=== PATIENT | male | born 1955 | race Caucasian/White ===

== ENCOUNTER 2020-04-17 11:37 | Inpatient (IN) | payer MEDICARE, MEDICAID, SELFPAY ==
--- NOTE | 2020-04-17 11:41 | ED_ITS ---
HPI - SOB/Dyspnea General Chief Complaint: Dyspnea Stated Complaint: RESPIRATORY DISTRESS ON CPAP Time Seen by Provider: 04/17/20 11:41 Source: patient and EMS Mode of arrival: EMS Limitations: physical limitation (respiratory distress) History of Present Illness MD elicited complaint: shortness of breath Pertinent past history: COPD Onset (ago): day(s) (yesterday) Context: anxiety Timing: constant Severity: severe Exacerbating factors: exertion, movement, coughing and smoke Relieving factors: oxygen, rest and bronchodilators Known history of: COPD Associated symptoms: chest pain, cough and wheezing Treatment prior to arrival: bronchodilator, NIPPV (found to be in 80s by EMS) and other (IV solumedrol) Related Data Home Medications Medication Instructions Recorded Confirmed albuterol sulfate [Ventolin HFA] 2 puff PO Q4-6H PRN 04/17/20 04/17/20 amiodarone 200 mg PO DAILY 04/17/20 04/17/20 amlodipine 1 tab PO DAILY 04/17/20 04/17/20 aspirin 1 tab PO DAILY 04/17/20 04/17/20 atorvastatin 80 mg PO BEDTIME 04/17/20 04/17/20 clopidogrel 75 mg PO DAILY 04/17/20 04/17/20 furosemide 40 mg PO DAILY 04/17/20 04/17/20 gabapentin 1 cap PO TID 04/17/20 04/17/20 insulin aspart U-100 [Novolog 8 unit SUBCUT TIDAC 04/17/20 04/17/20 Flexpen U-100 Insulin] insulin glargine [Lantus U-100 35 unit SUBCUT QPM 04/17/20 04/17/20 Insulin] losartan 1 tab PO DAILY 04/17/20 04/17/20 metoprolol succinate 1 tab PO DAILY 04/17/20 04/17/20 montelukast 10 mg PO BEDTIME 04/17/20 04/17/20 pantoprazole [Protonix] 40 mg PO DAILY 04/17/20 04/17/20 quetiapine 100 mg PO BEDTIME 04/17/20 04/17/20 sertraline 1 tab PO DAILY 04/17/20 04/17/20 sertraline 1 tab PO DAILY 04/17/20 04/17/20 tamsulosin 1 cap PO DAILY 04/17/20 04/17/20 umeclidinium [Incruse Ellipta] 1 inh INHALATION DAILY 04/17/20 04/17/20 Allergies Allergy/AdvReac Type Severity Reaction Status Date / Time nitroglycerin [NITROGLYCERIN] Allergy Severe CARDIOPULMONARY Verified 04/17/20 11:57 ARREST 2012 adhesive tape [Adhesive Tape] Allergy Mild BLISTERS Verified 04/17/20 11:57 cephalexin [From Keflex] Allergy Unknown ITCHING Verified 04/17/20 11:57 ciprofloxacin [From Cipro] Allergy Unknown ITCHING Verified 04/17/20 11:57 latex [LATEX] Allergy Unknown UNKNOWN Verified 04/17/20 11:57 morphine [Morphine] Allergy Unknown ITCHING Verified 04/17/20 11:57 tramadol [From ULTRAM] AdvReac Severe STOMACH Verified 04/17/20 11:57 UPSET Adhesive Tape 1 x5yd Allergy Unknown Hives Uncoded 04/17/20 11:57 Diltiazem HCl Allergy Unknown Unknown Uncoded 04/17/20 11:57 Latex Gloves Allergy Unknown Unknown Uncoded 04/17/20 11:57 Review of Systems Review of Systems: ROS unable to be obtained due to patient's respirator distress PENDING SALE TO [facility] Past Medical History Medical History Asthma Atrial fibrillation BiPAP (biphasic positive airway pressure) dependence CHF (congestive heart failure) Continuous positive airway pressure dependent COPD (chronic obstructive pulmonary disease) Diabetes mellitus, type 2 Social History Social History Alcohol intake: current Alcohol intake frequency: holidays/special occasions only Alcohol type: beer Smoking Status: Current every day smoker Smoked in Last 30 Days: Yes Use of substances other than those prescribed or required for medical reasons: No Advance Directives: Yes Advance Directives Information Provided: Yes Advance Directives on File: No Physical Exam Vital Signs and I&O and Narrative: Vital Signs and I&O: Vital Signs Temp 97.9 F 04/17/20 11:42 Pulse 108 H 04/17/20 11:51 Resp 22 H 04/17/20 11:51 BP 180/113 H 04/17/20 11:51 Pulse Ox 93 04/17/20 11:51 Intake & Output 04/16/20 04/17/20 04/17/20 18:59 06:59 18:59 Intake Total 50 / 50 Balance 50 / 50 Weight 101.605 kg Intake: Intake, IV Amoun t 50 / 50 Magnesium Sulf ate/H2O 2 gm In 50 / 50 50 ml @ 50 mls /hr IV ONCE ONE Rx#:[id number] Body Mass Index 39.6 Appearance: Alert. Oriented X3. Moderate respiratory distress Eyes: Pupils equal, round and reactive to light. ENT: Pharynx normal. Neck: Normal inspection. Neck supple. CVS: Tachycardia heart rate and rhythm. Pulses normal. Respiratory: Moderate respiratory distress. Breath sounds diminished throughout Abdomen: Soft and nontender. Skin: Skin warm and dry. Normal skin color. Normal skin turgor. Extremities: No lower extremity edema. No lower extremity edema. Neuro: Oriented X 3. No motor deficit. No sensory deficit. Course Course Course Narrative: RR 16, BP 168/89 95% on Bipap wants to try to come off, overall doing better, on 4L NC at this time Reevaluation(s) Reevaluation #1: doing better on 40% on venti mask, planned [facility] admit Reevaluation #2: patient now c/o pain typical in nature - pain from his breathing, very belligerent, threatening to fire me as a provider even though I am the only physician in the ED, one dose of IV fentanyl ordered MDM - SOB/Dyspnea MDM Narrative Medical decision making narrative: 64 yo male with COPD still smokes and hx of noncompliance comes in with resp distress on bipap already given steroids will continue on bipap, labs, cultures, IV fentanyl for anxiety (hx of help in past) hour long 10mg neb, no infectious symptoms noted, his acute on chronic respiratory failure and bipap use is due to viral infection and non compliance and not infection or severe sepsis, likely admit Lab Data Result diagrams: 04/17/20 14:18 Labs: Lab Results 04/17/20 04/17/20 04/17/20 Range/Units 11:51 12:35 14:18 WBC 8.7 (4.8-10.8) X10*3/uL RBC 5.78 (4.60-5.80) X10*6/uL Hgb 16.0 (14.0-18.0) g/dl Hct 47.9 (42-52) % MCV 82.9 (80-98) fL MCH 27.7 (27.0-33.0) pg MCHC 33.4 (31.0-36.0) g/dl RDW 13.2 (11.0-16.0) % Plt Count 210 (160-400) X10*3/uL MPV 10.9 (9.4-12.4) fL Hold Blue Top ABG pH 7.38 (7.35-7.45) ABG pCO2 50 H (32-45) mmhg ABG pO2 241 H (83-108) mmhg ABG HCO3 29 H (22-26) mmol/l ABG O2 Saturation 99.3 % ABG Base Excess 2.5 Oxygen Given 50% POC Glucose 351 H* (60-115) mg/dL 04/17/20 Range/Units 14:30 WBC (4.8-10.8) X10*3/uL RBC (4.60-5.80) X10*6/uL Hgb (14.0-18.0) g/dl Hct (42-52) % MCV (80-98) fL MCH (27.0-33.0) pg MCHC (31.0-36.0) g/dl RDW (11.0-16.0) % Plt Count (160-400) X10*3/uL MPV (9.4-12.4) fL Hold Blue Top SEE NOTE ABG pH (7.35-7.45) ABG pCO2 (32-45) mmhg ABG pO2 (83-108) mmhg ABG HCO3 (22-26) mmol/l ABG O2 Saturation % ABG Base Excess Oxygen Given POC Glucose (60-115) mg/dL ECG Data ECG interpretation date: 04/17/20 ECG interpretation time: 12:01 Interpretation: Rate: 119 Rhythm: sinus tachycardia [place]: normal Normal P waves. Normal CHIP. Normal QRS complex. poor R wave progression ST T wave : nonspecific qTC:normal prior studies: no acute ischemia, there is too much artifact The study has been interpreted contemporaneously by me. . Critical Care Time Critical Care Time Critical Care Time: Yes Total Critical Care Time: 60 Attestation: I personally attest to this time spent taking care of the patient Discharge Plan Discharge Prescriptions: No Action furosemide 40 mg Tablet 40 mg PO DAILY RF: 0 atorvastatin 80 mg Tablet 80 mg PO BEDTIME RF: 0 amiodarone 200 mg Tablet 200 mg PO DAILY RF: 0 clopidogrel 75 mg Tablet 75 mg PO DAILY RF: 0 pantoprazole [Protonix] 40 mg Tablet,Delayed Release (Dr/Ec) 40 mg PO DAILY RF: 0 sertraline 25 mg tablet 1 tab PO DAILY RF: 0 aspirin 81 mg tablet,chewable 1 tab PO DAILY RF: 0 montelukast 10 mg Tablet 10 mg PO BEDTIME RF: 0 amlodipine 5 mg tablet 1 tab PO DAILY RF: 0 gabapentin 300 mg capsule 1 cap PO TID RF: 0 Incruse Ellipta 62.5 mcg/actuation blister with device 1 inh inhalation DAILY RF: 0 losartan 50 mg tablet 1 tab PO DAILY RF: 0 metoprolol succinate 50 mg tablet extended release 24 hr 1 tab PO DAILY RF: 0 quetiapine 100 mg tablet 100 mg PO BEDTIME RF: 0 insulin aspart U-100 [Novolog Flexpen U-100 Insulin] 100 unit/mL (3 mL) insulin pen 8 unit subcut TIDAC RF: 0 sertraline 25 mg tablet 1 tab PO DAILY RF: 0 Lantus U-100 Insulin 100 unit/mL Solution 35 unit SUBCUT QPM RF: 0 tamsulosin 0.4 mg capsule 1 cap PO DAILY RF: 0 albuterol sulfate [Ventolin HFA] 90 mcg/actuation HFA aerosol inhaler 2 puff PO Q4-6H PRN (Reason: Shortness Of Breath) RF: 0
[2020-04-17 11:42] VITALS: BP 179/119; BP 195/122; PULSE 116; PULSE 120; RESP 40; TEMP 36.6; O2SAT 95; O2SAT 96; BMI 39.6
--- NOTE | 2020-04-17 11:44 | ECG_ITS ---
Test Reason : SOB Blood Pressure : / mmHG Vent. Rate : 119 BPM Atrial Rate : 119 BPM P-R Int : 142 ms QRS Dur : 094 ms QT Int : 330 ms P-R-T Axes : 038 063 040 degrees QTc Int : 464 ms Poor data quality, interpretation may be adversely affected Sinus tachycardia Nonspecific T wave abnormality Abnormal ECG When compared with ECG of 25-JAN-2020 16:40, Premature ventricular complexes are no longer Present Referred By: Kylah Conte Electronically Signed By:BEV NOWAK
--- NOTE | 2020-04-17 11:45 | XR_ITS ---
EXAMINATION: XR CHEST CLINICAL INFORMATION: Dyspnea COMPARISON: Previous chest x-rays most recent January 2020 TECHNIQUE: Frontal view of the chest was obtained. FINDINGS: The cardiac silhouette may be slightly enlarged but stable. Hilar and mediastinal contours are otherwise unremarkable. There are increased markings at the right lung base questionable for atelectasis or small infiltrate. The lungs are otherwise clear. There is no pleural effusion. No acute bone abnormality is seen. IMPRESSION: Atelectasis or small infiltrate at the right lung base.
[2020-04-17 11:47] VITALS: RESP 40
[2020-04-17 11:51] VITALS: BP 180/113; PULSE 108; RESP 22; O2SAT 93
[2020-04-17] MEDS: Magnesium Sulfate/H2O 2 GM/50 ML PIGGYBACK IV (11:53)
[2020-04-17] MEDS: fentaNYL citrate/PF 100 MCG/2 ML VIAL 50 MCG IVPUSH ×2 (11:53→15:05)
[2020-04-17 11:55] LABS: Glucose, Whole Blood 351 mg/dL (60-115)
[2020-04-17] MEDS: Albuterol Sulfate (0.083%) 2.5 MG/3 ML VIAL.NEB 10 MG INHALE (12:05)
[2020-04-17] MEDS: Furosemide 40 MG/4 ML VIAL IVPUSH ×2 (12:52→20:06)
[2020-04-17 13:05] LABS: Pt Ventilation O2% 50%
[2020-04-17 13:08] LABS: ABG PCO2 50 mmhg (32-45); Base Excess ABG 2.5; HCO3 ABG 29 mmol/l (22-26); Oxygen Saturation ABG 99.3 %; PO2 ABG 241 mmhg (83-108); pH ABG 7.38 (7.35-7.45)
--- NOTE | 2020-04-17 14:22 | PC.NURSE ---
MULTIPLE VENIPUNCTURE STICKS TO OBTAIN BLOOD LABS, PROVIDER AWARE. NEED CX FOR ABX. PT STS FEELING BETTER, WEENED ONTO VENTI MASK. PT CONVERSING W STAFF W/O RESP DIFFICULTY
[2020-04-17 14:33] LABS: Basophils Percent Auto 0.3 % (0-2); Eosinophils Percent Auto 0.1 % (0-4); Hematocrit 47.9 % (42-52); Imm Gran Abs Auto 0.06 X10*3/uL (0.00-0.03); Imm Gran Pct Auto 0.7 % (0.0-0.4); Lymphocytes Absolute Auto 0.6 X10*3/uL (1.2-4.9); Lymphocytes Percent Auto 6.4 % (20-40); MANUAL DIFF FLAG SCAN; Mean Corpuscular HGB Conc 33.4 g/dl (31.0-36.0); Mean Corpuscular Hemoglobin 27.7 pg (27.0-33.0); Mean Corpuscular Volume 82.9 fL (80-98); Mean Platelet Volume 10.9 fL (9.4-12.4); Monocytes Absolute Auto 0.1 X10*3/uL (0.1-1.2); Monocytes Percent Auto 1.3 % (2-11); Neutrophils Absolute Auto 7.9 X10*3/uL (2.0-8.3); Neutrophils Percent Auto 91.2 % (45-73); Platelet Count 210 X10*3/uL (160-400); Red Blood Count 5.78 X10*6/uL (4.60-5.80); Red Cell Distribution Width 13.2 % (11.0-16.0); SCAN SMEAR FLAG 1; White Blood Count 8.7 X10*3/uL (4.8-10.8)
[2020-04-17 14:47] LABS: Glucose Urine UA 500 MG/DL (NEG); Leukocyte Esterase Urine NEG (NEG); Nitrite Urine NEG (NEG); Specific Gravity - Urine 1.015 (1.005-1.025); Urine Blood NEG (NEG); Urine Ketones NEG (NEG); Urine Protein NEG (NEG-TRACE)
[2020-04-17 14:48] LABS: Appearance Urine CLEAR; Color Urine YELLOW; UACC Culture Trigger NO
[2020-04-17 14:51] LABS: Adenovirus PCR Not Detected (Not Detect.); Bordetella parapertussis PCR Not Detected (Not Detect.); Bordetella pertussis PCR Not Detected (Not Detect.); Chlamydia pneumoniae PCR Not Detected (Not Detect.); Coronavirus 229E PCR Not Detected (Not Detect.); Coronavirus HKU1 PCR Not Detected (Not Detect.); Coronavirus NL63 PCR Not Detected (Not Detect.); Coronavirus OC43 PCR Not Detected (Not Detect.); Human metapneumovirus PCR Not Detected (Not Detect.); Influenza A PCR Not Detected (Not Detect.); Influenza B PCR Not Detected (Not Detect.); Mycoplasma pneumoniae PCR Not Detected (Not Detect.); Parainfluenza 1 PCR Not Detected (Not Detect.); Parainfluenza 2 PCR Not Detected (Not Detect.); Parainfluenza 3 PCR Not Detected (Not Detect.); Parainfluenza 4 PCR Not Detected (Not Detect.); RSV PCR Not Detected (Not Detect.); Rhino/Enterovirus PCR Not Detected (Not Detect.); SARS-CoV-2 PCR Not Detected (Not Detect.)
[2020-04-17 14:57] LABS: WBC Urine 0 /HPF (0-4)
[2020-04-17 14:58] LABS: RBC Urine 0 /HPF (0); Squamous Epithelial Cell Urine TRACE /LPF
[2020-04-17] MEDS: levoFLOXacin/D5W 500 MG/100 ML PIGGYBACK 100 MG IV (14:58)
[2020-04-17 15:06] LABS: SLIDE REVIEW VERIFIED
[2020-04-17 15:07] LABS: Alanine Aminotransferase 17 U/L (0-40); Albumin Level 4.4 g/dL (3.5-5.0); Alkaline Phosphatase 110 U/L (39-117); Anion Gap 15 (12-20); Aspartate Amino Transferase 14 U/L (5-37); Bilirubin Direct 0.2 mg/dL (0.0-0.5); Bilirubin Total 0.6 mg/dL (0.0-1.0); Blood Urea Nitrogen 16 mg/dL (9-16); Calcium 9.1 mg/dL (8.4-10.2); Carbon Dioxide 24 mmol/L (22-29); Chloride 105 mmol/L (96-108); Creatinine Clr Calc Pharmacy 67.7; Estimated Glomerular Filt Rate > 60; Glucose Random 307 mg/dL (60-115); Lipase 11 U/L (8-78); Magnesium 2.5 mg/dL (1.6-2.6); Potassium 4.5 mmol/l (3.3-5.1); Sodium 139 mmol/L (135-145); Total Protein 6.9 g/dL (6.5-8.0)
[2020-04-17 15:14] LABS: Lactic Acid 2.9 mmol/L (0.5-2.0)
[2020-04-17 15:20] LABS: B Type Natriuretic Peptide 538 pg/mL (<100); Troponin-I High Sensitivity 50.3 ng/L (<3.5-35.0)
[2020-04-17] MEDS: 0.9 % Sodium Chloride 500 ML IV (16:06)
--- NOTE | 2020-04-17 16:09 | PC.NURSE ---
medicated per emar, hospitalist at bedside for eval
[2020-04-17 16:35] LABS: Reflex Lactate? Lactic Acid Added
--- NOTE | 2020-04-17 16:54 | PM.IMHP ---
History of Present Illness Date of Service: 04/17/20 <KLEVER Young - Last Filed: 04/17/20 20:45> Chief Complaint: SHORTNESS OF BREATH <KLEVER Young - Last Filed: 04/17/20 20:45> this is a 64-year-old male with a history of COPD on 3 L of home O2 who presents to the emergency department with complaints of shortness of breath. he reports onset of shortness of breath yesterday. He denies any associated fever or chills. He was initially placed on BiPAP and was able to be weaned off. Lab work revealed no leukocytosis. He did have mild elevation in lactic acid at 2.9. There is possible pneumonia seen at the right lung base and he was given a dose of IV Levaquin. His BNP was 538 and he received a dose of IV Lasix as well. <KLEVER Young - Last Filed: 04/17/20 20:45> Review of Systems Review of Systems: Yes all other systems are reviewed and are negative <KLEVER Young - Last Filed: 04/17/20 20:45> Constitutional: Constitutional: Denies chills and Denies fever(s) <KLEVER Young - Last Filed: 04/17/20 20:45> Cardiovascular: Cardiovascular: Denies chest pain and Reports dyspnea <KLEVER Young - Last Filed: 04/17/20 20:45> Respiratory: Respiratory: Reports dyspnea <KLEVER Young - Last Filed: 04/17/20 20:45> Gastrointestinal: Gastrointestinal: Denies abdominal pain <KLEVER Young - Last Filed: 04/17/20 20:45> [facility] Medical History: Medical History Asthma Atrial fibrillation BPH (benign prostatic hyperplasia) CAD (coronary artery disease) Continuous positive airway pressure dependent COPD (chronic obstructive pulmonary disease) Deep vein thrombosis (DVT) of right upper extremity Diabetes mellitus, type 2 GERD (gastroesophageal reflux disease) HTN (hypertension) ELI (obstructive sleep apnea) Streptococcal bacteremia Systolic CHF <KLEVER Young Last Filed: 04/17/20 20:45> Pertinent family history: CAD <KLEVER Young - Last Filed: 04/17/20 20:45> Surgical History: Surgical History History of tracheostomy S/P diskectomy <KLEVER Young - Last Filed: 04/17/20 20:45> Social History: Social History Household Members: Family Housing: Apartment 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 If so, by whom?: No Do you feel safe in your current relationship?: No Is there a partner from a previous relationship who is making you feel unsafe now?: No Are you made to feel afraid or neglected: No Advance Directives: Yes Advance Directives Information Provided: Yes Advance Directives on File: No Advance Directives Date on File: 04/18/20 Do you have thoughts of harming others: None Do you have a plan to hurt others: No Plan Recently lost weight without trying: No service: No Current occupational status: disabled <KLEVER Young - Last Filed: 04/17/20 20:45> Meds Allergies/Adverse reactions: Allergies Allergy/AdvReac Type Severity Reaction Status Date / Time nitroglycerin [NITROGLYCERIN] Allergy Severe CARDIOPULMONARY Verified 04/17/20 11:57 ARREST 2011 adhesive tape [Adhesive Tape] Allergy Mild BLISTERS Verified 04/17/20 11:57 cephalexin [From Keflex] Allergy Unknown ITCHING Verified 04/17/20 11:57 ciprofloxacin [From Cipro] Allergy Unknown ITCHING Verified 04/17/20 11:57 latex [LATEX] Allergy Unknown UNKNOWN Verified 04/17/20 11:57 morphine [Morphine] Allergy Unknown ITCHING Verified 04/17/20 11:57 tramadol [From ULTRAM] AdvReac Severe STOMACH Verified 04/17/20 11:57 UPSET Adhesive Tape 1 x5yd Allergy Unknown Hives Uncoded 04/17/20 11:57 Diltiazem HCl Allergy Unknown Unknown Uncoded 04/17/20 11:57 Latex Gloves Allergy Unknown Unknown Uncoded 04/17/20 11:57 <KLEVER Young - Last Filed: 04/17/20 20:45> Home medications: Home Medications Medication Instructions Recorded Confirmed Type albuterol sulfate [Ventolin HFA] 2 puff PO Q4-6H PRN 04/17/20 04/17/20 History amiodarone 200 mg PO DAILY 04/17/20 04/17/20 History amlodipine 1 tab PO DAILY 04/17/20 04/17/20 History apixaban [Eliquis] 5 mg PO BID 04/17/20 04/17/20 History aspirin 1 tab PO DAILY 04/17/20 04/17/20 History atorvastatin 80 mg PO BEDTIME 04/17/20 04/17/20 History clopidogrel 75 mg PO DAILY 04/17/20 04/17/20 History furosemide 40 mg PO DAILY 04/17/20 04/17/20 History gabapentin 1 cap PO TID 04/17/20 04/17/20 History insulin aspart U-100 [Novolog 8 unit SUBCUT TIDAC 04/17/20 04/17/20 History Flexpen U-100 Insulin] insulin glargine [Lantus U-100 35 unit SUBCUT QPM 04/17/20 04/17/20 History Insulin] losartan 1 tab PO DAILY 04/17/20 04/17/20 History metoprolol succinate 1 tab PO DAILY 04/17/20 04/17/20 History montelukast 10 mg PO BEDTIME 04/17/20 04/17/20 History pantoprazole [Protonix] 40 mg PO DAILY 04/17/20 04/17/20 History quetiapine 100 mg PO BEDTIME 04/17/20 04/17/20 History sertraline 1 tab PO DAILY 04/17/20 04/17/20 History sertraline 1 tab PO DAILY 04/17/20 04/17/20 History tamsulosin 1 cap PO DAILY 04/17/20 04/17/20 History umeclidinium [Incruse Ellipta] 1 inh INHALATION DAILY 04/17/20 04/17/20 History <KLEVER Young - Last Filed: 04/17/20 20:45> Physical Exam Vital Signs and Narrative: Vital Signs: Last Vital Signs Temp 97.9 F 04/17/20 11:42 Pulse 108 H 04/17/20 11:51 Resp 22 H 04/17/20 11:51 BP 180/113 H 04/17/20 11:51 Pulse Ox 93 04/17/20 11:51 Body Mass Index 39.6 <KLEVER Young - Last Filed: 04/17/20 20:45> Const: Nutritional Appearance: well nourished <KLEVER Young Last Filed: 04/17/20 20:45> Orientation/consciousness: patient oriented x3 <KLEVER Young Last Filed: 04/17/20 20:45> HENMT: Head: Yes normocephalic and Yes atraumatic <KLEVER Young Last Filed: 04/17/20 20:45> Eyes: Sclerae: sclerae normal <KLEVER Young Last Filed: 04/17/20 20:45> Chest: Chest palpation & inspection: normal inspection of the chest <KLEVER Young Last Filed: 04/17/20 20:45> Cardio: Rate: regular rate <KLEVER Young Last Filed: 04/17/20 20:45> Rhythm: regular rhythm <KLEVER Young Last Filed: 04/17/20 20:45> GI: Palpation (GI): Soft to palpation and nontender <KLEVER Young Last Filed: 04/17/20 20:45> Skin: General skin exam: no rashes or lesions noted <KLEVER Young Last Filed: 04/17/20 20:45> Neuro: General: patient oriented x3 <KLEVER Young Last Filed: 04/17/20 20:45> Cranial nerves: Yes CN's II-XII intact bilaterally and Yes Bilaterally intact EOM present <KLEVER Young - Last Filed: 04/17/20 20:45> Extrem: General: Yes normal to inspection <KLEVER Young - Last Filed: 04/17/20 20:45> Results Labs Labs: Laboratory Tests 04/17/20 04/17/20 04/17/20 11:51 12:35 14:18 WBC 8.7 RBC 5.78 Hgb 16.0 Hct 47.9 MCV 82.9 MCH 27.7 MCHC 33.4 RDW 13.2 Plt Count 210 MPV 10.9 Immature Gran % (Auto) 0.7 H Neut % (Auto) 91.2 H Lymph % (Auto) 6.4 L [place] % (Auto) 1.3 L Eos % (Auto) 0.1 Baso % (Auto) 0.3 Neut # (Auto) 7.9 Lymph # (Auto) 0.6 L [place] # (Auto) 0.1 Eos # (Auto) 0.0 Baso # (Auto) 0.0 Abs Immat Gran (auto) 0.06 H Absolute Nucleated RBC 0.000 Nucleated RBC % (auto) 0.0 Smear Tech's Comments VERIFIED Hold Blue Top ABG pH 7.38 ABG pCO2 50 H ABG pO2 241 H ABG HCO3 29 H ABG O2 Saturation 99.3 ABG Base Excess 2.5 Oxygen Given 50% Sodium Potassium Chloride Carbon Dioxide Anion Gap BUN Creatinine Estim Creat Clear Calc Estimated GFR POC Glucose 351 H* Random Glucose Lactic Acid Calcium Magnesium Total Bilirubin Direct Bilirubin AST ALT Alkaline Phosphatase Troponin I High Sens B-Natriuretic Peptide Total Protein Albumin Lipase Urine Color Urine Appearance Urine pH Ur Specific [place] Urine Protein Urine Glucose (UA) Urine Ketones Urine Blood Urine Nitrite Ur Leukocyte Esterase Urine RBC Urine WBC Ur Squamous Epith Cells Urine Bacteria Respiratory Panel [place] Adenovirus (Rapid PCR) B.pert (TEM-PCR) B.parapertussis DNA PCR C. pneumoniae DNA (PCR) Coronavirus OC43 (PCR) Coronavirus HKU1 (PCR) Coronavirus 229E (PCR) Coronavirus NL63 (PCR) Human Metapneumovir PCR Influenza A (RT-PCR) Influenza B (RT-PCR) M. pneumoniae (PCR) Parainfluenza 1 (PCR) Parainfluenza 2 (PCR) Parainfluenza 3 (PCR) Parainfluenza 4 (PCR) RSV (PCR) Entero/Rhino (PCR) SARS-CoV-2 RNA (RT-PCR) 04/17/20 04/17/20 04/17/20 14:18 14:30 14:30 WBC RBC Hgb Hct MCV MCH MCHC RDW Plt Count MPV Immature Gran % (Auto) Neut % (Auto) Lymph % (Auto) [place] % (Auto) Eos % (Auto) Baso % (Auto) Neut # (Auto) Lymph # (Auto) [place] # (Auto) Eos # (Auto) Baso # (Auto) Abs Immat Gran (auto) Absolute Nucleated RBC Nucleated RBC % (auto) Smear Tech's Comments Hold Blue Top SEE NOTE ABG pH ABG pCO2 ABG pO2 ABG HCO3 ABG O2 Saturation ABG Base Excess Oxygen Given Sodium 139 Potassium 4.5 Chloride 105 Carbon Dioxide 24 Anion Gap 15 BUN 16 Creatinine 1.18 Estim Creat Clear Calc 67.7 Estimated GFR > 60 POC Glucose Random Glucose 307 H Lactic Acid 2.9 H* Calcium 9.1 Magnesium 2.5 Total Bilirubin 0.6 Direct Bilirubin 0.2 AST 14 ALT 17 Alkaline Phosphatase 110 Troponin I High Sens B-Natriuretic Peptide Total Protein 6.9 Albumin 4.4 Lipase 11 Urine Color Urine Appearance Urine pH Ur Specific [place] Urine Protein Urine Glucose (UA) Urine Ketones Urine Blood Urine Nitrite Ur Leukocyte Esterase Urine RBC Urine WBC Ur Squamous Epith Cells Urine Bacteria Respiratory Panel [place] Adenovirus (Rapid PCR) B.pert (TEM-PCR) B.parapertussis DNA PCR C. pneumoniae DNA (PCR) Coronavirus OC43 (PCR) Coronavirus HKU1 (PCR) Coronavirus 229E (PCR) Coronavirus NL63 (PCR) Human Metapneumovir PCR Influenza A (RT-PCR) Influenza B (RT-PCR) M. pneumoniae (PCR) Parainfluenza 1 (PCR) Parainfluenza 2 (PCR) Parainfluenza 3 (PCR) Parainfluenza 4 (PCR) RSV (PCR) Entero/Rhino (PCR) SARS-CoV-2 RNA (RT-PCR) 04/17/20 04/17/20 04/17/20 14:30 14:38 14:47 WBC RBC Hgb Hct MCV MCH MCHC RDW Plt Count MPV Immature Gran % (Auto) Neut % (Auto) Lymph % (Auto) [place] % (Auto) Eos % (Auto) Baso % (Auto) Neut # (Auto) Lymph # (Auto) [place] # (Auto) Eos # (Auto) Baso # (Auto) Abs Immat Gran (auto) Absolute Nucleated RBC Nucleated RBC % (auto) Smear Tech's Comments Hold Blue Top ABG pH ABG pCO2 ABG pO2 ABG HCO3 ABG O2 Saturation ABG Base Excess Oxygen Given Sodium Potassium Chloride Carbon Dioxide Anion Gap BUN Creatinine Estim Creat Clear Calc Estimated GFR POC Glucose Random Glucose Lactic Acid Calcium Magnesium Total Bilirubin Direct Bilirubin AST ALT Alkaline Phosphatase Troponin I High Sens 50.3 H B-Natriuretic Peptide 538 H Total Protein Albumin Lipase Urine Color YELLOW Urine Appearance CLEAR Urine pH 6.0 Ur Specific [place] 1.015 Urine Protein NEG Urine Glucose (UA) 500 H Urine Ketones NEG Urine Blood NEG Urine Nitrite NEG Ur Leukocyte Esterase NEG Urine RBC 0 Urine WBC 0 Ur Squamous Epith Cells TRACE Urine Bacteria NONE Respiratory Panel [place] See Note Adenovirus (Rapid PCR) Not Detected B.pert (TEM-PCR) Not Detected B.parapertussis DNA PCR Not Detected C. pneumoniae DNA (PCR) Not Detected Coronavirus OC43 (PCR) Not Detected Coronavirus HKU1 (PCR) Not Detected Coronavirus 229E (PCR) Not Detected Coronavirus NL63 (PCR) Not Detected Human Metapneumovir PCR Not Detected Influenza A (RT-PCR) Not Detected Influenza B (RT-PCR) Not Detected M. pneumoniae (PCR) Not Detected Parainfluenza 1 (PCR) Not Detected Parainfluenza 2 (PCR) Not Detected Parainfluenza 3 (PCR) Not Detected Parainfluenza 4 (PCR) Not Detected RSV (PCR) Not Detected Entero/Rhino (PCR) Not Detected SARS-CoV-2 RNA (RT-PCR) Not Detected <KLEVER Young - Last Filed: 04/17/20 20:45> Assessment and Plan (1) Acute and chronic respiratory failure: Status: Acute <KLEVER Young Last Filed: 04/17/20 20:45> (2) Deep vein thrombosis (DVT) of right upper extremity: Problem details: [place] [facility] [place] <KLEVER Young Last Filed: 04/17/20 20:45> Status: Acute <KLEVER Young - Last Filed: 04/17/20 20:45> (3) ELI (obstructive sleep apnea): Status: Acute <KLEVER Young - Last Filed: 04/17/20 20:45> (4) Systolic CHF: Problem details: EF 25% 02/2020 <KLEVER Young - Last Filed: 04/17/20 20:45> Status: Acute <KLEVER Young - Last Filed: 04/17/20 20:45> (5) Acute exacerbation of chronic obstructive airways disease: Status: Acute <KLEVER Young - Last Filed: 04/17/20 20:45> (6) Hypertension: Qualifiers: Hypertension type: unspecified Qualified Code(s): I10 - Essential (primary) hypertension <KLEVER Young - Last Filed: 04/17/20 20:45> Status: Acute <KLEVER Young - Last Filed: 04/17/20 20:45> (7) CAD (coronary artery disease): Status: Acute <KLEVER Young - Last Filed: 04/17/20 20:45> (8) GERD (gastroesophageal reflux disease): Status: Acute <KLEVER Young - Last Filed: 04/17/20 20:45> (9) Diabetes mellitus, type 2: Status: Acute <KLEVER Young - Last Filed: 04/17/20 20:45> (10) Atrial fibrillation: Status: Acute <KLEVER Young - Last Filed: 04/17/20 20:45> acute on chronic respiratory failure Likely multifactorial related to underlying COPD, CHF right upper extremity DVT continue Eliquis elevated lactic acid possibly related to hypoxia no sepsis acute on chronic systolic CHF acute exacerbation IV Lasix monitor fluid status closely follow BNP acute COPD exacerbation IV Solu-Medrol scheduled and p.r.n. breathing treatments hypertension continue Norvasc, losartan CAD no chest pain troponin chronically elevated, will trend continue Plavix, statin aspirin discontinued when started on Eliquis GERD continue PPI diabetes continue home Lantus SSI, POC ADA diet ELI continue CPAP atrial fibrillation continue amiodarone, metoprolol DVT prophylaxis- Eliquis this case was discussed with Dr. Sanchez <KLEVER Young - Last Filed: 04/17/20 20:45>
--- NOTE | 2020-04-17 18:20 | PC.NURSE ---
report given to c ariel juarez
[2020-04-17 18:49] VITALS: BP 137/96; PULSE 96; RESP 28; O2SAT 95
[2020-04-17 19:05] VITALS: BP 137/96; PULSE 97; RESP 28; TEMP 36.7; O2SAT 95
[2020-04-17 19:18] LABS: Glucose, Whole Blood 302 mg/dL (60-115)
[2020-04-17 19:39] LABS: ~Lactic Acid-LAB USE ONLY 2.7 mmol/L (0.5-2.0)
[2020-04-17 19:52] LABS: Procalcitonin 0.02 ng/mL
[2020-04-17 20:00] VITALS: PULSE 102; O2SAT 96
[2020-04-17] MEDS: HYDROmorphone HCl 1 MG/ML SYRINGE IVPUSH (20:06)
[2020-04-17 20:15] LABS: Troponin-I High Sensitivity 36.2 ng/L (<3.5-35.0)
[2020-04-17] MEDS: Albuterol/Iprat 2.5/0.5MG 3 ML AMPUL.NEB INHALE (20:19)
[2020-04-17 21:06] LABS: Reflex Lactate? 2 Y
[2020-04-17 21:31] LABS: Glucose, Whole Blood 408 mg/dL (60-115)
[2020-04-17] MEDS: QUEtiapine Fumarate 100 MG TABLET PO (21:45)
[2020-04-17] MEDS: Atorvastatin Calcium 80 MG TABLET PO (21:45)
[2020-04-17] MEDS: Gabapentin 300 MG CAPSULE PO (21:45)
[2020-04-17] MEDS: Apixaban 5 MG TABLET PO (21:45)
[2020-04-17] MEDS: Montelukast Sodium 10 MG TABLET PO (21:45)
[2020-04-17] MEDS: Insulin Glargine,Hum.rec.anlog 100 UNIT/ML 10 ML VIAL 35 UNIT SUBCUT (21:46)
[2020-04-17] MEDS: Insulin Lispro 100 UNIT/ML 3 ML VIAL SUBCUT (21:48)
[2020-04-17] MEDS: 0.9 % Sodium Chloride Flush 3 ML SYRINGE 2 ML IVFLUSH (21:48)
[2020-04-17 22:30] LABS: Glucose, Whole Blood 446 mg/dL (60-115)
[2020-04-17 23:11] LABS: ~Lactic Acid-LAB USE ONLY 3.6 mmol/L (0.5-2.0)
[2020-04-18] VITALS: BP 142/68; PULSE 93; RESP 20; O2SAT 96
--- NOTE | 2020-04-18 | XR_ITS ---
EXAMINATION: RIGHT HAND 3 VIEWS CLINICAL INFORMATION: Wrist pain. COMPARISON: None. TECHNIQUE: PA, lateral, oblique views of the right hand were obtained. FINDINGS: There is normal alignment of the osseous structures. No fractures are demonstrated. There is mild narrowing at the 1st and 2nd carpometacarpal joints. No other radiodense foreign bodies are demonstrated. There is an intravenous catheter along the dorsal aspect of the hand, with minimal soft tissue swelling. There is no significant soft tissue swelling elsewhere. IMPRESSION: 1. There are no acute fractures or subluxations. There are mild arthritic changes in the medial wrist. Dorsal IV catheter as described.
[2020-04-18] MEDS: Insulin Regular, Human 100 UNIT/ML 3 ML VIAL 8 UNIT IVPUSH (00:51)
[2020-04-18] MEDS: HYDROmorphone HCl 1 MG/ML SYRINGE IVPUSH ×4 (01:07→18:34)
[2020-04-18] MEDS: Albuterol Sulfate (0.083%) 2.5 MG/3 ML VIAL.NEB INHALE ×3 (02:41→12:45)
[2020-04-18 04:00] VITALS: PULSE 90
[2020-04-18 06:53] LABS: Basophils Percent Auto 0.1 % (0-2); Hematocrit 42.9 % (42-52); Hemoglobin 14.5 g/dl (14.0-18.0); Imm Gran Pct Auto 0.6 % (0.0-0.4); Lymphocytes Absolute Auto 0.5 X10*3/uL (1.2-4.9); MANUAL DIFF FLAG SCAN; Mean Corpuscular HGB Conc 33.8 g/dl (31.0-36.0); Mean Corpuscular Hemoglobin 27.9 pg (27.0-33.0); Mean Corpuscular Volume 82.7 fL (80-98); Mean Platelet Volume 11.5 fL (9.4-12.4); Monocytes Absolute Auto 0.2 X10*3/uL (0.1-1.2); Monocytes Percent Auto 1.1 % (2-11); Neutrophils Absolute Auto 15.1 X10*3/uL (2.0-8.3); Neutrophils Percent Auto 95.2 % (45-73); Platelet Count 196 X10*3/uL (160-400); Red Blood Count 5.19 X10*6/uL (4.60-5.80); Red Cell Distribution Width 12.9 % (11.0-16.0); SCAN SMEAR FLAG 1; White Blood Count 15.9 X10*3/uL (4.8-10.8)
[2020-04-18 07:27] VITALS: BP 152/83; PULSE 93; RESP 20; TEMP 36.1; O2SAT 97
[2020-04-18 07:27] LABS: Anion Gap 17 (12-20); Blood Urea Nitrogen 23 mg/dL (9-16); Calcium 8.7 mg/dL (8.4-10.2); Carbon Dioxide 21 mmol/L (22-29); Chloride 104 mmol/L (96-108); Creatinine Clr Calc Pharmacy 74.7; Estimated Glomerular Filt Rate > 60; Glucose Random 252 mg/dL (60-115); Potassium 4.5 mmol/l (3.3-5.1); Sodium 137 mmol/L (135-145)
[2020-04-18 07:42] LABS: B Type Natriuretic Peptide 635 pg/mL (<100)
[2020-04-18 07:47] LABS: Glucose, Whole Blood 258 mg/dL (60-115)
[2020-04-18] MEDS: Insulin Lispro 100 UNIT/ML 3 ML VIAL SUBCUT ×5 (08:13→22:16)
[2020-04-18 08:35] LABS: SLIDE REVIEW VERIFIED
--- NOTE | 2020-04-18 09:25 | MHC.CDI.CONC ---
CDI Concurrent Query Service Date: 04/18/20 Documentation Clarification: Please clarify if you are treating a probable/suspected/likely or confirmed: Consistency and clarity of documentation: Pneumonia txt Pneumonia rule out Please specify if known or undetermined Pneumonia unlikely Provider Response: Other Other Diagnosis: Pneumonia unlikely PLEASE DO NOT DELETE/MODIFY EXISTING CONTENT Additional information is needed in order to code to the highest accuracy and appropriate Severity of Illness (SOI). Please clarify the information noted below in your progress notes and discharge summary. Risk Factors/Clinical Indicators/Treatments H&P: possible pneumonia right lung base, IV levaquin, hypoxia with acute on chronic respiratory failure. Smoker, respiratory distress, noncompliance, COPD on 3 liters home oxygen. CXR: atelectasis or small infiltrate at the right lung base. CDS: Corina Saini [facility], CDIS Contact Number: [phone] Please Review the information above and exercise your independent professional judgment in responding to the query. If you concur, pleas document in the PROGRESS NOTES and DISCHARGE SUMMARY. If you do not agree with the query, please document in the query above. THIS QUERY IS PART OF THE PERMANENT MEDICAL RECORD
--- NOTE | 2020-04-18 09:31 | MHC.CM.PN ---
CM met with patient at the bedside who reports he does need some assistance at home, lives with ex-, has home O2 with [employer]. Patient does have a HCP and a copy is on file. Discussed discharge plan, home with resumption of [facility] services. Declines referral to [facility]. Patient will need wheel chair van for transport. CM will continue to follow patient for discharge needs.
[2020-04-18] MEDS: Furosemide 40 MG/4 ML VIAL IVPUSH ×2 (09:33→17:29)
[2020-04-18] MEDS: Gabapentin 300 MG CAPSULE PO ×3 (09:39→20:48)
[2020-04-18] MEDS: amLODIPine Besylate 5 MG TABLET PO (09:39)
[2020-04-18] MEDS: Omeprazole 20 MG CAPSULE.DR PO (09:39)
[2020-04-18] MEDS: Tamsulosin HCL 0.4 MG CAPSULE PO (09:39)
[2020-04-18] MEDS: Amiodarone HCL 200 MG TABLET PO (09:39)
[2020-04-18] MEDS: Clopidogrel Bisulfate 75 MG TABLET PO (09:39)
[2020-04-18] MEDS: Apixaban 5 MG TABLET PO ×2 (09:39→20:48)
[2020-04-18] MEDS: Sertraline HCL 25 MG TABLET PO (09:39)
[2020-04-18] MEDS: 0.9 % Sodium Chloride Flush 3 ML SYRINGE 2 ML IVFLUSH ×2 (09:40→17:28)
[2020-04-18] MEDS: Metoprolol Succinate ER 50 MG TAB.ER.24H PO (09:40)
[2020-04-18] MEDS: Losartan Potassium 50 MG TABLET PO (09:40)
[2020-04-18 11:29] VITALS: BP 134/70; PULSE 91; RESP 20; TEMP 36; O2SAT 96
[2020-04-18 11:36] LABS: Glucose, Whole Blood 417 mg/dL (60-115)
[2020-04-18] MEDS: Insulin Lispro 100 UNIT/ML 3 ML VIAL 6 UNIT SUBCUT (12:49)
[2020-04-18 13:41] VITALS: BMI 39.6
[2020-04-18 14:03] LABS: Glucose, Whole Blood 399 mg/dL (60-115)
[2020-04-18 15:29] VITALS: BP 150/78; PULSE 94; RESP 18; TEMP 36.2; O2SAT 95
--- NOTE | 2020-04-18 15:44 | PM.IMPN ---
Subjective Subjective Date of Service: 04/18/20 Interval History: seen and examined still complaining of sob Review of Systems General - no fevers or chills Cardiovascular - cp resolved Respiratory - sob/cough Abdominal- no abdominal pain, nausea, vomiting, diarrhea Physical Exam Vital Signs and I&O and Narrative: Vital Signs and I&O: Vital Signs Temp 97.1 F 04/18/20 15:29 Pulse 94 04/18/20 15:29 Resp 18 04/18/20 15:29 BP 150/78 H 04/18/20 15:29 Pulse Ox 95 04/18/20 15:29 Intake & Output 04/17/20 04/18/20 04/18/20 18:59 06:59 18:59 Intake Total 650 / 910 260 / 910 240 / 240 Output Total 1500 / 1500 Balance 650 / -590 -1240 / -590 240 / 240 Urine Output (Aver age ml/kg/hr) 1.23 1.23 Weight 101.605 kg 101.605 kg Intake: Intake, Oral [place] unt 260 / 260 Intake, Intraper itoneal Amount 240 / 240 Intake, IV Amoun t 650 / 650 0.9 % Sodium C hloride 500 ml @ 500 / 500 500 mls/hr IV .Q1H JUDE Rx#: [id number] Magnesium Sulf ate/H2O 2 gm In 50 / 50 50 ml @ 50 mls /hr IV ONCE ONE Rx#:[id number] levoFLOXacin/D 5W 500 mg In 100 100 / 100 ml @ 100 mls/h r IV ONCE ONE Rx# :[id number] Output: Output, Urine Am ount 1500 / 1500 Other: Meal Refused No Body Mass Index 39.6 General - no acute distress, appears comfortable Cardiovascular - regular rate and rhythm, S1-S2 Lungs - ronchi/wheezinh Abdomen - soft, nontender, no rebound regarding Extremities - no edema bilaterally Neuro - awake and alert, no focal deficits Objective Data Current Medications Generic Name Dose Route Start Last Admin Trade Name Freq PRN Reason Stop Dose Admin Acetaminophen 650 mg 04/17/20 19:07 Acetaminophen 325 Mg Tablet PO Q6H PRN Pain, Mild (Pain Scale 1-3) Albuterol Sulfate 2.5 mg 04/17/20 19:07 04/18/20 12:45 Albuterol Sulfate (0.083%) 2.5 Mg/3 Ml Vial.Neb INHALE 2.5 mg Q2H PRN Administration Shortness of Breath/Wheezing Albuterol/Ipratropium 3 ml 04/18/20 16:00 Albuterol/Iprat 2.5/0.5mg 3 Ml Ampul.Neb INHALE RQ4H WHILE AWAKE [facility] Amiodarone HCl 200 mg 04/18/20 09:00 04/18/20 09:39 Amiodarone Hcl 200 Mg Tablet PO 200 mg DAILY JUDE Administration Amlodipine Besylate 5 mg 04/18/20 09:00 04/18/20 09:39 Amlodipine Besylate 5 Mg Tablet PO 5 mg DAILY JUDE Administration Protocol Apixaban 5 mg 04/17/20 21:00 04/18/20 09:39 Apixaban 5 Mg Tablet PO 5 mg BID JUDE Administration Atorvastatin Calcium 80 mg 04/17/20 21:00 04/17/20 21:45 Atorvastatin Calcium 80 Mg Tablet PO 80 mg BEDTIME JUDE Administration Clopidogrel Bisulfate 75 mg 04/18/20 09:00 04/18/20 09:39 Clopidogrel Bisulfate 75 Mg Tablet PO 75 mg DAILY JUDE Administration Docusate Sodium 100 mg 04/17/20 19:07 Docusate Sodium 100 Mg Capsule PO DAILY PRN Constipation Furosemide 40 mg 04/18/20 09:00 04/18/20 09:33 Furosemide 40 Mg/4 Ml Vial IVPUSH 40 mg BID@0900,1800 [facility] Administration Protocol Gabapentin 300 mg 04/17/20 21:00 04/18/20 14:31 Gabapentin 300 Mg Capsule PO 300 mg TID JUDE Administration Hydromorphone HCl 1 mg 04/17/20 19:07 04/18/20 12:47 Hydromorphone Hcl 1 Mg/Ml Syringe IVPUSH 1 mg Q6H JUDE Administration Insulin Glargine 35 unit 04/17/20 21:00 04/17/20 21:46 Insulin Glargine,Hum.Rec.Anlog 100 Unit/Ml 10 Ml Vial SUBCUT 35 unit BEDTIME JUDE Administration Insulin Human Lispro 0 unit 04/18/20 12:45 04/18/20 12:51 Insulin Lispro 100 Unit/Ml 3 Ml Vial SUBCUT 10 unit QIDACHS [facility] Administration Protocol Losartan Potassium 50 mg 04/18/20 09:00 04/18/20 09:40 Losartan Potassium 50 Mg Tablet PO 50 mg DAILY JUDE Administration Protocol Methylprednisolone Sodium Succinate 40 mg 04/17/20 21:00 04/18/20 14:31 Methylprednisolone Sod Succ/Pf 40 Mg/Ml Vial IVPUSH 40 mg TID JUDE Administration Metoprolol Succinate 50 mg 04/18/20 09:00 04/18/20 09:40 Metoprolol Succinate Er 50 Mg Tab.Er.24h PO 50 mg DAILY JUDE Administration Protocol Montelukast Sodium 10 mg 04/17/20 21:00 04/17/20 21:45 Montelukast Sodium 10 Mg Tablet PO 10 mg BEDTIME JUDE Administration Omeprazole 20 mg 04/18/20 09:00 04/18/20 09:39 Omeprazole 20 Mg Capsule.Dr PO 20 mg DAILY JUDE Administration Ondansetron HCl 4 mg 04/17/20 19:07 Ondansetron Hcl 4 Mg/2 Ml Vial IVPUSH Q8H PRN Nausea and Vomiting Pharmacy Consult 1 each 04/17/20 12:36 Consult Rx Perform Med Rec MISCELLANE ONCE PRN Consult order Quetiapine Fumarate 100 mg 04/17/20 21:00 04/17/20 21:45 Quetiapine Fumarate 100 Mg Tablet PO 100 mg BEDTIME JUDE Administration Sertraline HCl 25 mg 04/18/20 09:00 04/18/20 09:39 Sertraline Hcl 25 Mg Tablet PO 25 mg DAILY JUDE Administration Sodium Chloride 2 ml 04/18/20 00:00 04/18/20 09:40 0.9 % Sodium Chloride Flush 3 Ml Syringe IVFLUSH 2 ml QSHIFT JUDE Administration Tamsulosin HCl 0.4 mg 04/18/20 09:00 04/18/20 09:39 Tamsulosin Hcl 0.4 Mg Capsule PO 0.4 mg DAILY JUDE Administration Labs CBC & Chem 7: 04/18/20 06:10 04/18/20 06:10 Progress Note: A&P (1) Acute and chronic respiratory failure: Status: Acute (2) Deep vein thrombosis (DVT) of right upper extremity: Problem details: [place] [facility] [place] Status: Acute (3) ELI (obstructive sleep apnea): Status: Acute (4) Systolic CHF: Problem details: EF 25% 02/2020 Status: Acute (5) Acute exacerbation of chronic obstructive airways disease: Status: Acute (6) Hypertension: Status: Acute (7) CAD (coronary artery disease): Status: Acute (8) GERD (gastroesophageal reflux disease): Status: Acute (9) Diabetes mellitus, type 2: Status: Acute (10) Atrial fibrillation: Status: Acute Assessment and Plan: This is a 64-year-old male well known to the hospital who presents to the hospital with complaints of shortness of breath and pleuritic chest pain. He is admitted for COPD/CHF exacerbation. 1. acute on chronic respiratory failure Multifactorial, due to COPD and CHF Continue oxygen, wean to his baseline of 3 L 2. COPD exacerbation Updrafts and IV steroids 3. acute diastolic CHF IV Lasix Intake output 4. Chronic pain IV Dilaudid, taper as possible 5. Right upper extremity DVT Eliquis 6. Lactic acidosis Not due to sepsis Likely from hypoxia 7. hypertension continue Norvasc, losartan 8. CAD pleuritic in nature, due to COPD improving Plavix, aspirin discontinued per [facility] records after he was started on Eliquis there 9. GERD continue PPI 10. diabetes continue home Lantus SSI, POC ADA diet 11. ELI continue CPAP 12. atrial fibrillation continue amiodarone, metoprolol DVT prophylaxis- Eliquis
[2020-04-18] MEDS: Albuterol/Iprat 2.5/0.5MG 3 ML AMPUL.NEB INHALE ×2 (15:46→20:49)
[2020-04-18 16:38] LABS: Glucose, Whole Blood 324 mg/dL (60-115)
[2020-04-18 19:36] VITALS: BP 155/78; PULSE 89; RESP 18; TEMP 36.4; O2SAT 93
[2020-04-18 20:46] LABS: Glucose, Whole Blood 383 mg/dL (60-115)
[2020-04-18] MEDS: Atorvastatin Calcium 80 MG TABLET PO (20:48)
[2020-04-18] MEDS: QUEtiapine Fumarate 100 MG TABLET PO (20:48)
[2020-04-18] MEDS: Montelukast Sodium 10 MG TABLET PO (20:48)
[2020-04-18] MEDS: Insulin Glargine,Hum.rec.anlog 100 UNIT/ML 10 ML VIAL 35 UNIT SUBCUT (20:49)
[2020-04-19] VITALS (10 sets, daily range): BP systolic 112–160; BP diastolic 60–84; PULSE 73–95; RESP 16–28; TEMP 35.8–36.8; O2SAT 92–98
--- NOTE | 2020-04-19 | XR_ITS ---
EXAMINATION: XR CHEST CLINICAL INFORMATION: Possible right lung base pneumonia, follow-up. COMPARISON: 04/27/2020 and 01/25/2020 chest radiographs. TECHNIQUE: 2 views of the chest were obtained. FINDINGS: There has been mild interval decrease in markings at the right lung base. Mild increased markings are seen in the lingula. The heart is mildly enlarged. The mediastinal structures are unremarkable. IMPRESSION: 1. Interval decrease in markings at the right lung base suggesting atelectasis or infiltrate. 2. Mild increased markings in the lingula likely projectional however atelectasis or an infiltrate cannot be excluded.
[2020-04-19] MEDS: 0.9 % Sodium Chloride Flush 3 ML SYRINGE 2 ML IVFLUSH ×3 (00:54→17:28)
[2020-04-19] MEDS: HYDROmorphone HCl 1 MG/ML SYRINGE IVPUSH ×6 (00:54→22:27)
[2020-04-19] MEDS: Albuterol/Iprat 2.5/0.5MG 3 ML AMPUL.NEB INHALE ×4 (07:21→20:07)
[2020-04-19 08:05] LABS: Glucose, Whole Blood 268 mg/dL (60-115)
[2020-04-19] MEDS: Furosemide 40 MG/4 ML VIAL IVPUSH (08:53)
[2020-04-19] MEDS: Amiodarone HCL 200 MG TABLET PO (08:54)
[2020-04-19] MEDS: Omeprazole 20 MG CAPSULE.DR PO (08:54)
[2020-04-19] MEDS: Losartan Potassium 50 MG TABLET PO (08:54)
[2020-04-19] MEDS: Metoprolol Succinate ER 50 MG TAB.ER.24H PO (08:56)
[2020-04-19] MEDS: amLODIPine Besylate 5 MG TABLET PO (08:56)
[2020-04-19] MEDS: Tamsulosin HCL 0.4 MG CAPSULE PO (08:56)
[2020-04-19] MEDS: Clopidogrel Bisulfate 75 MG TABLET PO (08:56)
[2020-04-19] MEDS: Apixaban 5 MG TABLET PO ×2 (08:56→22:05)
[2020-04-19] MEDS: Gabapentin 300 MG CAPSULE PO ×3 (08:56→22:05)
[2020-04-19] MEDS: Sertraline HCL 25 MG TABLET PO (08:56)
[2020-04-19] MEDS: Insulin Lispro 100 UNIT/ML 3 ML VIAL SUBCUT ×6 (08:57→22:09)
[2020-04-19] MEDS: Insulin Glargine,Hum.rec.anlog 100 UNIT/ML 10 ML VIAL 20 UNIT SUBCUT (08:58)
[2020-04-19 10:00] LABS: Basophils Percent Auto 0.1 % (0-2); Eosinophils Percent Auto 0.1 % (0-4); Hematocrit 42.1 % (42-52); Hemoglobin 13.9 g/dl (14.0-18.0); Imm Gran Pct Auto 1.2 % (0.0-0.4); Lymphocytes Absolute Auto 0.7 X10*3/uL (1.2-4.9); Lymphocytes Percent Auto 4.2 % (20-40); MANUAL DIFF FLAG SCAN; Mean Corpuscular Hemoglobin 27.6 pg (27.0-33.0); Mean Corpuscular Volume 83.5 fL (80-98); Mean Platelet Volume 11.7 fL (9.4-12.4); Monocytes Absolute Auto 0.4 X10*3/uL (0.1-1.2); Monocytes Percent Auto 2.2 % (2-11); Neutrophils Percent Auto 92.2 % (45-73); Platelet Count 193 X10*3/uL (160-400); Red Blood Count 5.04 X10*6/uL (4.60-5.80); Red Cell Distribution Width 13.5 % (11.0-16.0); SCAN SMEAR FLAG 1; White Blood Count 17.3 X10*3/uL (4.8-10.8)
[2020-04-19 10:22] LABS: Anion Gap 14 (12-20); Blood Urea Nitrogen 34 mg/dL (9-16); Calcium 9.1 mg/dL (8.4-10.2); Carbon Dioxide 28 mmol/L (22-29); Chloride 99 mmol/L (96-108); Creatinine Clr Calc Pharmacy 61.5; Estimated Glomerular Filt Rate 56; Glucose Fasting 319 mg/dL (60-99); Potassium 4.5 mmol/l (3.3-5.1); Sodium 136 mmol/L (135-145)
[2020-04-19 10:53] LABS: SLIDE REVIEW VERIFIED
[2020-04-19 11:41] LABS: Glucose, Whole Blood 304 mg/dL (60-115)
--- NOTE | 2020-04-19 13:18 | MHC.CM.PN ---
Patient continues on O2 @ 2 liters and IV Zithromax. Discharge plan is home with resumption of [facility]. Patient will need wheel chair transport home. CM will continue to follow patient for discharge needs.
--- NOTE | 2020-04-19 14:08 | PM.IMPN ---
Subjective Subjective Date of Service: 04/19/20 Interval History: seen and examined still sob no fevers or chills Review of Systems General - no fevers or chills Cardiovascular - no angina Respiratory - +sob, cough -- non productive Abdominal- no abdominal pain, nausea, vomiting, diarrhea Physical Exam Vital Signs and I&O and Narrative: Vital Signs and I&O: Vital Signs Temp 97.9 F 04/19/20 12:13 Pulse 92 04/19/20 12:13 Resp 24 H 04/19/20 12:13 BP 133/76 04/19/20 12:13 Pulse Ox 96 04/19/20 12:13 Intake & Output 04/18/20 04/19/20 04/19/20 18:59 06:59 18:59 Intake Total 240 / 690 450 / 690 1000 / 1000 Output Total 3000 / 3000 Balance 240 / -2310 -2550 / -2310 1000 / 1000 Urine Output (Aver age ml/kg/hr) 2.46 2.46 Weight 101.605 kg Intake: Intake, Oral [place] unt 450 / 450 1000 / 1000 Intake, Intraper itoneal Amount 240 / 240 Output: Output, Urine Am ount 3000 / 3000 Other: Meal Refused No Breakfast % Eate n 75% Lunch % Eaten 100% Dinner % Eaten 100% Evening Snack % Eaten 100 Urine Urinal Urine Color Pale Yellow Body Mass Index 39.6 General - no acute distress, appears comfortable Cardiovascular - regular rate and rhythm, S1-S2 Lungs - diffuse wheezing Abdomen - soft, nontender, no rebound regarding Extremities - no edema bilaterally Neuro - awake and alert, no focal deficits Objective Data Current Medications Generic Name Dose Route Start Last Admin Trade Name [place] PRN Reason Stop Dose Admin Acetaminophen 650 mg 04/17/20 19:07 Acetaminophen 325 Mg Tablet PO Q6H PRN Pain, Mild (Pain Scale 1-3) Albuterol Sulfate 2.5 mg 04/17/20 19:07 04/18/20 12:45 Albuterol Sulfate (0.083%) 2.5 Mg/3 Ml Vial.Neb INHALE 2.5 mg Q2H PRN Administration Shortness of Breath/Wheezing Albuterol/Ipratropium 3 ml 04/18/20 16:00 04/19/20 11:36 Albuterol/Iprat 2.5/0.5mg 3 Ml Ampul.Neb INHALE 3 ml RQ4H WHILE AWAKE JUDE Administration Amiodarone HCl 200 mg 04/18/20 09:00 04/19/20 08:54 Amiodarone Hcl 200 Mg Tablet PO 200 mg DAILY JUDE Administration Amlodipine Besylate 5 mg 04/18/20 09:00 04/19/20 08:56 Amlodipine Besylate 5 Mg Tablet PO 5 mg DAILY JUDE Administration Protocol Apixaban 5 mg 04/17/20 21:00 04/19/20 08:56 Apixaban 5 Mg Tablet PO 5 mg BID JUDE Administration Atorvastatin Calcium 80 mg 04/17/20 21:00 04/18/20 20:48 Atorvastatin Calcium 80 Mg Tablet PO 80 mg BEDTIME JUDE Administration Clopidogrel Bisulfate 75 mg 04/18/20 09:00 04/19/20 08:56 Clopidogrel Bisulfate 75 Mg Tablet PO 75 mg DAILY JUDE Administration Docusate Sodium 100 mg 04/17/20 19:07 Docusate Sodium 100 Mg Capsule PO DAILY PRN Constipation Doxycycline Hyclate 100 mg 04/19/20 14:15 Doxycycline Hyclate 100 Mg Tablet PO BID [facility] Furosemide 40 mg 04/20/20 09:00 Furosemide 40 Mg Tablet PO DAILY [facility] Protocol Gabapentin 300 mg 04/17/20 21:00 04/19/20 08:56 Gabapentin 300 Mg Capsule PO 300 mg TID [facility] Administration Guaifenesin 600 mg 04/19/20 21:00 Guaifenesin [place] 600 Mg Tab.Er.12h PO BID [facility] Hydromorphone HCl 1 mg 04/19/20 09:11 04/19/20 10:03 Hydromorphone Hcl 1 Mg/Ml Syringe IVPUSH 1 mg Q4H PRN Administration Pain, Severe (Pain Scale 7-10) Insulin Glargine 35 unit 04/17/20 21:00 04/18/20 20:49 Insulin Glargine,Hum.Rec.Anlog 100 Unit/Ml 10 Ml Vial SUBCUT 35 unit BEDTIME JUDE Administration Insulin Glargine 20 unit 04/19/20 09:00 04/19/20 08:58 Insulin Glargine,Hum.Rec.Anlog 100 Unit/Ml 10 Ml Vial SUBCUT 20 unit DAILY JUDE Administration Insulin Human Lispro 0 unit 04/18/20 12:45 04/19/20 12:43 Insulin Lispro 100 Unit/Ml 3 Ml Vial SUBCUT 8 unit QIDAS [facility] Administration Protocol Insulin Human Lispro 4 unit 04/18/20 21:00 04/19/20 12:44 Insulin Lispro 100 Unit/Ml 3 [facility] Protocol Losartan Potassium 50 mg 04/18/20 09:00 04/19/20 08:54 Losartan Potassium 50 Mg Tablet PO 50 mg DAILY JUDE Administration Protocol Methylprednisolone Sodium Succinate 40 mg 04/19/20 21:00 Methylprednisolone Sod Succ/Pf 40 Mg/Ml Vial IVPUSH BID [facility] Metoprolol Succinate 50 mg 04/18/20 09:00 04/19/20 08:56 Metoprolol Succinate Er 50 Mg Tab.Er.24h PO 50 mg DAILY [facility] Administration Protocol Montelukast Sodium 10 mg 04/17/20 21:00 04/18/20 20:48 Montelukast Sodium 10 Mg Tablet PO 10 mg BEDTIME JUDE Administration Omeprazole 20 mg 04/18/20 09:00 04/19/20 08:54 Omeprazole 20 Mg Capsule.Dr PO 20 mg DAILY [facility] Administration Ondansetron HCl 4 mg 04/17/20 19:07 Ondansetron Hcl 4 Mg/2 Ml Vial IVPUSH Q8H PRN Nausea and Vomiting Pharmacy Consult 1 each 04/17/20 12:36 Consult Rx Perform Med Rec MISCELLANE ONCE PRN Consult order Quetiapine Fumarate 100 mg 04/17/20 21:00 04/18/20 20:48 Quetiapine Fumarate 100 Mg Tablet PO 100 mg BEDTIME JUDE Administration Sertraline HCl 25 mg 04/18/20 09:00 04/19/20 08:56 Sertraline Hcl 25 Mg Tablet PO 25 mg DAILY [facility] Administration Sodium Chloride 2 ml 04/18/20 00:00 04/19/20 10:04 0.9 % Sodium Chloride Flush 3 Ml Syringe IVFLUSH 2 ml QSHIFT [facility] Administration Tamsulosin HCl 0.4 mg 04/18/20 09:00 04/19/20 08:56 Tamsulosin Hcl 0.4 Mg Capsule PO 0.4 mg DAILY [facility] Administration Labs CBC & Chem 7: 04/19/20 09:40 04/19/20 09:40 Microbiology Microbiology Results: Microbiology 04/17/20 14:31 Blood - Venous Blood Culture - Preliminary No growth after 24 hours. 04/17/20 14:18 Blood - Venous Blood Culture - Preliminary No growth after 24 hours. Progress Note: A&P (1) Acute and chronic respiratory failure: Status: Acute (2) Deep vein thrombosis (DVT) of right upper extremity: Status: Acute (3) ELI (obstructive sleep apnea): Status: Acute (4) Systolic CHF: Status: Acute (5) Acute exacerbation of chronic obstructive airways disease: Status: Acute (6) Hypertension: Status: Acute (7) CAD (coronary artery disease): Status: Acute (8) GERD (gastroesophageal reflux disease): Status: Acute (9) Diabetes mellitus, type 2: Status: Acute (10) Atrial fibrillation: Status: Acute Assessment and Plan: This is a 64-year-old male well known to the hospital who presents to the hospital with complaints of shortness of breath and pleuritic chest pain. He is admitted for COPD/CHF exacerbation. 1. acute on chronic respiratory failure Multifactorial, due to COPD and CHF Continue oxygen, wean to his baseline of 3 L 2. COPD exacerbation taper steriods continue updrafts rpeat cxr done -- no lobar pneumonia, will start empiric doxy 3. acute diastolic CHF change to po lasix starting tomorrow Am 4. Chronic pain IV dilaudid -- taper 5. Right upper extremity DVT Eliquis 6. Lactic acidosis Not due to sepsis Likely from hypoxia 7. hypertension continue Norvasc, losartan 8. CAD pleuritic in nature, due to COPD Plavix, aspirin discontinued per [facility] records after he was started on Eliquis there continue other meds 9. GERD continue PPI 10. diabetes, uncontrolled continue lantus 35 untis qPM and 20 units qAM added today increase scheduled humalog to 8 units + sliding scale 11. ELI continue CPAP which is non-compliant with 12. atrial fibrillation continue amiodarone, metoprolol, eliquis DVT prophylaxis- Eliquis
[2020-04-19] MEDS: guaiFENesin LA 600 MG TAB.ER.12H PO ×2 (14:13→22:05)
[2020-04-19 16:49] LABS: Glucose, Whole Blood 321 mg/dL (60-115)
[2020-04-19] MEDS: Insulin Lispro 100 UNIT/ML 3 ML VIAL 6 UNIT SUBCUT ×2 (17:29→22:10)
[2020-04-19 21:40] LABS: Glucose, Whole Blood 309 mg/dL (60-115)
[2020-04-19] MEDS: QUEtiapine Fumarate 100 MG TABLET PO (22:05)
[2020-04-19] MEDS: Montelukast Sodium 10 MG TABLET PO (22:05)
[2020-04-19] MEDS: Insulin Glargine,Hum.rec.anlog 100 UNIT/ML 10 ML VIAL 35 UNIT SUBCUT (22:11)
[2020-04-20] VITALS (7 sets, daily range): BP systolic 126–168; BP diastolic 60–87; PULSE 79–97; RESP 18–24; TEMP 36.2–36.6; O2SAT 93–99
[2020-04-20] MEDS: Atorvastatin Calcium 80 MG TABLET PO ×2 (02:10→21:07)
[2020-04-20] MEDS: 0.9 % Sodium Chloride Flush 3 ML SYRINGE 2 ML IVFLUSH ×3 (02:11→16:53)
[2020-04-20] MEDS: HYDROmorphone HCl 1 MG/ML SYRINGE IVPUSH ×5 (05:01→21:06)
[2020-04-20] MEDS: Albuterol Sulfate (0.083%) 2.5 MG/3 ML VIAL.NEB INHALE (05:15)
[2020-04-20 07:35] LABS: Glucose, Whole Blood 232 mg/dL (60-115)
[2020-04-20] MEDS: Insulin Lispro 100 UNIT/ML 3 ML VIAL 6 UNIT SUBCUT ×4 (08:02→21:28)
[2020-04-20] MEDS: Insulin Lispro 100 UNIT/ML 3 ML VIAL SUBCUT ×4 (08:02→21:27)
[2020-04-20] MEDS: Furosemide 40 MG TABLET PO (08:03)
[2020-04-20] MEDS: Amiodarone HCL 200 MG TABLET PO (08:03)
[2020-04-20] MEDS: Tamsulosin HCL 0.4 MG CAPSULE PO (08:03)
[2020-04-20] MEDS: Clopidogrel Bisulfate 75 MG TABLET PO (08:03)
[2020-04-20] MEDS: amLODIPine Besylate 5 MG TABLET PO (08:03)
[2020-04-20] MEDS: Losartan Potassium 50 MG TABLET PO (08:03)
[2020-04-20] MEDS: Omeprazole 20 MG CAPSULE.DR PO (08:03)
[2020-04-20] MEDS: Metoprolol Succinate ER 50 MG TAB.ER.24H PO (08:04)
[2020-04-20] MEDS: Gabapentin 300 MG CAPSULE PO ×3 (08:04→21:07)
[2020-04-20] MEDS: guaiFENesin LA 600 MG TAB.ER.12H PO ×2 (08:04→21:07)
[2020-04-20] MEDS: Sertraline HCL 25 MG TABLET PO (08:04)
[2020-04-20] MEDS: Apixaban 5 MG TABLET PO ×2 (08:04→21:07)
[2020-04-20] MEDS: Insulin Glargine,Hum.rec.anlog 100 UNIT/ML 10 ML VIAL 20 UNIT SUBCUT (08:06)
[2020-04-20] MEDS: Albuterol/Iprat 2.5/0.5MG 3 ML AMPUL.NEB INHALE ×4 (08:34→19:53)
--- NOTE | 2020-04-20 16:29 | HO.PM.IMPN ---
Subjective Subjective Date of Service: 04/20/20 Interval History: seen and examined slight improvement, breathing improve, but not baseline Review of Systems General - no fevers or chills Cardiovascular - no chest pain Respiratory -wheezing, coughing Abdominal- no abdominal pain, nausea, vomiting, diarrhea Physical Exam Vital Signs: Vital Signs: Vital Signs Temp Pulse Resp BP Pulse Ox 04/20/20 15:28 97.6 F 84 24 H 147/73 H 95 04/20/20 12:00 97.2 F 97 18 168/86 H 93 04/20/20 08:00 97.2 F 88 20 131/87 99 04/20/20 04:00 97.5 F 84 20 128/76 96 04/19/20 23:59 97.3 F 83 120/60 96 04/19/20 20:00 97.3 F 22 H 157/71 H 92 Body Mass Index 39.6 General - no acute distress, appears comfortable Cardiovascular - regular rate and rhythm, S1-S2 Lungs - diffuse wheezing, RR improved Abdomen - soft, nontender, no rebound regarding Extremities - no edema bilaterally Neuro - awake and alert, no focal deficits Objective Data Current Medications Generic Name Dose Route Start Last Admin Trade Name Freq PRN Reason Stop Dose Admin Acetaminophen 650 mg 04/17/20 19:07 Acetaminophen 325 Mg Tablet PO Q6H PRN Pain, Mild (Pain Scale 1-3) Albuterol Sulfate 2.5 mg 04/17/20 19:07 04/20/20 05:15 Albuterol Sulfate (0.083%) 2.5 Mg/3 Ml Vial.Neb INHALE 2.5 mg Q2H PRN Administration Shortness of Breath/Wheezing Albuterol/Ipratropium 3 ml 04/18/20 16:00 04/20/20 15:57 Albuterol/Iprat 2.5/0.5mg 3 Ml Ampul.Neb INHALE 3 ml RQ4H WHILE AWAKE JUDE Administration Amiodarone HCl 200 mg 04/18/20 09:00 04/20/20 08:03 Amiodarone Hcl 200 Mg Tablet PO 200 mg DAILY JUDE Administration Amlodipine Besylate 5 mg 04/18/20 09:00 04/20/20 08:03 Amlodipine Besylate 5 Mg Tablet PO 5 mg DAILY JUDE Administration Protocol Apixaban 5 mg 04/17/20 21:00 04/20/20 08:04 Apixaban 5 Mg Tablet PO 5 mg BID JUDE Administration Atorvastatin Calcium 80 mg 04/17/20 21:00 04/20/20 02:10 Atorvastatin Calcium 80 Mg Tablet PO 80 mg BEDTIME JUDE Administration Clopidogrel Bisulfate 75 mg 04/18/20 09:00 04/20/20 08:03 Clopidogrel Bisulfate 75 Mg Tablet PO 75 mg DAILY JUDE Administration Docusate Sodium 100 mg 04/17/20 19:07 Docusate Sodium 100 Mg Capsule PO DAILY PRN Constipation Doxycycline Hyclate 100 mg 04/19/20 14:15 04/20/20 08:04 Doxycycline Hyclate 100 Mg Tablet PO 100 mg BID JUDE Administration Furosemide 40 mg 04/20/20 09:00 04/20/20 08:03 Furosemide 40 Mg Tablet PO 40 mg DAILY JUDE Administration Protocol Gabapentin 300 mg 04/17/20 21:00 04/20/20 13:10 Gabapentin 300 Mg Capsule PO 300 mg TID JUDE Administration Guaifenesin 600 mg 04/19/20 21:00 04/20/20 08:04 Guaifenesin La 600 Mg Tab.Er.12h PO 600 mg BID JUDE Administration Hydromorphone HCl 1 mg 04/19/20 09:11 04/20/20 13:05 Hydromorphone Hcl 1 Mg/Ml Syringe IVPUSH 1 mg Q4H PRN Administration Pain, Severe (Pain Scale 7-10) Insulin Glargine 35 unit 04/17/20 21:00 04/19/20 22:11 Insulin Glargine,Hum.Rec.Anlog 100 Unit/Ml 10 Ml Vial SUBCUT 35 unit BEDTIME JUDE Administration Insulin Glargine 20 unit 04/19/20 09:00 04/20/20 08:06 Insulin Glargine,Hum.Rec.Anlog 100 Unit/Ml 10 Ml Vial SUBCUT 20 unit DAILY JUDE Administration Insulin Human Lispro 0 unit 04/18/20 12:45 04/20/20 13:09 Insulin Lispro 100 Unit/Ml 3 Ml Vial SUBCUT 6 unit QIDACHS [facility] Administration Protocol Insulin Human Lispro 6 unit 04/19/20 16:30 04/20/20 13:09 Insulin Lispro 100 Unit/Ml 3 Ml Vial SUBCUT 1 unit QIDACHS [facility] Administration Protocol Losartan Potassium 50 mg 04/18/20 09:00 04/20/20 08:03 Losartan Potassium 50 Mg Tablet PO 50 mg DAILY JUDE Administration Protocol Methylprednisolone Sodium Succinate 40 mg 04/19/20 21:00 04/20/20 08:01 Methylprednisolone Sod Succ/Pf 40 Mg/Ml Vial IVPUSH 40 mg BID JUDE Administration Metoprolol Succinate 50 mg 04/18/20 09:00 04/20/20 08:04 Metoprolol Succinate Er 50 Mg Tab.Er.24h PO 50 mg DAILY JUDE Administration Protocol Montelukast Sodium 10 mg 04/17/20 21:00 04/19/20 22:05 Montelukast Sodium 10 Mg Tablet PO 10 mg BEDTIME JUDE Administration Omeprazole 20 mg 04/18/20 09:00 04/20/20 08:03 Omeprazole 20 Mg Capsule.Dr PO 20 mg DAILY JUDE Administration Ondansetron HCl 4 mg 04/17/20 19:07 Ondansetron Hcl 4 Mg/2 Ml Vial IVPUSH Q8H PRN Nausea and Vomiting Pharmacy Consult 1 each 04/17/20 12:36 Consult Rx Perform Med Rec MISCELLANE ONCE PRN Consult order Quetiapine Fumarate 100 mg 04/17/20 21:00 04/19/20 22:05 Quetiapine Fumarate 100 Mg Tablet PO 100 mg BEDTIME JUDE Administration Sertraline HCl 25 mg 04/18/20 09:00 04/20/20 08:04 Sertraline Hcl 25 Mg Tablet PO 25 mg DAILY JUDE Administration Sodium Chloride 2 ml 04/18/20 00:00 04/20/20 08:04 0.9 % Sodium Chloride Flush 3 Ml Syringe IVFLUSH 2 ml QSHIFT JUDE Administration Tamsulosin HCl 0.4 mg 04/18/20 09:00 04/20/20 08:03 Tamsulosin Hcl 0.4 Mg Capsule PO 0.4 mg DAILY JUDE Administration Labs CBC & Chem 7: 04/19/20 09:40 04/19/20 09:40 Microbiology Microbiology Results: Microbiology 04/17/20 14:31 Blood - Venous Blood Culture - Preliminary No growth after 48 hours. 04/17/20 14:18 Blood - Venous Blood Culture - Preliminary No growth after 48 hours. Assessment and Plan (1) Acute and chronic respiratory failure: Status: Acute (2) Deep vein thrombosis (DVT) of right upper extremity: Status: Acute (3) ELI (obstructive sleep apnea): Status: Acute (4) Systolic CHF: Status: Acute (5) Acute exacerbation of chronic obstructive airways disease: Status: Acute (6) Hypertension: Status: Acute (7) CAD (coronary artery disease): Status: Acute (8) GERD (gastroesophageal reflux disease): Status: Acute (9) Diabetes mellitus, type 2: Status: Acute (10) Atrial fibrillation: Status: Acute Assessment and Plan: This is a 64-year-old male well known to the hospital who presents to the hospital with complaints of shortness of breath and pleuritic chest pain. He is admitted for COPD/CHF exacerbation. 1. acute on chronic respiratory failure Multifactorial, due to COPD and CHF Continue oxygen, wean to his baseline of 3 L 2. COPD exacerbation IV steriods today, prednisone by tomorrow AM continue updrafts dox day #2 3. acute diastolic CHF improved, nearly euvolemic po lasix 4. Chronic pain improving slowly as his copd flare improves taper iv dilaudid 5. Right upper extremity DVT Eliquis 6. Lactic acidosis Not due to sepsis Likely from hypoxia 7. hypertension continue Norvasc, losartan 8. CAD pleuritic in nature, due to COPD Plavix, aspirin discontinued per [facility] records after he was started on Eliquis there continue other meds 9. GERD continue PPI 10. diabetes, uncontrolled slowly improved, should get better as his steriods are taper continue lantus 35 pm + 20 AM humalog 8 + ISS 11. ELI continue CPAP which is non-compliant with 12. atrial fibrillation continue amiodarone, metoprolol, eliquis DVT prophylaxis- Eliquis
[2020-04-20 16:43] LABS: Glucose, Whole Blood 348 mg/dL (60-115)
[2020-04-20] MEDS: Montelukast Sodium 10 MG TABLET PO (21:07)
[2020-04-20] MEDS: QUEtiapine Fumarate 100 MG TABLET PO (21:07)
[2020-04-20 21:19] LABS: Glucose, Whole Blood 254 mg/dL (60-115)
[2020-04-20] MEDS: Insulin Glargine,Hum.rec.anlog 100 UNIT/ML 10 ML VIAL 35 UNIT SUBCUT (21:29)
[2020-04-21] VITALS (11 sets, daily range): BP systolic 128–150; BP diastolic 72–89; PULSE 80–92; RESP 16–24; TEMP 36.1–36.8; O2SAT 94–98
[2020-04-21] MEDS: 0.9 % Sodium Chloride Flush 3 ML SYRINGE 2 ML IVFLUSH ×3 (02:09→13:17)
[2020-04-21] MEDS: HYDROmorphone HCl 1 MG/ML SYRINGE IVPUSH ×5 (04:57→21:02)
[2020-04-21] MEDS: Albuterol/Iprat 2.5/0.5MG 3 ML AMPUL.NEB INHALE ×4 (07:30→19:22)
[2020-04-21 07:37] LABS: Glucose, Whole Blood 142 mg/dL (60-115)
[2020-04-21 07:55] LABS: MANUAL DIFF FLAG NO
[2020-04-21] MEDS: Insulin Lispro 100 UNIT/ML 3 ML VIAL 6 UNIT SUBCUT ×4 (08:00→20:53)
[2020-04-21 08:10] LABS: Basophils Percent Auto 0.2 % (0-2); Eosinophils Percent Auto 0.1 % (0-4); Hematocrit 41.7 % (42-52); Hemoglobin 13.8 g/dl (14.0-18.0); Imm Gran Abs Auto 0.31 X10*3/uL (0.00-0.03); Imm Gran Pct Auto 2.6 % (0.0-0.4); Lymphocytes Absolute Auto 1.5 X10*3/uL (1.2-4.9); Lymphocytes Percent Auto 12.9 % (20-40); Mean Corpuscular HGB Conc 33.1 g/dl (31.0-36.0); Mean Corpuscular Volume 84.8 fL (80-98); Monocytes Absolute Auto 0.7 X10*3/uL (0.1-1.2); Monocytes Percent Auto 5.7 % (2-11); Neutrophils Absolute Auto 9.2 X10*3/uL (2.0-8.3); Neutrophils Percent Auto 78.5 % (45-73); Platelet Count 187 X10*3/uL (160-400); Red Blood Count 4.92 X10*6/uL (4.60-5.80); Red Cell Distribution Width 13.6 % (11.0-16.0); White Blood Count 11.8 X10*3/uL (4.8-10.8)
[2020-04-21 08:40] LABS: Anion Gap 11 (12-20); Blood Urea Nitrogen 41 mg/dL (9-16); Carbon Dioxide 28 mmol/L (22-29); Chloride 103 mmol/L (96-108); Creatinine Clr Calc Pharmacy 70.1; Estimated Glomerular Filt Rate > 60; Glucose Random 156 mg/dL (60-115); Potassium 4.4 mmol/l (3.3-5.1); Sodium 138 mmol/L (135-145)
[2020-04-21 08:53] LABS: Calcium 8.6 mg/dL (8.4-10.2)
[2020-04-21] MEDS: amLODIPine Besylate 5 MG TABLET PO (09:11)
[2020-04-21] MEDS: Apixaban 5 MG TABLET PO ×2 (09:11→20:52)
[2020-04-21] MEDS: Clopidogrel Bisulfate 75 MG TABLET PO (09:12)
[2020-04-21] MEDS: Metoprolol Succinate ER 50 MG TAB.ER.24H PO (09:12)
[2020-04-21] MEDS: predniSONE 20 MG TABLET 40 MG PO (09:12)
[2020-04-21] MEDS: Furosemide 40 MG TABLET PO (09:13)
[2020-04-21] MEDS: Amiodarone HCL 200 MG TABLET PO (09:13)
[2020-04-21] MEDS: Losartan Potassium 50 MG TABLET PO (09:13)
[2020-04-21] MEDS: Sertraline HCL 25 MG TABLET PO (09:13)
[2020-04-21] MEDS: Omeprazole 20 MG CAPSULE.DR PO (09:13)
[2020-04-21] MEDS: Gabapentin 300 MG CAPSULE PO ×3 (09:14→20:52)
[2020-04-21] MEDS: Insulin Glargine,Hum.rec.anlog 100 UNIT/ML 10 ML VIAL 20 UNIT SUBCUT (09:15)
[2020-04-21] MEDS: Tamsulosin HCL 0.4 MG CAPSULE PO (09:15)
[2020-04-21] MEDS: guaiFENesin LA 600 MG TAB.ER.12H PO ×2 (09:15→20:52)
[2020-04-21 11:44] LABS: Glucose, Whole Blood 107 mg/dL (60-115)
--- NOTE | 2020-04-21 15:44 | HO.PM.IMPN ---
Subjective Subjective Date of Service: 04/21/20 Interval History: seen and examined improving daily Review of Systems General - no fevers or chills Cardiovascular - no chest pain Respiratory -cough and wheezing better Abdominal- no abdominal pain, nausea, vomiting, diarrhea Physical Exam Vital Signs: Vital Signs: Vital Signs Temp Pulse Resp BP Pulse Ox 04/21/20 15:28 97 F 82 24 H 138/75 94 04/21/20 13:16 22 H 04/21/20 12:00 98.0 F 87 24 H 128/73 95 04/21/20 09:13 82 132/89 04/21/20 09:12 92 132/89 04/21/20 09:11 88 132/89 04/21/20 09:10 24 H 04/21/20 08:00 98.2 F 92 24 H 132/89 95 04/21/20 03:33 97.9 F 80 16 150/78 H 98 04/20/20 23:33 97.6 F 79 20 126/60 94 04/20/20 19:51 97.9 F 86 22 H 144/87 H 97 04/20/20 16:53 22 H Body Mass Index 39.6 General - no acute distress, appears comfortable Cardiovascular - regular rate and rhythm, S1-S2 Lungs - wheezing better, less so but still diffuse Abdomen - soft, non-tender, no rebound or regarding Extremities - no edema bilaterally Neuro - awake and alert, no focal deficits Objective Data Current Medications Generic Name Dose Route Start Last Admin Trade Name Freq PRN Reason Stop Dose Admin Acetaminophen 650 mg 04/17/20 19:07 Acetaminophen 325 Mg Tablet PO Q6H PRN Pain, Mild (Pain Scale 1-3) Albuterol Sulfate 2.5 mg 04/17/20 19:07 04/20/20 05:15 Albuterol Sulfate (0.083%) 2.5 Mg/3 Ml Vial.Neb INHALE 2.5 mg Q2H PRN Administration Shortness of Breath/Wheezing Albuterol/Ipratropium 3 ml 04/18/20 16:00 04/21/20 15:02 Albuterol/Iprat 2.5/0.5mg 3 Ml Ampul.Neb INHALE 3 ml RQ4H WHILE AWAKE JUDE Administration Amiodarone HCl 200 mg 04/18/20 09:00 04/21/20 09:13 Amiodarone Hcl 200 Mg Tablet PO 200 mg DAILY JUDE Administration Amlodipine Besylate 5 mg 04/18/20 09:00 04/21/20 09:11 Amlodipine Besylate 5 Mg Tablet PO 5 mg DAILY JUDE Administration Protocol Apixaban 5 mg 04/17/20 21:00 04/21/20 09:11 Apixaban 5 Mg Tablet PO 5 mg BID JUDE Administration Atorvastatin Calcium 80 mg 04/17/20 21:00 04/20/20 21:07 Atorvastatin Calcium 80 Mg Tablet PO 80 mg BEDTIME JUDE Administration Clopidogrel Bisulfate 75 mg 04/18/20 09:00 04/21/20 09:12 Clopidogrel Bisulfate 75 Mg Tablet PO 75 mg DAILY JUDE Administration Docusate Sodium 100 mg 04/17/20 19:07 Docusate Sodium 100 Mg Capsule PO DAILY PRN Constipation Doxycycline Hyclate 100 mg 04/19/20 14:15 04/21/20 09:13 Doxycycline Hyclate 100 Mg Tablet PO 100 mg BID JUDE Administration Furosemide 40 mg 04/20/20 09:00 04/21/20 09:13 Furosemide 40 Mg Tablet PO 40 mg DAILY JUDE Administration Protocol Gabapentin 300 mg 04/17/20 21:00 04/21/20 13:16 Gabapentin 300 Mg Capsule PO 300 mg TID JUDE Administration Guaifenesin 600 mg 04/19/20 21:00 04/21/20 09:15 Guaifenesin La 600 Mg Tab.Er.12h PO 600 mg BID JUDE Administration Hydromorphone HCl 1 mg 04/19/20 09:11 04/21/20 13:16 Hydromorphone Hcl 1 Mg/Ml Syringe IVPUSH 1 mg Q4H PRN Administration Pain, Severe (Pain Scale 7-10) Insulin Glargine 35 unit 04/17/20 21:00 04/20/20 21:29 Insulin Glargine,Hum.Rec.Anlog 100 Unit/Ml 10 Ml Vial SUBCUT 35 unit BEDTIME JUDE Administration Insulin Glargine 20 unit 04/19/20 09:00 04/21/20 09:15 Insulin Glargine,Hum.Rec.Anlog 100 Unit/Ml 10 Ml Vial SUBCUT 20 unit DAILY JUDE Administration Insulin Human Lispro 0 unit 04/18/20 12:45 04/21/20 11:56 Insulin Lispro 100 Unit/Ml 3 Ml Vial SUBCUT Not Given QIDACHS [facility] Protocol Insulin Human Lispro 6 unit 04/19/20 16:30 04/21/20 11:57 Insulin Lispro 100 Unit/Ml 3 Ml Vial SUBCUT 6 [facility] Administration Protocol Losartan Potassium 50 mg 04/18/20 09:00 04/21/20 09:13 Losartan Potassium 50 Mg Tablet PO 50 mg DAILY [facility] Administration Protocol Metoprolol Succinate 50 mg 04/18/20 09:00 04/21/20 09:12 Metoprolol Succinate Er 50 Mg Tab.Er.24h PO 50 mg DAILY [facility] Administration Protocol Montelukast Sodium 10 mg 04/17/20 21:00 04/20/20 21:07 Montelukast Sodium 10 Mg Tablet PO 10 mg BEDTIME [facility] Administration Omeprazole 20 mg 04/18/20 09:00 04/21/20 09:13 Omeprazole 20 Mg Capsule.Dr PO 20 mg DAILY [facility] Administration Ondansetron HCl 4 mg 04/17/20 19:07 Ondansetron Hcl 4 Mg/2 Ml Vial IVPUSH Q8H PRN Nausea and Vomiting Pharmacy Consult 1 each 04/17/20 12:36 Consult Rx Perform Med Rec MISCELLANE ONCE PRN Consult order Prednisone 40 mg 04/21/20 09:00 04/21/20 09:12 Prednisone 20 Mg Tablet PO 40 mg DAILY [facility] Administration Quetiapine Fumarate 100 mg 04/17/20 21:00 04/20/20 21:07 Quetiapine Fumarate 100 Mg Tablet PO 100 mg BEDTIME JUDE Administration Sertraline HCl 25 mg 04/18/20 09:00 04/21/20 09:13 Sertraline Hcl 25 Mg Tablet PO 25 mg DAILY [facility] Administration Sodium Chloride 2 ml 04/18/20 00:00 04/21/20 13:17 0.9 % Sodium Chloride Flush 3 Ml Syringe IVFLUSH 2 ml QSHIFT [facility] Administration Tamsulosin HCl 0.4 mg 04/18/20 09:00 04/21/20 09:15 Tamsulosin Hcl 0.4 Mg Capsule PO 0.4 mg DAILY [facility] Administration Labs CBC & Chem 7: 04/21/20 07:17 04/21/20 07:17 Microbiology Microbiology Results: Microbiology 04/17/20 14:31 Blood - Venous Blood Culture - Preliminary No growth after 48 hours. 04/17/20 14:18 Blood - Venous Blood Culture - Preliminary No growth after 48 hours. Assessment and Plan (1) Acute and chronic respiratory failure: Status: Acute (2) Deep vein thrombosis (DVT) of right upper extremity: Status: Acute (3) ELI (obstructive sleep apnea): Status: Acute (4) Systolic CHF: Status: Acute (5) Acute exacerbation of chronic obstructive airways disease: Status: Acute (6) Hypertension: Status: Acute (7) CAD (coronary artery disease): Status: Acute (8) GERD (gastroesophageal reflux disease): Status: Acute (9) Diabetes mellitus, type 2: Status: Acute (10) Atrial fibrillation: Status: Acute Assessment and Plan: This is a 64-year-old male well known to the hospital who presents to the hospital with complaints of shortness of breath and pleuritic chest pain. He is admitted for COPD/CHF exacerbation. 1. acute on chronic respiratory failure Multifactorial, due to COPD and CHF Continue oxygen, wean to his baseline of 3 L 2. COPD exacerbation prednisone, short taper upon d/c continue updrafts doxy day #3 3. acute diastolic CHF improved, euvolemic po lasix 4. Chronic pain taper dilaudid 5. Right upper extremity DVT Eliquis 6. Lactic acidosis Not due to sepsis Likely from hypoxia 7. hypertension continue Norvasc, losartan 8. CAD pleuritic in nature, due to COPD Plavix, aspirin discontinued per [facility] records after he was started on Eliquis there continue other meds 9. GERD continue PPI 10. diabetes, uncontrolled slowly improved, should get better as his steriods are taper continue lantus 35 pm + 20 AM humalog 8 + ISS 11. ELI continue CPAP which is non-compliant with at home 12. atrial fibrillation continue amiodarone, metoprolol, eliquis DVT prophylaxis- Eliquis
[2020-04-21 16:32] LABS: Glucose, Whole Blood 224 mg/dL (60-115)
[2020-04-21] MEDS: Insulin Lispro 100 UNIT/ML 3 ML VIAL SUBCUT ×2 (17:03→20:52)
[2020-04-21] MEDS: guaiFENesin 100 MG/5 ML LIQUID PO (17:37)
[2020-04-21 20:08] LABS: Glucose, Whole Blood 276 mg/dL (60-115)
[2020-04-21] MEDS: QUEtiapine Fumarate 100 MG TABLET PO (20:52)
[2020-04-21] MEDS: Montelukast Sodium 10 MG TABLET PO (20:52)
[2020-04-21] MEDS: Atorvastatin Calcium 80 MG TABLET PO (20:52)
[2020-04-21] MEDS: Insulin Glargine,Hum.rec.anlog 100 UNIT/ML 10 ML VIAL 35 UNIT SUBCUT (20:54)
[2020-04-21] MEDS: Albuterol Sulfate (0.083%) 2.5 MG/3 ML VIAL.NEB INHALE (23:47)
[2020-04-22] VITALS: BP 146/79; PULSE 78; RESP 18; TEMP 37.1; O2SAT 95
[2020-04-22] MEDS: 0.9 % Sodium Chloride Flush 3 ML SYRINGE 2 ML IVFLUSH ×2 (00:51→08:20)
[2020-04-22] MEDS: HYDROmorphone HCl 1 MG/ML SYRINGE IVPUSH ×3 (01:16→12:22)
[2020-04-22 03:58] VITALS: BP 154/80; PULSE 76; RESP 16; TEMP 36.4; O2SAT 93
[2020-04-22] MEDS: Albuterol/Iprat 2.5/0.5MG 3 ML AMPUL.NEB INHALE ×2 (07:24→11:44)
[2020-04-22 07:50] LABS: Glucose, Whole Blood 87 mg/dL (60-115)
[2020-04-22 08:00] VITALS: BP 153/77; PULSE 65; RESP 20; TEMP 36.2; O2SAT 95
[2020-04-22 08:15] VITALS: BP 153/77; PULSE 65
[2020-04-22] MEDS: Losartan Potassium 50 MG TABLET PO (08:15)
[2020-04-22] MEDS: Gabapentin 300 MG CAPSULE PO ×2 (08:16→13:34)
[2020-04-22] MEDS: Clopidogrel Bisulfate 75 MG TABLET PO (08:16)
[2020-04-22] MEDS: Metoprolol Succinate ER 50 MG TAB.ER.24H PO (08:16)
[2020-04-22] MEDS: Sertraline HCL 25 MG TABLET PO (08:16)
[2020-04-22] MEDS: amLODIPine Besylate 5 MG TABLET PO (08:17)
[2020-04-22] MEDS: Apixaban 5 MG TABLET PO (08:17)
[2020-04-22] MEDS: predniSONE 20 MG TABLET 40 MG PO (08:17)
[2020-04-22] MEDS: Furosemide 40 MG TABLET PO (08:17)
[2020-04-22 08:18] VITALS: PULSE 65
[2020-04-22] MEDS: Omeprazole 20 MG CAPSULE.DR PO (08:18)
[2020-04-22] MEDS: Amiodarone HCL 200 MG TABLET PO (08:18)
[2020-04-22] MEDS: Insulin Lispro 100 UNIT/ML 3 ML VIAL SUBCUT ×2 (08:18→12:19)
[2020-04-22] MEDS: Tamsulosin HCL 0.4 MG CAPSULE PO (08:18)
[2020-04-22] MEDS: Insulin Lispro 100 UNIT/ML 3 ML VIAL 6 UNIT SUBCUT ×2 (08:19→13:34)
[2020-04-22] MEDS: guaiFENesin LA 600 MG TAB.ER.12H PO (08:20)
[2020-04-22] MEDS: Insulin Glargine,Hum.rec.anlog 100 UNIT/ML 10 ML VIAL 20 UNIT SUBCUT (08:21)
--- NOTE | 2020-04-22 08:46 | P.DS_ITS ---
DS: Providers Provider Date of admission: 04/17/20 16:40 Primary care physician: Rusty Gutierrez MD DS: Diagnosis Discharge Diagnosis (1) Acute on chronic respiratory failure with hypoxia and hypercapnia: Status: Acute (2) COPD exacerbation: Status: Acute (3) Acute systolic CHF (congestive heart failure): Status: Acute (4) Diabetes mellitus, type 2: Status: Acute (5) Atrial fibrillation: Status: Acute DS: Summary Hospital Course Hospital Course: HPI from the admission H&P: this is a 64-year-old male with a history of COPD on 3 L of home O2 who presents to the emergency department with complaints of shortness of breath. he reports onset of shortness of breath yesterday. He denies any associated fever or chills. He was initially placed on BiPAP and was able to be weaned off. Lab work revealed no leukocytosis. He did have mild elevation in lactic acid at 2.9. There is possible pneumonia seen at the right lung base and he was given a dose of IV Levaquin. His BNP was 538 and he received a dose of IV Lasix as well. Hospital Course patient presented with acute on chronic respiratory failure secondary to both combined COPD exacerbation as well as acute systolic heart failure. He was treated with systemic steroids, bronchodilators and empiric doxycycline for his COPD exacerbation. For his congestive heart failure, he was diuresed with IV Lasix. Over the course of 4 days in the hospital, patient's respiratory status stabilized and was able to be weaned down to his baseline of 3 L oxygen by nasal cannula. He will be discharged home to complete a short course of prednisone and doxycycline. He can resume his baseline oral Lasix at 40 mg. he should follow-up with pulmonary for his recurrent COPD exacerbations. Time Spent with Patient Time attestation: Total time spent providing and/or coordinating discharge servi mingo: Physical Exam Vital Signs: Vital Signs: Vital Signs Temp Pulse Resp BP Pulse Ox 04/22/20 08:18 65 04/22/20 08:15 65 153/77 H 04/22/20 03:58 97.6 F 76 16 154/80 H 93 04/22/20 00:00 98.7 F 78 18 146/79 H 95 04/21/20 20:00 97.9 F 82 18 142/72 H 94 04/21/20 18:05 22 H 04/21/20 15:28 97 F 82 24 H 138/75 94 04/21/20 13:16 22 H 04/21/20 12:00 98.0 F 87 24 H 128/73 95 04/21/20 09:13 82 132/89 04/21/20 09:12 92 132/89 04/21/20 09:11 88 132/89 04/21/20 09:10 24 H Body Mass Index 39.6 General - no acute distress, appears comfortable Cardiovascular - regular rate and rhythm, S1-S2 Lungs - normal respiratory effort, clear to auscultation bilaterally, no wheezing Abdomen - soft, nontender, no rebound regarding Extremities - no edema bilaterally Neuro - awake and alert, no focal deficits DS: Data Data Completed and Pending Labs on day of discharge: Labs from last 24 hours 04/22/20 04/21/20 04/21/20 07:46 19:59 16:25 POC Glucose 87 276 H 224 H Calcium 04/21/20 04/21/20 11:39 07:17 POC Glucose 107 Calcium 8.6 Preliminary micro results at discharge 04/17/20 14:31 Blood Culture - Preliminary Blood - Venous No growth after 48 hours. 04/17/20 14:18 Blood Culture - Preliminary Blood - Venous No growth after 48 hours. Discharge Plan Discharge Patient Disposition: Home, Self-Care Referrals: Nicole Louise MD [Physician] - 4 Weeks (Call office for follow up) Mignon Holcomb MD [Physician] - 1 Week (TELE VISIT 04/23/2020 1:00pm. Dr. Holcomb will call you to discuss your hospital stay.) Discharge Medications: New prednisone 20 mg Tablet 40 mg PO DAILY Qty: 10 RF: 0 guaifenesin [Mucinex] 600 mg Tablet Extended Release 12hr 600 mg PO BID Qty: 30 RF: 0 doxycycline hyclate 100 mg Tablet 100 mg PO BID Qty: 10 RF: 0 Continued furosemide 40 mg Tablet 40 mg PO DAILY RF: 0 atorvastatin 80 mg Tablet 80 mg PO BEDTIME RF: 0 amiodarone 200 mg Tablet 200 mg PO DAILY RF: 0 clopidogrel 75 mg Tablet 75 mg PO DAILY RF: 0 pantoprazole [Protonix] 40 mg Tablet,Delayed Release (Dr/Ec) 40 mg PO DAILY RF: 0 sertraline 25 mg tablet 1 tab PO DAILY RF: 0 aspirin 81 mg tablet,chewable 1 tab PO DAILY RF: 0 montelukast 10 mg Tablet 10 mg PO BEDTIME RF: 0 amlodipine 5 mg tablet 1 tab PO DAILY RF: 0 gabapentin 300 mg capsule 1 cap PO TID RF: 0 Incruse Ellipta 62.5 mcg/actuation blister with device 1 inh inhalation DAILY RF: 0 losartan 50 mg tablet 1 tab PO DAILY RF: 0 metoprolol succinate 50 mg tablet extended release 24 hr 1 tab PO DAILY RF: 0 quetiapine 100 mg tablet 100 mg PO BEDTIME RF: 0 insulin aspart U-100 [Novolog Flexpen U-100 Insulin] 100 unit/mL (3 mL) insulin pen 8 unit subcut TIDAC RF: 0 sertraline 25 mg tablet 1 tab PO DAILY RF: 0 Lantus U-100 Insulin 100 unit/mL Solution 35 unit SUBCUT QPM RF: 0 tamsulosin 0.4 mg capsule 1 cap PO DAILY RF: 0 albuterol sulfate [Ventolin HFA] 90 mcg/actuation HFA aerosol inhaler 2 puff PO Q4-6H PRN (Reason: Shortness Of Breath) RF: 0 Eliquis 5 mg tablet 5 mg PO BID RF: 0 Discharge Orders: Discharge Order (Routine); Ordered 04/22/20 Ordered By: Billy Sanchez Diet: advance to your usual diet Activity on Discharge: As tolerated Visit Report Forms: Patient Portal Discharge page Care Plan Goals: To stay healthy and out of the hospital. Health Concerns: Recurrent admission for COPD / CHF Plan of Treatment: To complete course of prednisone and antibiotics. To follow up with pulmonary.
--- NOTE | 2020-04-22 08:57 | MHC.CM.PN ---
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 Pt will be transported by ambulance covering for chair van at 1300 hours
--- NOTE | 2020-04-22 10:12 | MHC.CM.PN ---
Discharge planned for today. 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 Pt will be transported via chair van scheduled for 1430 hours
[2020-04-22 11:44] LABS: Glucose, Whole Blood 187 mg/dL (60-115)
[2020-04-22 12:00] VITALS: BP 132/65; PULSE 75; RESP 20; TEMP 36.4; O2SAT 93
[2020-04-23 07:55] LABS: Glucose, Whole Blood 288 mg/dL (60-115)
== END 2020-04-22 14:30 | disposition home or self-care (01) | DRG 291 ==
LOC: HO.ED 15:37 → HO.IMC 17:19
PROVIDERS: Admitting Provider Physician Assistant Medical; Emergency Provider Emergency Medicine; PCP Internal Medicine; Visit Provider Family Medicine
DX: I11.0 Hypertensive heart disease with heart failure (principal); I50.21 Acute systolic (congestive) heart failure; J96.22 Acute and chronic respiratory failure with hypercapnia; J96.21 Acute and chronic respiratory failure with hypoxia; J44.1 Chronic obstructive pulmonary disease with (acute) exacerbation; E87.2 Acidosis; N40.0 Benign prostatic hyperplasia without lower urinary tract symptoms; I25.10 Atherosclerotic heart disease of native coronary artery without angina pectoris; G47.33 Obstructive sleep apnea (adult) (pediatric); F17.210 Nicotine dependence, cigarettes, uncomplicated; Z71.6 Tobacco abuse counseling; Z86.718 Personal history of other venous thrombosis and embolism; I48.91 Unspecified atrial fibrillation; Z20.828 Contact with and (suspected) exposure to other viral communicable diseases; Z88.5 Allergy status to narcotic agent; Z79.4 Long term (current) use of insulin; Z99.81 Dependence on supplemental oxygen; Z79.82 Long term (current) use of aspirin; Z79.01 Long term (current) use of anticoagulants; Z79.899 Other long term (current) drug therapy
CPT/HCPCS: 36415; 71045; 71046; 73110; 73130; 80048; 80076; 81003; 81015; 82803; 82947; 83605; 83690; 83735; 83880; 84145; 84484; 85025; 87040; 87633; 93005; 93010; 94640; 96361; 96365; 96367; 96375; 96376; 99284; 99291; J1170; J1940; J1956; J2920; J3010; J3475

== ENCOUNTER 2020-05-03 11:11 | Inpatient (IN) | payer MEDICARE, MEDICAID, SELFPAY ==
[2020-05-03] VITALS (13 sets, daily range): BP systolic 143–220; BP diastolic 81–180; PULSE 112–144; RESP 16–49; TEMP 35.6–36.7; O2SAT 81–99; BMI 37.5
--- NOTE | 2020-05-03 11:25 | PC.NURSE ---
PT PLACED ON BIPAP BY RESP THERAPIST (JOSE).
--- NOTE | 2020-05-03 11:27 | XR_ITS ---
EXAMINATION: XR CHEST CLINICAL INFORMATION: SOB. COMPARISON: None TECHNIQUE: Frontal view of the chest was obtained. FINDINGS: The lungs are well-expanded and clear of acute process. The heart size and pulmonary vascularity is normal. No gross bony abnormality seen. XR/XR chest 1V IMPRESSION: Unremarkable chest exam. Previously noted right lung base infiltrate has resolved.
--- NOTE | 2020-05-03 11:27 | ECG_ITS ---
Test Reason : SOB Blood Pressure : / mmHG Vent. Rate : 112 BPM Atrial Rate : 097 BPM P-R Int : 000 ms QRS Dur : 100 ms QT Int : 328 ms P-R-T Axes : 000 061 -22 degrees QTc Int : 447 ms Atrial fibrillation with rapid ventricular response Nonspecific T wave abnormality Abnormal ECG When compared with ECG of 17-APR-2020 11:44, Atrial fibrillation has replaced Sinus rhythm Referred By: Sahara Juárez Electronically Signed By:DAVIS ROCA MD
--- NOTE | 2020-05-03 11:31 | ED.SOB ---
HPI - SOB/Dyspnea General Chief Complaint: Dyspnea Stated Complaint: sob Time Seen by Provider: 05/03/20 11:20 Source: patient Mode of arrival: ambulatory Limitations: no limitations History of Present Illness HPI Narrative: patient comes to the emergency room complaining of shortness of breath. Patient was discharged from the hospital 10 days ago for COPD exacerbation with hypercapnia. Patient states that shortness of breath started earlier this morning, his home medications did not work. MD elicited complaint: shortness of breath Pertinent past history: COPD and congestive heart failure Related Data Home Medications Medication Instructions Recorded Confirmed Eliquis 5 mg PO BID 04/17/20 04/17/20 Incruse Ellipta 1 inh INHALATION DAILY 04/17/20 04/17/20 Lantus U-100 Insulin 35 unit SUBCUT QPM 04/17/20 04/17/20 albuterol sulfate [Ventolin HFA] 2 puff PO Q4-6H PRN 04/17/20 04/17/20 amiodarone 200 mg PO DAILY 04/17/20 04/17/20 amlodipine 1 tab PO DAILY 04/17/20 04/17/20 aspirin 1 tab PO DAILY 04/17/20 04/17/20 atorvastatin 80 mg PO BEDTIME 04/17/20 04/17/20 clopidogrel 75 mg PO DAILY 04/17/20 04/17/20 furosemide 40 mg PO DAILY 04/17/20 04/17/20 gabapentin 1 cap PO TID 04/17/20 04/17/20 insulin aspart U-100 [Novolog 8 unit SUBCUT TIDAC 04/17/20 04/17/20 Flexpen U-100 Insulin] losartan 1 tab PO DAILY 04/17/20 04/17/20 metoprolol succinate 1 tab PO DAILY 04/17/20 04/17/20 montelukast 10 mg PO BEDTIME 04/17/20 04/17/20 pantoprazole [Protonix] 40 mg PO DAILY 04/17/20 04/17/20 quetiapine 100 mg PO BEDTIME 04/17/20 04/17/20 sertraline 1 tab PO DAILY 04/17/20 04/17/20 sertraline 1 tab PO DAILY 04/17/20 04/17/20 tamsulosin 1 cap PO DAILY 04/17/20 04/17/20 Previous Rx's Medication Instructions Recorded doxycycline hyclate 100 mg PO BID #10 tab 04/22/20 guaifenesin [Mucinex] 600 mg PO BID #30 tab 04/22/20 prednisone 40 mg PO DAILY #10 tab 04/22/20 Allergies Allergy/AdvReac Type Severity Reaction Status Date / Time nitroglycerin [NITROGLYCERIN] Allergy Severe CARDIOPULMONARY Verified 04/17/20 11:57 ARREST 2012 adhesive tape [Adhesive Tape] Allergy Mild BLISTERS Verified 04/17/20 11:57 cephalexin [From Keflex] Allergy Unknown ITCHING Verified 04/17/20 11:57 ciprofloxacin [From Cipro] Allergy Unknown ITCHING Verified 04/17/20 11:57 latex [LATEX] Allergy Unknown UNKNOWN Verified 04/17/20 11:57 morphine [Morphine] Allergy Unknown ITCHING Verified 04/17/20 11:57 tramadol [From ULTRAM] AdvReac Severe STOMACH Verified 04/17/20 11:57 UPSET Adhesive Tape 1 x5yd Allergy Unknown Hives Uncoded 04/17/20 11:57 Diltiazem HCl Allergy Unknown Unknown Uncoded 04/17/20 11:57 Latex Gloves Allergy Unknown Unknown Uncoded 04/17/20 11:57 Review of Systems Review of Systems: Yes Other ( Unobtainable due to severe shortness of breath) PMFSH Past Medical History Medical History Asthma Atrial fibrillation BPH (benign prostatic hyperplasia) CAD (coronary artery disease) Continuous positive airway pressure dependent COPD (chronic obstructive pulmonary disease) Deep vein thrombosis (DVT) of right upper extremity Diabetes mellitus, type 2 GERD (gastroesophageal reflux disease) HTN (hypertension) ELI (obstructive sleep apnea) Streptococcal bacteremia Systolic CHF Surgical History History of tracheostomy S/P diskectomy Social History Social History Household Members: Family Housing: Apartment Alcohol intake: never Smoking Status: Smoker, status unknown Second Hand Smoke Exposure: Yes Use of substances other than those prescribed or required for medical reasons: No Advance Directives: Yes Advance Directives on File: Yes Advance Directives Date on File: 04/18/20 service: No Current occupational status: disabled Physical Exam Vital Signs: Vital Signs: Vital Signs Temp Pulse Pulse Resp BP Pulse Ox 05/03/20 15:46 43 H 05/03/20 14:51 116 H 29 H 143/93 H 90 L 05/03/20 14:00 113 H 88 L 05/03/20 12:40 135 H 16 05/03/20 11:44 42 H 05/03/20 11:24 97.8 F 144 H 49 H 220/180 H 81 L Body Mass Index 37.5 Appearance: Alert. in acute distress due to shortness of breath Eyes: Pupils equal, round and reactive to light. ENT: Pharynx normal. Neck: Normal inspection. Neck supple. No lymph nodes noted. No crepitus CVS: tachycardic, S1-S2 Respiratory: in moderate to severe respiratory distress, bilateral wheezing, bilateral crackles, decreased air movement bilaterally, using accessory muscles Abdomen: Soft and nontender. No rigidity. No distention. good BS x4 Skin: Skin warm and dry. Normal skin color. Normal skin turgor. Extremities: No lower extremity edema. No lower extremity edema. No Lacerations. No Rash Neuro: Oriented X 3. No motor deficit. No sensory deficit. Moving all extermities. No slurred speech. Course Course Course Narrative: patient is now on BiPAP, oxygen saturation 81% on room air on arrival patient was put on BiPAP on arrival to the emergency room, he remained on BiPAP for couple of hours. we tried weaning patient off of BiPAP, however his oxygen saturation dropped to the low 80s despite being on 5 L and his respiratory rate remained between 30 and 40. Patient was restarted on BiPAP. I discussed the above-mentioned with Dr. Kenney, patient is being admitted to the unit evaluated the patient at bedside, patient is blood gases are reassuring, patient may not need BiPAP. recommendations: Give 1 mg of Dilaudid now, and within 10 minutes will give another 1 mg with the intention of slowing down the respiratory rate, then we will attempt to wean patient off BiPAP patient tolerated well being of BiPAP, patient is now on 5 L. Patient is being admitted to [facility], discussed the patient with Dr. Jolly at this time, patient's labs do not follow a typical COPD exacerbation. at this time sepsis is not suspected MDM - SOB/Dyspnea Lab Data Result diagrams: 05/03/20 12:12 05/03/20 12:46 Labs: Lab Results 05/03/20 05/03/20 05/03/20 Range/Units 11:41 12:12 12:12 WBC 10.2 (4.8-10.8) X10*3/uL RBC 5.39 (4.60-5.80) X10*6/uL Hgb 14.7 (14.0-18.0) g/dl Hct 45.3 (42-52) % MCV 84.0 (80-98) fL MCH 27.3 (27.0-33.0) pg MCHC 32.5 (31.0-36.0) g/dl RDW 13.5 (11.0-16.0) % Plt Count 247 D (160-400) X10*3/uL MPV 11.0 (9.4-12.4) fL Immature Gran % (Auto) 0.8 H (0.0-0.4) % Neut % (Auto) 81.8 H (45-73) % Lymph % (Auto) 11.9 L (20-40) % [place] % (Auto) 4.6 (2-11) % Eos % (Auto) 0.6 (0-4) % Baso % (Auto) 0.3 (0-2) % Lymph # (Auto) 1.2 (1.2-4.9) X10*3/uL [place] # (Auto) 0.5 (0.1-1.2) X10*3/uL Eos # (Auto) 0.1 (0.0-0.4) X10*3/uL Baso # (Auto) 0.0 (0.0-0.2) X10*3/uL Abs Immat Gran (auto) 0.08 H (0.00-0.03) X10*3/uL Absolute Neuts (auto) 8.3 (2.0-8.3) X10*3/uL Absolute Nucleated RBC 0.000 (0.0-0.012) X10*3/uL Nucleated RBC % (auto) 0.0 (0.0-0.2) /100WBC ABG pH 7.39 (7.35-7.45) ABG pCO2 39 (32-45) mmhg ABG pO2 239 H (83-108) mmhg ABG HCO3 23 (22-26) mmol/l ABG O2 Saturation 99.5 % ABG Base Excess -1.7 Oxygen Given 50% Sodium Cancelled Potassium Cancelled Chloride Cancelled Carbon Dioxide Cancelled Anion Gap Cancelled BUN Cancelled Creatinine Cancelled Estim Creat Clear Calc Cancelled Estimated GFR Cancelled Random Glucose Cancelled Lactic Acid (0.5-2.0) mmol/L Calcium Cancelled Troponin I High Sens (<3.5-35.0) ng/L B-Natriuretic Peptide (<100) pg/mL Coronavirus (PCR) (Negative) 05/03/20 05/03/20 05/03/20 Range/Units 12:12 12:12 12:13 WBC (4.8-10.8) X10*3/uL RBC (4.60-5.80) X10*6/uL Hgb (14.0-18.0) g/dl Hct (42-52) % MCV (80-98) fL MCH (27.0-33.0) pg MCHC (31.0-36.0) g/dl RDW (11.0-16.0) % Plt Count (160-400) X10*3/uL MPV (9.4-12.4) fL Immature Gran % (Auto) (0.0-0.4) % Neut % (Auto) (45-73) % Lymph % (Auto) (20-40) % [place] % (Auto) (2-11) % Eos % (Auto) (0-4) % Baso % (Auto) (0-2) % Lymph # (Auto) (1.2-4.9) X10*3/uL [place] # (Auto) (0.1-1.2) X10*3/uL Eos # (Auto) (0.0-0.4) X10*3/uL Baso # (Auto) (0.0-0.2) X10*3/uL Abs Immat Gran (auto) (0.00-0.03) X10*3/uL Absolute Neuts (auto) (2.0-8.3) X10*3/uL Absolute Nucleated RBC (0.0-0.012) X10*3/uL Nucleated RBC % (auto) (0.0-0.2) /100WBC ABG pH (7.35-7.45) ABG pCO2 (32-45) mmhg ABG pO2 (83-108) mmhg ABG HCO3 (22-26) mmol/l ABG O2 Saturation % ABG Base Excess Oxygen Given Sodium Potassium Chloride Carbon Dioxide Anion Gap BUN Creatinine Estim Creat Clear Calc Estimated GFR Random Glucose Lactic Acid 2.7 H* (0.5-2.0) mmol/L Calcium Troponin I High Sens 37.6 H (<3.5-35.0) ng/L B-Natriuretic Peptide 308 H (<100) pg/mL Coronavirus (PCR) NEGATIVE (Negative) 05/03/20 Range/Units 12:46 WBC (4.8-10.8) X10*3/uL RBC (4.60-5.80) X10*6/uL Hgb (14.0-18.0) g/dl Hct (42-52) % MCV (80-98) fL MCH (27.0-33.0) pg MCHC (31.0-36.0) g/dl RDW (11.0-16.0) % Plt Count (160-400) X10*3/uL MPV (9.4-12.4) fL Immature Gran % (Auto) (0.0-0.4) % Neut % (Auto) (45-73) % Lymph % (Auto) (20-40) % [place] % (Auto) (2-11) % Eos % (Auto) (0-4) % Baso % (Auto) (0-2) % Lymph # (Auto) (1.2-4.9) X10*3/uL [place] # (Auto) (0.1-1.2) X10*3/uL Eos # (Auto) (0.0-0.4) X10*3/uL Baso # (Auto) (0.0-0.2) X10*3/uL Abs Immat Gran (auto) (0.00-0.03) X10*3/uL Absolute Neuts (auto) (2.0-8.3) X10*3/uL Absolute Nucleated RBC (0.0-0.012) X10*3/uL Nucleated RBC % (auto) (0.0-0.2) /100WBC ABG pH (7.35-7.45) ABG pCO2 (32-45) mmhg ABG pO2 (83-108) mmhg ABG HCO3 (22-26) mmol/l ABG O2 Saturation % ABG Base Excess Oxygen Given Sodium 138 Potassium 4.6 Chloride 107 Carbon Dioxide 24 Anion Gap 12 BUN 11 D Creatinine 0.95 Estim Creat Clear Calc 87.5 Estimated GFR > 60 Random Glucose 335 H D Lactic Acid (0.5-2.0) mmol/L Calcium 8.3 L Troponin I High Sens (<3.5-35.0) ng/L B-Natriuretic Peptide (<100) pg/mL Coronavirus (PCR) (Negative) ECG Data Attestation: I personally reviewed and interpreted this ECG as follows: ( is a fibrillation, heart rate 112, no ST segment depression or elevation) Critical Care Time Critical Care Time Critical Care Time: Yes Total Critical Care Time: 120 Attestation: patient required BiPAP, several consult, and constant evaluation Discharge Plan Discharge Clinical Impression: Acute exacerbation of chronic obstructive airways disease Prescriptions: No Action furosemide 40 mg Tablet 40 mg PO DAILY RF: 0 atorvastatin 80 mg Tablet 80 mg PO BEDTIME RF: 0 amiodarone 200 mg Tablet 200 mg PO DAILY RF: 0 clopidogrel 75 mg Tablet 75 mg PO DAILY RF: 0 pantoprazole [Protonix] 40 mg Tablet,Delayed Release (Dr/Ec) 40 mg PO DAILY RF: 0 sertraline 25 mg tablet 1 tab PO DAILY RF: 0 aspirin 81 mg tablet,chewable 1 tab PO DAILY RF: 0 montelukast 10 mg Tablet 10 mg PO BEDTIME RF: 0 amlodipine 5 mg tablet 1 tab PO DAILY RF: 0 gabapentin 300 mg capsule 1 cap PO TID RF: 0 Incruse Ellipta 62.5 mcg/actuation blister with device 1 inh inhalation DAILY RF: 0 losartan 50 mg tablet 1 tab PO DAILY RF: 0 metoprolol succinate 50 mg tablet extended release 24 hr 1 tab PO DAILY RF: 0 quetiapine 100 mg tablet 100 mg PO BEDTIME RF: 0 insulin aspart U-100 [Novolog Flexpen U-100 Insulin] 100 unit/mL (3 mL) insulin pen 8 unit subcut TIDAC RF: 0 sertraline 25 mg tablet 1 tab PO DAILY RF: 0 Lantus U-100 Insulin 100 unit/mL Solution 35 unit SUBCUT QPM RF: 0 tamsulosin 0.4 mg capsule 1 cap PO DAILY RF: 0 albuterol sulfate [Ventolin HFA] 90 mcg/actuation HFA aerosol inhaler 2 puff PO Q4-6H PRN (Reason: Shortness Of Breath) RF: 0 Eliquis 5 mg tablet 5 mg PO BID RF: 0 prednisone 20 mg Tablet 40 mg PO DAILY Qty: 10 RF: 0 guaifenesin [Mucinex] 600 mg Tablet Extended Release 12hr 600 mg PO BID Qty: 30 RF: 0 doxycycline hyclate 100 mg Tablet 100 mg PO BID Qty: 10 RF: 0
[2020-05-03 11:47] LABS: Pt Ventilation O2% 50%
[2020-05-03] MEDS: Albuterol/Iprat 2.5/0.5MG 3 ML AMPUL.NEB INHALE ×2 (11:55→20:49)
[2020-05-03 11:57] LABS: ABG PCO2 39 mmhg (32-45); PO2 ABG 239 mmhg (83-108); pH ABG 7.39 (7.35-7.45)
[2020-05-03 11:58] LABS: Base Excess ABG -1.7; HCO3 ABG 23 mmol/l (22-26); Oxygen Saturation ABG 99.5 %
[2020-05-03] MEDS: methylPREDNISolone Sod Succ/PF 125 MG/2 ML VIAL IVPUSH (12:13)
[2020-05-03 12:19] LABS: MANUAL DIFF FLAG NO
[2020-05-03 12:20] LABS: Basophils Percent Auto 0.3 % (0-2); Eosinophils Absolute Auto 0.1 X10*3/uL (0.0-0.4); Eosinophils Percent Auto 0.6 % (0-4); Hematocrit 45.3 % (42-52); Hemoglobin 14.7 g/dl (14.0-18.0); Imm Gran Abs Auto 0.08 X10*3/uL (0.00-0.03); Imm Gran Pct Auto 0.8 % (0.0-0.4); Lymphocytes Absolute Auto 1.2 X10*3/uL (1.2-4.9); Lymphocytes Percent Auto 11.9 % (20-40); Mean Corpuscular HGB Conc 32.5 g/dl (31.0-36.0); Mean Corpuscular Hemoglobin 27.3 pg (27.0-33.0); Monocytes Absolute Auto 0.5 X10*3/uL (0.1-1.2); Monocytes Percent Auto 4.6 % (2-11); Neutrophils Absolute Auto 8.3 X10*3/uL (2.0-8.3); Neutrophils Percent Auto 81.8 % (45-73); Platelet Count 247 X10*3/uL (160-400); Red Blood Count 5.39 X10*6/uL (4.60-5.80); Red Cell Distribution Width 13.5 % (11.0-16.0); White Blood Count 10.2 X10*3/uL (4.8-10.8)
[2020-05-03 12:44] LABS: Lactic Acid 2.7 mmol/L (0.5-2.0)
[2020-05-03] MEDS: HYDROmorphone HCl 0.5 MG/0.5 ML SYRINGE IVPUSH (12:52)
[2020-05-03 12:53] LABS: Troponin-I High Sensitivity 37.6 ng/L (<3.5-35.0)
[2020-05-03 12:54] LABS: B Type Natriuretic Peptide 308 pg/mL (<100)
[2020-05-03 13:17] LABS: SARS COV2 PCR INHOUSE NEGATIVE (Negative)
[2020-05-03 13:20] LABS: Anion Gap 12 (12-20); Blood Urea Nitrogen 11 mg/dL (9-16); Calcium 8.3 mg/dL (8.4-10.2); Carbon Dioxide 24 mmol/L (22-29); Chloride 107 mmol/L (96-108); Creatinine Clr Calc Pharmacy 87.5; Estimated Glomerular Filt Rate > 60; Glucose Random 335 mg/dL (60-115); Potassium 4.6 mmol/l (3.3-5.1); Sodium 138 mmol/L (135-145)
[2020-05-03 14:17] LABS: Reflex Lactate? Lactic Acid Added
[2020-05-03] MEDS: Insulin Regular, Human 100 UNIT/ML 3 ML VIAL 10 UNIT IVPUSH (14:30)
[2020-05-03] MEDS: Doxycycline Hyclate 100 MG in 0.9 % Sodium Chloride 250 ML 250 MG IV (14:30)
[2020-05-03] MEDS: Furosemide 40 MG/4 ML VIAL IVPUSH (15:14)
[2020-05-03] MEDS: HYDROmorphone HCl 1 MG/ML SYRINGE IVPUSH ×2 (15:15→15:59)
--- NOTE | 2020-05-03 19:20 | P.HPCC_ITS ---
History of Present Illness Date of Service: 05/03/20 Chief Complaint: Acute Respiratory Distress; COPD exacerbation HPI: Pt is 64 y.o Hypoxic Respiratory Failure with Hypercarbic State, COPD O2 NC 3 L dependent, still smoking 6 cigarets per day, hx CAD post 7 stents, Hypothyroid, cervical fusion, Atrial fibrilation on blood thinners, DM II, JIMENEZ (previous HD); Systolic congestive heart failure, upper extremity DVT, gastroesophageal reflux disease, obstructive sleep apnea, hypertension among others. Patient presented to the emergency room with complaints of shortness of breath. According to patient has been feeling short of breath since yesterday and has not been able to sleep on his left side however he improved somewhat when laying on the right side but today his symptoms got worse. In the emergency room, the patient was noted to be hypoxic, however he was tachypneic and tachycardic with respiratory rate as high as 40-44 breaths per minute and heart rate between 140 and 150, otherwise hemodynamically stable. Patient did have some wheezing on exam, he was given Solu-Medrol, breathing treatment and narcotics for respiratory distress. His workup was overall unrevealing with normal laboratories and normal ABG, there was no evidence of respiratory acidosis or hypercarbic state. Given his work of breathing, patient was placed on BiPAP, he was seen by the hospitalist but it was recommended that the patient would be taking care of in the ICU given his elevated heart rate and respiratory rate. In the ER and had a repeat another blood gas and I do not see any evidence of hypercarbia or acidosis, patient will be switched to high-flow oxygen. Currently patient denies any other symptomatology, admits to continuing to smoke. Not ready to quit. Smoking cessation discussion was held with the patient, he would sickle Chantix as an outpatient, refuses nicotine patch. ROS: Denies headache, no visual changes, lightheadedness or dizziness, no history of seizures or strokes, no history of eye or ear problems, no sore throat, cough or sputum production, denies chest pain, palpitations, no hemoptysis, denies any melena, hematochezia, liver or kidney problems, no dysuria, hematuria, no leg swelling, no history of DVT or PE. He has no travel and has not been contact with anybody with [employer]. Past Medical History:as above Past Surgical History: Tracheostomy Fischer surg x 3 due to Diverticulitis Cholecystectomy Family history: No Contributory Social History: Lives at Home with his ex ; Devices: walker on / off Smoker: 150 pk/y hx still smokes Etoh hx: No Drug hx: None CODE STATUS: FULL CODE Baseline Functionality: Patient is very sedentary Contacts or HCP: Jacquie (daughter) Allergies: NTG (arrest); tapem latex, tramadol, diltiazem cipro, keflex (itch) Home Medications: Reviewed see med rec PHYSICAL EXAM: VS: BP 149/95; HR 113; RR 33; Sat 86% on BiPap 14/6 FiO2 50% ?General: Alert oriented x3 no acute distress. Speaking full sentences. Speech is well articulated, thought process is coherent. Following all commands. ?Skin: Intact, no lesions, edema, erythema, clubbing or cyanosis. No ulcers. ?HEENT: Head is normocephalic, atraumatic, pupils equal round reactive to light accommodation bilaterally. Extraocular movements appear intact. Buccal mucosa is moist, Neck is supple without lymphadenopathy. ?Cardiac: Clear S1-S2, no murmurs rubs or gallops. ?Pulmonary: diminished lung sounds with wheezing at the basis, no crackles, no rhonchi. ?Abdomen: Protuberant, positive bowel sounds in all 4 quadrants. Soft, nontender, no rebound or guarding. ?Musculoskeletal: Moving all 4 extremities upon request a major joints, there is no crepitus or tenderness. The strength is 5/5 bilaterally and throughout all 4 extremities. Gait not assessed at this point. ?Neurologic: As above, cranial nerves 2-12 are grossly intact. No focal deficits noted. Motor strength as above. ?Vascular: 2+ pulses upper and lower extremities distally. SIGNIFICANT LABORATORY DATA: were blood cell 10.2, hemoglobin 14.7, her hematocrit 45.3, platelet 247. Sodium 130, potassium 4.6, chloride 107, carbon dioxide 24, BUN 11, creatinine 0.95, glucose 335. Blood gas reveals pH of 7.35, pCO2 of 36, PO2 of 219, base excess -5.5. Calcium 8.3, troponin 37.6, lactic acid 2.7, BNP 308. Coronavirus testing negative. REVIEW OF IMAGES: IMPRESSION: Unremarkable chest exam. Previously noted right lung base infiltrate has resolved. EKG REVIEW: atrial fibrillation with rapid ventricular response rate of 112 beats per minute. No ST elevations, no depressions. No comparison available. ASSESSMENT AND PLAN: 1. Acute on chronic Hypoxic respiratory failure respiratory state without hypercarbia 2. COPD exacerbation 3. Diabetes mellitus type 2 and hyperglycemia 4. stable hypertension 5. history of CHF currently stable 6. drug-seeking behavior 7. atrial fibrillation with rapid ventricular response worsened by respiratory distress and nebulizers side effects 8. Lactic acidosis likely due to recurring nebulization affect, there is NO evidence of sepsis. 9. Chronic troponin elevation Admit to ICU, vital signs, steroids, DuoNeb, albuterol, insulin regimen, resume home medications including rate-controlling meds and anticoagulation,monitor input and output. As the patient has COPD, Zithromax will be added. Will monitor for QT prolongation as he is on amiodarone. Patient did get morphine in the ER without side effect, we may use this for respiratory distress although patient does have a history of drug-seeking behavior. Upon discussion with Dr. rowe, patient may benefit from CPAP. GI PROPHYLAXIS: continue pantoprazole from home DVT PROPHYLAXIS: continue Eliquis Critical care time used for critical evaluation of this patient, diagnosis, treatment and coordination of care, review her records and documentation TOTAL CRITICAL CARE TIME 90 MIN , free of any procedures that may be done in the near future. Patient's care was discussed in detail with Dr. Kenney. He is aware of all the above as well as the plan of care for this patient. [facility] Past Medical History Medical History Asthma Atrial fibrillation BPH (benign prostatic hyperplasia) CAD (coronary artery disease) Continuous positive airway pressure dependent COPD (chronic obstructive pulmonary disease) Deep vein thrombosis (DVT) of right upper extremity Diabetes mellitus, type 2 GERD (gastroesophageal reflux disease) HTN (hypertension) ELI (obstructive sleep apnea) Streptococcal bacteremia Systolic CHF Surgical History Surgical History History of tracheostomy S/P diskectomy Social History Social History Household Members: Family Housing: House Alcohol intake: never Smoking Status: Smoker, status unknown Second Hand Smoke Exposure: Yes Use of substances other than those prescribed or required for medical reasons: No Currently Displaying Signs/Symptoms of Drug Intoxication Withdrawal: No Have you been hit, kicked, punched, or otherwise hurt by someone within the past year? If so, by whom?: No Do you feel safe in your current relationship?: No Current Relationship Is there a partner from a previous relationship who is making you feel unsafe now?: No Advance Directives: Yes Advance Directives on File: Yes Advance Directives Date on File: 04/18/20 Do you have thoughts of harming others: None Do you have a plan to hurt others: No Plan Recently lost weight without trying: No service: No Current occupational status: disabled Meds Allergies Allergy/AdvReac Type Severity Reaction Status Date / Time nitroglycerin [NITROGLYCERIN] Allergy Severe CARDIOPULMONARY Verified 04/17/20 11:57 ARREST 2012 adhesive tape [Adhesive Tape] Allergy Mild BLISTERS Verified 04/17/20 11:57 cephalexin [From Keflex] Allergy Unknown ITCHING Verified 04/17/20 11:57 ciprofloxacin [From Cipro] Allergy Unknown ITCHING Verified 04/17/20 11:57 latex [LATEX] Allergy Unknown UNKNOWN Verified 04/17/20 11:57 morphine [Morphine] Allergy Unknown ITCHING Verified 04/17/20 11:57 tramadol [From ULTRAM] AdvReac Severe STOMACH Verified 04/17/20 11:57 UPSET Adhesive Tape 1 x5yd Allergy Unknown Hives Uncoded 04/17/20 11:57 Diltiazem HCl Allergy Unknown Unknown Uncoded 04/17/20 11:57 Latex Gloves Allergy Unknown Unknown Uncoded 04/17/20 11:57 Home Medications Medication Instructions Recorded Confirmed Type Eliquis 5 mg PO BID 04/17/20 05/03/20 History Incruse Ellipta 1 inh INHALATION DAILY 04/17/20 05/03/20 History Lantus U-100 Insulin 35 unit SUBCUT QPM 04/17/20 05/03/20 History albuterol sulfate [Ventolin HFA] 2 puff PO Q4-6H PRN 04/17/20 05/03/20 History amiodarone 200 mg PO DAILY 04/17/20 05/03/20 History amlodipine 1 tab PO DAILY 04/17/20 05/03/20 History aspirin 1 tab PO DAILY 04/17/20 05/03/20 History atorvastatin 80 mg PO BEDTIME 04/17/20 05/03/20 History clopidogrel 75 mg PO DAILY 04/17/20 05/03/20 History furosemide 40 mg PO DAILY 04/17/20 05/03/20 History gabapentin 1 cap PO TID 04/17/20 05/03/20 History insulin aspart U-100 [Novolog 8 unit SUBCUT TIDAC 04/17/20 05/03/20 History Flexpen U-100 Insulin] losartan 1 tab PO DAILY 04/17/20 05/03/20 History metoprolol succinate 1 tab PO DAILY 04/17/20 05/03/20 History montelukast 10 mg PO BEDTIME 04/17/20 05/03/20 History pantoprazole [Protonix] 40 mg PO DAILY 04/17/20 05/03/20 History quetiapine 100 mg PO BEDTIME 04/17/20 05/03/20 History sertraline 1 tab PO DAILY 04/17/20 05/03/20 History sertraline 1 tab PO DAILY 04/17/20 05/03/20 History tamsulosin 1 cap PO DAILY 04/17/20 05/03/20 History Physical Exam Vital Signs: Vital Signs: Vital Signs Temp Pulse Pulse Resp BP Pulse Ox 05/03/20 15:46 43 H 05/03/20 14:51 116 H 29 H 143/93 H 90 L 05/03/20 14:00 113 H 88 L 05/03/20 12:40 135 H 16 05/03/20 11:44 42 H 05/03/20 11:24 97.8 F 144 H 49 H 220/180 H 81 L Body Mass Index 37.5 Results Labs Labs: Laboratory Tests 05/03/20 05/03/20 05/03/20 11:41 12:12 12:12 WBC 10.2 RBC 5.39 Hgb 14.7 Hct 45.3 MCV 84.0 MCH 27.3 MCHC 32.5 RDW 13.5 Plt Count 247 D MPV 11.0 Immature Gran % (Auto) 0.8 H Neut % (Auto) 81.8 H Lymph % (Auto) 11.9 L [place] % (Auto) 4.6 Eos % (Auto) 0.6 Baso % (Auto) 0.3 Lymph # (Auto) 1.2 [place] # (Auto) 0.5 Eos # (Auto) 0.1 Baso # (Auto) 0.0 Abs Immat Gran (auto) 0.08 H Absolute Neuts (auto) 8.3 Absolute Nucleated RBC 0.000 Nucleated RBC % (auto) 0.0 ABG pH 7.39 ABG pCO2 39 ABG pO2 239 H ABG HCO3 23 ABG O2 Saturation 99.5 ABG Base Excess -1.7 Oxygen Given 50% Sodium Cancelled Potassium Cancelled Chloride Cancelled Carbon Dioxide Cancelled Anion Gap Cancelled BUN Cancelled Creatinine Cancelled Estim Creat Clear Calc Cancelled Estimated GFR Cancelled Random Glucose Cancelled Lactic Acid Calcium Cancelled Troponin I High Sens B-Natriuretic Peptide Coronavirus (PCR) 05/03/20 05/03/20 05/03/20 12:12 12:12 12:13 WBC RBC Hgb Hct MCV MCH MCHC RDW Plt Count MPV Immature Gran % (Auto) Neut % (Auto) Lymph % (Auto) [place] % (Auto) Eos % (Auto) Baso % (Auto) Lymph # (Auto) [place] # (Auto) Eos # (Auto) Baso # (Auto) Abs Immat Gran (auto) Absolute Neuts (auto) Absolute Nucleated RBC Nucleated RBC % (auto) ABG pH ABG pCO2 ABG pO2 ABG HCO3 ABG O2 Saturation ABG Base Excess Oxygen Given Sodium Potassium Chloride Carbon Dioxide Anion Gap BUN Creatinine Estim Creat Clear Calc Estimated GFR Random Glucose Lactic Acid 2.7 H* Calcium Troponin I High Sens 37.6 H B-Natriuretic Peptide 308 H Coronavirus (PCR) NEGATIVE 05/03/20 12:46 WBC RBC Hgb Hct MCV MCH MCHC RDW Plt Count MPV Immature Gran % (Auto) Neut % (Auto) Lymph % (Auto) [place] % (Auto) Eos % (Auto) Baso % (Auto) Lymph # (Auto) [place] # (Auto) Eos # (Auto) Baso # (Auto) Abs Immat Gran (auto) Absolute Neuts (auto) Absolute Nucleated RBC Nucleated RBC % (auto) ABG pH ABG pCO2 ABG pO2 ABG HCO3 ABG O2 Saturation ABG Base Excess Oxygen Given Sodium 138 Potassium 4.6 Chloride 107 Carbon Dioxide 24 Anion Gap 12 BUN 11 D Creatinine 0.95 Estim Creat Clear Calc 87.5 Estimated GFR > 60 Random Glucose 335 H D Lactic Acid Calcium 8.3 L Troponin I High Sens B-Natriuretic Peptide Coronavirus (PCR) Critical Care Time Critical Care Time (minutes): 90
--- NOTE | 2020-05-03 19:23 | PC.NURSE ---
Report received from Scott EUBANKS, first contact with pt. Pt on bi-pap at this time, RR in low 40's. Pt angry and agitated, demanding a new doctor, disconnecting leads as this RN puts them on, demanding another oumou yas, not holding still for blood pressure and taking sat probe off finger. When this RN attempted to put probe back on finger pt yelling at this nurse what now?! Unable to perform assessment at this time due to patients agitation and lack of cooperation. Awaiting to give report to ICU
--- NOTE | 2020-05-03 19:35 | PC.NURSE ---
SEEN BY HITESH ERNST FROM ICU
[2020-05-03 19:58] LABS: Pt Ventilation O2% 50%
[2020-05-03 20:00] LABS: ABG PCO2 36 mmhg (32-45); Base Excess ABG -5.5; HCO3 ABG 19 mmol/l (22-26); Oxygen Saturation ABG 99.3 %; PO2 ABG 219 mmhg (83-108); pH ABG 7.35 (7.35-7.45)
[2020-05-03] MEDS: Azithromycin 500 MG TABLET PO (20:49)
[2020-05-03 21:51] LABS: ~Lactic Acid-LAB USE ONLY 1.7 mmol/L (0.5-2.0)
--- NOTE | 2020-05-03 22:15 | P.PNCC_ITS ---
Critical Care Event Note Summary Code activated: No Narrative: I was called to the ED by Dr. Juárez to see Mr. Guerra because of hypoxemia and respiratory distress. The patient is a 64-year-old male with a history of COPD on oxygen at home. He has been coming to our ED frequently over the years for respiratory complaints. He was just discharged from the hospital 10 days ago for COPD exacerbation with hypercapnia. The patient presented to the ED this morning complaining of shortness of breath since this morning. Reportedly, the patient walked to the hospital from his home. On arrival here respirations were reportedly in the 40s, with a sat of 80% on room air. He was put on BiPAP and treated for COPD exacerbation in the usual fashion. I was called to see him at about 14:30. On my exam, the patient was fully awake and oriented, with an entirely normal mental status, asking me questions. On the BiPAP 14/6/50%, he was breathing 40 times a minute, with a tidal volume of about 740 cc. Sat was low 90s. There was no jugular venous distention. Chest was clear to auscultation, with excellent excursion and excellent breath sounds, with maybe just a few basilar rales, with no wheezes, and a normal expiratory phase. Labs in the ED were notable for normal white count, a serum bicarb of 24, and a BNP of 308. A blood gas drawn on the 50% BiPAP showed 7.39/39/239/-1. Chest x- ray, to my view, looks wet. I reviewed the patient's past medical record and his old e-contratos charts in depth. According to his serum bicarbonate levels dating back to 2002, the patient is not a chronic CO2 retainer. Overall the years of his medical records, he has had 40-50 arterial blood gases done in our ED. Most of them have shown normal pCO2 levels. There have been some in the 50s. Most of his pH?s is have been normal. IMPRESSION: This is very strange presentation for a COPD exacerbation, for number of reasons: 1. The patient's mental status is entirely normal. He is not behaving at all like someone who is sick. 2. Auscultation of his chest shows no wheezes at all, with a fully normal expiratory phase, and excellent excursion and excellent breath sounds. Very atypical for a COPD exacerbation. 3. His A-a gradient is almost normal. Very atypical for a patient with severe COPD or COPD exacerbation. 4. His pCO2 is on the low side of normal. Very very unusual for a COPD exacerbation in a patient with chronic COPD who is on oxygen at home. 5. His tidal volume of 750 cc is virtually never seen in a patient with a COPD exacerbation put on BiPAP. To the contrary, we usually struggle to achieve tidal volumes in the 400 cc range. This is a most unusual presentation. The usual treatment for a patient who presents with the above numbers would be a stiff dose of opioids. Dr. Juárez tells me that Mr. Guerra presents to the ED commonly in this fashion, and always asks for opioids. I myself have seen him in the ED previously, and I recall that the last time he looked pretty much the same is this. I am always very reluctant to ascribe drug-seeking behavior to patients who present in distress, but that would not be inconsistent with the patient's presentation today. The question is how to best manage him in the ED. I have suggested 2 mg of Dilaudid to see what that does to his respiratory rate and to see if that would get him off the BiPAP. I have also suggested 40 mg of Lasix, given his exam, given his chest x-ray and given his BNP. We?ll see how he does from there. Time: 30+ min Critical Care Time (minutes): 31
[2020-05-03 23:30] LABS: Glucose, Whole Blood 385 mg/dL (60-115)
[2020-05-03] MEDS: Insulin Glargine,Hum.rec.anlog 100 UNIT/ML 10 ML VIAL 35 UNIT SUBCUT (23:55)
[2020-05-03] MEDS: Insulin Lispro 100 UNIT/ML 3 ML VIAL 8 UNIT SUBCUT (23:55)
[2020-05-03] MEDS: QUEtiapine Fumarate 100 MG TABLET PO (23:55)
[2020-05-03] MEDS: 0.9 % Sodium Chloride Flush 3 ML SYRINGE IVFLUSH (23:56)
[2020-05-04] VITALS (11 sets, daily range): BP systolic 139–170; BP diastolic 60–96; PULSE 93–123; RESP 12–22; TEMP 35.8–36.7; O2SAT 91–99; BMI 38.7
[2020-05-04] MEDS: 0.9 % Sodium Chloride Flush 3 ML SYRINGE IVFLUSH ×2 (07:47→17:29)
[2020-05-04 08:10] LABS: Glucose, Whole Blood 256 mg/dL (60-115)
[2020-05-04] MEDS: Albuterol/Iprat 2.5/0.5MG 3 ML AMPUL.NEB INHALE ×3 (08:17→19:52)
[2020-05-04] MEDS: Insulin Lispro 100 UNIT/ML 3 ML VIAL 8 UNIT SUBCUT ×2 (09:38→13:04)
[2020-05-04] MEDS: Tamsulosin HCL 0.4 MG CAPSULE PO (09:39)
[2020-05-04] MEDS: Amiodarone HCL 200 MG TABLET PO (09:39)
[2020-05-04] MEDS: guaiFENesin LA 600 MG TAB.ER.12H PO ×2 (09:39→20:41)
[2020-05-04] MEDS: Aspirin 81 MG TAB.CHEW PO (09:39)
[2020-05-04] MEDS: predniSONE 20 MG TABLET 40 MG PO (09:40)
[2020-05-04] MEDS: Gabapentin 300 MG CAPSULE PO ×3 (09:40→20:41)
[2020-05-04] MEDS: Losartan Potassium 50 MG TABLET PO (09:40)
[2020-05-04] MEDS: Furosemide 40 MG TABLET PO (09:40)
[2020-05-04] MEDS: Sertraline HCL 25 MG TABLET PO (09:40)
[2020-05-04] MEDS: Clopidogrel Bisulfate 75 MG TABLET PO (09:40)
[2020-05-04] MEDS: Apixaban 5 MG TABLET PO ×2 (09:40→20:41)
[2020-05-04] MEDS: Omeprazole 20 MG CAPSULE.DR PO (09:40)
[2020-05-04] MEDS: amLODIPine Besylate 5 MG TABLET PO (09:40)
[2020-05-04] MEDS: HYDROmorphone HCl 0.5 MG/0.5 ML SYRINGE IVPUSH ×3 (10:54→16:41)
[2020-05-04] MEDS: Metoprolol Succinate ER 50 MG TAB.ER.24H PO (11:03)
[2020-05-04 11:29] LABS: Glucose, Whole Blood 342 mg/dL (60-115)
--- NOTE | 2020-05-04 11:34 | PM.CNPUL ---
History of Present Illness History of Present Illness Chief complaint: sob Narrative: The pamtient is a 64 y.o with known Chronic Hypoxic Respiratory Failure with Hypercarbic State, COPD O2 NC 3 L dependent, still smoking 6 cigarets per day, hx CAD post 7 stents, Hypothyroid, cervical fusion, Atrial fibrilation on blood thinners, DM II, JIMENEZ (previous HD); Systolic congestive heart failure, upper extremity DVT, gastroesophageal reflux disease, obstructive sleep apnea, hypertension among others. Patient presented to the emergency room with complaints of shortness of breath. According to patient has been feeling short of breath since yesterday and has not been able to sleep on his left side however he improved somewhat when laying on the right side but today his symptoms got worse. He also had episodes of coughing up blood which concerned him. It did stop. In the emergency room, the patient was noted to be hypoxic, however he was tachypneic and tachycardic with respiratory rate as high as 40-44 breaths per minute and heart rate between 140 and 150. The Patient did have some wheezing on exam, he was given Solu-Medrol, breathing treatment and narcotics for respiratory distress. His workup was overall unrevealing with normal laboratories and normal ABG, there was no evidence of respiratory acidosis or hypercarbic state. Given his work of breathing, patient was placed on BiPAP. He was alble to wean to Oxygen and tranferred to the floor. Review of Systems Constitutional: Constitutional: Reports fatigue and Denies night sweats ENT: Denies change in voice, Denies lip swelling, Denies mouth pain, Reports nasal congestion, Reports nasal discharge and Denies tongue swelling Cardiovascular: Cardiovascular: Reports chest pain (burning), Reports rapid heart rate and Reports dyspnea Respiratory: Respiratory: Reports cough, Reports dyspnea and Reports wheezing Gastrointestinal: Gastrointestinal: Denies abdominal pain Musculoskeletal: Musculoskeletal: Denies no additional musculoskeletal complaints Neurologic: Denies Neuro-related abnormal movements Psychiatric: Psychiatric: Denies no additional psychiatric complaints Endocrine: Endocrine: Reports fatigue Hematologic/Lymphatic: Hematologic/Lymphatic: Denies easy bleeding and Denies lymphadenopathy Allergic/Immunologic: Allergic/Immunologic: Denies lip swelling, Denies tongue swelling and Reports wheezing PMFSH Past Medical History Medical History Asthma Atrial fibrillation BPH (benign prostatic hyperplasia) CAD (coronary artery disease) Continuous positive airway pressure dependent COPD (chronic obstructive pulmonary disease) Deep vein thrombosis (DVT) of right upper extremity Diabetes mellitus, type 2 GERD (gastroesophageal reflux disease) HTN (hypertension) ELI (obstructive sleep apnea) Streptococcal bacteremia Systolic CHF Family History Family History (Updated 05/04/20 @ 11:38 by Max Fuentes MD) Other HTN (hypertension) Surgical History Surgical History History of tracheostomy S/P diskectomy Social History Social History Household Members: Family Housing: House Alcohol intake: never Smoking Status: Smoker, status unknown Second Hand Smoke Exposure: Yes Use of substances other than those prescribed or required for medical reasons: No Currently Displaying Signs/Symptoms of Drug Intoxication Withdrawal: No Have you been hit, kicked, punched, or otherwise hurt by someone within the past year? If so, by whom?: No Do you feel safe in your current relationship?: No Current Relationship Is there a partner from a previous relationship who is making you feel unsafe now?: No Advance Directives: Yes Advance Directives on File: Yes Advance Directives Date on File: 04/18/20 Do you have thoughts of harming others: None Do you have a plan to hurt others: No Plan Recently lost weight without trying: No service: No Current occupational status: disabled Meds Allergies Allergy/AdvReac Type Severity Reaction Status Date / Time nitroglycerin [NITROGLYCERIN] Allergy Severe CARDIOPULMONARY Verified 04/17/20 11:57 ARREST 2012 adhesive tape [Adhesive Tape] Allergy Mild BLISTERS Verified 04/17/20 11:57 cephalexin [From Keflex] Allergy Unknown ITCHING Verified 04/17/20 11:57 ciprofloxacin [From Cipro] Allergy Unknown ITCHING Verified 04/17/20 11:57 latex [LATEX] Allergy Unknown UNKNOWN Verified 04/17/20 11:57 morphine [Morphine] Allergy Unknown ITCHING Verified 04/17/20 11:57 tramadol [From ULTRAM] AdvReac Severe STOMACH Verified 04/17/20 11:57 UPSET Adhesive Tape 1 x5yd Allergy Unknown Hives Uncoded 04/17/20 11:57 Diltiazem HCl Allergy Unknown Unknown Uncoded 04/17/20 11:57 Latex Gloves Allergy Unknown Unknown Uncoded 04/17/20 11:57 Home Medications Medication Instructions Recorded Confirmed Type Eliquis 5 mg PO BID 04/17/20 05/03/20 History Incruse Ellipta 1 inh INHALATION DAILY 04/17/20 05/03/20 History Lantus U-100 Insulin 35 unit SUBCUT QPM 04/17/20 05/03/20 History albuterol sulfate [Ventolin HFA] 2 puff PO Q4-6H PRN 04/17/20 05/03/20 History amiodarone 200 mg PO DAILY 04/17/20 05/03/20 History amlodipine 1 tab PO DAILY 04/17/20 05/03/20 History aspirin 1 tab PO DAILY 04/17/20 05/03/20 History atorvastatin 80 mg PO BEDTIME 04/17/20 05/03/20 History clopidogrel 75 mg PO DAILY 04/17/20 05/03/20 History furosemide 40 mg PO DAILY 04/17/20 05/03/20 History gabapentin 1 cap PO TID 04/17/20 05/03/20 History insulin aspart U-100 [Novolog 8 unit SUBCUT TIDAC 04/17/20 05/03/20 History Flexpen U-100 Insulin] losartan 1 tab PO DAILY 04/17/20 05/03/20 History metoprolol succinate 1 tab PO DAILY 04/17/20 05/03/20 History montelukast 10 mg PO BEDTIME 04/17/20 05/03/20 History pantoprazole [Protonix] 40 mg PO DAILY 04/17/20 05/03/20 History quetiapine 100 mg PO BEDTIME 04/17/20 05/03/20 History sertraline 1 tab PO DAILY 04/17/20 05/03/20 History sertraline 1 tab PO DAILY 04/17/20 05/03/20 History tamsulosin 1 cap PO DAILY 04/17/20 05/03/20 History Physical Exam Vital Signs: Vital Signs: Vital Signs Temp Pulse Pulse Resp BP Pulse Ox 05/04/20 11:21 98.0 F 123 H 20 142/80 H 96 05/04/20 07:52 98.0 F 120 H 20 150/80 H 97 05/04/20 06:00 104 H 20 99 05/04/20 05:00 113 H 15 142/60 H 97 05/04/20 04:00 97.5 F 102 H 20 147/95 H 98 05/04/20 03:00 100 12 97 05/04/20 02:00 96 16 91 L 05/04/20 01:00 103 H 14 97 05/04/20 00:00 98 F 120 H 20 170/80 H 97 05/03/20 23:00 115 H 18 170/81 H 92 05/03/20 22:00 113 H 33 H 149/95 H 95 05/03/20 21:28 29 H 05/03/20 20:52 35 H 05/03/20 20:43 98.1 F 124 H 39 H 160/107 H 94 05/03/20 19:17 96.0 F L 140 H 40 H 93 05/03/20 15:46 43 H 05/03/20 14:51 116 H 29 H 143/93 H 90 L 05/03/20 14:00 113 H 88 L 05/03/20 12:40 135 H 16 05/03/20 11:44 42 H Body Mass Index 38.7 Const: General: alert HENMT: General nose exam: Abnormal external nose present and Nasal discharge present Eyes: Pupils: Equal, round and reactive pupils present Neck: Neck: Yes normal visual inspection, Yes full ROM and Yes no lymphadenopathy Chest: Chest palpation & inspection: normal inspection of the chest Resp: Auscultation: rales on the right at the base, wheezes and diminished lung sounds Cardio: Rate: regular rate Rhythm: regular rhythm Heart sounds: S1 normal heart sound present and S2 normal heart sound present GI: Palpation (GI): Soft to palpation and nontender Auscultation: normal bowel sounds : General: Yes no CVA tenderness Back/Spine/Pelvis: Back: no CVA tenderness Skin: General skin exam: rashes and/or lesions noted Neuro: Cranial nerves: Yes Equal, round and reactive pupils present Results Laboratory Findings CBC and BMP: 05/03/20 12:12 05/03/20 12:46 ABG, PT/INR, D-dimer: ABG ABG pH 7.35 (7.35-7.45) 05/03/20 19:53 ABG pCO2 36 mmhg (32-45) 05/03/20 19:53 ABG pO2 219 mmhg (83-108) H 05/03/20 19:53 ABG O2 Saturation 99.3 % 05/03/20 19:53 Abnormal lab findings: Abnormal Labs 05/03/20 05/03/20 05/03/20 11:41 12:12 12:12 Immature Gran % (Auto) 0.8 H Neut % (Auto) 81.8 H Lymph % (Auto) 11.9 L Abs Immat Gran (auto) 0.08 H ABG pO2 239 H ABG HCO3 POC Glucose Random Glucose Lactic Acid 2.7 H* Calcium Troponin I High Sens B-Natriuretic Peptide 05/03/20 05/03/20 05/03/20 12:12 12:46 19:53 Immature Gran % (Auto) Neut % (Auto) Lymph % (Auto) Abs Immat Gran (auto) ABG pO2 219 H ABG HCO3 19 L POC Glucose Random Glucose 335 H D Lactic Acid Calcium 8.3 L Troponin I High Sens 37.6 H B-Natriuretic Peptide 308 H 05/03/20 05/04/20 05/04/20 23:21 07:52 11:20 Immature Gran % (Auto) Neut % (Auto) Lymph % (Auto) Abs Immat Gran (auto) ABG pO2 ABG HCO3 POC Glucose 385 H* 256 H 342 H Random Glucose Lactic Acid Calcium Troponin I High Sens B-Natriuretic Peptide Assessment and Plan (1) COPD exacerbation: Status: Acute Resp therapy Steroids NC O2 to keep pox 90-95% Start Azithromycin (2) ELI (obstructive sleep apnea): Status: Acute Needs CPAP at night (3) Hemoptysis: Problem details: Along with tachicardia, elevated tropI , he has high risk for thrombo-embolic disease. He is on Eliquis which would be helpful if he was taking it as rx. Status: Acute Ddimer, if elevated please request a CTA Continue Eliquis for now, monitor for more bleeding
[2020-05-04 13:39] LABS: D Dimer 364 NG/ML
--- NOTE | 2020-05-04 14:32 | HO.PM.IMPN ---
Subjective Subjective Date of Service: 05/04/20 Interval History: the patient was seen and evaluated this morning Laying in bed, feels short of breath and reporting chest pain and dyspnea Denies any fever, chills or chest pain at this point No reported other overnight events. Physical Exam Vital Signs: Vital Signs: Vital Signs Temp Pulse Resp BP Pulse Ox 05/04/20 11:21 98.0 F 123 H 20 142/80 H 96 05/04/20 07:52 98.0 F 120 H 20 150/80 H 97 05/04/20 06:00 104 H 20 99 05/04/20 05:00 113 H 15 142/60 H 97 05/04/20 04:00 97.5 F 102 H 20 147/95 H 98 05/04/20 03:00 100 12 97 05/04/20 02:00 96 16 91 L 05/04/20 01:00 103 H 14 97 05/04/20 00:00 98 F 120 H 20 170/80 H 97 05/03/20 23:00 115 H 18 170/81 H 92 05/03/20 22:00 113 H 33 H 149/95 H 95 05/03/20 21:28 29 H 05/03/20 20:52 35 H 05/03/20 20:43 98.1 F 124 H 39 H 160/107 H 94 05/03/20 19:17 96.0 F L 140 H 40 H 93 05/03/20 15:46 43 H 05/03/20 14:51 116 H 29 H 143/93 H 90 L Body Mass Index 38.7 Constitutional : Alert, oriented, not in distress Neck : Normal inspection, Supple Cardiovascular : tachycardic, irregular rhythm, S1 S2, no lower extremity edema Respiratory : decreased bilateral air entry, no crackles, scattered wheezes no rhonchi Gastrointestinal: soft, lax, Normal bowel sounds, Non tender Skin : Warm/Dry, No rash Neurological : Alert & oriented x3, No focal deficit Objective Data Current Medications Generic Name Dose Route Start Last Admin Trade Name Freq PRN Reason Stop Dose Admin Albuterol Sulfate 2.5 mg 05/03/20 20:13 Albuterol Sulfate (0.083%) 2.5 Mg/3 Ml Vial.Neb INHALE RQ6H PRN wheezing Albuterol/Ipratropium 3 ml 05/03/20 20:00 05/04/20 14:22 Albuterol/Iprat 2.5/0.5mg 3 Ml Ampul.Neb INHALE 3 ml RQ6H WHILE AWAKE JUDE Administration Amiodarone HCl 200 mg 05/04/20 09:00 05/04/20 09:39 Amiodarone Hcl 200 Mg Tablet PO 200 mg DAILY JUDE Administration Amlodipine Besylate 5 mg 05/04/20 09:00 05/04/20 09:40 Amlodipine Besylate 5 Mg Tablet PO 5 mg DAILY JUDE Administration Protocol Apixaban 5 mg 05/04/20 09:00 05/04/20 09:40 Apixaban 5 Mg Tablet PO 5 mg BID JUDE Administration Aspirin 81 mg 05/04/20 09:00 05/04/20 09:39 Aspirin 81 Mg Tab.Chew PO 81 mg DAILY JUDE Administration Atorvastatin Calcium 80 mg 05/04/20 21:00 Atorvastatin Calcium 80 Mg Tablet PO BEDTIME JUDE Azithromycin 250 mg 05/04/20 20:00 Azithromycin 250 Mg Tablet PO 05/08/20 20:00 Q24H JUDE Clopidogrel Bisulfate 75 mg 05/04/20 09:00 05/04/20 09:40 Clopidogrel Bisulfate 75 Mg Tablet PO 75 mg DAILY JUDE Administration Furosemide 40 mg 05/04/20 09:00 05/04/20 09:40 Furosemide 40 Mg Tablet PO 40 mg DAILY JUDE Administration Protocol Gabapentin 300 mg 05/04/20 09:00 05/04/20 09:40 Gabapentin 300 Mg Capsule PO 300 mg TID JUDE Administration Guaifenesin 600 mg 05/04/20 09:00 05/04/20 09:39 Guaifenesin La 600 Mg Tab.Er.12h PO 600 mg BID JUDE Administration Hydromorphone HCl 0.5 mg 05/04/20 10:09 05/04/20 13:05 Hydromorphone Hcl 0.5 Mg/0.5 Ml Syringe IVPUSH 0.5 mg Q4H PRN Administration Pain, Severe (Pain Scale 7-10) Insulin Glargine 35 unit 05/03/20 23:15 05/03/20 23:55 Insulin Glargine,Hum.Rec.Anlog 100 Unit/Ml 10 Ml Vial SUBCUT 35 unit 2000 JUDE Administration Insulin Human Lispro 8 unit 05/04/20 07:30 05/04/20 13:04 Insulin Lispro 100 Unit/Ml 3 Ml Vial SUBCUT 8 unit TIDAC JUDE Administration Losartan Potassium 50 mg 05/04/20 09:00 05/04/20 09:40 Losartan Potassium 50 Mg Tablet PO 50 mg DAILY JUDE Administration Protocol Metoprolol Succinate 50 mg 05/04/20 10:55 05/04/20 11:03 Metoprolol Succinate Er 50 Mg Tab.Er.24h PO 50 mg DAILY JUDE Administration Protocol Montelukast Sodium 10 mg 05/04/20 21:00 Montelukast Sodium 10 Mg Tablet PO BEDTIME JUDE Omeprazole 20 mg 05/04/20 09:00 05/04/20 09:40 Omeprazole 20 Mg Capsule.Dr PO 20 mg DAILY JUDE Administration Prednisone 40 mg 05/04/20 09:00 05/04/20 09:40 Prednisone 20 Mg Tablet PO 05/08/20 09:00 40 mg DAILY JUDE Administration Quetiapine Fumarate 100 mg 05/04/20 21:00 05/03/20 23:55 Quetiapine Fumarate 100 Mg Tablet PO 100 mg BEDTIME JUDE Administration Sertraline HCl 25 mg 05/04/20 09:00 05/04/20 09:40 Sertraline Hcl 25 Mg Tablet PO 25 mg DAILY JUDE Administration Sodium Chloride 3 ml 05/04/20 00:00 05/04/20 07:47 0.9 % Sodium Chloride Flush 3 Ml Syringe IVFLUSH 3 ml QSHIFT JUDE Administration Tamsulosin HCl 0.4 mg 05/04/20 09:00 05/04/20 09:39 Tamsulosin Hcl 0.4 Mg Capsule PO 0.4 mg DAILY JUDE Administration Labs CBC & Chem 7: 05/03/20 12:12 05/03/20 12:46 Microbiology Microbiology Results: Microbiology 05/03/20 12:12 Blood - Venous Blood Culture - Preliminary No growth after 24 hours. Assessment and Plan (1) Acute on chronic respiratory failure with hypoxia and hypercapnia: Status: Acute (2) Hemoptysis: Problem details: Along with tachicardia, elevated tropI , he has high risk for thrombo-embolic disease. He is on Eliquis which would be helpful if he was taking it as rx. Status: Acute (3) COPD exacerbation: Status: Acute (4) CAD (coronary artery disease): Status: Acute (5) GERD (gastroesophageal reflux disease): Status: Acute (6) ELI (obstructive sleep apnea): Status: Acute (7) Hypertension: Status: Acute (8) Atrial fibrillation with rapid ventricular response: Status: Acute Assessment and Plan: This is a 64-year-old male well known to the hospital who presents to the hospital with complaints of shortness of breath and pleuritic chest pain. He is admitted for COPD exacerbation. Acute on chronic respiratory failure due to COPD exacerbation likely Continue oxygen, wean to his baseline of 3 L continue steriods continue updrafts start azithromycin cxr done -- no lobar pneumonia 10. diabetes, uncontrolled continue lantus 40 untis increase scheduled humalog to 10 units + sliding scale Right upper extremity DVT Continue Eliquis hypertension continue Norvasc, losartan CAD pleuritic in nature, due to COPD Plavix, aspirin discontinued per [facility] records after he was started on Eliquis there continue other meds IV dilaudid -- taper GERD continue PPI ELI continue CPAP which is non-compliant with atrial fibrillation continue amiodarone, metoprolol, eliquis DVT prophylaxis Eliquis
--- NOTE | 2020-05-04 16:01 | MHC.CM.PN ---
Pt lives with his ex- and has daily PHLEBOTOMIST services to assist with self care. Pt uses a wheel chair at baseline. PCP and HCP on file. [facility] delivered DC plan is home with no services pt will need a chair van arranged at DC
[2020-05-04 17:14] LABS: Glucose, Whole Blood 323 mg/dL (60-115)
[2020-05-04] MEDS: Insulin Lispro 100 UNIT/ML 3 ML VIAL 10 UNIT SUBCUT (17:28)
[2020-05-04] MEDS: HYDROmorphone HCl 0.5 MG/0.5 ML SYRINGE 1 MG IVPUSH (20:40)
[2020-05-04] MEDS: Atorvastatin Calcium 80 MG TABLET PO (20:41)
[2020-05-04] MEDS: Montelukast Sodium 10 MG TABLET PO (20:41)
[2020-05-04] MEDS: QUEtiapine Fumarate 100 MG TABLET PO (20:41)
[2020-05-04] MEDS: Azithromycin 250 MG TABLET PO (20:41)
[2020-05-04 20:52] LABS: Glucose, Whole Blood 415 mg/dL (60-115)
[2020-05-04] MEDS: Insulin Glargine,Hum.rec.anlog 100 UNIT/ML 10 ML VIAL 40 UNIT SUBCUT (21:02)
[2020-05-04] MEDS: Insulin Lispro 100 UNIT/ML 3 ML VIAL SUBCUT (21:25)
[2020-05-05] VITALS (8 sets, daily range): BP systolic 122–157; BP diastolic 84–96; PULSE 99–138; RESP 18–26; TEMP 36–36.6; O2SAT 90–95
[2020-05-05] MEDS: 0.9 % Sodium Chloride Flush 3 ML SYRINGE IVFLUSH ×3 (00:32→16:04)
[2020-05-05] MEDS: HYDROmorphone HCl 0.5 MG/0.5 ML SYRINGE 1 MG IVPUSH ×6 (00:40→20:59)
[2020-05-05] MEDS: Albuterol Sulfate (0.083%) 2.5 MG/3 ML VIAL.NEB INHALE (02:12)
--- NOTE | 2020-05-05 04:31 | PC.NURSE ---
CARE ASSUMED 23:15...AWAKE..ALERT..ORIENTED X3..SPEECH CLEAR...POSITIONS SELF IN BED...REFUSED SEQUENTIAL STOCKINGS...ATRIAL FIB CONTROLLED HR...O2 3 L/M VIA CANNULA....MEDICATED WITH PRN DILAUDID 00:40 FOR C/O LOWER BACK PAIN...PRN UPDRAFT FOR WHEEZING AND WORK OF BREATHING PER PT REQUEST...PLACED ON HS CPAP WITH 3 L/M AFTERWARDS...CURRENTLY DOZING..NO DISTRESS
[2020-05-05 06:50] LABS: MANUAL DIFF FLAG NO
[2020-05-05 07:15] LABS: Basophils Percent Auto 0.2 % (0-2); Eosinophils Percent Auto 0.1 % (0-4); Hematocrit 41.4 % (42-52); Imm Gran Abs Auto 0.06 X10*3/uL (0.00-0.03); Imm Gran Pct Auto 0.5 % (0.0-0.4); Lymphocytes Absolute Auto 1.2 X10*3/uL (1.2-4.9); Lymphocytes Percent Auto 9.7 % (20-40); Mean Corpuscular HGB Conc 31.4 g/dl (31.0-36.0); Mean Corpuscular Hemoglobin 27.4 pg (27.0-33.0); Mean Corpuscular Volume 87.3 fL (80-98); Mean Platelet Volume 10.5 fL (9.4-12.4); Monocytes Absolute Auto 0.4 X10*3/uL (0.1-1.2); Monocytes Percent Auto 3.6 % (2-11); Neutrophils Absolute Auto 10.3 X10*3/uL (2.0-8.3); Neutrophils Percent Auto 85.9 % (45-73); Platelet Count 203 X10*3/uL (160-400); Red Blood Count 4.74 X10*6/uL (4.60-5.80); Red Cell Distribution Width 13.5 % (11.0-16.0); White Blood Count 11.9 X10*3/uL (4.8-10.8)
[2020-05-05] MEDS: Albuterol/Iprat 2.5/0.5MG 3 ML AMPUL.NEB INHALE ×3 (07:39→19:06)
[2020-05-05 07:47] LABS: Glucose, Whole Blood 322 mg/dL (60-115)
[2020-05-05] MEDS: Insulin Lispro 100 UNIT/ML 3 ML VIAL 10 UNIT SUBCUT ×3 (08:35→17:05)
[2020-05-05] MEDS: Insulin Lispro 100 UNIT/ML 3 ML VIAL SUBCUT ×4 (08:35→21:03)
[2020-05-05] MEDS: Clopidogrel Bisulfate 75 MG TABLET PO (08:36)
[2020-05-05] MEDS: Gabapentin 300 MG CAPSULE PO ×3 (08:36→21:03)
[2020-05-05] MEDS: Apixaban 5 MG TABLET PO ×2 (08:36→21:03)
[2020-05-05] MEDS: Sertraline HCL 25 MG TABLET PO (08:36)
[2020-05-05] MEDS: Omeprazole 20 MG CAPSULE.DR PO (08:36)
[2020-05-05] MEDS: amLODIPine Besylate 5 MG TABLET PO (08:36)
[2020-05-05] MEDS: Metoprolol Succinate ER 50 MG TAB.ER.24H PO (08:37)
[2020-05-05] MEDS: predniSONE 20 MG TABLET 40 MG PO (08:37)
[2020-05-05] MEDS: Tamsulosin HCL 0.4 MG CAPSULE PO (08:37)
[2020-05-05] MEDS: Losartan Potassium 50 MG TABLET PO (08:37)
[2020-05-05] MEDS: Amiodarone HCL 200 MG TABLET PO (08:37)
[2020-05-05] MEDS: guaiFENesin LA 600 MG TAB.ER.12H PO ×2 (08:37→21:03)
[2020-05-05] MEDS: Furosemide 40 MG TABLET PO (08:38)
[2020-05-05 08:52] LABS: Anion Gap 19 (12-20); Blood Urea Nitrogen 27 mg/dL (9-16); Calcium 8.4 mg/dL (8.4-10.2); Carbon Dioxide 23 mmol/L (22-29); Chloride 100 mmol/L (96-108); Creatinine Clr Calc Pharmacy 68.2; Estimated Glomerular Filt Rate 59; Glucose Random 365 mg/dL (60-115); Potassium 4.2 mmol/l (3.3-5.1); Sodium 138 mmol/L (135-145)
[2020-05-05] MEDS: Insulin Glargine,Hum.rec.anlog 100 UNIT/ML 10 ML VIAL 15 UNIT SUBCUT (10:52)
--- NOTE | 2020-05-05 11:41 | HO.PM.IMPN ---
Subjective Subjective Date of Service: 05/05/20 Interval History: the patient was seen and evaluated this morning Laying in bed, feels better overall but reports short of breath and reporting chest pain and dyspnea Denies any fever, chills or chest pain at this point No reported other overnight events. Physical Exam Vital Signs: Vital Signs: Vital Signs Temp Pulse Resp BP Pulse Ox 05/05/20 07:24 97.8 F 108 H 22 H 90 L 05/05/20 04:52 24 H 05/05/20 03:30 96.8 F 100 18 157/96 H 93 05/05/20 00:40 24 H 05/05/20 00:00 97.1 F 133 H 22 H 136/87 92 05/04/20 19:54 96.5 F L 93 22 H 144/96 H 95 05/04/20 15:50 97.7 F 118 H 22 H 139/90 H 95 Body Mass Index 38.7 Constitutional : Alert, oriented, not in distress Neck : Normal inspection, Supple Cardiovascular : tachycardic, irregular rhythm, S1 S2, no lower extremity edema Respiratory : decreased bilateral air entry, no crackles, scattered wheezes no rhonchi Gastrointestinal: soft, lax, Normal bowel sounds, Non tender Skin : Warm/Dry, No rash Neurological : Alert & oriented x3, No focal deficit Objective Data Current Medications Generic Name Dose Route Start Last Admin Trade Name Freq PRN Reason Stop Dose Admin Albuterol Sulfate 2.5 mg 05/03/20 20:13 05/05/20 02:12 Albuterol Sulfate (0.083%) 2.5 Mg/3 Ml Vial.Neb INHALE 2.5 mg RQ6H PRN Administration wheezing Albuterol/Ipratropium 3 ml 05/03/20 20:00 05/05/20 07:39 Albuterol/Iprat 2.5/0.5mg 3 Ml Ampul.Neb INHALE 3 ml RQ6H WHILE AWAKE JUDE Administration Amiodarone HCl 200 mg 05/04/20 09:00 05/05/20 08:37 Amiodarone Hcl 200 Mg Tablet PO 200 mg DAILY JUDE Administration Amlodipine Besylate 5 mg 05/04/20 09:00 05/05/20 08:36 Amlodipine Besylate 5 Mg Tablet PO 5 mg DAILY JUDE Administration Protocol Apixaban 5 mg 05/04/20 09:00 05/05/20 08:36 Apixaban 5 Mg Tablet PO 5 mg BID JUDE Administration Atorvastatin Calcium 80 mg 05/04/20 21:00 05/04/20 20:41 Atorvastatin Calcium 80 Mg Tablet PO 80 mg BEDTIME JUDE Administration Azithromycin 250 mg 05/04/20 20:00 05/04/20 20:41 Azithromycin 250 Mg Tablet PO 05/08/20 20:00 250 mg Q24H JUDE Administration Clopidogrel Bisulfate 75 mg 05/04/20 09:00 05/05/20 08:36 Clopidogrel Bisulfate 75 Mg Tablet PO 75 mg DAILY JUDE Administration Furosemide 40 mg 05/04/20 09:00 05/05/20 08:38 Furosemide 40 Mg Tablet PO 40 mg DAILY JUDE Administration Protocol Gabapentin 300 mg 05/04/20 09:00 05/05/20 08:36 Gabapentin 300 Mg Capsule PO 300 mg TID JUDE Administration Guaifenesin 600 mg 05/04/20 09:00 05/05/20 08:37 Guaifenesin La 600 Mg Tab.Er.12h PO 600 mg BID JUDE Administration Hydromorphone HCl 1 mg 05/04/20 17:11 05/05/20 08:54 Hydromorphone Hcl 0.5 Mg/0.5 Ml Syringe IVPUSH 1 mg Q4H PRN Administration Pain, Severe (Pain Scale 7-10) Insulin Glargine 40 unit 05/04/20 20:00 05/04/20 21:02 Insulin Glargine,Hum.Rec.Anlog 100 Unit/Ml 10 Ml Vial SUBCUT 40 unit 2000 JUDE Administration Insulin Glargine 15 unit 05/05/20 09:00 05/05/20 10:52 Insulin Glargine,Hum.Rec.Anlog 100 Unit/Ml 10 Ml Vial SUBCUT 15 unit DAILY JUDE Administration Insulin Human Lispro 10 unit 05/04/20 16:30 05/05/20 08:35 Insulin Lispro 100 Unit/Ml 3 Ml Vial SUBCUT 10 unit TIDAC [facility] Administration Insulin Human Lispro 0 unit 05/04/20 21:00 05/05/20 08:35 Insulin Lispro 100 Unit/Ml 3 Ml Vial SUBCUT 8 unit QIDACHS [facility] Administration Protocol Losartan Potassium 50 mg 05/04/20 09:00 05/05/20 08:37 Losartan Potassium 50 Mg Tablet PO 50 mg DAILY JUDE Administration Protocol Metoprolol Succinate 50 mg 05/04/20 10:55 05/05/20 08:37 Metoprolol Succinate Er 50 Mg Tab.Er.24h PO 50 mg DAILY JUDE Administration Protocol Montelukast Sodium 10 mg 05/04/20 21:00 05/04/20 20:41 Montelukast Sodium 10 Mg Tablet PO 10 mg BEDTIME JUDE Administration Omeprazole 20 mg 05/04/20 09:00 05/05/20 08:36 Omeprazole 20 Mg Capsule.Dr PO 20 mg DAILY JUDE Administration Prednisone 40 mg 05/04/20 09:00 05/05/20 08:37 Prednisone 20 Mg Tablet PO 05/08/20 09:00 40 mg DAILY JUDE Administration Quetiapine Fumarate 100 mg 05/04/20 21:00 05/04/20 20:41 Quetiapine Fumarate 100 Mg Tablet PO 100 mg BEDTIME JUDE Administration Sertraline HCl 25 mg 05/04/20 09:00 05/05/20 08:36 Sertraline Hcl 25 Mg Tablet PO 25 mg DAILY JUDE Administration Sodium Chloride 3 ml 05/04/20 00:00 05/05/20 08:36 0.9 % Sodium Chloride Flush 3 Ml Syringe IVFLUSH 3 ml QSHIFT JUDE Administration Tamsulosin HCl 0.4 mg 05/04/20 09:00 05/05/20 08:37 Tamsulosin Hcl 0.4 Mg Capsule PO 0.4 mg DAILY JUDE Administration Labs CBC & Chem 7: 05/05/20 06:18 05/05/20 06:18 Microbiology Microbiology Results: Microbiology 05/03/20 12:12 Blood - Venous Blood Culture - Preliminary No growth after 24 hours. 05/03/20 12:12 Blood - Venous Blood Culture - Preliminary No growth after 24 hours. Assessment and Plan (1) Acute on chronic respiratory failure with hypoxia and hypercapnia: Status: Acute (2) Hemoptysis: Problem details: Along with tachicardia, elevated tropI , he has high risk for thrombo-embolic disease. He is on Eliquis which would be helpful if he was taking it as rx. Status: Acute (3) COPD exacerbation: Status: Acute (4) CAD (coronary artery disease): Status: Acute (5) GERD (gastroesophageal reflux disease): Status: Acute (6) ELI (obstructive sleep apnea): Status: Acute (7) Hypertension: Status: Acute (8) Atrial fibrillation with rapid ventricular response: Status: Acute Assessment and Plan: This is a 64-year-old male well known to the hospital who presents to the hospital with complaints of shortness of breath and pleuritic chest pain. He is admitted for COPD exacerbation. Acute on chronic respiratory failure due to COPD exacerbation likely Continue oxygen, wean to his baseline of 3 L continue steriods continue updrafts start azithromycin cxr done -- no lobar pneumonia diabetes, uncontrolled continue lantus 40 untis start Lantus in the morning 15 units increase scheduled humalog to 10 units + sliding scale Anxiety attacks Part of the patient acute attacks are likely result of anxiety when you presents with shortness of breath and feeling that he is dying To get psych team evaluation the morning to help with medication and hopefully decrease anxiety attacks and readmission rate Right upper extremity DVT Continue Eliquis hypertension continue Norvasc, losartan CAD pleuritic in nature, due to COPD Plavix, aspirin discontinued per [facility] records after he was started on Eliquis there continue other meds IV dilaudid -- taper GERD continue PPI ELI continue CPAP which is non-compliant with atrial fibrillation continue amiodarone, metoprolol, eliquis DVT prophylaxis Eliquis
[2020-05-05 11:54] LABS: Glucose, Whole Blood 213 mg/dL (60-115)
[2020-05-05 16:42] LABS: Glucose, Whole Blood 162 mg/dL (60-115)
[2020-05-05] MEDS: diphenhydrAMINE HCL 50 MG/ML VIAL 25 MG IVPUSH (17:05)
[2020-05-05 20:52] LABS: Glucose, Whole Blood 211 mg/dL (60-115)
[2020-05-05] MEDS: Azithromycin 250 MG TABLET PO (21:03)
[2020-05-05] MEDS: QUEtiapine Fumarate 100 MG TABLET PO (21:03)
[2020-05-05] MEDS: Montelukast Sodium 10 MG TABLET PO (21:03)
[2020-05-05] MEDS: Atorvastatin Calcium 80 MG TABLET PO (21:03)
[2020-05-05] MEDS: Insulin Glargine,Hum.rec.anlog 100 UNIT/ML 10 ML VIAL 40 UNIT SUBCUT (21:05)
[2020-05-06] VITALS (14 sets, daily range): BP systolic 111–160; BP diastolic 62–94; PULSE 84–127; RESP 18–24; TEMP 36.2–37.1; O2SAT 94–96; BMI 39.6
[2020-05-06] MEDS: HYDROmorphone HCl 0.5 MG/0.5 ML SYRINGE 1 MG IVPUSH ×6 (01:19→22:31)
[2020-05-06] MEDS: Nystatin Cream 15 GM TUBE 1 APPL TOPICAL ×2 (01:21→10:18)
[2020-05-06] MEDS: 0.9 % Sodium Chloride Flush 3 ML SYRINGE IVFLUSH ×3 (01:21→15:51)
[2020-05-06 06:09] LABS: MANUAL DIFF FLAG NO
[2020-05-06 06:16] LABS: Basophils Percent Auto 0.1 % (0-2); Eosinophils Percent Auto 0.1 % (0-4); Hemoglobin 12.8 g/dl (14.0-18.0); Imm Gran Abs Auto 0.05 X10*3/uL (0.00-0.03); Imm Gran Pct Auto 0.4 % (0.0-0.4); Lymphocytes Absolute Auto 0.8 X10*3/uL (1.2-4.9); Lymphocytes Percent Auto 6.2 % (20-40); Mean Corpuscular Hemoglobin 27.6 pg (27.0-33.0); Mean Corpuscular Volume 86.4 fL (80-98); Mean Platelet Volume 10.5 fL (9.4-12.4); Monocytes Absolute Auto 0.5 X10*3/uL (0.1-1.2); Monocytes Percent Auto 3.7 % (2-11); Neutrophils Absolute Auto 11.6 X10*3/uL (2.0-8.3); Neutrophils Percent Auto 89.5 % (45-73); Platelet Count 200 X10*3/uL (160-400); Red Blood Count 4.63 X10*6/uL (4.60-5.80); Red Cell Distribution Width 13.7 % (11.0-16.0); White Blood Count 12.9 X10*3/uL (4.8-10.8)
[2020-05-06 06:50] LABS: Anion Gap 16 (12-20); Blood Urea Nitrogen 33 mg/dL (9-16); Calcium 8.3 mg/dL (8.4-10.2); Carbon Dioxide 21 mmol/L (22-29); Chloride 103 mmol/L (96-108); Estimated Glomerular Filt Rate > 60; Glucose Random 248 mg/dL (60-115); Potassium 5.6 mmol/l (3.3-5.1); Sodium 134 mmol/L (135-145)
[2020-05-06] MEDS: Albuterol/Iprat 2.5/0.5MG 3 ML AMPUL.NEB INHALE ×3 (07:18→19:01)
[2020-05-06 08:17] LABS: Glucose, Whole Blood 179 mg/dL (60-115)
[2020-05-06] MEDS: Insulin Lispro 100 UNIT/ML 3 ML VIAL 10 UNIT SUBCUT ×2 (08:31→17:14)
[2020-05-06] MEDS: Sodium Polystyrene Sulfon/Sorb 15 GM/60 ML ORAL.SUSP 30 GM PO (08:31)
[2020-05-06] MEDS: Insulin Lispro 100 UNIT/ML 3 ML VIAL SUBCUT ×3 (08:32→21:56)
[2020-05-06] MEDS: Metoprolol Succinate ER 50 MG TAB.ER.24H PO (08:32)
[2020-05-06] MEDS: Insulin Glargine,Hum.rec.anlog 100 UNIT/ML 10 ML VIAL 15 UNIT SUBCUT (08:32)
[2020-05-06] MEDS: Losartan Potassium 50 MG TABLET PO (08:33)
[2020-05-06] MEDS: Gabapentin 300 MG CAPSULE PO ×3 (08:33→21:54)
[2020-05-06] MEDS: guaiFENesin LA 600 MG TAB.ER.12H PO ×2 (08:33→21:54)
[2020-05-06] MEDS: amLODIPine Besylate 5 MG TABLET PO (08:33)
[2020-05-06] MEDS: Sertraline HCL 25 MG TABLET PO (08:33)
[2020-05-06] MEDS: Omeprazole 20 MG CAPSULE.DR PO (08:33)
[2020-05-06] MEDS: Tamsulosin HCL 0.4 MG CAPSULE PO (08:33)
[2020-05-06] MEDS: Apixaban 5 MG TABLET PO ×2 (08:33→21:55)
[2020-05-06] MEDS: predniSONE 20 MG TABLET 40 MG PO (08:33)
[2020-05-06] MEDS: Furosemide 40 MG TABLET PO (08:33)
[2020-05-06] MEDS: Clopidogrel Bisulfate 75 MG TABLET PO (08:34)
[2020-05-06] MEDS: Amiodarone HCL 200 MG TABLET PO (08:34)
--- NOTE | 2020-05-06 10:14 | PM.PSYCN ---
History of Present Illness Chief Complaint: sob Reason for Consult: Worsening anxiety related to COPD Requesting physician: Roselia Melissa Discussed with referring provider: Yes Sources of Information: patient interviewed and chart reviewed HPI Narrative: Pt is a 64 year old male with multiple chronic medical issues including COPD, AFIB and CAD. Currently medically admitted for COPD exacerbation. He has been having worsening anxiety due to SOB and fear that he is going to . Pt seen in room 460. Asleep upon arrival, once he woke he was clearly anxious stating he was having trouble breathing. He was able to settle on his own and engage in interview. Pt reports that he often feels scared and panicked that he is going to . He reports this has been an ongoing issue, but there are times where it does feel worse. He reports in the past Lorazepam helped with these sx, but this is not something he is being prescribed currently. [facility] does not show any bezodiazepine prescriptions for over a year. Med list reviewed, he is also being prescribed low dose Sertraline, which can help with underlying anxiety as well--though dose is currently at 25mg QD. 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 Review of Systems Cardiovascular: Reports dyspnea Respiratory: Reports dyspnea and Reports wheezing Denies Neuro-related abnormal movements Psychiatric: Reports anxiety, Reports depression and Reports panic attacks Allergic/Immunologic: Reports wheezing [facility] Medical History (Updated 05/06/20 @ 10:50 by Simona Chapman CNP) Asthma Atrial fibrillation BPH (benign prostatic hyperplasia) CAD (coronary artery disease) Continuous positive airway pressure dependent COPD (chronic obstructive pulmonary disease) Deep vein thrombosis (DVT) of right upper extremity Diabetes mellitus, type 2 GERD (gastroesophageal reflux disease) Hemoptysis HTN (hypertension) ELI (obstructive sleep apnea) Streptococcal bacteremia Systolic CHF Surgical History History of tracheostomy S/P diskectomy Diagnostics Vital Signs (24Hr): Vital Signs - 24 hr 05/05/20 11:44 05/05/20 15:49 05/05/20 19:16 Temperature 97.3 F 97.5 F 96.9 F Pulse Rate 138 H 107 H 99 Respiratory Rate 24 H 26 H 22 H Blood Pressure 122/84 133/84 140/88 H Pulse Oximetry 90 L 95 95 05/06/20 00:00 05/06/20 01:19 05/06/20 01:40 Temperature 97.5 F Pulse Rate 97 84 Respiratory Rate 22 H 22 H 18 Blood Pressure 121/88 111/69 Pulse Oximetry 94 05/06/20 04:00 05/06/20 06:19 05/06/20 08:00 Temperature 98.0 F 97.2 F Pulse Rate 96 105 H 103 H Respiratory Rate 18 18 24 H Blood Pressure 118/62 124/88 160/82 H Pulse Oximetry 94 96 05/06/20 08:32 05/06/20 08:33 05/06/20 08:34 Temperature Pulse Rate 103 H 103 H 103 H Respiratory Rate Blood Pressure 160/82 H 160/82 H 160/82 H Pulse Oximetry Body Mass Index 39.6 Labs Results: 05/06/20 05:58 05/06/20 05:58 Labs: Laboratory Results - last 48 hr 05/04/20 05/04/20 05/04/20 11:20 13:20 17:11 WBC RBC Hgb Hct MCV MCH MCHC RDW Plt Count MPV Immature Gran % (Auto) Neut % (Auto) Lymph % (Auto) [place] % (Auto) Eos % (Auto) Baso % (Auto) Lymph # (Auto) [place] # (Auto) Eos # (Auto) Baso # (Auto) Abs Immat Gran (auto) Absolute Neuts (auto) Absolute Nucleated RBC Nucleated RBC % (auto) D-Dimer 364 Sodium Potassium Chloride Carbon Dioxide Anion Gap BUN Creatinine Estim Creat Clear Calc Estimated GFR POC Glucose 342 H 323 H Random Glucose Calcium 05/04/20 05/05/20 05/05/20 20:44 06:18 06:18 WBC 11.9 H RBC 4.74 Hgb 13.0 L Hct 41.4 L MCV 87.3 MCH 27.4 MCHC 31.4 RDW 13.5 Plt Count 203 MPV 10.5 Immature Gran % (Auto) 0.5 H Neut % (Auto) 85.9 H Lymph % (Auto) 9.[address] [place] % (Auto) 3.6 Eos % (Auto) 0.1 Baso % (Auto) 0.2 Lymph # (Auto) 1.2 [place] # (Auto) 0.4 Eos # (Auto) 0.0 Baso # (Auto) 0.0 Abs Immat Gran (auto) 0.06 H Absolute Neuts (auto) 10.3 H Absolute Nucleated RBC 0.000 Nucleated RBC % (auto) 0.0 D-Dimer Sodium 138 Potassium 4.2 Chloride 100 Carbon Dioxide 23 Anion Gap 19 BUN 27 H D Creatinine 1.24 Estim Creat Clear Calc 68.2 Estimated GFR 59 POC Glucose 415 H* Random Glucose 365 H* Calcium 8.4 05/05/20 05/05/20 05/05/20 07:28 11:50 16:17 WBC RBC Hgb Hct MCV MCH MCHC RDW Plt Count MPV Immature Gran % (Auto) Neut % (Auto) Lymph % (Auto) [place] % (Auto) Eos % (Auto) Baso % (Auto) Lymph # (Auto) [place] # (Auto) Eos # (Auto) Baso # (Auto) Abs Immat Gran (auto) Absolute Neuts (auto) Absolute Nucleated RBC Nucleated RBC % (auto) D-Dimer Sodium Potassium Chloride Carbon Dioxide Anion Gap BUN Creatinine Estim Creat Clear Calc Estimated GFR POC Glucose 322 H 213 H 162 H Random Glucose Calcium 05/05/20 05/06/20 05/06/20 20:48 05:58 05:58 WBC 12.9 H RBC 4.63 Hgb 12.8 L Hct 40.0 L MCV 86.4 MCH 27.6 MCHC 32.0 RDW 13.7 Plt Count 200 MPV 10.5 Immature Gran % (Auto) 0.4 Neut % (Auto) 89.5 H Lymph % (Auto) 6.[address] [place] % (Auto) 3.7 Eos % (Auto) 0.1 Baso % (Auto) 0.1 Lymph # (Auto) 0.[address] [place] # (Auto) 0.5 Eos # (Auto) 0.0 Baso # (Auto) 0.0 Abs Immat Gran (auto) 0.05 H Absolute Neuts (auto) 11.6 H Absolute Nucleated RBC 0.000 Nucleated RBC % (auto) 0.0 D-Dimer Sodium 134 L Potassium 5.6 H D Chloride 103 Carbon Dioxide 21 L Anion Gap 16 BUN 33 H Creatinine 1.07 Estim Creat Clear Calc 79.0 Estimated GFR > 60 POC Glucose 211 H Random Glucose 248 H Calcium 8.3 L 05/06/20 08:14 WBC RBC Hgb Hct MCV MCH MCHC RDW Plt Count MPV Immature Gran % (Auto) Neut % (Auto) Lymph % (Auto) [place] % (Auto) Eos % (Auto) Baso % (Auto) Lymph # (Auto) [place] # (Auto) Eos # (Auto) Baso # (Auto) Abs Immat Gran (auto) Absolute Neuts (auto) Absolute Nucleated RBC Nucleated RBC % (auto) D-Dimer Sodium Potassium Chloride Carbon Dioxide Anion Gap BUN Creatinine Estim Creat Clear Calc Estimated GFR POC Glucose 179 H Random Glucose Calcium Imaging Radiology Impressions: ITS Impressions Chest X-Ray 05/03/20 11:27 IMPRESSION: Unremarkable chest exam. Previously noted right lung base infiltrate has resolved. Mental Status Exam Mental Status Exam Patient Appearance: Disheveled (scratches over arms and torso ) Patient Orientation: Person, Place, Time and Situation Level of Consciousness: Awake and Alert Patient Behavior: Guarded and Anxious Mood Description: Anxious Affect Description: Anxious Speech Pattern: Clear Thought Process: Rumination Thought Content: positive for Perseveration and positive for Preoccupation Depressive Symptoms: Increased Anxiety Judgement: Fair Medications Medications Current Medications Generic Name Dose Route Start Last Admin Trade Name Freq PRN Reason Stop Dose Admin Albuterol Sulfate 2.5 mg 05/03/20 20:13 05/05/20 02:12 Albuterol Sulfate (0.083%) 2.5 Mg/3 Ml Vial.Neb INHALE 2.5 mg RQ6H PRN Administration wheezing Albuterol/Ipratropium 3 ml 05/03/20 20:00 05/06/20 07:18 Albuterol/Iprat 2.5/0.5mg 3 Ml Ampul.Neb INHALE 3 ml RQ6H WHILE AWAKE JUDE Administration Amiodarone HCl 200 mg 05/04/20 09:00 05/06/20 08:34 Amiodarone Hcl 200 Mg Tablet PO 200 mg DAILY JUDE Administration Amlodipine Besylate 5 mg 05/04/20 09:00 05/06/20 08:33 Amlodipine Besylate 5 Mg Tablet PO 5 mg DAILY JUDE Administration Protocol Apixaban 5 mg 05/04/20 09:00 05/06/20 08:33 Apixaban 5 Mg Tablet PO 5 mg BID JUDE Administration Atorvastatin Calcium 80 mg 05/04/20 21:00 05/05/20 21:03 Atorvastatin Calcium 80 Mg Tablet PO 80 mg BEDTIME JUDE Administration Azithromycin 250 mg 05/04/20 20:00 05/05/20 21:03 Azithromycin 250 Mg Tablet PO 05/08/20 20:00 250 mg Q24H JUDE Administration Clopidogrel Bisulfate 75 mg 05/04/20 09:00 05/06/20 08:34 Clopidogrel Bisulfate 75 Mg Tablet PO 75 mg DAILY JUDE Administration Diphenhydramine HCl 25 mg 05/05/20 16:39 05/05/20 17:05 Diphenhydramine Hcl 50 Mg/Ml Vial IVPUSH 25 mg Q6H PRN Administration Itching Furosemide 40 mg 05/04/20 09:00 05/06/20 08:33 Furosemide 40 Mg Tablet PO 40 mg DAILY JUDE Administration Protocol Gabapentin 300 mg 05/04/20 09:00 05/06/20 08:33 Gabapentin 300 Mg Capsule PO 300 mg TID JUDE Administration Guaifenesin 600 mg 05/04/20 09:00 05/06/20 08:33 Guaifenesin La 600 Mg Tab.Er.12h PO 600 mg BID JUDE Administration Hydromorphone HCl 1 mg 05/04/20 17:11 05/06/20 06:01 Hydromorphone Hcl 0.5 Mg/0.5 Ml Syringe IVPUSH 1 mg Q4H PRN Administration Pain, Severe (Pain Scale 7-10) Insulin Glargine 40 unit 05/04/20 20:00 05/05/20 21:05 Insulin Glargine,Hum.Rec.Anlog 100 Unit/Ml 10 Ml Vial SUBCUT 40 unit 2000 JUDE Administration Insulin Glargine 15 unit 05/05/20 09:00 05/06/20 08:32 Insulin Glargine,Hum.Rec.Anlog 100 Unit/Ml 10 Ml Vial SUBCUT 15 unit DAILY JUDE Administration Insulin Human Lispro 10 unit 05/04/20 16:30 05/06/20 08:31 Insulin Lispro 100 Unit/Ml 3 Ml Vial SUBCUT 10 unit TIDAC [facility] Administration Insulin Human Lispro 0 unit 05/04/20 21:00 05/06/20 08:32 Insulin Lispro 100 Unit/Ml 3 Ml Vial SUBCUT 2 unit QIDACHS [facility] Administration Protocol Losartan Potassium 50 mg 05/04/20 09:00 05/06/20 08:33 Losartan Potassium 50 Mg Tablet PO 50 mg DAILY JUDE Administration Protocol Metoprolol Succinate 50 mg 05/04/20 10:55 05/06/20 08:32 Metoprolol Succinate Er 50 Mg Tab.Er.24h PO 50 mg DAILY JUDE Administration Protocol Montelukast Sodium 10 mg 05/04/20 21:00 05/05/20 21:03 Montelukast Sodium 10 Mg Tablet PO 10 mg BEDTIME JUDE Administration Nystatin 1 appl 05/05/20 21:00 05/06/20 01:21 Nystatin Cream 15 Gm Tube TOPICAL 1 appl BID JUDE Administration Protocol Omeprazole 20 mg 05/04/20 09:00 05/06/20 08:33 Omeprazole 20 Mg Capsule.Dr PO 20 mg DAILY JUDE Administration Prednisone 40 mg 05/04/20 09:00 05/06/20 08:33 Prednisone 20 Mg Tablet PO 05/08/20 09:00 40 mg DAILY JUDE Administration Quetiapine Fumarate 100 mg 05/04/20 21:00 05/05/20 21:03 Quetiapine Fumarate 100 Mg Tablet PO 100 mg BEDTIME JUDE Administration Sertraline HCl 25 mg 05/04/20 09:00 05/06/20 08:33 Sertraline Hcl 25 Mg Tablet PO 25 mg DAILY JUDE Administration Sodium Chloride 3 ml 05/04/20 00:00 05/06/20 08:32 0.9 % Sodium Chloride Flush 3 Ml Syringe IVFLUSH 3 ml QSHIFT JUDE Administration Tamsulosin HCl 0.4 mg 05/04/20 09:00 05/06/20 08:33 Tamsulosin Hcl 0.4 Mg Capsule PO 0.4 mg DAILY JUDE Administration Allergies Allergies Allergy/AdvReac Type Severity Reaction Status Date / Time nitroglycerin [NITROGLYCERIN] Allergy Severe CARDIOPULMONARY Verified 04/17/20 11:57 ARREST 2012 adhesive tape [Adhesive Tape] Allergy Mild BLISTERS Verified 04/17/20 11:57 cephalexin [From Keflex] Allergy Unknown ITCHING Verified 04/17/20 11:57 ciprofloxacin [From Cipro] Allergy Unknown ITCHING Verified 04/17/20 11:57 latex [LATEX] Allergy Unknown UNKNOWN Verified 04/17/20 11:57 morphine [Morphine] Allergy Unknown ITCHING Verified 04/17/20 11:57 tramadol [From ULTRAM] AdvReac Severe STOMACH Verified 04/17/20 11:57 UPSET Adhesive Tape 1 x5yd Allergy Unknown Hives Uncoded 04/17/20 11:57 Diltiazem HCl Allergy Unknown Unknown Uncoded 04/17/20 11:57 Latex Gloves Allergy Unknown Unknown Uncoded 04/17/20 11:57 Assessment & Plan Assessment & Plan (1) Anxiety disorder due to general medical condition: Status: Acute Code(s): F06.4 - Anxiety disorder due to known physiological condition Recommendations: May benefit from increase in Sertraline to 50mg QD low dose lorazepam (1mg QD) PRN for panic may be helpful---if planning on prescribing this outpt, should make sure PCP is willing to prescribe this. Also, would not prescribe large amts meaning 15 tabs per month may be helpful in minimizing overuse and dependance outpt therapy referral or resources on managing anxiety and panic sx as this will likely be a chronic issue (2) COPD exacerbation: Status: Acute Code(s): J44.1 - Chronic obstructive pulmonary disease with (acute) exacerbation Greater than 50% of the session was spent on counseling and/or coordination of care
[2020-05-06] MEDS: diphenhydrAMINE HCL 50 MG/ML VIAL 25 MG IVPUSH ×2 (10:23→22:32)
[2020-05-06 11:35] LABS: Glucose, Whole Blood 44 mg/dL (60-115)
[2020-05-06 11:50] LABS: Glucose, Whole Blood 80 mg/dL (60-115)
--- NOTE | 2020-05-06 12:28 | P.PNIM_ITS ---
Subjective Subjective Interval History: the patient was seen and evaluated this morning Laying in bed, feels better overall but reports short of breath and reporting chest pain and dyspnea has extensive itching overnight Denies any fever, chills or chest pain at this point No reported other overnight events. Physical Exam Vital Signs: Vital Signs: Vital Signs Temp Pulse Resp BP Pulse Ox 05/06/20 11:02 109 H 20 118/66 95 05/06/20 08:34 103 H 160/82 H 05/06/20 08:33 103 H 160/82 H 05/06/20 08:32 103 H 160/82 H 05/06/20 08:00 97.2 F 103 H 24 H 160/82 H 96 05/06/20 06:19 105 H 18 124/88 05/06/20 04:00 98.0 F 96 18 118/62 94 05/06/20 01:40 84 18 111/69 05/06/20 01:19 22 H 05/06/20 00:00 97.5 F 97 22 H 121/88 94 05/05/20 19:16 96.9 F 99 22 H 140/88 H 95 05/05/20 15:49 97.5 F 107 H 26 H 133/84 95 Body Mass Index 39.6 Constitutional : Alert, oriented, not in distress Neck : Normal inspection, Supple Cardiovascular : tachycardic, irregular rhythm, S1 S2, no lower extremity edema Respiratory : decreased bilateral air entry, no crackles, scattered wheezes no rhonchi Gastrointestinal: soft, lax, Normal bowel sounds, Non tender Skin : Warm/Dry, No rash Neurological : Alert & oriented x3, No focal deficit Objective Data Current Medications Generic Name Dose Route Start Last Admin Trade Name Freq PRN Reason Stop Dose Admin Albuterol Sulfate 2.5 mg 05/03/20 20:13 05/05/20 02:12 Albuterol Sulfate (0.083%) 2.5 Mg/3 Ml Vial.Neb INHALE 2.5 mg RQ6H PRN Administration wheezing Albuterol/Ipratropium 3 ml 05/03/20 20:00 05/06/20 07:18 Albuterol/Iprat 2.5/0.5mg 3 Ml Ampul.Neb INHALE 3 ml RQ6H WHILE AWAKE JUDE Administration Amiodarone HCl 200 mg 05/04/20 09:00 05/06/20 08:34 Amiodarone Hcl 200 Mg Tablet PO 200 mg DAILY JUDE Administration Amlodipine Besylate 5 mg 05/04/20 09:00 05/06/20 08:33 Amlodipine Besylate 5 Mg Tablet PO 5 mg DAILY JUDE Administration Protocol Apixaban 5 mg 05/04/20 09:00 05/06/20 08:33 Apixaban 5 Mg Tablet PO 5 mg BID JUDE Administration Atorvastatin Calcium 80 mg 05/04/20 21:00 05/05/20 21:03 Atorvastatin Calcium 80 Mg Tablet PO 80 mg BEDTIME JUDE Administration Azithromycin 250 mg 05/04/20 20:00 05/05/20 21:03 Azithromycin 250 Mg Tablet PO 05/08/20 20:00 250 mg Q24H JUDE Administration Clopidogrel Bisulfate 75 mg 05/04/20 09:00 05/06/20 08:34 Clopidogrel Bisulfate 75 Mg Tablet PO 75 mg DAILY JUDE Administration Diphenhydramine HCl 25 mg 05/05/20 16:39 05/06/20 10:23 Diphenhydramine Hcl 50 Mg/Ml Vial IVPUSH 25 mg Q6H PRN Administration Itching Diphenhydramine HCl 50 mg 05/06/20 12:26 Diphenhydramine Hcl 50 Mg/Ml Vial IVPUSH 05/06/20 12:27 ONCE ONE Furosemide 40 mg 05/04/20 09:00 05/06/20 08:33 Furosemide 40 Mg Tablet PO 40 mg DAILY JUDE Administration Protocol Gabapentin 300 mg 05/04/20 09:00 05/06/20 08:33 Gabapentin 300 Mg Capsule PO 300 mg TID JUDE Administration Guaifenesin 600 mg 05/04/20 09:00 05/06/20 08:33 Guaifenesin La 600 Mg Tab.Er.12h PO 600 mg BID JUDE Administration Hydromorphone HCl 1 mg 05/04/20 17:11 05/06/20 10:17 Hydromorphone Hcl 0.5 Mg/0.5 Ml Syringe IVPUSH 1 mg Q4H PRN Administration Pain, Severe (Pain Scale 7-10) Insulin Glargine 40 unit 05/04/20 20:00 05/05/20 21:05 Insulin Glargine,Hum.Rec.Anlog 100 Unit/Ml 10 Ml Vial SUBCUT 40 unit 2000 JUDE Administration Insulin Glargine 15 unit 05/05/20 09:00 05/06/20 08:32 Insulin Glargine,Hum.Rec.Anlog 100 Unit/Ml 10 Ml Vial SUBCUT 15 unit DAILY JUDE Administration Insulin Human Lispro 10 unit 05/04/20 16:30 05/06/20 11:39 Insulin Lispro 100 Unit/Ml 3 Ml Vial SUBCUT Not Given TIDAC [facility] Insulin Human Lispro 0 unit 05/04/20 21:00 05/06/20 11:39 Insulin Lispro 100 Unit/Ml 3 Ml Vial SUBCUT Not Given QIDACHS [facility] Protocol Lorazepam 0.5 mg 05/06/20 12:26 Lorazepam 0.5 Mg Tablet PO Q8H PRN anxiety/restlessness Losartan Potassium 50 mg 05/04/20 09:00 05/06/20 08:33 Losartan Potassium 50 Mg Tablet PO 50 mg DAILY JUDE Administration Protocol Metoprolol Succinate 50 mg 05/04/20 10:55 05/06/20 08:32 Metoprolol Succinate Er 50 Mg Tab.Er.24h PO 50 mg DAILY JUDE Administration Protocol Montelukast Sodium 10 mg 05/04/20 21:00 05/05/20 21:03 Montelukast Sodium 10 Mg Tablet PO 10 mg BEDTIME JUDE Administration Nystatin 1 appl 05/05/20 21:00 05/06/20 10:18 Nystatin Cream 15 Gm Tube TOPICAL 1 appl BID JUDE Administration Protocol Omeprazole 20 mg 05/04/20 09:00 05/06/20 08:33 Omeprazole 20 Mg Capsule.Dr PO 20 mg DAILY JUDE Administration Prednisone 40 mg 05/04/20 09:00 05/06/20 08:33 Prednisone 20 Mg Tablet PO 05/08/20 09:00 40 mg DAILY JUDE Administration Quetiapine Fumarate 100 mg 05/04/20 21:00 05/05/20 21:03 Quetiapine Fumarate 100 Mg Tablet PO 100 mg BEDTIME JUDE Administration Sertraline HCl 50 mg 05/07/20 09:00 Sertraline Hcl 25 Mg Tablet PO DAILY [facility] Sodium Chloride 3 ml 05/04/20 00:00 05/06/20 08:32 0.9 % Sodium Chloride Flush 3 Ml Syringe IVFLUSH 3 ml QSHIFT JUDE Administration Tamsulosin HCl 0.4 mg 05/04/20 09:00 05/06/20 08:33 Tamsulosin Hcl 0.4 Mg Capsule PO 0.4 mg DAILY JUDE Administration Labs CBC & Chem 7: 05/06/20 05:58 05/06/20 05:58 Microbiology Microbiology Results: Microbiology 05/03/20 12:12 Blood - Venous Blood Culture - Preliminary No growth after 48 hours. 05/03/20 12:12 Blood - Venous Blood Culture - Preliminary No growth after 48 hours. Assessment and Plan (1) Acute on chronic respiratory failure with hypoxia and hypercapnia: Status: Acute (2) Hemoptysis: Problem details: Along with tachicardia, elevated tropI , he has high risk for thrombo-embolic disease. He is on Eliquis which would be helpful if he was taking it as rx. Status: Acute (3) COPD exacerbation: Status: Acute (4) CAD (coronary artery disease): Status: Acute (5) GERD (gastroesophageal reflux disease): Status: Acute (6) ELI (obstructive sleep apnea): Status: Acute (7) Hypertension: Status: Acute (8) Atrial fibrillation with rapid ventricular response: Status: Acute Assessment and Plan: This is a 64-year-old male well known to the hospital who presents to the hospital with complaints of shortness of breath and pleuritic chest pain. He is admitted for COPD exacerbation. Acute on chronic respiratory failure due to COPD exacerbation likely Continue oxygen, wean to his baseline of 3 L continue steriods continue updrafts start azithromycin cxr done -- no lobar pneumonia diabetes, uncontrolled An episode of hypoglycemia this morning continue lantus 40 untis Discontinue Lantus in the morning increase scheduled humalog to 10 units + sliding scale Anxiety attacks Part of the patient acute attacks are likely result of anxiety when you presents with shortness of breath and feeling that he is dying psych team evaluation appreciated Increase sertraline to 50 P.r.n. Ativan Increased itching Patient has dry scan To use Benadryl as needed Start moisturizing cream Right upper extremity DVT Continue Eliquis hypertension continue Norvasc, losartan CAD pleuritic in nature, due to COPD Plavix, aspirin discontinued per [facility] records after he was started on Eliquis there continue other meds IV dilaudid -- taper GERD continue PPI ELI continue CPAP which is non-compliant with atrial fibrillation continue amiodarone, metoprolol, eliquis DVT prophylaxis Eliquis
--- NOTE | 2020-05-06 12:39 | MHC.CM.PN ---
Per ROUNDS discussion, Patient is not medically cleared for dc to home today; CM will continue to follow.
[2020-05-06] MEDS: diphenhydrAMINE HCL 50 MG/ML VIAL IVPUSH (14:19)
--- NOTE | 2020-05-06 15:24 | PC.NURSE ---
pt turned bed alarm off himself, educated pt on importance of having bed alarm due to being high fall risk
[2020-05-06] MEDS: LORazepam 0.5 MG TABLET PO (15:51)
[2020-05-06 16:25] LABS: Glucose, Whole Blood 224 mg/dL (60-115)
[2020-05-06 21:19] LABS: Glucose, Whole Blood 199 mg/dL (60-115)
[2020-05-06] MEDS: Atorvastatin Calcium 80 MG TABLET PO (21:54)
[2020-05-06] MEDS: QUEtiapine Fumarate 100 MG TABLET PO (21:55)
[2020-05-06] MEDS: Montelukast Sodium 10 MG TABLET PO (21:55)
[2020-05-06] MEDS: Azithromycin 250 MG TABLET PO (21:55)
[2020-05-06] MEDS: Insulin Glargine,Hum.rec.anlog 100 UNIT/ML 10 ML VIAL 40 UNIT SUBCUT (22:30)
[2020-05-07] VITALS (11 sets, daily range): BP systolic 119–168; BP diastolic 77–90; PULSE 100–117; RESP 14–22; TEMP 35.8–36.6; O2SAT 92–97; BMI 39.2
[2020-05-07] MEDS: 0.9 % Sodium Chloride Flush 3 ML SYRINGE IVFLUSH ×3 (00:38→17:05)
[2020-05-07] MEDS: HYDROmorphone HCl 0.5 MG/0.5 ML SYRINGE 1 MG IVPUSH ×5 (06:12→22:01)
[2020-05-07] MEDS: Albuterol Sulfate (0.083%) 2.5 MG/3 ML VIAL.NEB INHALE (06:24)
[2020-05-07 06:37] LABS: MANUAL DIFF FLAG NO
[2020-05-07 06:42] LABS: Basophils Percent Auto 0.3 % (0-2); Eosinophils Percent Auto 0.3 % (0-4); Hematocrit 42.3 % (42-52); Hemoglobin 13.5 g/dl (14.0-18.0); Imm Gran Abs Auto 0.05 X10*3/uL (0.00-0.03); Imm Gran Pct Auto 0.5 % (0.0-0.4); Lymphocytes Absolute Auto 1.3 X10*3/uL (1.2-4.9); Lymphocytes Percent Auto 12.5 % (20-40); Mean Corpuscular HGB Conc 31.9 g/dl (31.0-36.0); Mean Corpuscular Hemoglobin 27.9 pg (27.0-33.0); Mean Corpuscular Volume 87.4 fL (80-98); Mean Platelet Volume 10.3 fL (9.4-12.4); Monocytes Absolute Auto 0.5 X10*3/uL (0.1-1.2); Monocytes Percent Auto 4.7 % (2-11); Neutrophils Absolute Auto 8.7 X10*3/uL (2.0-8.3); Neutrophils Percent Auto 81.7 % (45-73); Platelet Count 208 X10*3/uL (160-400); Red Blood Count 4.84 X10*6/uL (4.60-5.80); Red Cell Distribution Width 13.6 % (11.0-16.0); White Blood Count 10.6 X10*3/uL (4.8-10.8)
[2020-05-07 07:14] LABS: Anion Gap 14 (12-20); Blood Urea Nitrogen 32 mg/dL (9-16); Calcium 8.2 mg/dL (8.4-10.2); Carbon Dioxide 25 mmol/L (22-29); Chloride 104 mmol/L (96-108); Creatinine Clr Calc Pharmacy 82.3; Estimated Glomerular Filt Rate > 60; Glucose Random 233 mg/dL (60-115); Potassium 4.6 mmol/l (3.3-5.1); Sodium 138 mmol/L (135-145)
[2020-05-07 07:47] LABS: Glucose, Whole Blood 155 mg/dL (60-115)
[2020-05-07] MEDS: Insulin Glargine,Hum.rec.anlog 100 UNIT/ML 10 ML VIAL 15 UNIT SUBCUT (08:13)
[2020-05-07] MEDS: Insulin Lispro 100 UNIT/ML 3 ML VIAL SUBCUT ×3 (08:13→22:02)
[2020-05-07] MEDS: Insulin Lispro 100 UNIT/ML 3 ML VIAL 10 UNIT SUBCUT ×2 (08:13→17:03)
[2020-05-07] MEDS: predniSONE 20 MG TABLET 40 MG PO (08:14)
[2020-05-07] MEDS: Amiodarone HCL 200 MG TABLET PO (08:14)
[2020-05-07] MEDS: Sertraline HCL 25 MG TABLET 50 MG PO (08:14)
[2020-05-07] MEDS: Tamsulosin HCL 0.4 MG CAPSULE PO (08:15)
[2020-05-07] MEDS: Losartan Potassium 50 MG TABLET PO (08:15)
[2020-05-07] MEDS: Clopidogrel Bisulfate 75 MG TABLET PO (08:15)
[2020-05-07] MEDS: Furosemide 40 MG TABLET PO (08:15)
[2020-05-07] MEDS: Omeprazole 20 MG CAPSULE.DR PO (08:15)
[2020-05-07] MEDS: guaiFENesin LA 600 MG TAB.ER.12H PO ×2 (08:15→21:05)
[2020-05-07] MEDS: Apixaban 5 MG TABLET PO ×2 (08:16→21:06)
[2020-05-07] MEDS: amLODIPine Besylate 5 MG TABLET PO (08:16)
[2020-05-07] MEDS: Metoprolol Succinate ER 50 MG TAB.ER.24H PO (08:17)
[2020-05-07] MEDS: diphenhydrAMINE HCL 50 MG/ML VIAL 25 MG IVPUSH ×2 (08:55→17:02)
[2020-05-07] MEDS: LORazepam 0.5 MG TABLET PO (08:56)
[2020-05-07] MEDS: Gabapentin 300 MG CAPSULE PO ×3 (09:14→21:05)
[2020-05-07] MEDS: Nystatin Cream 15 GM TUBE 1 APPL TOPICAL (10:08)
[2020-05-07 11:20] LABS: Glucose, Whole Blood 84 mg/dL (60-115)
[2020-05-07] MEDS: Albuterol/Iprat 2.5/0.5MG 3 ML AMPUL.NEB INHALE ×2 (13:07→20:08)
--- NOTE | 2020-05-07 13:54 | HO.PM.IMPN ---
Subjective Subjective Date of Service: 05/07/20 Interval History: anxious Cardiovascular Cardiovascular: Reports no additional cardiovascular complaints Gastrointestinal Gastrointestinal: Reports no additional gastrointestinal complaints Physical Exam Vital Signs: Vital Signs: Vital Signs Temp Pulse Resp BP Pulse Ox 05/07/20 11:06 97.8 F 112 H 20 123/86 96 05/07/20 10:05 14 05/07/20 08:17 103 H 137/90 H 05/07/20 08:16 103 H 137/90 H 05/07/20 08:15 103 H 137/90 H 05/07/20 08:14 103 H 137/90 H 05/07/20 07:37 96.5 F L 103 H 20 137/90 H 94 05/07/20 04:00 97.3 F 104 H 20 168/89 H 97 05/06/20 23:57 98.7 F 103 H 20 122/94 H 95 05/06/20 19:48 97.6 F 94 18 118/87 96 05/06/20 18:32 105 H 05/06/20 15:52 98 F 127 H 24 H 120/82 95 Body Mass Index 39.2 Constitutional : Alert, oriented, not in distress Neck : Normal inspection, Supple Cardiovascular : tachycardic, irregular rhythm, S1 S2, no lower extremity edema Respiratory : decreased bilateral air entry, no crackles, scattered wheezes no rhonchi Gastrointestinal: soft, lax, Normal bowel sounds, Non tender Skin : Warm/Dry, No rash Neurological : Alert & oriented x3, No focal deficit Objective Data Current Medications Generic Name Dose Route Start Last Admin Trade Name Freq PRN Reason Stop Dose Admin Albuterol Sulfate 2.5 mg 05/03/20 20:13 05/07/20 06:24 Albuterol Sulfate (0.083%) 2.5 Mg/3 Ml Vial.Neb INHALE 2.5 mg RQ6H PRN Administration wheezing Albuterol/Ipratropium 3 ml 05/03/20 20:00 05/07/20 13:07 Albuterol/Iprat 2.5/0.5mg 3 Ml Ampul.Neb INHALE 3 ml RQ6H WHILE AWAKE JUDE Administration Amiodarone HCl 200 mg 05/04/20 09:00 05/07/20 08:14 Amiodarone Hcl 200 Mg Tablet PO 200 mg DAILY JUDE Administration Amlodipine Besylate 5 mg 05/04/20 09:00 05/07/20 08:16 Amlodipine Besylate 5 Mg Tablet PO 5 mg DAILY JUDE Administration Protocol Apixaban 5 mg 05/04/20 09:00 05/07/20 08:16 Apixaban 5 Mg Tablet PO 5 mg BID JUDE Administration Atorvastatin Calcium 80 mg 05/04/20 21:00 05/06/20 21:54 Atorvastatin Calcium 80 Mg Tablet PO 80 mg BEDTIME JUDE Administration Azithromycin 250 mg 05/04/20 20:00 05/06/20 21:55 Azithromycin 250 Mg Tablet PO 05/08/20 20:00 250 mg Q24H JUDE Administration Clopidogrel Bisulfate 75 mg 05/04/20 09:00 05/07/20 08:15 Clopidogrel Bisulfate 75 Mg Tablet PO 75 mg DAILY JUDE Administration Diphenhydramine HCl 25 mg 05/05/20 16:39 05/07/20 08:55 Diphenhydramine Hcl 50 Mg/Ml Vial IVPUSH 25 mg Q6H PRN Administration Itching Diphenhydramine HCl 25 mg 05/06/20 12:30 Diphenhydramine Hcl 50 Mg/Ml Vial IVPUSH Q6H PRN Itching Furosemide 40 mg 05/04/20 09:00 05/07/20 08:15 Furosemide 40 Mg Tablet PO 40 mg DAILY JUDE Administration Protocol Gabapentin 300 mg 05/04/20 09:00 05/07/20 09:14 Gabapentin 300 Mg Capsule PO 300 mg TID JUDE Administration Guaifenesin 600 mg 05/04/20 09:00 05/07/20 08:15 Guaifenesin La 600 Mg Tab.Er.12h PO 600 mg BID JUDE Administration Hydromorphone HCl 1 mg 05/04/20 17:11 05/07/20 10:05 Hydromorphone Hcl 0.5 Mg/0.5 Ml Syringe IVPUSH 1 mg Q4H PRN Administration Pain, Severe (Pain Scale 7-10) Insulin Glargine 40 unit 05/04/20 20:00 05/06/20 22:30 Insulin Glargine,Hum.Rec.Anlog 100 Unit/Ml 10 Ml Vial SUBCUT 40 unit 2000 JUDE Administration Insulin Glargine 15 unit 05/05/20 09:00 05/07/20 08:13 Insulin Glargine,Hum.Rec.Anlog 100 Unit/Ml 10 Ml Vial SUBCUT 15 unit DAILY JUDE Administration Insulin Human Lispro 10 unit 05/04/20 16:30 05/07/20 12:25 Insulin Lispro 100 Unit/Ml 3 Ml Vial SUBCUT Not Given TIDAC [facility] Insulin Human Lispro 0 unit 05/04/20 21:00 05/07/20 12:25 Insulin Lispro 100 Unit/Ml 3 Ml Vial SUBCUT Not Given QIDACHS [facility] Protocol Lorazepam 0.5 mg 05/06/20 12:26 05/07/20 08:56 Lorazepam 0.5 Mg Tablet PO 0.5 mg Q8H PRN Administration anxiety/restlessness Losartan Potassium 50 mg 05/04/20 09:00 05/07/20 08:15 Losartan Potassium 50 Mg Tablet PO 50 mg DAILY JUDE Administration Protocol Metoprolol Succinate 50 mg 05/04/20 10:55 05/07/20 08:17 Metoprolol Succinate Er 50 Mg Tab.Er.24h PO 50 mg DAILY JUDE Administration Protocol Montelukast Sodium 10 mg 05/04/20 21:00 05/06/20 21:55 Montelukast Sodium 10 Mg Tablet PO 10 mg BEDTIME JUDE Administration Multi-Ingred Cream/Lotion/Oil/Oint 1 appl 05/06/20 15:00 05/07/20 10:09 Mineral Oil/Petrolatum,White 106 Gm Tube TOPICAL Not Given TID JUDE Nystatin 1 appl 05/05/20 21:00 05/07/20 10:08 Nystatin Cream 15 Gm Tube TOPICAL 1 appl BID JUDE Administration Protocol Omeprazole 20 mg 05/04/20 09:00 05/07/20 08:15 Omeprazole 20 Mg Capsule.Dr PO 20 mg DAILY JUDE Administration Prednisone 40 mg 05/04/20 09:00 05/07/20 08:14 Prednisone 20 Mg Tablet PO 05/08/20 09:00 40 mg DAILY JUDE Administration Quetiapine Fumarate 100 mg 05/04/20 21:00 05/06/20 21:55 Quetiapine Fumarate 100 Mg Tablet PO 100 mg BEDTIME JUDE Administration Sertraline HCl 50 mg 05/07/20 09:00 05/07/20 08:14 Sertraline Hcl 25 Mg Tablet PO 50 mg DAILY JUDE Administration Sodium Chloride 3 ml 05/04/20 00:00 05/07/20 08:14 0.9 % Sodium Chloride Flush 3 Ml Syringe IVFLUSH 3 ml QSHIFT JUDE Administration Tamsulosin HCl 0.4 mg 05/04/20 09:00 05/07/20 08:15 Tamsulosin Hcl 0.4 Mg Capsule PO 0.4 mg DAILY JUDE Administration Labs CBC & Chem 7: 05/07/20 06:15 05/07/20 06:15 Microbiology Microbiology Results: Microbiology 05/03/20 12:12 Blood - Venous Blood Culture - Preliminary No growth after 48 hours. 05/03/20 12:12 Blood - Venous Blood Culture - Preliminary No growth after 48 hours. Assessment and Plan (1) Acute on chronic respiratory failure with hypoxia and hypercapnia: Status: Acute (2) Hemoptysis: Problem details: Along with tachicardia, elevated tropI , he has high risk for thrombo-embolic disease. He is on Eliquis which would be helpful if he was taking it as rx. Status: Acute (3) COPD exacerbation: Status: Acute (4) CAD (coronary artery disease): Status: Acute (5) GERD (gastroesophageal reflux disease): Status: Acute (6) ELI (obstructive sleep apnea): Status: Acute (7) Hypertension: Status: Acute (8) Atrial fibrillation with rapid ventricular response: Status: Acute Assessment and Plan: This is a 64-year-old male well known to the hospital who presented to the hospital with complaints of shortness of breath and pleuritic chest pain. He is admitted for COPD exacerbation. Acute on chronic respiratory failure due to COPD exacerbation Continue oxygen, wean to his baseline of 3 L continue steriods continue updrafts azithromycin cxr done -- no lobar pneumonia diabetes insulin, lantus decreased due to hypoglycemia Anxiety attacks Part of the patient acute attacks are likely result of anxiety psych team evaluation appreciated Increased sertraline to 50 P.r.n. Ativan Increased itching Patient has dry scan To use Benadryl as needed Started moisturizing cream Right upper extremity DVT Continue Eliquis hypertension continue Norvasc, losartan CAD pleuritic in nature, due to COPD Plavix, aspirin discontinued per [facility] records after he was started on Eliquis there continue other meds GERD continue PPI ELI continue CPAP which is non-compliant with atrial fibrillation continue amiodarone, metoprolol, eliquis DVT prophylaxis Eliquis
[2020-05-07 14:57] LABS: Anion Gap 14 (12-20); Blood Urea Nitrogen 30 mg/dL (9-16); Calcium 8.4 mg/dL (8.4-10.2); Carbon Dioxide 26 mmol/L (22-29); Chloride 104 mmol/L (96-108); Creatinine Clr Calc Pharmacy 85.1; Estimated Glomerular Filt Rate > 60; Glucose Random 159 mg/dL (60-115); Potassium 4.7 mmol/l (3.3-5.1); Sodium 139 mmol/L (135-145)
--- NOTE | 2020-05-07 16:21 | MHC.CM.PN ---
DC home resume palliative care with [facility]. providing transport to home.
[2020-05-07 16:33] LABS: Glucose, Whole Blood 245 mg/dL (60-115)
[2020-05-07] MEDS: Montelukast Sodium 10 MG TABLET PO (21:06)
[2020-05-07] MEDS: Azithromycin 250 MG TABLET PO (21:06)
[2020-05-07] MEDS: QUEtiapine Fumarate 100 MG TABLET PO (21:06)
[2020-05-07] MEDS: Atorvastatin Calcium 80 MG TABLET PO (21:06)
[2020-05-07 21:38] LABS: Glucose, Whole Blood 271 mg/dL (60-115)
[2020-05-07] MEDS: Insulin Glargine,Hum.rec.anlog 100 UNIT/ML 10 ML VIAL 40 UNIT SUBCUT (22:03)
[2020-05-08] VITALS (16 sets, daily range): BP systolic 114–157; BP diastolic 70–89; PULSE 76–127; RESP 18–24; TEMP 36.1–36.6; O2SAT 93–96; BMI 39.0
--- NOTE | 2020-05-08 | XR_ITS ---
EXAMINATION: XR CHEST CLINICAL INFORMATION: Shortness of breath and chest pain COMPARISON: Previous chest x-rays most recent 05/03/2020 TECHNIQUE: Frontal view of the chest was obtained. FINDINGS: The cardiac silhouette is enlarged. There are increased interstitial markings. The lungs are otherwise clear. There is no pleural effusion. There are degenerative changes of the spine. XR/XR chest 1V IMPRESSION: Enlarged heart and increased interstitial markings. Differential would include interstitial pulmonary edema and atypical pneumonia.
[2020-05-08] MEDS: Nystatin Cream 15 GM TUBE 1 APPL TOPICAL ×3 (00:36→20:21)
[2020-05-08] MEDS: Mineral Oil/Petrolatum,White 106 GM Tube 1 APPL TOPICAL ×4 (00:36→20:21)
[2020-05-08] MEDS: 0.9 % Sodium Chloride Flush 3 ML SYRINGE IVFLUSH ×3 (00:37→16:01)
[2020-05-08] MEDS: HYDROmorphone HCl 0.5 MG/0.5 ML SYRINGE 1 MG IVPUSH ×5 (03:29→20:08)
[2020-05-08 07:28] LABS: Glucose, Whole Blood 68 mg/dL (60-115)
[2020-05-08] MEDS: Albuterol/Iprat 2.5/0.5MG 3 ML AMPUL.NEB INHALE ×3 (07:30→20:24)
[2020-05-08] MEDS: Metoprolol Succinate ER 50 MG TAB.ER.24H PO (07:44)
[2020-05-08] MEDS: Furosemide 40 MG TABLET PO (07:45)
[2020-05-08] MEDS: amLODIPine Besylate 5 MG TABLET PO (07:45)
[2020-05-08] MEDS: predniSONE 20 MG TABLET 40 MG PO (07:45)
[2020-05-08] MEDS: Gabapentin 300 MG CAPSULE PO ×3 (07:45→20:18)
[2020-05-08] MEDS: guaiFENesin LA 600 MG TAB.ER.12H PO ×2 (07:46→20:17)
[2020-05-08] MEDS: Sertraline HCL 25 MG TABLET 50 MG PO (07:46)
[2020-05-08] MEDS: Omeprazole 20 MG CAPSULE.DR PO (07:46)
[2020-05-08] MEDS: Apixaban 5 MG TABLET PO ×2 (07:46→20:17)
[2020-05-08] MEDS: Amiodarone HCL 200 MG TABLET PO (07:46)
[2020-05-08] MEDS: Losartan Potassium 50 MG TABLET PO (07:46)
[2020-05-08] MEDS: Tamsulosin HCL 0.4 MG CAPSULE PO (07:48)
[2020-05-08] MEDS: Clopidogrel Bisulfate 75 MG TABLET PO (07:49)
--- NOTE | 2020-05-08 10:37 | PC.NURSE ---
0800 POC 68- SCHEDULED LANTUS, HUMALOG AND SLIDING SCALE HELD PER DR. HERNANDEZ. [facility].
--- NOTE | 2020-05-08 10:57 | HO.PM.IMPN ---
Subjective Subjective Date of Service: 05/08/20 Interval History: sob, back pain Cardiovascular Cardiovascular: Reports dyspnea Respiratory Respiratory: Reports dyspnea Physical Exam Vital Signs: Vital Signs: Vital Signs Temp Pulse Resp BP Pulse Ox 05/08/20 07:46 108 H 136/82 05/08/20 07:45 108 H 136/82 05/08/20 07:44 108 H 136/82 05/08/20 07:43 18 05/08/20 07:37 97.0 F 108 H 24 H 136/82 96 05/08/20 04:00 97.7 F 105 H 20 114/74 94 05/08/20 00:00 97.7 F 94 20 137/89 93 05/07/20 19:57 97.4 F 117 H 22 H 155/77 H 92 05/07/20 16:02 97.0 F 100 22 H 119/79 95 05/07/20 14:10 16 05/07/20 11:06 97.8 F 112 H 20 123/86 96 Body Mass Index 39.0 Constitutional : Alert, oriented, not in distress Neck : Normal inspection, Supple Cardiovascular : tachycardic, irregular rhythm, S1 S2, no lower extremity edema Respiratory : decreased bilateral air entry, no crackles, scattered wheezes no rhonchi Gastrointestinal: soft, lax, Normal bowel sounds, Non tender Skin : Warm/Dry, No rash Neurological : Alert & oriented x3, No focal deficit Objective Data Current Medications Generic Name Dose Route Start Last Admin Trade Name Freq PRN Reason Stop Dose Admin Albuterol Sulfate 2.5 mg 05/03/20 20:13 05/07/20 06:24 Albuterol Sulfate (0.083%) 2.5 Mg/3 Ml Vial.Neb INHALE 2.5 mg RQ6H PRN Administration wheezing Albuterol/Ipratropium 3 ml 05/03/20 20:00 05/08/20 07:30 Albuterol/Iprat 2.5/0.5mg 3 Ml Ampul.Neb INHALE 3 ml RQ6H WHILE AWAKE JUDE Administration Amiodarone HCl 200 mg 05/04/20 09:00 05/08/20 07:46 Amiodarone Hcl 200 Mg Tablet PO 200 mg DAILY JUDE Administration Amlodipine Besylate 5 mg 05/04/20 09:00 05/08/20 07:45 Amlodipine Besylate 5 Mg Tablet PO 5 mg DAILY JUDE Administration Protocol Apixaban 5 mg 05/04/20 09:00 05/08/20 07:46 Apixaban 5 Mg Tablet PO 5 mg BID JUDE Administration Atorvastatin Calcium 80 mg 05/04/20 21:00 05/07/20 21:06 Atorvastatin Calcium 80 Mg Tablet PO 80 mg BEDTIME JUDE Administration Azithromycin 250 mg 05/04/20 20:00 05/07/20 21:06 Azithromycin 250 Mg Tablet PO 05/08/20 20:00 250 mg Q24H JUDE Administration Clopidogrel Bisulfate 75 mg 05/04/20 09:00 05/08/20 07:49 Clopidogrel Bisulfate 75 Mg Tablet PO 75 mg DAILY JUDE Administration Diphenhydramine HCl 25 mg 05/05/20 16:39 05/07/20 17:02 Diphenhydramine Hcl 50 Mg/Ml Vial IVPUSH 25 mg Q6H PRN Administration Itching Diphenhydramine HCl 25 mg 05/06/20 12:30 Diphenhydramine Hcl 50 Mg/Ml Vial IVPUSH Q6H PRN Itching Furosemide 40 mg 05/04/20 09:00 05/08/20 07:45 Furosemide 40 Mg Tablet PO 40 mg DAILY JUDE Administration Protocol Gabapentin 300 mg 05/04/20 09:00 05/08/20 07:45 Gabapentin 300 Mg Capsule PO 300 mg TID [facility] Administration Guaifenesin 600 mg 05/04/20 09:00 05/08/20 07:46 Guaifenesin La 600 Mg Tab.Er.12h PO 600 mg BID JUDE Administration Hydromorphone HCl 1 mg 05/04/20 17:11 05/08/20 07:43 Hydromorphone Hcl 0.5 Mg/0.5 Ml Syringe IVPUSH 1 mg Q4H PRN Administration Pain, Severe (Pain Scale 7-10) Insulin Glargine 40 unit 05/04/20 20:00 05/07/20 22:03 Insulin Glargine,Hum.Rec.Anlog 100 Unit/Ml 10 Ml Vial SUBCUT 40 unit 2000 [facility] Administration Insulin Glargine 15 unit 05/05/20 09:00 05/08/20 08:10 Insulin Glargine,Hum.Rec.Anlog 100 Unit/Ml 10 Ml Vial SUBCUT Not Given DAILY [facility] Insulin Human Lispro 10 unit 05/04/20 16:30 05/08/20 07:49 Insulin Lispro 100 Unit/Ml 3 Ml Vial SUBCUT Not Given TIDAC [facility] Insulin Human Lispro 0 unit 05/04/20 21:00 05/08/20 07:49 Insulin Lispro 100 Unit/Ml 3 Ml Vial SUBCUT Not Given QIDACHS [facility] Protocol Lorazepam 0.5 mg 05/06/20 12:26 05/07/20 08:56 Lorazepam 0.5 Mg Tablet PO 0.5 mg Q8H PRN Administration anxiety/restlessness Losartan Potassium 50 mg 05/04/20 09:00 05/08/20 07:46 Losartan Potassium 50 Mg Tablet PO 50 mg DAILY [facility] Administration Protocol Metoprolol Succinate 50 mg 05/04/20 10:55 05/08/20 07:44 Metoprolol Succinate Er 50 Mg Tab.Er.24h PO 50 mg DAILY JUDE Administration Protocol Montelukast Sodium 10 mg 05/04/20 21:00 05/07/20 21:06 Montelukast Sodium 10 Mg Tablet PO 10 mg BEDTIME JUDE Administration Multi-Ingred Cream/Lotion/Oil/Oint 1 appl 05/06/20 15:00 05/08/20 07:48 Mineral Oil/Petrolatum,White 106 Gm Tube TOPICAL 1 appl TID JUDE Administration Nystatin 1 appl 05/05/20 21:00 05/08/20 07:48 Nystatin Cream 15 Gm Tube TOPICAL 1 appl BID JUDE Administration Protocol Omeprazole 20 mg 05/04/20 09:00 05/08/20 07:46 Omeprazole 20 Mg Capsule.Dr PO 20 mg DAILY JUDE Administration Quetiapine Fumarate 100 mg 05/04/20 21:00 05/07/20 21:06 Quetiapine Fumarate 100 Mg Tablet PO 100 mg BEDTIME JUDE Administration Sertraline HCl 50 mg 05/07/20 09:00 05/08/20 07:46 Sertraline Hcl 25 Mg Tablet PO 50 mg DAILY JUDE Administration Sodium Chloride 3 ml 05/04/20 00:00 05/08/20 07:44 0.9 % Sodium Chloride Flush 3 Ml Syringe IVFLUSH 3 ml QSHIFT JUDE Administration Tamsulosin HCl 0.4 mg 05/04/20 09:00 05/08/20 07:48 Tamsulosin Hcl 0.4 Mg Capsule PO 0.4 mg DAILY JUDE Administration Labs CBC & Chem 7: 05/07/20 06:15 05/07/20 14:11 Microbiology Microbiology Results: Microbiology 05/03/20 12:12 Blood - Venous Blood Culture - Preliminary No growth after 48 hours. 05/03/20 12:12 Blood - Venous Blood Culture - Preliminary No growth after 48 hours. Assessment and Plan (1) Acute on chronic respiratory failure with hypoxia and hypercapnia: Status: Acute (2) Hemoptysis: Problem details: Along with tachicardia, elevated tropI , he has high risk for thrombo-embolic disease. He is on Eliquis which would be helpful if he was taking it as rx. Status: Acute (3) COPD exacerbation: Status: Acute (4) CAD (coronary artery disease): Status: Acute (5) GERD (gastroesophageal reflux disease): Status: Acute (6) ELI (obstructive sleep apnea): Status: Acute (7) Hypertension: Status: Acute (8) Atrial fibrillation with rapid ventricular response: Status: Acute Assessment and Plan: This is a 64-year-old male well known to the hospital who presented to the hospital with complaints of shortness of breath and pleuritic chest pain. He is admitted for COPD exacerbation. Acute on chronic respiratory failure due to COPD exacerbation Continue oxygen, wean to his baseline of 3 L continue steriods continue updrafts azithromycin cxr done -- no lobar pneumonia, peresistent back pain, will repeat CXR diabetes insulin, lantus decreased due to hypoglycemia Anxiety attacks Part of the patient acute attacks are likely result of anxiety psych team evaluation appreciated Increased sertraline to 50 P.r.n. Ativan Increased itching Patient has dry scan To use Benadryl as needed Started moisturizing cream Right upper extremity DVT Continue Eliquis hypertension continue Norvasc, losartan CAD pleuritic in nature, due to COPD Plavix, aspirin discontinued per [facility] records after he was started on Eliquis there continue other meds GERD continue PPI ELI continue CPAP which is non-compliant with atrial fibrillation continue amiodarone, metoprolol, eliquis DVT prophylaxis Eliquis
[2020-05-08 11:36] LABS: Glucose, Whole Blood 204 mg/dL (60-115)
[2020-05-08] MEDS: Insulin Lispro 100 UNIT/ML 3 ML VIAL SUBCUT ×3 (11:51→20:13)
[2020-05-08] MEDS: Insulin Lispro 100 UNIT/ML 3 ML VIAL 10 UNIT SUBCUT ×2 (11:51→17:17)
[2020-05-08] MEDS: Furosemide 40 MG/4 ML VIAL IVPUSH (12:48)
--- NOTE | 2020-05-08 14:18 | MHC.CM.PN ---
Patient's goal for dc is to return home with resumption of daily [employer] services. CM will follow for dc planning and possible necessity to adjust the dc plan.
[2020-05-08 16:48] LABS: Glucose, Whole Blood 277 mg/dL (60-115)
[2020-05-08 19:57] LABS: Glucose, Whole Blood 250 mg/dL (60-115)
[2020-05-08] MEDS: Insulin Glargine,Hum.rec.anlog 100 UNIT/ML 10 ML VIAL 40 UNIT SUBCUT (20:14)
[2020-05-08] MEDS: QUEtiapine Fumarate 100 MG TABLET PO (20:15)
[2020-05-08] MEDS: Azithromycin 250 MG TABLET PO (20:16)
[2020-05-08] MEDS: Atorvastatin Calcium 80 MG TABLET PO (20:20)
[2020-05-08] MEDS: Montelukast Sodium 10 MG TABLET PO (20:21)
[2020-05-09] VITALS (15 sets, daily range): BP systolic 108–145; BP diastolic 72–92; PULSE 87–112; RESP 18–32; TEMP 36.1–36.6; O2SAT 90–97; BMI 40.4
[2020-05-09] MEDS: 0.9 % Sodium Chloride Flush 3 ML SYRINGE IVFLUSH ×3 (00:07→17:02)
[2020-05-09] MEDS: HYDROmorphone HCl 0.5 MG/0.5 ML SYRINGE 1 MG IVPUSH ×6 (00:07→22:03)
[2020-05-09] MEDS: Albuterol/Iprat 2.5/0.5MG 3 ML AMPUL.NEB INHALE ×3 (06:12→20:31)
[2020-05-09 06:18] LABS: MANUAL DIFF FLAG NO
[2020-05-09 06:32] LABS: Basophils Percent Auto 0.4 % (0-2); Eosinophils Absolute Auto 0.1 X10*3/uL (0.0-0.4); Eosinophils Percent Auto 0.7 % (0-4); Hematocrit 41.7 % (42-52); Hemoglobin 13.3 g/dl (14.0-18.0); Imm Gran Abs Auto 0.18 X10*3/uL (0.00-0.03); Imm Gran Pct Auto 1.7 % (0.0-0.4); Lymphocytes Absolute Auto 1.8 X10*3/uL (1.2-4.9); Lymphocytes Percent Auto 16.8 % (20-40); Mean Corpuscular HGB Conc 31.9 g/dl (31.0-36.0); Mean Corpuscular Hemoglobin 27.4 pg (27.0-33.0); Mean Corpuscular Volume 85.8 fL (80-98); Mean Platelet Volume 10.2 fL (9.4-12.4); Monocytes Absolute Auto 0.5 X10*3/uL (0.1-1.2); Monocytes Percent Auto 4.9 % (2-11); Neutrophils Absolute Auto 8.1 X10*3/uL (2.0-8.3); Neutrophils Percent Auto 75.5 % (45-73); Platelet Count 262 X10*3/uL (160-400); Red Blood Count 4.86 X10*6/uL (4.60-5.80); Red Cell Distribution Width 13.3 % (11.0-16.0); White Blood Count 10.8 X10*3/uL (4.8-10.8)
[2020-05-09 07:00] LABS: Anion Gap 11 (12-20); Blood Urea Nitrogen 26 mg/dL (9-16); Carbon Dioxide 32 mmol/L (22-29); Chloride 102 mmol/L (96-108); Creatinine Clr Calc Pharmacy 103.6; Estimated Glomerular Filt Rate > 60; Glucose Fasting 166 mg/dL (60-99); Potassium 4.2 mmol/l (3.3-5.1); Sodium 141 mmol/L (135-145)
[2020-05-09 07:47] LABS: Glucose, Whole Blood 123 mg/dL (60-115)
[2020-05-09] MEDS: Omeprazole 20 MG CAPSULE.DR PO (09:12)
[2020-05-09] MEDS: Losartan Potassium 50 MG TABLET PO (09:12)
[2020-05-09] MEDS: Clopidogrel Bisulfate 75 MG TABLET PO (09:12)
[2020-05-09] MEDS: guaiFENesin LA 600 MG TAB.ER.12H PO ×2 (09:13→22:07)
[2020-05-09] MEDS: Amiodarone HCL 200 MG TABLET PO (09:13)
[2020-05-09] MEDS: Furosemide 40 MG TABLET PO (09:13)
[2020-05-09] MEDS: Apixaban 5 MG TABLET PO ×2 (09:13→22:07)
[2020-05-09] MEDS: Tamsulosin HCL 0.4 MG CAPSULE PO (09:14)
[2020-05-09] MEDS: Gabapentin 300 MG CAPSULE PO ×3 (09:14→22:07)
[2020-05-09] MEDS: amLODIPine Besylate 5 MG TABLET PO (09:14)
[2020-05-09] MEDS: Metoprolol Succinate ER 50 MG TAB.ER.24H PO (09:15)
[2020-05-09] MEDS: Insulin Glargine,Hum.rec.anlog 100 UNIT/ML 10 ML VIAL 15 UNIT SUBCUT (09:15)
[2020-05-09] MEDS: Sertraline HCL 25 MG TABLET 50 MG PO (09:18)
[2020-05-09] MEDS: Mineral Oil/Petrolatum,White 106 GM Tube 1 APPL TOPICAL ×2 (09:23→17:07)
[2020-05-09] MEDS: Nystatin Cream 15 GM TUBE 1 APPL TOPICAL ×2 (09:23→22:25)
--- NOTE | 2020-05-09 09:50 | P.PNIM_ITS ---
Subjective Subjective Date of Service: 05/09/20 Interval History: Seen in follow up for for resp failure, copd exacerbation. Still doesn't feel good, sob, and feels congested. Review of Systems No fever, sob Physical Exam Vital Signs: Vital Signs: Vital Signs Temp Pulse Resp BP Pulse Ox 05/09/20 09:15 109 H 137/92 H 05/09/20 09:14 109 H 137/92 H 05/09/20 09:13 109 H 137/92 H 05/09/20 09:12 109 H 137/92 H 05/09/20 08:00 97.4 F 112 H 20 145/84 H 90 L 05/09/20 07:23 21 H 05/09/20 05:54 18 05/09/20 04:00 97 F 102 H 18 108/72 90 L 05/09/20 02:25 19 05/09/20 00:07 20 05/09/20 00:00 96.9 F 109 H 18 124/78 92 05/08/20 20:40 108 H 20 128/80 05/08/20 20:25 108 H 127/70 05/08/20 19:37 98 F 101 H 20 127/70 96 05/08/20 16:40 76 20 116/73 05/08/20 16:25 82 20 118/76 05/08/20 16:06 20 05/08/20 15:20 97.8 F 127 H 22 H 123/83 95 05/08/20 11:50 20 05/08/20 11:19 97.9 F 98 20 157/76 H 94 Body Mass Index 39.0 Constitutional : Alert, oriented, not in distress Neck : Normal inspection, Supple Cardiovascular : tachycardic, irregular rhythm, S1 S2, no lower extremity edema Respiratory : decreased bilateral air entry, no crackles, scattered wheezes no rhonchi Gastrointestinal: soft, lax, Normal bowel sounds, Non tender Skin : Warm/Dry, No rash Neurological : Alert & oriented x3, No focal deficit Objective Data Current Medications Generic Name Dose Route Start Last Admin Trade Name Freq PRN Reason Stop Dose Admin Albuterol Sulfate 2.5 mg 05/03/20 20:13 05/07/20 06:24 Albuterol Sulfate (0.083%) 2.5 Mg/3 Ml Vial.Neb INHALE 2.5 mg RQ6H PRN Administration wheezing Albuterol/Ipratropium 3 ml 05/03/20 20:00 05/09/20 06:12 Albuterol/Iprat 2.5/0.5mg 3 Ml Ampul.Neb INHALE 3 ml RQ6H WHILE AWAKE JUDE Administration Amiodarone HCl 200 mg 05/04/20 09:00 05/09/20 09:13 Amiodarone Hcl 200 Mg Tablet PO 200 mg DAILY JUDE Administration Amlodipine Besylate 5 mg 05/04/20 09:00 05/09/20 09:14 Amlodipine Besylate 5 Mg Tablet PO 5 mg DAILY JUDE Administration Protocol Apixaban 5 mg 05/04/20 09:00 05/09/20 09:13 Apixaban 5 Mg Tablet PO 5 mg BID JUDE Administration Atorvastatin Calcium 80 mg 05/04/20 21:00 05/08/20 20:20 Atorvastatin Calcium 80 Mg Tablet PO 80 mg BEDTIME JUDE Administration Clopidogrel Bisulfate 75 mg 05/04/20 09:00 05/09/20 09:12 Clopidogrel Bisulfate 75 Mg Tablet PO 75 mg DAILY JUDE Administration Diphenhydramine HCl 25 mg 05/05/20 16:39 05/07/20 17:02 Diphenhydramine Hcl 50 Mg/Ml Vial IVPUSH 25 mg Q6H PRN Administration Itching Diphenhydramine HCl 25 mg 05/06/20 12:30 Diphenhydramine Hcl 50 Mg/Ml Vial IVPUSH Q6H PRN Itching Furosemide 40 mg 05/04/20 09:00 05/09/20 09:13 Furosemide 40 Mg Tablet PO 40 mg DAILY JUDE Administration Protocol Gabapentin 300 mg 05/04/20 09:00 05/09/20 09:14 Gabapentin 300 Mg Capsule PO 300 mg TID JUDE Administration Guaifenesin 600 mg 05/04/20 09:00 05/09/20 09:13 Guaifenesin La 600 Mg Tab.Er.12h PO 600 mg BID JUDE Administration Hydromorphone HCl 1 mg 05/04/20 17:11 05/09/20 05:54 Hydromorphone Hcl 0.5 Mg/0.5 Ml Syringe IVPUSH 1 mg Q4H PRN Administration Pain, Severe (Pain Scale 7-10) Insulin Glargine 40 unit 05/04/20 20:00 05/08/20 20:14 Insulin Glargine,Hum.Rec.Anlog 100 Unit/Ml 10 Ml Vial SUBCUT 40 unit 2000 JUDE Administration Insulin Glargine 15 unit 05/05/20 09:00 05/09/20 09:15 Insulin Glargine,Hum.Rec.Anlog 100 Unit/Ml 10 Ml Vial SUBCUT 15 unit DAILY JUDE Administration Insulin Human Lispro 10 unit 05/04/20 16:30 05/09/20 09:11 Insulin Lispro 100 Unit/Ml 3 Ml Vial SUBCUT Not Given TIDAC [facility] Insulin Human Lispro 0 unit 05/04/20 21:00 05/09/20 09:11 Insulin Lispro 100 Unit/Ml 3 Ml Vial SUBCUT Not Given QIDACHS [facility] Protocol Lorazepam 0.5 mg 05/06/20 12:26 05/07/20 08:56 Lorazepam 0.5 Mg Tablet PO 0.5 mg Q8H PRN Administration anxiety/restlessness Losartan Potassium 50 mg 05/04/20 09:00 05/09/20 09:12 Losartan Potassium 50 Mg Tablet PO 50 mg DAILY JUDE Administration Protocol Metoprolol Succinate 50 mg 05/04/20 10:55 05/09/20 09:15 Metoprolol Succinate Er 50 Mg Tab.Er.24h PO 50 mg DAILY JUDE Administration Protocol Montelukast Sodium 10 mg 05/04/20 21:00 05/08/20 20:21 Montelukast Sodium 10 Mg Tablet PO 10 mg BEDTIME JUDE Administration Multi-Ingred Cream/Lotion/Oil/Oint 1 appl 05/06/20 15:00 05/09/20 09:23 Mineral Oil/Petrolatum,White 106 Gm Tube TOPICAL 1 appl TID JUDE Administration Nystatin 1 appl 05/05/20 21:00 05/09/20 09:23 Nystatin Cream 15 Gm Tube TOPICAL 1 appl BID JUDE Administration Protocol Omeprazole 20 mg 05/04/20 09:00 05/09/20 09:12 Omeprazole 20 Mg Capsule.Dr PO 20 mg DAILY JUDE Administration Quetiapine Fumarate 100 mg 05/04/20 21:00 05/08/20 20:15 Quetiapine Fumarate 100 Mg Tablet PO 100 mg BEDTIME JUDE Administration Sertraline HCl 50 mg 05/07/20 09:00 05/09/20 09:18 Sertraline Hcl 25 Mg Tablet PO 50 mg DAILY JUDE Administration Sodium Chloride 3 ml 05/04/20 00:00 05/09/20 09:12 0.9 % Sodium Chloride Flush 3 Ml Syringe IVFLUSH 3 ml QSHIFT JUDE Administration Tamsulosin HCl 0.4 mg 05/04/20 09:00 05/09/20 09:14 Tamsulosin Hcl 0.4 Mg Capsule PO 0.4 mg DAILY JUDE Administration Labs CBC & Chem 7: 05/09/20 05:52 05/09/20 05:52 Microbiology Microbiology Results: Microbiology 05/03/20 12:12 Blood - Venous Blood Culture - Final No growth after 5 days. 05/03/20 12:12 Blood - Venous Blood Culture - Final No growth after 5 days. Assessment and Plan (1) Acute on chronic respiratory failure with hypoxia and hypercapnia: Status: Acute (2) Hemoptysis: Problem details: Along with tachicardia, elevated tropI , he has high risk for thrombo-embolic disease. He is on Eliquis which would be helpful if he was taking it as rx. Status: Acute (3) COPD exacerbation: Status: Acute (4) CAD (coronary artery disease): Status: Acute (5) GERD (gastroesophageal reflux disease): Status: Acute (6) ELI (obstructive sleep apnea): Status: Acute (7) Hypertension: Status: Acute (8) Atrial fibrillation with rapid ventricular response: Status: Acute Assessment and Plan: 64-year-old male well known to the hospital who presented to the hospital with complaints of shortness of breath and pleuritic chest pain. He is admitted for COPD exacerbation. Acute on chronic respiratory failure due to COPD exacerbation Continue oxygen, wean to his baseline of 3 L Prednisone PO continue updrafts azithromycin completed cxr done -- no lobar pneumonia, repeat cxr 05/08 interstial edema vs atypical pna diabetes continue Lantus and SSS insulin, Anxiety attacks Part of the patient acute attacks are likely result of anxiety psych team evaluation appreciated continue Sertraline at 50 P.r.n. Ativan Increased itching Patient has dry scan To use Benadryl as needed Started moisturizing cream Right upper extremity DVT Continue Eliquis hypertension continue Norvasc, losartan CAD pleuritic in nature, due to COPD Plavix, aspirin discontinued per [facility] records after he was started on Eliquis there continue other meds GERD continue PPI ELI continue CPAP which is non-compliant with atrial fibrillation continue amiodarone, metoprolol, eliquis DVT prophylaxis Eliquis Dispo: home tomorrow. Transfer to MED/SURG
[2020-05-09] MEDS: diphenhydrAMINE HCL 50 MG/ML VIAL 25 MG IVPUSH ×2 (10:58→22:22)
[2020-05-09 11:33] LABS: Glucose, Whole Blood 196 mg/dL (60-115)
[2020-05-09] MEDS: Insulin Lispro 100 UNIT/ML 3 ML VIAL SUBCUT ×2 (12:08→17:01)
[2020-05-09 16:57] LABS: Glucose, Whole Blood 186 mg/dL (60-115)
[2020-05-09 21:30] LABS: Glucose, Whole Blood 128 mg/dL (60-115)
[2020-05-09] MEDS: QUEtiapine Fumarate 100 MG TABLET PO (22:07)
[2020-05-09] MEDS: Montelukast Sodium 10 MG TABLET PO (22:07)
[2020-05-09] MEDS: Atorvastatin Calcium 80 MG TABLET PO (22:07)
[2020-05-09] MEDS: predniSONE 20 MG TABLET PO (22:08)
[2020-05-09] MEDS: ondansetron HCL 4 MG/2 ML VIAL IVPUSH (22:47)
[2020-05-10] VITALS (10 sets, daily range): BP systolic 110–140; BP diastolic 68–90; PULSE 91–112; RESP 18–20; TEMP 36.4–36.9; O2SAT 95–97
[2020-05-10] MEDS: 0.9 % Sodium Chloride Flush 3 ML SYRINGE IVFLUSH ×4 (06:21→23:39)
[2020-05-10] MEDS: HYDROmorphone HCl 0.5 MG/0.5 ML SYRINGE 1 MG IVPUSH ×4 (06:24→18:49)
[2020-05-10 07:50] LABS: Glucose, Whole Blood 198 mg/dL (60-115)
[2020-05-10] MEDS: Albuterol/Iprat 2.5/0.5MG 3 ML AMPUL.NEB INHALE ×3 (07:53→19:27)
[2020-05-10] MEDS: predniSONE 20 MG TABLET PO (09:19)
[2020-05-10] MEDS: Sertraline HCL 25 MG TABLET 50 MG PO (09:19)
[2020-05-10] MEDS: guaiFENesin LA 600 MG TAB.ER.12H PO ×2 (09:19→22:02)
[2020-05-10] MEDS: Metoprolol Succinate ER 50 MG TAB.ER.24H PO (09:19)
[2020-05-10] MEDS: Gabapentin 300 MG CAPSULE PO ×3 (09:20→22:02)
[2020-05-10] MEDS: Apixaban 5 MG TABLET PO ×2 (09:20→22:02)
[2020-05-10] MEDS: Omeprazole 20 MG CAPSULE.DR PO (09:20)
[2020-05-10] MEDS: Losartan Potassium 50 MG TABLET PO (09:20)
[2020-05-10] MEDS: Clopidogrel Bisulfate 75 MG TABLET PO (09:20)
[2020-05-10] MEDS: Tamsulosin HCL 0.4 MG CAPSULE PO (09:20)
[2020-05-10] MEDS: amLODIPine Besylate 5 MG TABLET PO (09:20)
[2020-05-10] MEDS: Furosemide 40 MG TABLET PO (09:21)
[2020-05-10] MEDS: Amiodarone HCL 200 MG TABLET PO (09:21)
[2020-05-10] MEDS: Insulin Glargine,Hum.rec.anlog 100 UNIT/ML 10 ML VIAL 15 UNIT SUBCUT (09:22)
[2020-05-10] MEDS: Insulin Lispro 100 UNIT/ML 3 ML VIAL SUBCUT ×4 (09:23→22:01)
[2020-05-10] MEDS: Mineral Oil/Petrolatum,White 106 GM Tube 1 APPL TOPICAL (09:31)
[2020-05-10] MEDS: Nystatin Cream 15 GM TUBE 1 APPL TOPICAL (09:31)
--- NOTE | 2020-05-10 09:34 | HO.PM.IMPN ---
Subjective Subjective Date of Service: 05/10/20 Interval History: Seen in follow up for for resp failure, copd exacerbation. Still feels congested an SOB and feels very weakn Review of Systems Gen: no fever Resp: SOB Physical Exam Vital Signs: Vital Signs: Vital Signs Temp Pulse Resp BP Pulse Ox 05/10/20 09:21 108 H 139/88 05/10/20 09:20 108 H 139/88 05/10/20 09:19 108 H 139/88 05/10/20 08:00 97.9 F 108 H 20 139/88 96 05/10/20 04:19 98.3 F 99 20 133/90 H 97 05/09/20 23:34 97.3 F 87 20 120/85 90 L 05/09/20 20:24 97.4 F 105 H 24 H 120/90 H 93 05/09/20 16:00 97.8 F 110 H 32 H 144/86 H 97 05/09/20 12:00 97.9 F 108 H 20 142/72 H 92 Body Mass Index 40.4 Constitutional : Alert, oriented, not in distress Neck : Normal inspection, Supple Cardiovascular : tachycardic, irregular rhythm, S1 S2, no lower extremity edema Respiratory : decreased bilateral air, wheezes and rhonchi iris Gastrointestinal: soft, lax, Normal bowel sounds, Non tender Skin : Warm/Dry, No rash, but has scracthes on arms Neurological : Alert & oriented x3, No focal deficit Objective Data Current Medications Generic Name Dose Route Start Last Admin Trade Name Freq PRN Reason Stop Dose Admin Albuterol Sulfate 2.5 mg 05/03/20 20:13 05/07/20 06:24 Albuterol Sulfate (0.083%) 2.5 Mg/3 Ml Vial.Neb INHALE 2.5 mg RQ6H PRN Administration wheezing Albuterol/Ipratropium 3 ml 05/03/20 20:00 05/10/20 07:53 Albuterol/Iprat 2.5/0.5mg 3 Ml Ampul.Neb INHALE 3 ml RQ6H WHILE AWAKE JUDE Administration Amiodarone HCl 200 mg 05/04/20 09:00 05/10/20 09:21 Amiodarone Hcl 200 Mg Tablet PO 200 mg DAILY JUDE Administration Amlodipine Besylate 5 mg 05/04/20 09:00 05/10/20 09:20 Amlodipine Besylate 5 Mg Tablet PO 5 mg DAILY JUDE Administration Protocol Apixaban 5 mg 05/04/20 09:00 05/10/20 09:20 Apixaban 5 Mg Tablet PO 5 mg BID JUDE Administration Atorvastatin Calcium 80 mg 05/04/20 21:00 05/09/20 22:07 Atorvastatin Calcium 80 Mg Tablet PO 80 mg BEDTIME JUDE Administration Clopidogrel Bisulfate 75 mg 05/04/20 09:00 05/10/20 09:20 Clopidogrel Bisulfate 75 Mg Tablet PO 75 mg DAILY JUDE Administration Diphenhydramine HCl 25 mg 05/05/20 16:39 05/09/20 22:22 Diphenhydramine Hcl 50 Mg/Ml Vial IVPUSH 25 mg Q6H PRN Administration Itching Diphenhydramine HCl 25 mg 05/06/20 12:30 Diphenhydramine Hcl 50 Mg/Ml Vial IVPUSH Q6H PRN Itching Furosemide 40 mg 05/04/20 09:00 05/10/20 09:21 Furosemide 40 Mg Tablet PO 40 mg DAILY JUDE Administration Protocol Gabapentin 300 mg 05/04/20 09:00 05/09/20 22:07 Gabapentin 300 Mg Capsule PO 300 mg TID JUDE Administration Guaifenesin 600 mg 05/04/20 09:00 05/10/20 09:19 Guaifenesin La 600 Mg Tab.Er.12h PO 600 mg BID [facility] Administration Hydromorphone HCl 1 mg 05/04/20 17:11 05/10/20 06:24 Hydromorphone Hcl 0.5 Mg/0.5 Ml Syringe IVPUSH 1 mg Q4H PRN Administration Pain, Severe (Pain Scale 7-10) Insulin Glargine 40 unit 05/04/20 20:00 05/09/20 22:22 Insulin Glargine,Hum.Rec.Anlog 100 Unit/Ml 10 Ml Vial SUBCUT Not Given 2000 [facility] Insulin Glargine 15 unit 05/05/20 09:00 05/10/20 09:22 Insulin Glargine,Hum.Rec.Anlog 100 Unit/Ml 10 Ml Vial SUBCUT 15 unit DAILY [facility] Administration Insulin Human Lispro 10 unit 05/04/20 16:30 05/10/20 09:31 Insulin Lispro 100 Unit/Ml 3 Ml Vial SUBCUT Not Given TIDAC [facility] Insulin Human Lispro 0 unit 05/04/20 21:00 05/10/20 09:23 Insulin Lispro 100 Unit/Ml 3 Ml Vial SUBCUT 2 unit QIDACHS JUDE Administration Protocol Lorazepam 0.5 mg 05/06/20 12:26 05/07/20 08:56 Lorazepam 0.5 Mg Tablet PO 0.5 mg Q8H PRN Administration anxiety/restlessness Losartan Potassium 50 mg 05/04/20 09:00 05/10/20 09:20 Losartan Potassium 50 Mg Tablet PO 50 mg DAILY JUDE Administration Protocol Metoprolol Succinate 50 mg 05/04/20 10:55 05/10/20 09:19 Metoprolol Succinate Er 50 Mg Tab.Er.24h PO 50 mg DAILY JUDE Administration Protocol Montelukast Sodium 10 mg 05/04/20 21:00 05/09/20 22:07 Montelukast Sodium 10 Mg Tablet PO 10 mg BEDTIME JUDE Administration Multi-Ingred Cream/Lotion/Oil/Oint 1 appl 05/06/20 15:00 05/10/20 09:31 Mineral Oil/Petrolatum,White 106 Gm Tube TOPICAL 1 appl TID JUDE Administration Nystatin 1 appl 05/05/20 21:00 05/10/20 09:31 Nystatin Cream 15 Gm Tube TOPICAL 1 appl BID JUDE Administration Protocol Omeprazole 20 mg 05/04/20 09:00 05/09/20 09:12 Omeprazole 20 Mg Capsule.Dr PO 20 mg DAILY JUDE Administration Ondansetron HCl 4 mg 05/09/20 22:18 05/09/20 22:47 Ondansetron Hcl 4 Mg/2 Ml Vial IVPUSH 4 mg Q8H PRN Administration Nausea and Vomiting Prednisone 20 mg 05/09/20 19:20 05/10/20 09:19 Prednisone 20 Mg Tablet PO 20 mg DAILY JUDE Administration Quetiapine Fumarate 100 mg 05/04/20 21:00 05/09/20 22:07 Quetiapine Fumarate 100 Mg Tablet PO 100 mg BEDTIME JUDE Administration Sertraline HCl 50 mg 05/07/20 09:00 05/10/20 09:19 Sertraline Hcl 25 Mg Tablet PO 50 mg DAILY JUDE Administration Sodium Chloride 3 ml 05/04/20 00:00 05/10/20 09:24 0.9 % Sodium Chloride Flush 3 Ml Syringe IVFLUSH 3 ml QSHIFT JUDE Administration Tamsulosin HCl 0.4 mg 05/04/20 09:00 05/10/20 09:20 Tamsulosin Hcl 0.4 Mg Capsule PO 0.4 mg DAILY JUDE Administration Labs CBC & Chem 7: 05/09/20 05:52 05/09/20 05:52 Microbiology Microbiology Results: Microbiology 05/03/20 12:12 Blood - Venous Blood Culture - Final No growth after 5 days. 05/03/20 12:12 Blood - Venous Blood Culture - Final No growth after 5 days. Assessment and Plan (1) Acute on chronic respiratory failure with hypoxia and hypercapnia: Status: Acute (2) Hemoptysis: Problem details: Along with tachicardia, elevated tropI , he has high risk for thrombo-embolic disease. He is on Eliquis which would be helpful if he was taking it as rx. Status: Acute (3) COPD exacerbation: Status: Acute (4) CAD (coronary artery disease): Status: Acute (5) GERD (gastroesophageal reflux disease): Status: Acute (6) ELI (obstructive sleep apnea): Status: Acute (7) Hypertension: Status: Acute (8) Atrial fibrillation with rapid ventricular response: Status: Acute Assessment and Plan: 64-year-old male well known to the hospital who presented to the hospital with complaints of shortness of breath and pleuritic chest pain. He is admitted for COPD exacerbation. Acute on chronic respiratory failure due to COPD exacerbation Continue oxygen, wean to his baseline of 3 L Prednisone PO continue updrafts azithromycin completed cxr done -- no lobar pneumonia, repeat cxr 05/08 interstial edema vs atypical pna diabetes continue Lantus and SSS insulin, Anxiety attacks Part of the patient acute attacks are likely result of anxiety psych team evaluation appreciated continue Sertraline at 50 P.r.n. Ativan Increased itching Patient has dry scan To use Benadryl as needed Started moisturizing cream Right upper extremity DVT Continue Eliquis hypertension continue Norvasc, losartan CAD pleuritic in nature, due to COPD Plavix, aspirin discontinued per [facility] records after he was started on Eliquis there continue other meds, transition to oral Dilaudid GERD continue PPI ELI continue CPAP which is non-compliant with atrial fibrillation continue amiodarone, metoprolol, eliquis DVT prophylaxis Eliquis PT eval today Dispo: home tomorrow. Transfer to MED/SURG
[2020-05-10 11:40] LABS: Glucose, Whole Blood 255 mg/dL (60-115)
[2020-05-10] MEDS: ondansetron HCL 4 MG/2 ML VIAL IVPUSH (16:00)
[2020-05-10] MEDS: diphenhydrAMINE HCL 50 MG/ML VIAL 25 MG IVPUSH (16:00)
[2020-05-10 16:43] LABS: Glucose, Whole Blood 290 mg/dL (60-115)
[2020-05-10 21:21] LABS: Glucose, Whole Blood 313 mg/dL (60-115)
[2020-05-10] MEDS: Insulin Glargine,Hum.rec.anlog 100 UNIT/ML 10 ML VIAL 40 UNIT SUBCUT (21:59)
[2020-05-10] MEDS: Atorvastatin Calcium 80 MG TABLET PO (22:02)
[2020-05-10] MEDS: QUEtiapine Fumarate 100 MG TABLET PO (22:02)
[2020-05-10] MEDS: Montelukast Sodium 10 MG TABLET PO (22:02)
[2020-05-11] VITALS (8 sets, daily range): BP systolic 115–145; BP diastolic 66–88; PULSE 84–130; RESP 18–20; TEMP 36.2–36.8; O2SAT 93–98
[2020-05-11] MEDS: HYDROmorphone HCl 0.5 MG/0.5 ML SYRINGE 1 MG IVPUSH ×5 (04:47→21:18)
[2020-05-11] MEDS: Albuterol/Iprat 2.5/0.5MG 3 ML AMPUL.NEB INHALE ×3 (07:12→20:54)
[2020-05-11 07:23] LABS: Glucose, Whole Blood 182 mg/dL (60-115)
[2020-05-11] MEDS: guaiFENesin LA 600 MG TAB.ER.12H PO ×2 (09:27→20:43)
[2020-05-11] MEDS: Gabapentin 300 MG CAPSULE PO ×3 (09:27→20:42)
[2020-05-11] MEDS: Tamsulosin HCL 0.4 MG CAPSULE PO (09:27)
[2020-05-11] MEDS: Amiodarone HCL 200 MG TABLET PO (09:27)
[2020-05-11] MEDS: Clopidogrel Bisulfate 75 MG TABLET PO (09:27)
[2020-05-11] MEDS: predniSONE 20 MG TABLET PO (09:27)
[2020-05-11] MEDS: Sertraline HCL 25 MG TABLET 50 MG PO (09:27)
[2020-05-11] MEDS: Apixaban 5 MG TABLET PO ×2 (09:27→20:42)
[2020-05-11] MEDS: Metoprolol Succinate ER 50 MG TAB.ER.24H PO (09:28)
[2020-05-11] MEDS: Omeprazole 20 MG CAPSULE.DR PO (09:28)
[2020-05-11] MEDS: diphenhydrAMINE HCL 50 MG/ML VIAL 25 MG IVPUSH ×2 (09:28→21:28)
[2020-05-11] MEDS: Losartan Potassium 50 MG TABLET PO (09:28)
[2020-05-11] MEDS: Furosemide 40 MG TABLET PO (09:28)
[2020-05-11] MEDS: amLODIPine Besylate 5 MG TABLET PO (09:28)
[2020-05-11] MEDS: Insulin Lispro 100 UNIT/ML 3 ML VIAL SUBCUT ×3 (09:30→20:38)
[2020-05-11] MEDS: Insulin Lispro 100 UNIT/ML 3 ML VIAL 10 UNIT SUBCUT ×3 (09:30→17:35)
[2020-05-11] MEDS: Mineral Oil/Petrolatum,White 106 GM Tube 1 APPL TOPICAL ×3 (09:31→23:15)
[2020-05-11] MEDS: 0.9 % Sodium Chloride Flush 3 ML SYRINGE IVFLUSH ×2 (09:31→23:15)
[2020-05-11] MEDS: Insulin Glargine,Hum.rec.anlog 100 UNIT/ML 10 ML VIAL 15 UNIT SUBCUT (09:31)
[2020-05-11] MEDS: Nystatin Cream 15 GM TUBE 1 APPL TOPICAL ×2 (09:32→23:15)
--- NOTE | 2020-05-11 10:50 | HO.PM.IMPN ---
Subjective Subjective Interval History: Seen in follow up for for resp failure, copd exacerbation. He claims he feels worse and doesn't to go home Physical Exam Vital Signs: Vital Signs: Vital Signs Temp Pulse Resp BP Pulse Ox 05/11/20 08:00 98.3 F 130 H 20 128/83 94 05/11/20 04:47 20 05/11/20 04:00 97.1 F 96 20 116/83 94 05/10/20 23:29 97.6 F 91 20 110/68 95 05/10/20 19:17 98.4 F 111 H 18 122/82 96 05/10/20 15:28 97.8 F 112 H 20 126/88 95 05/10/20 12:00 110 H 140/86 H 95 05/10/20 11:55 97.9 F 110 H 20 140/86 H 95 Body Mass Index 40.4 Constitutional : Alert, oriented, not in distress Neck : Normal inspection, Supple Cardiovascular : tachycardic, irregular rhythm, S1 S2, no lower extremity edema Respiratory : Nl effort Gastrointestinal: soft, lax, Normal bowel sounds, Non tender Skin : Warm/Dry, No rash, but has scracthes on arms Neurological : Alert & oriented x3, No focal deficit Objective Data Current Medications Generic Name Dose Route Start Last Admin Trade Name Freq PRN Reason Stop Dose Admin Albuterol Sulfate 2.5 mg 05/10/20 20:13 Albuterol Sulfate (0.083%) 2.5 Mg/3 Ml Vial.Neb INHALE RQ6H PRN wheezing Albuterol/Ipratropium 3 ml 05/10/20 20:00 05/11/20 09:58 Albuterol/Iprat 2.5/0.5mg 3 Ml Ampul.Neb INHALE Not Given RQ6H WHILE AWAKE JUDE Amiodarone HCl 200 mg 05/04/20 09:00 05/11/20 09:27 Amiodarone Hcl 200 Mg Tablet PO 200 mg DAILY JUDE Administration Amlodipine Besylate 5 mg 05/04/20 09:00 05/11/20 09:28 Amlodipine Besylate 5 Mg Tablet PO 5 mg DAILY JUDE Administration Protocol Apixaban 5 mg 05/04/20 09:00 05/11/20 09:27 Apixaban 5 Mg Tablet PO 5 mg BID JUDE Administration Atorvastatin Calcium 80 mg 05/04/20 21:00 05/10/20 22:02 Atorvastatin Calcium 80 Mg Tablet PO 80 mg BEDTIME JUDE Administration Clopidogrel Bisulfate 75 mg 05/04/20 09:00 05/11/20 09:27 Clopidogrel Bisulfate 75 Mg Tablet PO 75 mg DAILY JUDE Administration Diphenhydramine HCl 25 mg 05/05/20 16:39 05/11/20 09:28 Diphenhydramine Hcl 50 Mg/Ml Vial IVPUSH 25 mg Q6H PRN Administration Itching Diphenhydramine HCl 25 mg 05/06/20 12:30 Diphenhydramine Hcl 50 Mg/Ml Vial IVPUSH Q6H PRN Itching Furosemide 40 mg 05/04/20 09:00 05/11/20 09:28 Furosemide 40 Mg Tablet PO 40 mg DAILY JUDE Administration Protocol Gabapentin 300 mg 05/04/20 09:00 05/11/20 09:27 Gabapentin 300 Mg Capsule PO 300 mg TID JUDE Administration Guaifenesin 600 mg 05/04/20 09:00 05/11/20 09:27 Guaifenesin La 600 Mg Tab.Er.12h PO 600 mg BID JUDE Administration Hydromorphone HCl 1 mg 05/04/20 17:11 05/11/20 09:28 Hydromorphone Hcl 0.5 Mg/0.5 Ml Syringe IVPUSH 1 mg Q4H PRN Administration Pain, Severe (Pain Scale 7-10) Insulin Glargine 40 unit 05/04/20 20:00 05/10/20 21:59 Insulin Glargine,Hum.Rec.Anlog 100 Unit/Ml 10 Ml Vial SUBCUT 40 unit 2000 JUDE Administration Insulin Glargine 15 unit 05/05/20 09:00 05/11/20 09:31 Insulin Glargine,Hum.Rec.Anlog 100 Unit/Ml 10 Ml Vial SUBCUT 15 unit DAILY JUDE Administration Insulin Human Lispro 10 unit 05/04/20 16:30 05/11/20 09:30 Insulin Lispro 100 Unit/Ml 3 Ml Vial SUBCUT 10 unit TIDAC [facility] Administration Insulin Human Lispro 0 unit 05/04/20 21:00 05/11/20 09:30 Insulin Lispro 100 Unit/Ml 3 Ml Vial SUBCUT 2 unit QIDACHS [facility] Administration Protocol Lorazepam 0.5 mg 05/06/20 12:26 05/07/20 08:56 Lorazepam 0.5 Mg Tablet PO 0.5 mg Q8H PRN Administration anxiety/restlessness Losartan Potassium 50 mg 05/04/20 09:00 05/11/20 09:28 Losartan Potassium 50 Mg Tablet PO 50 mg DAILY JUDE Administration Protocol Metoprolol Succinate 50 mg 05/04/20 10:55 05/11/20 09:28 Metoprolol Succinate Er 50 Mg Tab.Er.24h PO 50 mg DAILY JUDE Administration Protocol Montelukast Sodium 10 mg 05/04/20 21:00 05/10/20 22:02 Montelukast Sodium 10 Mg Tablet PO 10 mg BEDTIME JUDE Administration Multi-Ingred Cream/Lotion/Oil/Oint 1 appl 05/06/20 15:00 05/11/20 09:31 Mineral Oil/Petrolatum,White 106 Gm Tube TOPICAL 1 appl TID JUDE Administration Nystatin 1 appl 05/05/20 21:00 05/11/20 09:32 Nystatin Cream 15 Gm Tube TOPICAL 1 appl BID JUDE Administration Protocol Omeprazole 20 mg 05/04/20 09:00 05/11/20 09:28 Omeprazole 20 Mg Capsule.Dr PO 20 mg DAILY JUDE Administration Ondansetron HCl 4 mg 05/09/20 22:18 05/10/20 16:00 Ondansetron Hcl 4 Mg/2 Ml Vial IVPUSH 4 mg Q8H PRN Administration Nausea and Vomiting Prednisone 20 mg 05/09/20 19:20 05/11/20 09:27 Prednisone 20 Mg Tablet PO 20 mg DAILY JUDE Administration Quetiapine Fumarate 100 mg 05/04/20 21:00 05/10/20 22:02 Quetiapine Fumarate 100 Mg Tablet PO 100 mg BEDTIME JUDE Administration Sertraline HCl 50 mg 05/07/20 09:00 05/11/20 09:27 Sertraline Hcl 25 Mg Tablet PO 50 mg DAILY JUDE Administration Sodium Chloride 3 ml 05/04/20 00:00 05/11/20 09:31 0.9 % Sodium Chloride Flush 3 Ml Syringe IVFLUSH 3 ml QSHIFT JUDE Administration Tamsulosin HCl 0.4 mg 05/04/20 09:00 05/11/20 09:27 Tamsulosin Hcl 0.4 Mg Capsule PO 0.4 mg DAILY JUDE Administration Labs CBC & Chem 7: 05/09/20 05:52 05/09/20 05:52 Microbiology Microbiology Results: Microbiology 05/03/20 12:12 Blood - Venous Blood Culture - Final No growth after 5 days. 05/03/20 12:12 Blood - Venous Blood Culture - Final No growth after 5 days. Assessment and Plan (1) Acute on chronic respiratory failure with hypoxia and hypercapnia: Status: Acute (2) Hemoptysis: Problem details: Along with tachicardia, elevated tropI , he has high risk for thrombo-embolic disease. He is on Eliquis which would be helpful if he was taking it as rx. Status: Acute (3) COPD exacerbation: Status: Acute (4) CAD (coronary artery disease): Status: Acute (5) GERD (gastroesophageal reflux disease): Status: Acute (6) ELI (obstructive sleep apnea): Status: Acute (7) Hypertension: Status: Acute (8) Atrial fibrillation with rapid ventricular response: Status: Acute Assessment and Plan: 64-year-old male well known to the hospital who presented to the hospital with complaints of shortness of breath and pleuritic chest pain. He is admitted for COPD exacerbation. Acute on chronic respiratory failure due to COPD exacerbation Continue oxygen, wean to his baseline of 3 L continue Prednisone PO continue updrafts azithromycin completed cxr -- no lobar pneumonia, repeat cxr 05/08 interstial edema vs atypical pna diabetes continue Lantus and SSS insulin, Anxiety attacks Part of the patient acute attacks are likely result of anxiety psych team evaluation appreciated continue Sertraline at 50 P.r.n. Ativan Itching Patient has dry scan To use Benadryl as needed Started moisturizing cream Right upper extremity DVT Continue Eliquis hypertension continue Norvasc, losartan CAD pleuritic in nature, due to COPD Plavix, aspirin discontinued per [facility] records after he was started on Eliquis there continue other meds, transition to oral Dilaudid GERD continue PPI ELI continue CPAP which is non-compliant with atrial fibrillation continue amiodarone, metoprolol, eliquis DVT prophylaxis Eliquis PT advises possible STR
[2020-05-11 12:13] LABS: Glucose, Whole Blood 128 mg/dL (60-115)
[2020-05-11] MEDS: LORazepam 0.5 MG TABLET PO (12:23)
[2020-05-11 16:34] LABS: Glucose, Whole Blood 159 mg/dL (60-115)
[2020-05-11 20:37] LABS: Glucose, Whole Blood 173 mg/dL (60-115)
[2020-05-11] MEDS: Montelukast Sodium 10 MG TABLET PO (20:43)
[2020-05-11] MEDS: Atorvastatin Calcium 80 MG TABLET PO (20:43)
[2020-05-11] MEDS: QUEtiapine Fumarate 100 MG TABLET PO (20:43)
[2020-05-11] MEDS: Insulin Glargine,Hum.rec.anlog 100 UNIT/ML 10 ML VIAL 40 UNIT SUBCUT (21:17)
[2020-05-12] VITALS (11 sets, daily range): BP systolic 95–142; BP diastolic 53–94; PULSE 86–117; RESP 18–22; TEMP 35.9–37.2; O2SAT 94–100; BMI 40.4
[2020-05-12] MEDS: HYDROmorphone HCl 0.5 MG/0.5 ML SYRINGE 1 MG IVPUSH ×5 (04:07→22:35)
[2020-05-12] MEDS: Albuterol/Iprat 2.5/0.5MG 3 ML AMPUL.NEB INHALE ×3 (07:33→19:47)
[2020-05-12 08:03] LABS: Glucose, Whole Blood 76 mg/dL (60-115)
[2020-05-12] MEDS: Insulin Glargine,Hum.rec.anlog 100 UNIT/ML 10 ML VIAL 15 UNIT SUBCUT (09:13)
[2020-05-12] MEDS: Metoprolol Succinate ER 50 MG TAB.ER.24H PO (09:15)
[2020-05-12] MEDS: Gabapentin 300 MG CAPSULE PO ×3 (09:15→23:15)
[2020-05-12] MEDS: guaiFENesin LA 600 MG TAB.ER.12H PO ×2 (09:15→22:45)
[2020-05-12] MEDS: amLODIPine Besylate 5 MG TABLET PO (09:15)
[2020-05-12] MEDS: Furosemide 40 MG TABLET PO (09:15)
[2020-05-12] MEDS: Amiodarone HCL 200 MG TABLET PO (09:16)
[2020-05-12] MEDS: Clopidogrel Bisulfate 75 MG TABLET PO (09:16)
[2020-05-12] MEDS: Omeprazole 20 MG CAPSULE.DR PO (09:16)
[2020-05-12] MEDS: Apixaban 5 MG TABLET PO ×2 (09:16→22:44)
[2020-05-12] MEDS: predniSONE 20 MG TABLET PO (09:16)
[2020-05-12] MEDS: Sertraline HCL 25 MG TABLET 50 MG PO (09:16)
[2020-05-12] MEDS: Tamsulosin HCL 0.4 MG CAPSULE PO (09:17)
[2020-05-12] MEDS: Losartan Potassium 50 MG TABLET PO (09:18)
[2020-05-12] MEDS: Mineral Oil/Petrolatum,White 106 GM Tube 1 APPL TOPICAL ×3 (09:26→23:15)
[2020-05-12] MEDS: 0.9 % Sodium Chloride Flush 3 ML SYRINGE IVFLUSH ×2 (09:27→15:15)
[2020-05-12] MEDS: Nystatin Cream 15 GM TUBE 1 APPL TOPICAL ×2 (09:27→23:16)
[2020-05-12 11:34] LABS: Glucose, Whole Blood 135 mg/dL (60-115)
[2020-05-12] MEDS: Insulin Lispro 100 UNIT/ML 3 ML VIAL 10 UNIT SUBCUT ×2 (12:14→16:44)
--- NOTE | 2020-05-12 13:45 | HO.PM.IMPN ---
Subjective Subjective Date of Service: 05/12/20 Interval History: sob Cardiovascular Cardiovascular: Reports no additional cardiovascular complaints Gastrointestinal Gastrointestinal: Reports no additional gastrointestinal complaints Physical Exam Vital Signs: Vital Signs: Vital Signs Temp Pulse Resp BP Pulse Ox 05/12/20 11:57 97.8 F 100 18 133/94 H 94 05/12/20 09:18 95 142/72 H 05/12/20 09:16 95 142/72 H 05/12/20 09:15 95 142/72 H 05/12/20 09:14 18 05/12/20 08:00 96.7 F L 95 18 142/72 H 98 05/12/20 04:07 18 05/12/20 03:52 98.9 F 117 H 18 118/75 100 05/11/20 23:14 98 F 84 18 145/77 H 93 05/11/20 21:18 18 05/11/20 19:37 98 F 98 18 138/88 98 05/11/20 15:53 98.1 F 88 18 115/79 96 Body Mass Index 40.4 General: AO X 3, no acute distress Resp: wheezes CVS: S1,S2,RRR GI: soft, non tender, non distended Neuro: motor grossly intact Psych: appropriate affect Objective Data Current Medications Generic Name Dose Route Start Last Admin Trade Name Freq PRN Reason Stop Dose Admin Albuterol Sulfate 2.5 mg 05/10/20 20:13 Albuterol Sulfate (0.083%) 2.5 Mg/3 Ml Vial.Neb INHALE RQ6H PRN wheezing Albuterol/Ipratropium 3 ml 05/10/20 20:00 05/12/20 13:32 Albuterol/Iprat 2.5/0.5mg 3 Ml Ampul.Neb INHALE 3 ml RQ6H WHILE AWAKE JUDE Administration Amiodarone HCl 200 mg 05/04/20 09:00 05/12/20 09:16 Amiodarone Hcl 200 Mg Tablet PO 200 mg DAILY JUDE Administration Amlodipine Besylate 5 mg 05/04/20 09:00 05/12/20 09:15 Amlodipine Besylate 5 Mg Tablet PO 5 mg DAILY JUDE Administration Protocol Apixaban 5 mg 05/04/20 09:00 05/12/20 09:16 Apixaban 5 Mg Tablet PO 5 mg BID JUDE Administration Atorvastatin Calcium 80 mg 05/04/20 21:00 05/11/20 20:43 Atorvastatin Calcium 80 Mg Tablet PO 80 mg BEDTIME JUDE Administration Clopidogrel Bisulfate 75 mg 05/04/20 09:00 05/12/20 09:16 Clopidogrel Bisulfate 75 Mg Tablet PO 75 mg DAILY JUDE Administration Diphenhydramine HCl 25 mg 05/05/20 16:39 05/11/20 21:28 Diphenhydramine Hcl 50 Mg/Ml Vial IVPUSH 25 mg Q6H PRN Administration Itching Diphenhydramine HCl 25 mg 05/06/20 12:30 Diphenhydramine Hcl 50 Mg/Ml Vial IVPUSH Q6H PRN Itching Furosemide 40 mg 05/04/20 09:00 05/12/20 09:15 Furosemide 40 Mg Tablet PO 40 mg DAILY JUDE Administration Protocol Gabapentin 300 mg 05/04/20 09:00 05/12/20 09:15 Gabapentin 300 Mg Capsule PO 300 mg TID JUDE Administration Guaifenesin 600 mg 05/04/20 09:00 05/12/20 09:15 Guaifenesin La 600 Mg Tab.Er.12h PO 600 mg BID JUDE Administration Hydromorphone HCl 1 mg 05/04/20 17:11 05/12/20 09:14 Hydromorphone Hcl 0.5 Mg/0.5 Ml Syringe IVPUSH 1 mg Q4H PRN Administration Pain, Severe (Pain Scale 7-10) Insulin Glargine 40 unit 05/04/20 20:00 05/11/20 21:17 Insulin Glargine,Hum.Rec.Anlog 100 Unit/Ml 10 Ml Vial SUBCUT 40 unit 2000 [facility] Administration Insulin Glargine 15 unit 05/05/20 09:00 05/12/20 09:13 Insulin Glargine,Hum.Rec.Anlog 100 Unit/Ml 10 Ml Vial SUBCUT 15 unit DAILY JUDE Administration Insulin Human Lispro 10 unit 05/04/20 16:30 05/12/20 12:14 Insulin Lispro 100 Unit/Ml 3 Ml Vial SUBCUT 10 unit TIDAC [facility] Administration Insulin Human Lispro 0 unit 05/04/20 21:00 05/12/20 12:14 Insulin Lispro 100 Unit/Ml 3 Ml Vial SUBCUT Not Given QIDACHS [facility] Protocol Losartan Potassium 50 mg 05/04/20 09:00 05/12/20 09:18 Losartan Potassium 50 Mg Tablet PO 50 mg DAILY JUDE Administration Protocol Metoprolol Succinate 50 mg 05/04/20 10:55 05/12/20 09:15 Metoprolol Succinate Er 50 Mg Tab.Er.24h PO 50 mg DAILY JUDE Administration Protocol Montelukast Sodium 10 mg 05/04/20 21:00 05/11/20 20:43 Montelukast Sodium 10 Mg Tablet PO 10 mg BEDTIME JUDE Administration Multi-Ingred Cream/Lotion/Oil/Oint 1 appl 05/06/20 15:00 05/12/20 09:26 Mineral Oil/Petrolatum,White 106 Gm Tube TOPICAL 1 appl TID JUDE Administration Nystatin 1 appl 05/05/20 21:00 05/12/20 09:27 Nystatin Cream 15 Gm Tube TOPICAL 1 appl BID JUDE Administration Protocol Omeprazole 20 mg 05/04/20 09:00 05/12/20 09:16 Omeprazole 20 Mg Capsule.Dr PO 20 mg DAILY JUDE Administration Ondansetron HCl 4 mg 05/09/20 22:18 05/10/20 16:00 Ondansetron Hcl 4 Mg/2 Ml Vial IVPUSH 4 mg Q8H PRN Administration Nausea and Vomiting Prednisone 20 mg 05/09/20 19:20 05/12/20 09:16 Prednisone 20 Mg Tablet PO 20 mg DAILY JUDE Administration Quetiapine Fumarate 100 mg 05/04/20 21:00 05/11/20 20:43 Quetiapine Fumarate 100 Mg Tablet PO 100 mg BEDTIME JUDE Administration Sertraline HCl 50 mg 05/07/20 09:00 05/12/20 09:16 Sertraline Hcl 25 Mg Tablet PO 50 mg DAILY JUDE Administration Sodium Chloride 3 ml 05/04/20 00:00 05/12/20 09:27 0.9 % Sodium Chloride Flush 3 Ml Syringe IVFLUSH 3 ml QSHIFT JUDE Administration Tamsulosin HCl 0.4 mg 05/04/20 09:00 05/12/20 09:17 Tamsulosin Hcl 0.4 Mg Capsule PO 0.4 mg DAILY JUDE Administration Labs CBC & Chem 7: 05/09/20 05:52 05/09/20 05:52 Microbiology Microbiology Results: Microbiology 05/03/20 12:12 Blood - Venous Blood Culture - Final No growth after 5 days. 05/03/20 12:12 Blood - Venous Blood Culture - Final No growth after 5 days. Assessment and Plan (1) Acute on chronic respiratory failure with hypoxia and hypercapnia: Status: Acute (2) Hemoptysis: Problem details: Along with tachicardia, elevated tropI , he has high risk for thrombo-embolic disease. He is on Eliquis which would be helpful if he was taking it as rx. Status: Acute (3) COPD exacerbation: Status: Acute (4) CAD (coronary artery disease): Status: Acute (5) GERD (gastroesophageal reflux disease): Status: Acute (6) ELI (obstructive sleep apnea): Status: Acute (7) Hypertension: Status: Acute (8) Atrial fibrillation with rapid ventricular response: Status: Acute Assessment and Plan: 64-year-old male well known to the hospital who presented to the hospital with complaints of shortness of breath and pleuritic chest pain. He is admitted for COPD exacerbation. Acute on chronic respiratory failure due to COPD exacerbation Continue oxygen, wean to his baseline of 3 L continue Prednisone PO continue updrafts azithromycin completed cxr -- no lobar pneumonia, repeat cxr 05/08 interstial edema vs atypical pna continues to complain of increased sputum, pulm to follow up diabetes continue Lantus and SSS insulin, Anxiety attacks Part of the patient acute attacks are likely result of anxiety psych team evaluation appreciated continue Sertraline at 50 P.r.n. Ativan Itching Patient has dry scan To use Benadryl as needed Started moisturizing cream Right upper extremity DVT Continue Eliquis hypertension continue Norvasc, losartan CAD pleuritic in nature, due to COPD Plavix, aspirin discontinued per [facility] records after he was started on Eliquis there continue other meds, transition to oral Dilaudid GERD continue PPI ELI continue CPAP which is non-compliant with atrial fibrillation continue amiodarone, metoprolol, eliquis DVT prophylaxis Eliquis PT advises possible STR
[2020-05-12 16:32] LABS: Glucose, Whole Blood 140 mg/dL (60-115)
[2020-05-12 21:07] LABS: Glucose, Whole Blood 206 mg/dL (60-115)
[2020-05-12] MEDS: Insulin Lispro 100 UNIT/ML 3 ML VIAL SUBCUT (22:36)
[2020-05-12] MEDS: Insulin Glargine,Hum.rec.anlog 100 UNIT/ML 10 ML VIAL 40 UNIT SUBCUT (22:43)
[2020-05-12] MEDS: Montelukast Sodium 10 MG TABLET PO (22:44)
[2020-05-12] MEDS: Atorvastatin Calcium 80 MG TABLET PO (22:45)
[2020-05-13] VITALS (9 sets, daily range): BP systolic 99–150; BP diastolic 61–88; PULSE 82–116; RESP 16–28; TEMP 35.6–37.2; O2SAT 91–98
[2020-05-13] MEDS: 0.9 % Sodium Chloride Flush 3 ML SYRINGE IVFLUSH ×3 (00:10→16:53)
[2020-05-13] MEDS: HYDROmorphone HCl 0.5 MG/0.5 ML SYRINGE 1 MG IVPUSH ×5 (04:50→20:38)
[2020-05-13] MEDS: Albuterol Sulfate (0.083%) 2.5 MG/3 ML VIAL.NEB INHALE (04:56)
[2020-05-13] MEDS: diphenhydrAMINE HCL 50 MG/ML VIAL 25 MG IVPUSH ×2 (05:33→13:17)
[2020-05-13] MEDS: ondansetron HCL 4 MG/2 ML VIAL IVPUSH ×2 (05:33→13:16)
[2020-05-13 05:49] LABS: Hematocrit 42.3 % (42-52); Hemoglobin 13.7 g/dl (14.0-18.0); Mean Corpuscular HGB Conc 32.4 g/dl (31.0-36.0); Mean Corpuscular Hemoglobin 27.6 pg (27.0-33.0); Mean Corpuscular Volume 85.3 fL (80-98); Platelet Count 303 X10*3/uL (160-400); Red Blood Count 4.96 X10*6/uL (4.60-5.80); Red Cell Distribution Width 13.4 % (11.0-16.0); White Blood Count 13.1 X10*3/uL (4.8-10.8)
[2020-05-13 05:56] LABS: Anion Gap 12 (12-20); Blood Urea Nitrogen 26 mg/dL (9-16); Calcium 7.8 mg/dL (8.4-10.2); Carbon Dioxide 29 mmol/L (22-29); Chloride 102 mmol/L (96-108); Creatinine Clr Calc Pharmacy 116.9; Estimated Glomerular Filt Rate > 60; Glucose Fasting 156 mg/dL (60-99); Potassium 4.4 mmol/l (3.3-5.1); Sodium 139 mmol/L (135-145)
[2020-05-13 07:50] LABS: Glucose, Whole Blood 97 mg/dL (60-115)
[2020-05-13 07:59] LABS: Band Neutrophils Percent 1 % (3-5); Eosinophils Absolute Manual 0.1 X10*3/UL (0.0-0.8); Eosinophils Percent Manual 1 % (0-4); Lymphocytes Absolute Manual 2.6 X10*3/uL (0.6-4.8); Lymphocytes Percent Manual 20 % (20-40); Monocytes Absolute Manual 0.4 X10*3/uL (0.0-1.2); Monocytes Percent Manual 3 % (2-11); Neutrophils Percent Manual 75 % (45-73); Platelet Estimate NORMAL (NORMAL); Platelet Morphology Comment NORMAL
[2020-05-13 08:03] LABS: Acanthocytes 1+; Ovalocytes 1+; RBC Morphology NOTED
[2020-05-13] MEDS: Insulin Lispro 100 UNIT/ML 3 ML VIAL 10 UNIT SUBCUT ×3 (09:00→16:45)
[2020-05-13] MEDS: Tamsulosin HCL 0.4 MG CAPSULE PO (09:01)
[2020-05-13] MEDS: Omeprazole 20 MG CAPSULE.DR PO (09:01)
[2020-05-13] MEDS: guaiFENesin LA 600 MG TAB.ER.12H PO ×2 (09:01→20:26)
[2020-05-13] MEDS: Amiodarone HCL 200 MG TABLET PO (09:01)
[2020-05-13] MEDS: Insulin Glargine,Hum.rec.anlog 100 UNIT/ML 10 ML VIAL 15 UNIT SUBCUT (09:01)
[2020-05-13] MEDS: Sertraline HCL 25 MG TABLET 50 MG PO (09:01)
[2020-05-13] MEDS: predniSONE 20 MG TABLET PO (09:01)
[2020-05-13] MEDS: Gabapentin 300 MG CAPSULE PO ×3 (09:01→20:27)
[2020-05-13] MEDS: Clopidogrel Bisulfate 75 MG TABLET PO (09:01)
[2020-05-13] MEDS: Metoprolol Succinate ER 50 MG TAB.ER.24H PO (09:02)
[2020-05-13] MEDS: Furosemide 40 MG TABLET PO (09:02)
[2020-05-13] MEDS: amLODIPine Besylate 5 MG TABLET PO (09:02)
[2020-05-13] MEDS: Apixaban 5 MG TABLET PO ×2 (09:02→20:27)
[2020-05-13] MEDS: Losartan Potassium 50 MG TABLET PO (09:02)
[2020-05-13] MEDS: Nystatin Cream 15 GM TUBE 1 APPL TOPICAL ×2 (09:03→20:35)
[2020-05-13] MEDS: Mineral Oil/Petrolatum,White 106 GM Tube 1 APPL TOPICAL ×3 (09:04→20:35)
--- NOTE | 2020-05-13 09:41 | P.PNIM_ITS ---
Subjective Subjective Date of Service: 05/13/20 Interval History: feeling phlegmy, wants to speak to pulm Cardiovascular Cardiovascular: Reports no additional cardiovascular complaints Gastrointestinal Gastrointestinal: Reports no additional gastrointestinal complaints Physical Exam Vital Signs: Vital Signs: Vital Signs Temp Pulse Resp BP Pulse Ox 05/13/20 08:00 96.0 F L 99 20 128/80 94 05/13/20 04:00 98.4 F 99 20 150/88 H 92 05/13/20 00:00 98.3 F 95 20 99/61 96 05/12/20 23:39 89 22 H 136/84 05/12/20 16:11 97.8 F 86 18 123/53 L 99 05/12/20 16:00 97.4 F 94 18 95/74 97 05/12/20 11:57 97.8 F 100 18 133/94 H 94 Body Mass Index 40.4 General: AO X 3, no acute distress Resp: wheezes CVS: S1,S2,RRR GI: soft, non tender, non distended Neuro: motor grossly intact Psych: appropriate affect Objective Data Current Medications Generic Name Dose Route Start Last Admin Trade Name Freq PRN Reason Stop Dose Admin Albuterol Sulfate 2.5 mg 05/10/20 20:13 05/13/20 04:56 Albuterol Sulfate (0.083%) 2.5 Mg/3 Ml Vial.Neb INHALE 2.5 mg RQ6H PRN Administration wheezing Albuterol/Ipratropium 3 ml 05/10/20 20:00 05/13/20 07:02 Albuterol/Iprat 2.5/0.5mg 3 Ml Ampul.Neb INHALE Not Given RQ6H WHILE AWAKE JUDE Amiodarone HCl 200 mg 05/04/20 09:00 05/13/20 09:01 Amiodarone Hcl 200 Mg Tablet PO 200 mg DAILY JUDE Administration Amlodipine Besylate 5 mg 05/04/20 09:00 05/13/20 09:02 Amlodipine Besylate 5 Mg Tablet PO 5 mg DAILY JUDE Administration Protocol Apixaban 5 mg 05/04/20 09:00 05/13/20 09:02 Apixaban 5 Mg Tablet PO 5 mg BID JUDE Administration Atorvastatin Calcium 80 mg 05/04/20 21:00 05/12/20 22:45 Atorvastatin Calcium 80 Mg Tablet PO 80 mg BEDTIME JUDE Administration Clopidogrel Bisulfate 75 mg 10/24/20 09:00 05/13/20 09:01 Clopidogrel Bisulfate 75 Mg Tablet PO 75 mg DAILY JUDE Administration Diphenhydramine HCl 25 mg 05/05/20 16:39 05/13/20 05:33 Diphenhydramine Hcl 50 Mg/Ml Vial IVPUSH 25 mg Q6H PRN Administration Itching Diphenhydramine HCl 25 mg 05/06/20 12:30 Diphenhydramine Hcl 50 Mg/Ml Vial IVPUSH Q6H PRN Itching Furosemide 40 mg 05/04/20 09:00 05/13/20 09:02 Furosemide 40 Mg Tablet PO 40 mg DAILY JUDE Administration Protocol Gabapentin 300 mg 05/04/20 09:00 05/13/20 09:01 Gabapentin 300 Mg Capsule PO 300 mg TID JUDE Administration Guaifenesin 600 mg 05/04/20 09:00 05/13/20 09:01 Guaifenesin La 600 Mg Tab.Er.12h PO 600 mg BID JUDE Administration Hydromorphone HCl 1 mg 05/04/20 17:11 05/13/20 08:57 Hydromorphone Hcl 0.5 Mg/0.5 Ml Syringe IVPUSH 1 mg Q4H PRN Administration Pain, Severe (Pain Scale 7-10) Insulin Glargine 40 unit 05/04/20 20:00 05/12/20 22:43 Insulin Glargine,Hum.Rec.Anlog 100 Unit/Ml 10 Ml Vial SUBCUT 40 unit 2000 [facility] Administration Insulin Glargine 15 unit 05/05/20 09:00 05/13/20 09:01 Insulin Glargine,Hum.Rec.Anlog 100 Unit/Ml 10 Ml Vial SUBCUT 15 unit DAILY JUDE Administration Insulin Human Lispro 10 unit 05/04/20 16:30 05/13/20 09:00 Insulin Lispro 100 Unit/Ml 3 Ml Vial SUBCUT 10 unit TIDAC [facility] Administration Insulin Human Lispro 0 unit 05/04/20 21:00 05/13/20 09:02 Insulin Lispro 100 Unit/Ml 3 Ml Vial SUBCUT Not Given QIDACHS [facility] Protocol Losartan Potassium 50 mg 05/04/20 09:00 05/13/20 09:02 Losartan Potassium 50 Mg Tablet PO 50 mg DAILY JUDE Administration Protocol Metoprolol Succinate 50 mg 05/04/20 10:55 05/13/20 09:02 Metoprolol Succinate Er 50 Mg Tab.Er.24h PO 50 mg DAILY JUDE Administration Protocol Montelukast Sodium 10 mg 05/04/20 21:00 05/12/20 22:44 Montelukast Sodium 10 Mg Tablet PO 10 mg BEDTIME JUDE Administration Multi-Ingred Cream/Lotion/Oil/Oint 1 appl 05/06/20 15:00 05/13/20 09:04 Mineral Oil/Petrolatum,White 106 Gm Tube TOPICAL 1 appl TID JUDE Administration Nystatin 1 appl 05/05/20 21:00 05/13/20 09:03 Nystatin Cream 15 Gm Tube TOPICAL 1 appl BID JUDE Administration Protocol Omeprazole 20 mg 05/04/20 09:00 05/13/20 09:01 Omeprazole 20 Mg Capsule.Dr PO 20 mg DAILY JUDE Administration Ondansetron HCl 4 mg 05/09/20 22:18 05/13/20 05:33 Ondansetron Hcl 4 Mg/2 Ml Vial IVPUSH 4 mg Q8H PRN Administration Nausea and Vomiting Prednisone 20 mg 05/09/20 19:20 05/13/20 09:01 Prednisone 20 Mg Tablet PO 20 mg DAILY JUDE Administration Quetiapine Fumarate 100 mg 05/04/20 21:00 05/11/20 20:43 Quetiapine Fumarate 100 Mg Tablet PO 100 mg BEDTIME JUDE Administration Sertraline HCl 50 mg 05/07/20 09:00 05/13/20 09:01 Sertraline Hcl 25 Mg Tablet PO 50 mg DAILY JUDE Administration Sodium Chloride 3 ml 05/04/20 00:00 05/13/20 09:03 0.9 % Sodium Chloride Flush 3 Ml Syringe IVFLUSH 3 ml QSHIFT JUDE Administration Tamsulosin HCl 0.4 mg 05/04/20 09:00 05/13/20 09:01 Tamsulosin Hcl 0.4 Mg Capsule PO 0.4 mg DAILY JUDE Administration Labs CBC & Chem 7: 05/13/20 04:44 05/13/20 04:44 Microbiology Microbiology Results: Microbiology 05/03/20 12:12 Blood - Venous Blood Culture - Final No growth after 5 days. 05/03/20 12:12 Blood - Venous Blood Culture - Final No growth after 5 days. Assessment and Plan (1) Acute on chronic respiratory failure with hypoxia and hypercapnia: Status: Acute (2) Hemoptysis: Status: Acute (3) COPD exacerbation: Status: Acute (4) CAD (coronary artery disease): Status: Acute (5) GERD (gastroesophageal reflux disease): Status: Acute (6) ELI (obstructive sleep apnea): Status: Acute (7) Hypertension: Status: Acute (8) Atrial fibrillation with rapid ventricular response: Status: Acute Assessment and Plan: 64-year-old male well known to the hospital who presented to the hospital with complaints of shortness of breath and pleuritic chest pain. He is admitted for COPD exacerbation. Acute on chronic respiratory failure due to COPD exacerbation continue Prednisone PO continue updrafts azithromycin completed cxr -- no lobar pneumonia, repeat cxr 05/08 interstial edema vs atypical pna continues to complain of increased sputum, pulm to follow up today diabetes continue Lantus and SSS insulin, Anxiety attacks Part of the patient acute attacks are likely result of anxiety psych team evaluation appreciated continue Sertraline at 50 P.r.n. Ativan Itching Patient has dry scan To use Benadryl as needed Started moisturizing cream Right upper extremity DVT Continue Eliquis hypertension continue Norvasc, losartan CAD pleuritic in nature, due to COPD Plavix, aspirin discontinued per [facility] records after he was started on Eliquis there continue other meds, transition to oral Dilaudid GERD continue PPI ELI continue CPAP which is non-compliant with atrial fibrillation continue amiodarone, metoprolol, eliquis DVT prophylaxis Eliquis PT advises possible STR
[2020-05-13 11:41] LABS: Glucose, Whole Blood 110 mg/dL (60-115)
--- NOTE | 2020-05-13 12:22 | MHC.CM.PN ---
DC Plan is home with resumption of Daily [facility] services. Patient c/o increased sputum and requests to be seen by Pulmonology today. CM will continue to follow for dc planning and the potential need to adjust the dc plan.
[2020-05-13] MEDS: Albuterol/Iprat 2.5/0.5MG 3 ML AMPUL.NEB INHALE ×2 (13:34→19:30)
--- NOTE | 2020-05-13 14:14 | MHC.CLN ---
F/U PO INTAKE 100% X 2 TODAY DIET RX: 1800 2GM NA -APPROPRIATE DIET WILL PROMOTE SLOW WT LOSS FOLLOWING
[2020-05-13 16:20] LABS: Glucose, Whole Blood 149 mg/dL (60-115)
[2020-05-13 20:14] LABS: Glucose, Whole Blood 166 mg/dL (60-115)
[2020-05-13] MEDS: Atorvastatin Calcium 80 MG TABLET PO (20:26)
[2020-05-13] MEDS: QUEtiapine Fumarate 100 MG TABLET PO (20:26)
[2020-05-13] MEDS: Insulin Glargine,Hum.rec.anlog 100 UNIT/ML 10 ML VIAL 40 UNIT SUBCUT (20:29)
[2020-05-13] MEDS: Insulin Lispro 100 UNIT/ML 3 ML VIAL SUBCUT (20:32)
[2020-05-14] MEDS: 0.9 % Sodium Chloride Flush 3 ML SYRINGE IVFLUSH ×2 (00:56→10:34)
[2020-05-14 03:48] VITALS: BP 146/96; PULSE 90; RESP 18; TEMP 36.8; O2SAT 97
[2020-05-14 03:57] VITALS: RESP 26
[2020-05-14] MEDS: HYDROmorphone HCl 0.5 MG/0.5 ML SYRINGE 1 MG IVPUSH ×3 (03:57→12:14)
[2020-05-14] MEDS: diphenhydrAMINE HCL 50 MG/ML VIAL 25 MG IVPUSH (04:55)
[2020-05-14] MEDS: ondansetron HCL 4 MG/2 ML VIAL IVPUSH (04:55)
[2020-05-14 07:19] LABS: Glucose, Whole Blood 45 mg/dL (60-115)
[2020-05-14 07:21] VITALS: BP 135/85; PULSE 91; RESP 18; TEMP 36.3; O2SAT 94
[2020-05-14 07:45] LABS: Glucose, Whole Blood 53 mg/dL (60-115)
[2020-05-14 08:01] LABS: Glucose, Whole Blood 100 mg/dL (60-115)
[2020-05-14] MEDS: Amiodarone HCL 200 MG TABLET PO (08:02)
[2020-05-14] MEDS: Tamsulosin HCL 0.4 MG CAPSULE PO (08:02)
[2020-05-14] MEDS: Gabapentin 300 MG CAPSULE PO (08:02)
[2020-05-14] MEDS: Omeprazole 20 MG CAPSULE.DR PO (08:03)
[2020-05-14] MEDS: Losartan Potassium 50 MG TABLET PO (08:03)
[2020-05-14] MEDS: predniSONE 20 MG TABLET PO (08:03)
[2020-05-14] MEDS: Furosemide 40 MG TABLET PO (08:03)
[2020-05-14] MEDS: Clopidogrel Bisulfate 75 MG TABLET PO (08:03)
[2020-05-14] MEDS: Metoprolol Succinate ER 50 MG TAB.ER.24H PO (08:03)
[2020-05-14] MEDS: guaiFENesin LA 600 MG TAB.ER.12H PO (08:03)
[2020-05-14] MEDS: amLODIPine Besylate 5 MG TABLET PO (08:03)
[2020-05-14] MEDS: Sertraline HCL 25 MG TABLET 50 MG PO (08:03)
[2020-05-14] MEDS: Apixaban 5 MG TABLET PO (08:04)
[2020-05-14] MEDS: Mineral Oil/Petrolatum,White 106 GM Tube 1 APPL TOPICAL (08:10)
[2020-05-14] MEDS: Nystatin Cream 15 GM TUBE 1 APPL TOPICAL (08:10)
--- NOTE | 2020-05-14 09:42 | PM.DS ---
DS: Providers Provider Date of admission: 05/03/20 17:24 Primary care physician: Mignon Holcomb MD Consults: 05/04/20 08:44 Consult to Pulmonology Routine Consulting Provider: [facility] Pulmonology Services Reason for consultation: Hypoxic Res. failure, recurrent admission, for your kind eval and rec. 05/05/20 10:39 Consult to Psychiatry Routine Consulting Provider: Simona Chapman Reason for consultation: For your kind eval increase anxiety, thinking of , recurrent admission DS: Diagnosis Discharge Diagnosis (1) Acute on chronic respiratory failure with hypoxia and hypercapnia: Status: Acute (2) Hemoptysis: Status: Acute (3) COPD exacerbation: Status: Acute (4) CAD (coronary artery disease): Status: Acute (5) GERD (gastroesophageal reflux disease): Status: Acute (6) ELI (obstructive sleep apnea): Status: Acute (7) Hypertension: Status: Acute (8) Atrial fibrillation with rapid ventricular response: Status: Acute DS: Summary Hospital Course Hospital Course: patient was admitted for acute on chronic hypoxic respiratory failure secondary to COPD exacerbation. He was given steroids and bronchodilators and doxycycline. His symptoms slowly improved. Patient is now feeling close to baseline will be discharged home on 5 more days of p.o. prednisone. He will follow up with Pulmonary as outpatient. Of note is antiplatelets have been discontinued as he is currently on Eliquis for history of DVT and does not require dual or triple therapy. Time Spent with Patient Time attestation: Total time spent providing and/or coordinating discharge services: Physical Exam Vital Signs: Vital Signs: Vital Signs Temp Pulse Resp BP Pulse Ox 05/14/20 07:21 97.4 F 91 18 135/85 94 05/14/20 03:57 26 H 05/14/20 03:48 98.2 F 90 18 146/96 H 97 05/13/20 23:57 98.9 F 84 18 110/84 98 05/13/20 20:38 28 H 05/13/20 19:34 97 F 94 16 120/82 97 05/13/20 15:31 97.9 F 82 18 119/85 97 05/13/20 12:58 97.9 F 94 24 H 118/71 91 L 05/13/20 10:45 99 128/80 94 Body Mass Index 40.4 General: AO X 3, no acute distress Resp: wheeze, but appears to be exagerated CVS: S1,S2,RRR GI: soft, non tender, non distended Neuro: motor grossly intact Psych: appropriate affect DS: Data Data Completed and Pending Labs on day of discharge: Labs from last 24 hours 05/14/20 05/14/20 05/14/20 07:56 07:42 07:14 POC Glucose 100 53 L* 45 L* 05/13/20 05/13/20 05/13/20 20:00 16:15 11:34 POC Glucose 166 H 149 H 110 Discharge Plan Discharge Patient Disposition: Home, Self-Care Referrals: Mignon Holcomb MD [Primary Care Provider] - 1 Week (Dr. Holcomb office will call you to schedule a follow up appointment.) Discharge Medications: Continued furosemide 40 mg Tablet 40 mg PO DAILY RF: 0 atorvastatin 80 mg Tablet 80 mg PO BEDTIME RF: 0 amiodarone 200 mg Tablet 200 mg PO DAILY RF: 0 pantoprazole [Protonix] 40 mg Tablet,Delayed Release (Dr/Ec) 40 mg PO DAILY RF: 0 sertraline 25 mg tablet 1 tab PO DAILY RF: 0 montelukast 10 mg Tablet 10 mg PO BEDTIME RF: 0 amlodipine 5 mg tablet 1 tab PO DAILY RF: 0 gabapentin 300 mg capsule 1 cap PO TID RF: 0 Incruse Ellipta 62.5 mcg/actuation blister with device 1 inh inhalation DAILY RF: 0 losartan 50 mg tablet 1 tab PO DAILY RF: 0 metoprolol succinate 50 mg tablet extended release 24 hr 1 tab PO DAILY RF: 0 quetiapine 100 mg tablet 100 mg PO BEDTIME RF: 0 insulin aspart U-100 [Novolog Flexpen U-100 Insulin] 100 unit/mL (3 mL) insulin pen 8 unit subcut TIDAC RF: 0 sertraline 25 mg tablet 1 tab PO DAILY RF: 0 Lantus U-100 Insulin 100 unit/mL Solution 35 unit SUBCUT QPM RF: 0 tamsulosin 0.4 mg capsule 1 cap PO DAILY RF: 0 albuterol sulfate [Ventolin HFA] 90 mcg/actuation HFA aerosol inhaler 2 puff PO Q4-6H PRN (Reason: Shortness Of Breath) RF: 0 Eliquis 5 mg tablet 5 mg PO BID RF: 0 guaifenesin [Mucinex] 600 mg Tablet Extended Release 12hr 600 mg PO BID Qty: 30 RF: 0 prednisone 20 mg Tablet 40 mg PO DAILY Qty: 10 RF: 0 Discontinued clopidogrel 75 mg Tablet 75 mg PO DAILY RF: 0 aspirin 81 mg tablet,chewable 1 tab PO DAILY RF: 0 doxycycline hyclate 100 mg Tablet 100 mg PO BID Qty: 10 RF: 0 Discharge Orders: Discharge Order (Routine); Ordered 05/14/20 Ordered By: Tahir Fortune Activity on Discharge: As tolerated Visit Report Forms: Patient Portal Discharge page Care Plan Goals: avoid hopsitalizations Health Concerns: copd Plan of Treatment: 5 days predsnisone, follow up with pulmonary, conitnue eliquis and stop antiplatelet
[2020-05-14 09:48] LABS: Glucose, Whole Blood 186 mg/dL (60-115)
[2020-05-14 10:19] VITALS: BP 135/85; PULSE 91; O2SAT 94
[2020-05-14] MEDS: Insulin Glargine,Hum.rec.anlog 100 UNIT/ML 10 ML VIAL 15 UNIT SUBCUT (10:34)
[2020-05-14 11:10] LABS: Glucose, Whole Blood 196 mg/dL (60-115)
[2020-05-14 11:25] VITALS: BP 126/87; PULSE 85; RESP 18; TEMP 36.6; O2SAT 93
--- NOTE | 2020-05-14 11:32 | MHC.CM.PN ---
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
--- NOTE | 2020-05-14 13:00 | P.PNPL_ITS ---
Subjective Subjective Interval history: The patient was seen on exam. Feels like he cannot expand his lungs completely. He is requesting a bronchoscopy. I did review his chest x- ray demonstrating good aeration bilaterally although demonstrating some pulmonary vascular congestion. At this point no indication for bronchoscopy although he will need to continue diuresis. Objective Data Labs CBC & Chem 7: 05/13/20 04:44 05/13/20 04:44 Labs: Laboratory Results - last 24 hr 05/13/20 05/13/20 05/14/20 16:15 20:00 07:14 POC Glucose 149 H 166 H 45 L* 05/14/20 05/14/20 05/14/20 07:42 07:56 09:45 POC Glucose 53 L* 100 186 H 05/14/20 11:04 POC Glucose 196 H Microbiology Microbiology Results: Microbiology 05/03/20 12:12 Blood - Venous Blood Culture - Final No growth after 5 days. 05/03/20 12:12 Blood - Venous Blood Culture - Final No growth after 5 days. Review of Systems Constitutional: Denies night sweats Denies change in voice, Denies lip swelling, Denies mouth pain, Reports nasal congestion, Reports nasal discharge and Denies tongue swelling Cardiovascular: Denies chest pain and Reports dyspnea Respiratory: Reports cough, Reports dyspnea and Reports wheezing Gastrointestinal: Denies abdominal pain Musculoskeletal: Denies no additional musculoskeletal complaints Denies Neuro-related abnormal movements Psychiatric: Denies no additional psychiatric complaints Hematologic/Lymphatic: Denies easy bleeding and Denies lymphadenopathy Allergic/Immunologic: Denies lip swelling, Denies tongue swelling and Reports wheezing Physical Exam Vital Signs: Vital Signs: Vital Signs Temp Pulse Resp BP Pulse Ox 05/14/20 11:25 97.8 F 85 18 126/87 93 05/14/20 10:19 91 135/85 94 05/14/20 07:21 97.4 F 91 18 135/85 94 05/14/20 03:57 26 H 05/14/20 03:48 98.2 F 90 18 146/96 H 97 05/13/20 23:57 98.9 F 84 18 110/84 98 05/13/20 20:38 28 H 05/13/20 19:34 97 F 94 16 120/82 97 05/13/20 15:31 97.9 F 82 18 119/85 97 Body Mass Index 40.4 Const: General: alert HENMT: General nose exam: Abnormal external nose present and Nasal discharge present Eyes: Pupils: Equal, round and reactive pupils present Neck: Neck: Yes normal visual inspection, Yes full ROM and Yes no lymphadenopathy Chest: Chest palpation & inspection: normal inspection of the chest Resp: Auscultation: wheezes and diminished lung sounds Cardio: Rate: regular rate Rhythm: regular rhythm Heart sounds: S1 normal heart sound present and S2 normal heart sound present GI: Palpation (GI): Soft to palpation and nontender Auscultation: normal b owel sounds : General: Yes no CVA tenderness Back/Spine/Pelvis: Back: no CVA tenderness Skin: General skin exam: rashes and/or lesions noted Neuro: Cranial nerves: Yes Equal, round and reactive pupils present Assessment and Plan Assessment and plan (1) Acute on chronic respiratory failure with hypoxia and hypercapnia: Status: Acute Assessment and Plan: Continue with respiratory therapy Continue with oxygen supplementation No indication for bronchoscopy at this time. Once the patient is discharged he needs to follow up closely with talked about herbal from pulmonary (2) COPD exacerbation: Status: Acute (3) Systolic CHF: Status: Acute Assessment and Plan: Diuresis as tolerated (4) ELI (obstructive sleep apnea): Status: Acute Assessment and Plan: PAP therapy at nighttime Time Spent With Patient Time: Total time spent is greater than 50% in coordination of care (as documented) at patient's floor/unit and/or counseling patient: Time with patient: 15 - 24 minutes
== END 2020-05-14 15:10 | disposition home or self-care (01) | DRG 190 ==
LOC: HO.ED 16:50 → HO.ICU 17:50 → HO.IMC 05-04 06:43
PROVIDERS: Anesthesiology; Emergency Medicine; Hospitalist; Internal Medicine; Student in an Organized Health Care Education/Training Program; Admitting Provider Internal Medicine; Emergency Provider Emergency Medicine; PCP Internal Medicine; Visit Provider Internal Medicine
DX: J44.1 Chronic obstructive pulmonary disease with (acute) exacerbation (principal); J96.21 Acute and chronic respiratory failure with hypoxia; J96.22 Acute and chronic respiratory failure with hypercapnia; E87.2 Acidosis; R04.2 Hemoptysis; I50.22 Chronic systolic (congestive) heart failure; K21.9 Gastro-esophageal reflux disease without esophagitis; N40.0 Benign prostatic hyperplasia without lower urinary tract symptoms; G47.33 Obstructive sleep apnea (adult) (pediatric); I48.91 Unspecified atrial fibrillation; E11.65 Type 2 diabetes mellitus with hyperglycemia; I11.0 Hypertensive heart disease with heart failure; F06.4 Anxiety disorder due to known physiological condition; E11.649 Type 2 diabetes mellitus with hypoglycemia without coma; I25.10 Atherosclerotic heart disease of native coronary artery without angina pectoris; Z76.5 Malingerer [conscious simulation]; Z20.828 Contact with and (suspected) exposure to other viral communicable diseases; Z88.5 Allergy status to narcotic agent; Z79.01 Long term (current) use of anticoagulants; Z79.899 Other long term (current) drug therapy
CPT/HCPCS: 36415; 36600; 71045; 80048; 82803; 82947; 83605; 83880; 84484; 85007; 85025; 85027; 85379; 87040; 87635; 93005; 94660; 96365; 96375; 96376; 97110; 97116; 97162; 99285; 99291; 99292; J1170; J1200; J1940; J2270; J2405; J2930

== ENCOUNTER 2020-05-19 12:57 | Inpatient (IN) | payer MEDICARE, MEDICAID, SELFPAY ==
[2020-05-19] VITALS (8 sets, daily range): BP systolic 138–196; BP diastolic 89–102; PULSE 105–140; RESP 18–36; TEMP 36.6–36.9; O2SAT 91–99; BMI 48.5
--- NOTE | 2020-05-19 13:03 | ECG_ITS ---
Test Reason : DYSPNEA Blood Pressure : / mmHG Vent. Rate : 133 BPM Atrial Rate : 127 BPM P-R Int : 000 ms QRS Dur : 098 ms QT Int : 304 ms P-R-T Axes : 000 062 -19 degrees QTc Int : 452 ms Atrial fibrillation with rapid ventricular response Nonspecific T wave abnormality Abnormal ECG When compared with ECG of 03-MAY-2020 12:40, Heart rate has increased Referred By: Carline Hutson Electronically Signed By:DAVIS ROCA MD
--- NOTE | 2020-05-19 13:03 | XR_ITS ---
EXAMINATION: XR CHEST CLINICAL INFORMATION: Shortness of breath COMPARISON: 05/08/2020 TECHNIQUE: Frontal view of the chest was obtained. FINDINGS: Again seen is cardiomegaly. Since the prior study, lung volumes have decreased and there is new bibasilar patchy densities consistent with atelectasis/infiltrate. No gross CHF is present. A tiny left-sided pleural effusion could be present. XR/XR chest 1V IMPRESSION: Cardiomegaly with new bibasilar infiltrates/atelectasis.
--- NOTE | 2020-05-19 13:08 | ED_ITS ---
HPI - SOB/Dyspnea General Chief Complaint: Dyspnea Stated Complaint: SOB,ON CPAP Time Seen by Provider: 05/19/20 13:03 Source: patient and EMS Mode of arrival: EMS Limitations: other (Limited from shortness of breath, respiratory effort) History of Present Illness HPI Narrative: 64 yo male with past medical history COPD O2 NC 3 L dependent, still smoking 6 cigarets per day, hx CAD post 7 stents, Hypothyroid, cervical fusion, Atrial fibrilation on eliquis, DM II, JIMENE[facility] (previous HD); Systolic congestive heart failure on 40mg lasix, upper extremity DVT, gastroesophageal reflux disease, obstructive sleep apnea, hypertension here with shortness of breath. The patient tells me he was discharged from this facility on May 14 10 days of additional prednisone. Increasing shortness of breath with waking in the night out of his sleep. Productive cough with brown sputum. Feeling weak, tired last few days. No fevers, chills, body aches or chest pain. For EMS on arrival the patient had a oxygen saturation of 72% on his home O2. He was placed on CPAP and brought into the ED. MD elicited complaint: shortness of breath Pertinent past history: COPD Onset (ago): unknown Timing: progressively worsening Severity: moderate Exacerbating factors: exertion, movement and talking Relieving factors: oxygen, rest and upright position Known history of: COPD and congestive heart failure Associated symptoms: denies other symptoms Treatment prior to arrival: oxygen, bronchodilator (duoneb) and NIPPV Related Data Home Medications Medication Instructions Recorded Confirmed Eliquis 5 mg PO BID 04/17/20 05/19/20 Incruse Ellipta 1 inh INHALATION DAILY 04/17/20 05/19/20 Lantus U-100 Insulin 35 unit SUBCUT QPM 04/17/20 05/19/20 albuterol sulfate [Ventolin HFA] 2 puff PO Q4-6H PRN 04/17/20 05/19/20 amiodarone 200 mg PO DAILY 04/17/20 05/19/20 amlodipine 1 tab PO DAILY 04/17/20 05/19/20 atorvastatin 80 mg PO BEDTIME 04/17/20 05/19/20 furosemide 40 mg PO DAILY 04/17/20 05/19/20 gabapentin 1 cap PO TID 04/17/20 05/19/20 insulin aspart U-100 [Novolog 8 unit SUBCUT TIDAC 04/17/20 05/19/20 Flexpen U-100 Insulin] losartan 1 tab PO DAILY 04/17/20 05/19/20 metoprolol succinate 1 tab PO DAILY 04/17/20 05/19/20 montelukast 10 mg PO BEDTIME 04/17/20 05/19/20 pantoprazole [Protonix] 40 mg PO DAILY 04/17/20 05/19/20 quetiapine 100 mg PO BEDTIME 04/17/20 05/19/20 sertraline 1 tab PO DAILY 04/17/20 05/19/20 tamsulosin 1 cap PO DAILY 04/17/20 05/19/20 Previous Rx's Medication Instructions Recorded guaifenesin [Mucinex] 600 mg PO BID #30 tab 04/22/20 prednisone 40 mg PO DAILY #10 tab 05/14/20 Allergies Allergy/AdvReac Type Severity Reaction Status Date / Time nitroglycerin [NITROGLYCERIN] Allergy Severe CARDIOPULMONARY Verified 04/17/20 11:57 ARREST 2012 adhesive tape [Adhesive Tape] Allergy Mild BLISTERS Verified 04/17/20 11:57 cephalexin [From Keflex] Allergy Unknown ITCHING Verified 04/17/20 11:57 ciprofloxacin [From Cipro] Allergy Unknown ITCHING Verified 04/17/20 11:57 latex [LATEX] Allergy Unknown UNKNOWN Verified 04/17/20 11:57 morphine [Morphine] Allergy Unknown ITCHING Verified 04/17/20 11:57 tramadol [From ULTRAM] AdvReac Severe STOMACH Verified 04/17/20 11:57 UPSET Adhesive Tape 1 x5yd Allergy Unknown Hives Uncoded 04/17/20 11:57 Diltiazem HCl Allergy Unknown Unknown Uncoded 04/17/20 11:57 Latex Gloves Allergy Unknown Unknown Uncoded 04/17/20 11:57 Review of Systems Review of Systems: Yes all other systems are reviewed and are negative Constitutional: Constitutional: Reports no additional constitutional complaints, Denies body ache(s), Denies chills, Denies fever(s), Denies headache(s) and Denies weakness Eyes: Eyes: Reports no additional eye complaints and Denies change in vision ENT: Reports system reviewed and no additional complaints, except as documented, Denies dizziness, Denies headache(s), Denies nasal congestion, Denies nasal discharge and Denies neck pain Cardiovascular: Cardiovascular: Reports no additional cardiovascular complaints, Denies chest pain, Denies leg edema and Reports dyspnea Respiratory: Respiratory: Reports no additional respiratory complaints, Reports cough and Reports dyspnea Gastrointestinal: Gastrointestinal: Reports no additional gastrointestinal complaints, Denies abdominal pain, Denies diarrhea, Denies nausea and Denies vomiting Genitourinary: Genitourinary: Denies urinary incontinence Musculoskeletal: Musculoskeletal: Reports no additional musculoskeletal complaints, Denies back pain, Denies arthralgias, Denies joint swelling, Denies neck pain, Denies numbness and Denies tingling Integumentary/Breasts: Skin/Breast: Reports system reviewed and no additional complaints, except as docu and Denies rash Neurologic: Reports system reviewed and no additional complaints, except as documented, Denies Abnormal speech present, Denies dizziness, Denies headache(s), Denies numbness, Denies tingling and Denies weakness PMFSH Past Medical History Attestation statement: The following information was validated with the patient. Source: old records reviewed, obtained from family and nursing notes reviewed Medical History Asthma Atrial fibrillation BPH (benign prostatic hyperplasia) CAD (coronary artery disease) Continuous positive airway pressure dependent COPD (chronic obstructive pulmonary disease) Deep vein thrombosis (DVT) of right upper extremity Diabetes mellitus, type 2 GERD (gastroesophageal reflux disease) Hemoptysis HTN (hypertension) ELI (obstructive sleep apnea) Streptococcal bacteremia Systolic CHF Surgical History History of tracheostomy S/P diskectomy Family History Family History Other HTN (hypertension) Social History Social History Household Members: Family Housing: House Alcohol intake: never Smoking Status: Current every day smoker Second Hand Smoke Exposure: Yes Use of substances other than those prescribed or required for medical reasons: No Advance Directives: Yes Advance Directives on File: Yes Advance Directives Date on File: 04/18/20 service: No Current occupational status: disabled Physical Exam Vital Signs: Vital Signs: Last Vital Signs Temp 98.5 F 05/19/20 13:07 Pulse 109 H 11/08/20 14:31 Resp 18 05/19/20 15:03 BP 138/93 H 05/19/20 14:31 Pulse Ox 96 05/19/20 14:31 Body Mass Index 48.5 Const: General: in distress and anxious Orientation/consciousness: patient oriented x3 Limitations: other limitations (limited d/t respiratory distress ) HENMT: Head: Yes normal to inspection Ears: hearing grossly normal bilaterally General nose exam: Normal external nose present Face and sin us: Yes normal facial exam Mouth: Normal oral and palatal mucosa present Throat: Yes posterior oropharynx normal Eyes: General: appearance normal, both eyes and all related structures Pupils: Equal, round and reactive pupils present Neck: Neck: Yes normal visual inspection Chest: Chest palpation & inspection: normal inspection of the chest Resp: Other: speaking 1-2 words Effort & Inspection: labored, respiratory distress, tachypneic, tripod positioning and uses accessory muscles Auscultation: wheezes and diminished lung sounds Cardio: Rate: tachycardic (irregularly irregular ) Rhythm: regular rhythm Peripheral pulses: Peripheral pulses 2+ throughout GI: Inspection: Yes normal to inspection Palpation (GI): Soft to palpation and nontender Auscultation: normal bowel sounds Back/Spine/Pelvis: Thoracic/Lumbar Spine: thoracic and lumbar spine normal to inspection Skin: General skin exam: no rashes or lesions noted Neuro: General: patient oriented x3, no focal motor deficits and normal sensation to monofilament Cranial nerves: Yes Equal, round and reactive pupils present Cognition (Neuro): normal cognition Speech: No Abnormal speech present Gait exam (Neuro): Normal gait present Motor exam (neuro): 5/5 motor strength present throughout Extrem: General: Yes normal to inspection Course Course Course Narrative: 64-year-old male well known to us here with shortness of breath x1 day with productive sputum. Hypoxic for EMS on arrival and arrives in the emergency department on CPAP. Of note, recent discharge from this facility for COPD exacerbation and CHF exacerbation on 05 14. Patient is currently on prednisone. On arrival his saturation on 3 L of oxygen is 98%. He has diminished breath sounds with some mild expiratory wheezing and is speaking 1-2 words with some accessory muscle use and tachypnea noted. Will check ABG, labs including blood cultures and lactic acid, chest x-ray, EKG. Patient did receive a DuoNeb prior to arrival. Will give Solu-Medrol, magnesium and narcotic for work of breathing. Tachycardia, respiratory rate likely secondary to chronic lung disease. Not likely from sepsis. 1430-CXR concerning for bilateral infiltrates vs atelectasis. Patient telling me productive cough with brown sputum. At this time infection is suspected. Will st art antibiotics. BNP elevated. Will give lasix 40mg in ED. Troponin elevated, no chest pain or EKG changes. Likely demand ischemia, chronically elevated. Antibiotics order for presumed PNA. lasix for possible chf exacerbation. Already received solumedrol, magnesium and nebs with dialudid for COPD symptoms. Pt now resting more comfortably, respiratory rate now down to 22-26, saturation 98% on 3LNC, speaking longer sentences. ABG reviewed and unremarkable. 1500-Reviewed findings with Maddie IBRAHIM with plan to admission. Rapid COVID done and negative. MDM - SOB/Dyspnea Medical Records Attestation: I reviewed the patient's medical records. Lab Data Attestation: I reviewed the patient's lab results. Result diagrams: 05/19/20 14:00 05/19/20 14:00 Labs: Lab Results 05/19/20 05/19/20 05/19/20 Range/Units 13:05 13:38 14:00 WBC 11.7 H (4.8-10.8) X10*3/uL RBC 5.05 (4.60-5.80) X10*6/uL Hgb 13.8 L (14.0-18.0) g/dl Hct 42.5 (42-52) % MCV 84.2 (80-98) fL MCH 27.3 (27.0-33.0) pg MCHC 32.5 (31.0-36.0) g/dl RDW 13.7 (11.0-16.0) % Plt Count 229 (160-400) X10*3/uL MPV 10.1 (9.4-12.4) fL Immature Gran % (Auto) 0.5 H (0.0-0.4) % Neut % (Auto) 83.0 H (45-73) % Lymph % (Auto) 11.5 L (20-40) % Barber % (Auto) 4.4 (2-11) % Eos % (Auto) 0.3 (0-4) % Baso % (Auto) 0.3 (0-2) % Lymph # (Auto) 1.3 (1.2-4.9) X10*3/uL Barber # (Auto) 0.5 (0.1-1.2) X10*3/uL Eos # (Auto) 0.0 (0.0-0.4) X10*3/uL Baso # (Auto) 0.0 (0.0-0.2) X10*3/uL Abs Immat Gran (auto) 0.06 H (0.00-0.03) X10*3/uL Absolute Neuts (auto) 9.7 H (2.0-8.3) X10*3/uL Absolute Nucleated RBC 0.000 (0.0-0.012) X10*3/uL Nucleated RBC % (auto) 0.0 (0.0-0.2) /100WBC PT (10.8-13.0) SEC INR (0.9-1.1) ABG pH 7.42 (7.35-7.45) ABG pCO2 38 (32-45) mmhg ABG pO2 99 (83-108) mmhg ABG HCO3 24 (22-26) mmol/l ABG O2 Saturation 97.9 % ABG Base Excess -0.2 Oxygen Given 3 L Sodium (135-145) mmol/L Potassium (3.3-5.1) mmol/l Chloride (96-108) mmol/L Carbon Dioxide (22-29) mmol/L Anion Gap (12-20) BUN (9-16) mg/dL Creatinine (0.5-1.4) mg/dL Estim Creat Clear Calc Estimated GFR Random Glucose (60-115) mg/dL Lactic Acid (0.5-2.0) mmol/L Calcium (8.4-10.2) mg/dL Magnesium (1.6-2.6) mg/dL Total Bilirubin (0.0-1.0) mg/dL Direct Bilirubin (0.0-0.5) mg/dL AST (5-37) U/L ALT (0-40) U/L Alkaline Phosphatase (39-117) U/L Troponin I High Sens (<3.5-35.0) ng/L B-Natriuretic Peptide (<100) pg/mL Total Protein (6.5-8.0) g/dL Albumin (3.5-5.0) g/dL Coronavirus (PCR) NEGATIVE (Negative) 05/19/20 05/19/20 05/19/20 Range/Units 14:00 14:00 14:00 WBC (4.8-10.8) X10*3/uL RBC (4.60-5.80) X10*6/uL Hgb (14.0-18.0) g/dl Hct (42-52) % MCV (80-98) fL MCH (27.0-33.0) pg MCHC (31.0-36.0) g/dl RDW (11.0-16.0) % Plt Count (160-400) X10*3/uL MPV (9.4-12.4) fL Immature Gran % (Auto) (0.0-0.4) % Neut % (Auto) (45-73) % Lymph % (Auto) (20-40) % Barber % (Auto) (2-11) % Eos % (Auto) (0-4) % Baso % (Auto) (0-2) % Lymph # (Auto) (1.2-4.9) X10*3/uL Barber # (Auto) (0.1-1.2) X10*3/uL Eos # (Auto) (0.0-0.4) X10*3/uL Baso # (Auto) (0.0-0.2) X10*3/uL Abs Immat Gran (auto) (0.00-0.03) X10*3/uL Absolute Neuts (auto) (2.0-8.3) X10*3/uL Absolute Nucleated RBC (0.0-0.012) X10*3/uL Nucleated RBC % (auto) (0.0-0.2) /100WBC PT 12.6 (10.8-13.0) SEC INR 1.1 (0.9-1.1) ABG pH (7.35-7.45) ABG pCO2 (32-45) mmhg ABG pO2 (83-108) mmhg ABG HCO3 (22-26) mmol/l ABG O2 Saturation % ABG Base Excess Oxygen Given Sodium 138 (135-145) mmol/L Potassium 4.6 (3.3-5.1) mmol/l Chloride 108 (96-108) mmol/L Carbon Dioxide 21 L (22-29) mmol/L Anion Gap 14 (12-20) BUN 16 (9-16) mg/dL Creatinine 0.83 (0.5-1.4) mg/dL Estim Creat Clear Calc 96.7 Estimated GFR > 60 Random Glucose 180 H (60-115) mg/dL Lactic Acid (0.5-2.0) mmol/L Calcium 8.4 D (8.4-10.2) mg/dL Magnesium 2.9 H (1.6-2.6) mg/dL Total Bilirubin 0.7 (0.0-1.0) mg/dL Direct Bilirubin 0.2 (0.0-0.5) mg/dL AST 23 D (5-37) U/L ALT 40 (0-40) U/L Alkaline Phosphatase 81 D (39-117) U/L Troponin I High Sens 39.3 H (<3.5-35.0) ng/L B-Natriuretic Peptide 246 H (<100) pg/mL Total Protein 6.0 L (6.5-8.0) g/dL Albumin 3.7 (3.5-5.0) g/dL Coronavirus (PCR) (Negative) 05/19/20 Range/Units 14:01 WBC (4.8-10.8) X10*3/uL RBC (4.60-5.80) X10*6/uL Hgb (14.0-18.0) g/dl Hct (42-52) % MCV (80-98) fL MCH (27.0-33.0) pg MCHC (31.0-36.0) g/dl RDW (11.0-16.0) % Plt Count (160-400) X10*3/uL MPV (9.4-12.4) fL Immature Gran % (Auto) (0.0-0.4) % Neut % (Auto) (45-73) % Lymph % (Auto) (20-40) % Barber % (Auto) (2-11) % Eos % (Auto) (0-4) % Baso % (Auto) (0-2) % Lymph # (Auto) (1.2-4.9) X10*3/uL Barber # (Auto) (0.1-1.2) X10*3/uL Eos # (Auto) (0.0-0.4) X10*3/uL Baso # (Auto) (0.0-0.2) X10*3/uL Abs Immat Gran (auto) (0.00-0.03) X10*3/uL Absolute Neuts (auto) (2.0-8.3) X10*3/uL Absolute Nucleated RBC (0.0-0.012) X10*3/uL Nucleated RBC % (auto) (0.0-0.2) /100WBC PT (10.8-13.0) SEC INR (0.9-1.1) ABG pH (7.35-7.45) ABG pCO2 (32-45) mmhg ABG pO2 (83-108) mmhg ABG HCO3 (22-26) mmol/l ABG O2 Saturation % ABG Base Excess Oxygen Given Sodium (135-145) mmol/L Potassium (3.3-5.1) mmol/l Chloride (96-108) mmol/L Carbon Dioxide (22-29) mmol/L Anion Gap (12-20) BUN (9-16) mg/dL Creatinine (0.5-1.4) mg/dL Estim Creat Clear Calc Estimated GFR Random Glucose (60-115) mg/dL Lactic Acid 1.0 (0.5-2.0) mmol/L Calcium (8.4-10.2) mg/dL Magnesium (1.6-2.6) mg/dL Total Bilirubin (0.0-1.0) mg/dL Direct Bilirubin (0.0-0.5) mg/dL AST (5-37) U/L ALT (0-40) U/L Alkaline Phosphatase (39-117) U/L Troponin I High Sens (<3.5-35.0) ng/L B-Natriuretic Peptide (<100) pg/mL Total Protein (6.5-8.0) g/dL Albumin (3.5-5.0) g/dL Coronavirus (PCR) (Negative) Imaging Data Chest x-ray: Attestation: I personally reviewed and interpreted this imaging study as follows: Radiologist's impression: EXAMINATION: XR CHEST CLINICAL INFORMATION: Shortness of breath COMPARISON: 05/08/2020 TECHNIQUE: Frontal view of the chest was obtained. FINDINGS: Again seen is cardiomegaly. Since the prior study, lung volumes have decreased and there is new bibasilar patchy densities consistent with atelectasis/infiltrate. No gross CHF is present. A tiny left-sided pleural effusion could be present. XR/XR chest 1V IMPRESSION: Cardiomegaly with new bibasilar infiltrates/atelectasis. ECG Data Attestation: I personally reviewed and interpreted this ECG as follows: ECG interpretation date: 05/19/20 ECG interpretation time: 13:10 Interpretation: AFib with RVR with rate of 133, normal QRS, normal QT Critical Care Time Critical Care Time Critical Care Time: Yes Total Critical Care Time: 30 Attestation: multiple re-evaluations for respiratory effort Discharge Plan Discharge Clinical Impression: COPD exacerbation, Acute systolic CHF (congestive heart failure), Pneumonia, Hypoxia Patient Disposition: Admitted As Inpatient
[2020-05-19] MEDS: Magnesium Sulfate/H2O 2 GM/50 ML PIGGYBACK IV (13:22)
[2020-05-19] MEDS: methylPREDNISolone Sod Succ/PF 125 MG/2 ML VIAL IVPUSH (13:22)
[2020-05-19] MEDS: fentaNYL citrate/PF 100 MCG/2 ML VIAL 50 MCG IVPUSH (13:30)
[2020-05-19] MEDS: HYDROmorphone HCl 0.5 MG/0.5 ML SYRINGE IVPUSH ×2 (14:04→15:03)
[2020-05-19 14:08] LABS: Basophils Percent Auto 0.3 % (0-2); Eosinophils Percent Auto 0.3 % (0-4); Hematocrit 42.5 % (42-52); Hemoglobin 13.8 g/dl (14.0-18.0); Imm Gran Abs Auto 0.06 X10*3/uL (0.00-0.03); Imm Gran Pct Auto 0.5 % (0.0-0.4); Lymphocytes Absolute Auto 1.3 X10*3/uL (1.2-4.9); Lymphocytes Percent Auto 11.5 % (20-40); MANUAL DIFF FLAG NO; Mean Corpuscular HGB Conc 32.5 g/dl (31.0-36.0); Mean Corpuscular Hemoglobin 27.3 pg (27.0-33.0); Mean Corpuscular Volume 84.2 fL (80-98); Mean Platelet Volume 10.1 fL (9.4-12.4); Monocytes Absolute Auto 0.5 X10*3/uL (0.1-1.2); Monocytes Percent Auto 4.4 % (2-11); Neutrophils Absolute Auto 9.7 X10*3/uL (2.0-8.3); Platelet Count 229 X10*3/uL (160-400); Red Blood Count 5.05 X10*6/uL (4.60-5.80); Red Cell Distribution Width 13.7 % (11.0-16.0); White Blood Count 11.7 X10*3/uL (4.8-10.8)
[2020-05-19 14:16] LABS: INTERNATIONAL NORM RATIO 1.1 (0.9-1.1); Prothrombin Time 12.6 SEC (10.8-13.0)
[2020-05-19 14:17] LABS: Pt Ventilation O2% 3 L
[2020-05-19 14:20] LABS: ABG PCO2 38 mmhg (32-45); HCO3 ABG 24 mmol/l (22-26); PO2 ABG 99 mmhg (83-108); pH ABG 7.42 (7.35-7.45)
[2020-05-19 14:21] LABS: Base Excess ABG -0.2; Oxygen Saturation ABG 97.9 %
[2020-05-19 14:37] LABS: Alanine Aminotransferase 40 U/L (0-40); Albumin Level 3.7 g/dL (3.5-5.0); Alkaline Phosphatase 81 U/L (39-117); Anion Gap 14 (12-20); Aspartate Amino Transferase 23 U/L (5-37); Bilirubin Direct 0.2 mg/dL (0.0-0.5); Bilirubin Total 0.7 mg/dL (0.0-1.0); Blood Urea Nitrogen 16 mg/dL (9-16); Calcium 8.4 mg/dL (8.4-10.2); Carbon Dioxide 21 mmol/L (22-29); Chloride 108 mmol/L (96-108); Creatinine Clr Calc Pharmacy 96.7; Estimated Glomerular Filt Rate > 60; Glucose Random 180 mg/dL (60-115); Magnesium 2.9 mg/dL (1.6-2.6); Potassium 4.6 mmol/l (3.3-5.1); Sodium 138 mmol/L (135-145)
[2020-05-19 14:50] LABS: SARS COV2 PCR INHOUSE NEGATIVE (Negative)
[2020-05-19 14:52] LABS: B Type Natriuretic Peptide 246 pg/mL (<100); Troponin-I High Sensitivity 39.3 ng/L (<3.5-35.0)
[2020-05-19] MEDS: Furosemide 40 MG/4 ML VIAL IVPUSH (15:03)
[2020-05-19] MEDS: levoFLOXacin/D5W 500 MG/100 ML PIGGYBACK 100 MG IV (15:15)
--- NOTE | 2020-05-19 15:29 | CT_ITS ---
EXAMINATION: CT CHEST WITHOUT CONTRAST CLINICAL INFORMATION: Shortness of breath with chest radiograph today showing new bibasilar infiltrates/atelectasis COMPARISON: Chest radiograph earlier today and prior CTA chest 09/22/2019 TECHNIQUE: Multidetector volumetric CT imaging of the chest was done. Axial MIP volume rendering provided. Sagittal and coronal reformatted images were obtained. This CT examination was performed using dose optimization techniques as appropriate, variously including the following: *Automated exposure control *Adjustment of mA and/or kV according to patient size (this includes techniques or standardized protocols for targeted exams where dose is matched to indication/reason for exam; i.e. extremities or head) *Use of iterative reconstruction technique DLP: 521 mGy-cm FINDINGS: LUNGS AND PLEURA: There is a small to moderate-sized right pleural effusion present which is subpulmonic on the chest radiograph. A tiny left pleural effusion is seen. There is associated right lower lobe infiltrate/atelectasis along with collapse/consolidation of the right middle lobe. Left basilar atelectasis is seen. There is a small area of opacity present in the right upper lobe which has somewhat of a tree-in-bud formation appearance indicative of inflammatory disease (series 5 image 167). A similar area is seen in the right upper lobe medially and anteriorly (series 5 image 212) as well as more inferiorly, abutting the major fissure (series 5 image 239). These do not have the typical appearance of abnormality from Covid 19. MEDIASTINUM: No mediastinal or hilar lymphadenopathy is seen. A small pericardial effusion is present slightly increased in size when compared to the prior study. There is mild cardiac enlargement. There is a saber sheath configuration to the trachea suggesting COPD, but no bullous changes are seen. AXILLA: No lymphadenopathy. UPPER ABDOMEN: Unremarkable. Status post cholecystectomy. OSSEOUS STRUCTURES: Unremarkable. Minimal spondylitic changes present in the spine. CT/CT chest wo con IMPRESSION: New small to moderate right-sided pleural effusion with tiny left effusion. Right lower lobe infiltrate/atelectasis with collapse/consolidation right middle lobe and left basilar atelectasis. Tree-in-bud abnormalities in at least 3 locations in the right lung indicative of inflammatory/airway disease.
--- NOTE | 2020-05-19 17:15 | PM.IMHP ---
History of Present Illness Date of Service: 05/19/20 Chief Complaint: Shortness of breath 64 year old male with chronic respiratory failure due to COPD on home O2, CHF. He is admitted rather frquently and was just discharged from the hospital just several days ago and returned again with shortness and increase work of breathing and CXR shows some infiltrate. As usual is complaining of lung pain and requesting narcotics, he's highly anxious and is becoming very tachycardic. ABG was essentially normal. Review of Systems Review of Systems: Yes all other systems are reviewed and are negative Constitutional: Constitutional: Denies headache(s) and Denies weakness ENT: Denies dizziness and Denies headache(s) Musculoskeletal: Musculoskeletal: Denies numbness and Denies tingling Neurologic: Reports system reviewed and no additional complaints, except as documented, Denies dizziness, Denies headache(s), Denies numbness, Denies tingling and Denies weakness [facility] Medical History (Updated 06/03/20 @ 00:00 by Crystal Gomes) Acute on chronic respiratory failure with hypoxia and hypercapnia Acute systolic CHF (congestive heart failure) Anxiety disorder due to general medical condition Asthma BPH (benign prostatic hyperplasia) CAD (coronary artery disease) Continuous positive airway pressure dependent COPD (chronic obstructive pulmonary disease) Deep vein thrombosis (DVT) of right upper extremity Diabetes mellitus, type 2 GERD (gastroesophageal reflux disease) Hemoptysis HTN (hypertension) Hypoxia ELI (obstructive sleep apnea) ELI (obstructive sleep apnea) Streptococcal bacteremia Systolic CHF Family History Other HTN (hypertension) Surgical History History of tracheostomy S/P diskectomy Social History Household Members: Family Housing: Apartment Alcohol intake: never Smoking Status: Current every day smoker Tobacco Type: Cigarette Packs Per Day: 0.25 Cigarettes Per Day: 5.0 Years Smoked: 50 Second Hand Smoke Exposure: Yes Advance Directives Date on File: 04/18/20 service: No Current occupational status: disabled Meds Allergies Allergy/AdvReac Type Severity Reaction Status Date / Time nitroglycerin [NITROGLYCERIN] Allergy Severe CARDIOPULMONARY Verified 04/17/20 11:57 ARREST 2012 adhesive tape [Adhesive Tape] Allergy Mild BLISTERS Verified 04/17/20 11:57 cephalexin [From Keflex] Allergy Unknown ITCHING Verified 04/17/20 11:57 ciprofloxacin [From Cipro] Allergy Unknown ITCHING Verified 04/17/20 11:57 latex [LATEX] Allergy Unknown UNKNOWN Verified 04/17/20 11:57 morphine [Morphine] Allergy Unknown ITCHING Verified 04/17/20 11:57 diltiazem Allergy Unknown Verified 05/29/20 14:14 tramadol [From ULTRAM] AdvReac Severe STOMACH Verified 04/17/20 11:57 UPSET Home Medications Medication Instructions Recorded Confirmed Type Eliquis 5 mg PO BID 04/17/20 05/19/20 History Incruse Ellipta 1 inh INHALATION DAILY 04/17/20 05/19/20 History Lantus U-100 Insulin 35 unit SUBCUT QPM 04/17/20 05/19/20 History albuterol sulfate [Ventolin HFA] 2 puff PO Q4-6H PRN 04/17/20 05/19/20 History amiodarone 200 mg PO DAILY 04/17/20 05/19/20 History amlodipine 1 tab PO DAILY 04/17/20 05/19/20 History atorvastatin 80 mg PO BEDTIME 04/17/20 05/19/20 History furosemide 40 mg PO DAILY 04/17/20 05/19/20 History gabapentin 1 cap PO TID 04/17/20 05/19/20 History insulin aspart U-100 [Novolog 8 unit SUBCUT TIDAC 04/17/20 05/19/20 History Flexpen U-100 Insulin] losartan 1 tab PO DAILY 04/17/20 05/19/20 History montelukast 10 mg PO BEDTIME 04/17/20 05/19/20 History pantoprazole [Protonix] 40 mg PO DAILY 04/17/20 05/19/20 History quetiapine 100 mg PO BEDTIME 04/17/20 05/19/20 History tamsulosin 1 cap PO DAILY 04/17/20 05/19/20 History Physical Exam Vital Signs and Narrative: Vital Signs: Last Vital Signs Temp 98.5 F 05/19/20 13:07 Pulse 109 H 05/19/20 14:31 Resp 18 05/19/20 15:03 BP 138/93 H 05/19/20 14:31 Pulse Ox 96 05/19/20 14:31 Body Mass Index 48.5 Constitutional Awake and Alert, very anxious, and breathing fast Neck Supple, No lymphadenopathy Cardiovascular RRR, No M/R/G, S1 S2, No S3 S4, No pedal edema Respiratory Lungs tachypnea, decrease air movement, Gastrointestinal Non tender, Non-distended Skin No rash Neurological Alert & oriented x3 Psychological Appropriate affect Results Labs CBC and Chem 7: 05/22/20 05:45 05/22/20 05:45 Imaging Radiologist's Impressions: Impressions Chest X-Ray 05/19/20 13:03 IMPRESSION: Cardiomegaly with new bibasilar infiltrates/atelectasis. Assessment and Plan (1) Acute on chronic respiratory failure with hypoxia and hypercapnia: (2) COPD exacerbation: Status: Acute (3) Atrial fibrillation: Status: Deleted (4) Deep vein thrombosis (DVT) of right upper extremity: (5) Systolic CHF: (6) Anxiety disorder due to general medical condition: (7) Atrial fibrillation with rapid ventricular response: Status: Acute 64/male with chronic resp failure due copd here with acute exacerbation with acute resp failure 1. Acute resp failur on chronic resp --treat underlying COPD as below 2. Acute exa of COPD withot hypoxia -IV solumedrol -bronchodilators by Neb -Oxygen at 3 liter -Pulmonary conuslt in AM -I don't think finding on xray represent acute PNA, but will treat with Doxy for possible bronchitis 3. CHF--compensated. Continue Lasix 4. AFIB with RVR now likely anxiety driven--if persists start IV cardizem. Continue Metoprolol, Amio. Continue Eliquis 5. h/o DVT--Eliquis 6. HLD--Lipitor 7. Depression/mood desorder/anxiety--Seroquel, Sertraline and anxiety if needed to control anxity 8. DM--Lantus, SSI 9. Pain syndrome--it is becoming conerning that this patient has narcotic seeking tendency that may be in part reason to present to hospital and there is conflicting opinion on providers' part on how to aproach this. Some advocate not given narc, while others take opposite stance. What is clear is there need to a concencus aproach by coming up with a care plan for this. Should probably have a meeting with ED, case management, hospitalist, ENVIRONMENTAL SERVICE AIDE, ICU and come up with a joint resolution.
[2020-05-19] MEDS: HYDROmorphone HCl 1 MG/ML SYRINGE IVPUSH ×2 (18:49→22:50)
[2020-05-19] MEDS: Albuterol/Iprat 2.5/0.5MG 3 ML AMPUL.NEB INHALE (19:36)
[2020-05-19 20:41] LABS: Glucose, Whole Blood 320 mg/dL (60-115)
[2020-05-19] MEDS: guaiFENesin LA 600 MG TAB.ER.12H PO (21:02)
[2020-05-19] MEDS: Montelukast Sodium 10 MG TABLET PO (21:02)
[2020-05-19] MEDS: QUEtiapine Fumarate 100 MG TABLET PO (21:02)
[2020-05-19] MEDS: Atorvastatin Calcium 80 MG TABLET PO (21:02)
[2020-05-19] MEDS: Gabapentin 300 MG CAPSULE PO (21:02)
[2020-05-19] MEDS: Insulin Glargine,Hum.rec.anlog 100 UNIT/ML 10 ML VIAL 35 UNIT SUBCUT (21:02)
[2020-05-19] MEDS: Apixaban 5 MG TABLET PO (21:02)
[2020-05-19] MEDS: Insulin Lispro 100 UNIT/ML 3 ML VIAL SUBCUT (21:04)
[2020-05-20] VITALS (8 sets, daily range): BP systolic 112–161; BP diastolic 81–99; PULSE 70–112; RESP 18–28; TEMP 36.1–36.6; O2SAT 90–95; BMI 48.5
[2020-05-20] MEDS: 0.9 % Sodium Chloride Flush 3 ML SYRINGE IVFLUSH ×4 (00:02→16:10)
[2020-05-20] MEDS: HYDROmorphone HCl 1 MG/ML SYRINGE IVPUSH ×6 (02:56→22:45)
[2020-05-20] MEDS: Albuterol/Iprat 2.5/0.5MG 3 ML AMPUL.NEB INHALE ×4 (07:03→19:05)
[2020-05-20] MEDS: guaiFENesin LA 600 MG TAB.ER.12H PO ×2 (08:11→21:27)
[2020-05-20] MEDS: Tamsulosin HCL 0.4 MG CAPSULE PO (08:11)
[2020-05-20] MEDS: Apixaban 5 MG TABLET PO ×2 (08:12→21:27)
[2020-05-20] MEDS: predniSONE 20 MG TABLET 40 MG PO (08:12)
[2020-05-20] MEDS: Amiodarone HCL 200 MG TABLET PO (08:12)
[2020-05-20] MEDS: Losartan Potassium 50 MG TABLET PO (08:12)
[2020-05-20] MEDS: amLODIPine Besylate 5 MG TABLET PO (08:13)
[2020-05-20] MEDS: Sertraline HCL 25 MG TABLET PO (08:13)
[2020-05-20] MEDS: Gabapentin 300 MG CAPSULE PO ×3 (08:13→21:27)
[2020-05-20] MEDS: Metoprolol Succinate ER 50 MG TAB.ER.24H PO (08:13)
[2020-05-20 08:14] LABS: Glucose, Whole Blood 299 mg/dL (60-115)
[2020-05-20] MEDS: Insulin Lispro 100 UNIT/ML 3 ML VIAL SUBCUT ×3 (08:21→16:08)
[2020-05-20] MEDS: Furosemide 40 MG TABLET PO (08:22)
--- NOTE | 2020-05-20 09:07 | MHC.CM.PN ---
IMM 04/19/20 MALE 64 DX ACUTE ON CHRONIC RESP FAILURE COPD. Pt is a readmit within the last Month. He lives w Xwife. Og is in place. Molst on file. PCP DR López. DP home resume Og, WC van to transport home. CM will follow.
[2020-05-20 09:53] LABS: Basophils Percent Auto 0.1 % (0-2); Hematocrit 39.5 % (42-52); Imm Gran Abs Auto 0.06 X10*3/uL (0.00-0.03); Imm Gran Pct Auto 0.5 % (0.0-0.4); Lymphocytes Absolute Auto 0.4 X10*3/uL (1.2-4.9); Lymphocytes Percent Auto 3.1 % (20-40); MANUAL DIFF FLAG SCAN; Mean Corpuscular HGB Conc 32.9 g/dl (31.0-36.0); Mean Corpuscular Hemoglobin 27.8 pg (27.0-33.0); Mean Corpuscular Volume 84.6 fL (80-98); Mean Platelet Volume 10.5 fL (9.4-12.4); Monocytes Absolute Auto 0.1 X10*3/uL (0.1-1.2); Monocytes Percent Auto 0.6 % (2-11); Neutrophils Absolute Auto 11.3 X10*3/uL (2.0-8.3); Neutrophils Percent Auto 95.7 % (45-73); Platelet Count 187 X10*3/uL (160-400); Red Blood Count 4.67 X10*6/uL (4.60-5.80); Red Cell Distribution Width 13.7 % (11.0-16.0); SCAN SMEAR FLAG 1; White Blood Count 11.8 X10*3/uL (4.8-10.8)
[2020-05-20 10:24] LABS: Anion Gap 11 (12-20); Blood Urea Nitrogen 23 mg/dL (9-16); Calcium 8.4 mg/dL (8.4-10.2); Carbon Dioxide 26 mmol/L (22-29); Chloride 104 mmol/L (96-108); Creatinine Clr Calc Pharmacy 80.2; Estimated Glomerular Filt Rate > 60; Glucose Random 428 mg/dL (60-115); Magnesium 2.4 mg/dL (1.6-2.6); Potassium 5.1 mmol/l (3.3-5.1); Sodium 136 mmol/L (135-145)
[2020-05-20 10:30] LABS: SLIDE REVIEW VERIFIED
[2020-05-20 10:35] LABS: Procalcitonin < 0.02 ng/mL
[2020-05-20 12:38] LABS: Estimated Average Glucose 192 mg/dL; Hemoglobin A1c % 8.3 %
--- NOTE | 2020-05-20 13:29 | P.CONPL_ITS ---
History of Present Illness History of Present Illness Consult date: 05/20/20 Requesting physician: Jasper Dia Reason for consult: COPD Chief complaint: acute and chronic resp failure, copd Narrative: 64-year-old gentleman with underlying chronic hypoxic and hypercapnic respiratory failure with CO2 retention, COPD on supplemental oxygen 3 L via nasal cannula, active smoker, underlying coronary artery disease and heart failure, AFib, diabetes mellitus, CKD, prior upper extremity DVT, ELI, narcotics dependence admitted on 05/19/2020 with worsening dyspnea deemed to be secondary to COPD exacerbation. Patient has been started on empiric doxycycline, glucocorticoids, and nebulized bronchodilators and pulmonary evaluation has been requested. On my evaluation patient is at baseline. Review of Systems Constitutional: Constitutional: Denies headache(s) and Denies weakness ENT: Denies dizziness and Denies headache(s) Cardiovascular: Cardiovascular: Reports dyspnea Respiratory: Respiratory: Denies cough, Reports dyspnea and Denies wheezing Gastrointestinal: Gastrointestinal: Denies abdominal pain and Denies constipation Genitourinary: Genitourinary: Denies oliguria and Denies urinary urgency Musculoskeletal: Musculoskeletal: Denies numbness and Denies tingling Neurologic: Denies Abnormal speech present, Denies dizziness, Denies headache(s), Denies numbness, Denies tingling and Denies weakness Endocrine: Endocrine: Denies cold intolerance and Denies heat intolerance Allergic/Immunologic: Allergic/Immunologic: Denies wheezing PMFSH Past Medical History Medical History Asthma Atrial fibrillation BPH (benign prostatic hyperplasia) CAD (coronary artery disease) Continuous positive airway pressure dependent COPD (chronic obstructive pulmonary disease) Deep vein thrombosis (DVT) of right upper extremity Diabetes mellitus, type 2 GERD (gastroesophageal reflux disease) Hemoptysis HTN (hypertension) ELI (obstructive sleep apnea) Streptococcal bacteremia Systolic CHF Family History Family History Other HTN (hypertension) Surgical History Surgical History History of tracheostomy S/P diskectomy Social History Social History Household Members: Family Household Members Other:: Ex- Housing: Apartment Do you presently have visiting nurse or other home services: Yes (HAIR PREPARER services) Alcohol intake: never Smoking Status: Current every day smoker Tobacco Type: Cigarette Packs Per Day: 0.25 Cigarettes Per Day: 5.0 Years Smoked: 50 Smoked in Last 30 Days: Yes Patient Interested in Nicotine Replacement: No Patient Given Instructions on How to Stop Smoking: Yes Date Education Initiated: 05/19/20 Second Hand Smoke Exposure: Yes Use of substances other than those prescribed or required for medical reasons: No Currently Displaying Signs/Symptoms of Drug Intoxication Withdrawal: No Have you been hit, kicked, punched, or otherwise hurt by someone within the past year? If so, by whom?: No Do you feel safe in your current relationship?: No Current Relationship Is there a partner from a previous relationship who is making you feel unsafe now?: No Are you made to feel afraid or neglected: No Advance Directives: Yes Advance Directives on File: Yes Advance Directives Date on File: 04/18/20 Do you have thoughts of harming others: None Do you have a plan to hurt others: No Plan Recently lost weight without trying: No service: No Current occupational status: disabled Meds Allergies Allergy/AdvReac Type Severity Reaction Status Date / Time nitroglycerin [NITROGLYCERIN] Allergy Severe CARDIOPULMONARY Verified 04/17/20 11:57 ARREST 2012 adhesive tape [Adhesive Tape] Allergy Mild BLISTERS Verified 04/17/20 11:57 cephalexin [From Keflex] Allergy Unknown ITCHING Verified 04/17/20 11:57 ciprofloxacin [From Cipro] Allergy Unknown ITCHING Verified 04/17/20 11:57 latex [LATEX] Allergy Unknown UNKNOWN Verified 04/17/20 11:57 morphine [Morphine] Allergy Unknown ITCHING Verified 04/17/20 11:57 tramadol [From ULTRAM] AdvReac Severe STOMACH Verified 04/17/20 11:57 UPSET Adhesive Tape 1 x5yd Allergy Unknown Hives Uncoded 04/17/20 11:57 Diltiazem HCl Allergy Unknown Unknown Uncoded 04/17/20 11:57 Latex Gloves Allergy Unknown Unknown Uncoded 04/17/20 11:57 Home Medications Medication Instructions Recorded Confirmed Type Eliquis 5 mg PO BID 04/17/20 05/19/20 History Incruse Ellipta 1 inh INHALATION DAILY 04/17/20 05/19/20 History Lantus U-100 Insulin 35 unit SUBCUT QPM 04/17/20 05/19/20 History albuterol sulfate [Ventolin HFA] 2 puff PO Q4-6H PRN 04/17/20 05/19/20 History amiodarone 200 mg PO DAILY 04/17/20 05/19/20 History amlodipine 1 tab PO DAILY 04/17/20 05/19/20 History atorvastatin 80 mg PO BEDTIME 04/17/20 05/19/20 History furosemide 40 mg PO DAILY 04/17/20 05/19/20 History gabapentin 1 cap PO TID 04/17/20 05/19/20 History insulin aspart U-100 [Novolog 8 unit SUBCUT TIDAC 04/17/20 05/19/20 History Flexpen U-100 Insulin] losartan 1 tab PO DAILY 04/17/20 05/19/20 History metoprolol succinate 1 tab PO DAILY 04/17/20 05/19/20 History montelukast 10 mg PO BEDTIME 04/17/20 05/19/20 History pantoprazole [Protonix] 40 mg PO DAILY 04/17/20 05/19/20 History quetiapine 100 mg PO BEDTIME 04/17/20 05/19/20 History sertraline 1 tab PO DAILY 04/17/20 05/19/20 History tamsulosin 1 cap PO DAILY 04/17/20 05/19/20 History Physical Exam Vital Signs: Vital Signs: Last Vital Signs Temp 97.4 F 05/20/20 08:00 Pulse 112 H 05/20/20 08:00 Resp 24 H 05/20/20 08:00 BP 161/99 H 05/20/20 08:00 Pulse Ox 90 L 05/20/20 08:00 Body Mass Index 48.5 Const: General: no acute distress, alert and awake Eyes: Sclerae: sclerae normal EOM: EOMs intact bilaterally Neck: Neck: Yes no lymphadenopathy, Yes trachea midline and Yes supple Resp: Effort & Inspection: normal respiratory effort and no respiratory distress Auscultation: clear to auscultation bilaterally Cardio: Rate: regular rate Rhythm: regular rhythm Heart sounds: no gallops, no murmurs and no rubs GI: Palpation (GI): Soft to palpation and Other GI palpation findings present ( Nontender) Auscultation: normal bowel sounds Neuro: Speech: No Abnormal speech present Extrem: General: No clubbing, No cyanosis and Yes edema ( Trace bilateral) Results Laboratory Findings CBC and BMP: 05/20/20 09:36 05/20/20 09:36 ABG, PT/INR, D-dimer: ABG ABG pH 7.42 (7.35-7.45) 05/19/20 13:05 ABG pCO2 38 mmhg (32-45) 05/19/20 13:05 ABG pO2 99 mmhg (83-108) 05/19/20 13:05 ABG O2 Saturation 97.9 % 05/19/20 13:05 PT/INR, D-dimer PT 12.6 SEC (10.8-13.0) 05/19/20 14:00 INR 1.1 (0.9-1.1) 05/19/20 14:00 Abnormal lab findings: Abnormal Labs 05/19/20 05/19/20 05/19/20 14:00 14:00 14:00 WBC 11.7 H Hgb 13.8 L Hct Immature Gran % (Auto) 0.5 H Neut % (Auto) 83.0 H Lymph % (Auto) 11.5 L [place] % (Auto) Lymph # (Auto) Abs Immat Gran (auto) 0.06 H Absolute Neuts (auto) 9.7 H Carbon Dioxide 21 L Anion Gap BUN POC Glucose Random Glucose 180 H Magnesium 2.9 H Troponin I High Sens 39.3 H B-Natriuretic Peptide 246 H Total Protein 6.0 L 05/19/20 05/20/20 05/20/20 20:35 08:10 09:36 WBC 11.8 H Hgb 13.0 L Hct 39.5 L Immature Gran % (Auto) 0.5 H Neut % (Auto) 95.7 H Lymph % (Auto) 3.1 L [place] % (Auto) 0.6 L Lymph # (Auto) 0.4 L Abs Immat Gran (auto) 0.06 H Absolute Neuts (auto) 11.3 H Carbon Dioxide Anion Gap BUN POC Glucose 320 H 299 H Random Glucose Magnesium Troponin I High Sens B-Natriuretic Peptide Total Protein 05/20/20 09:36 WBC Hgb Hct Immature Gran % (Auto) Neut % (Auto) Lymph % (Auto) [place] % (Auto) Lymph # (Auto) Abs Immat Gran (auto) Absolute Neuts (auto) Carbon Dioxide Anion Gap 11 L BUN 23 H POC Glucose Random Glucose 428 H* Magnesium Troponin I High Sens B-Natriuretic Peptide Total Protein Assessment and Plan (1) Dyspnea: Status: Acute Impression: 64-year-old gentleman with underlying ELI, COPD supplemental oxygen 3 L dependent, congestive heart failure, narcotics dependence admitted with dyspnea. Initially treated for COPD exacerbation and bronchitis. Patient at this time appears to be at baseline respiratory function. Recommendations: Continue home regimen of supplemental oxygen at 3 L, bronchodilators , and diuretic. consider discontinuation of doxycycline and glucocorticoids. (2) Respiratory failure, chronic: Qualifiers: Respiratory failure complication: hypoxia and hypercapnia Qualified Code(s): J96.11 - Chronic respiratory failure with hypoxia; J96.12 - Chronic respiratory failure with hypercapnia Status: Acute
[2020-05-20 15:03] LABS: Glucose, Whole Blood 323 mg/dL (60-115)
--- NOTE | 2020-05-20 17:09 | HO.PM.IMPN ---
Subjective Subjective Date of Service: 05/20/20 Interval History: very anxious c/o chest pain, dyspnea insists that we not decrease the Dilaudid Physical Exam Vital Signs: Vital Signs: Last Vital Signs Temp 97.6 F 05/20/20 15:23 Pulse 109 H 05/20/20 15:23 Resp 24 H 05/20/20 15:23 BP 135/89 05/20/20 15:23 Pulse Ox 90 L 05/20/20 15:23 Body Mass Index 48.5 gen: anxious HEENT: sclera anicteric pulm: soft end-exp wheezes but good air entry throughout CV: irreg irreg, tachycardic, no murmurs abd: soft/NT, no HSM ext: no edema neuro: no focal findings Objective Data Current Medications Generic Name Dose Route Start Last Admin Trade Name Freq PRN Reason Stop Dose Admin Acetaminophen 650 mg 05/19/20 17:52 Acetaminophen 325 Mg Tablet PO Q6H PRN Pain, Mild (Pain Scale 1-3) Albuterol/Ipratropium 3 ml 05/19/20 20:00 05/20/20 15:05 Albuterol/Iprat 2.5/0.5mg 3 Ml Ampul.Neb INHALE 3 ml RQ4H WHILE AWAKE JUDE Administration Amiodarone HCl 200 mg 05/20/20 09:00 05/20/20 08:12 Amiodarone Hcl 200 Mg Tablet PO 200 mg DAILY JUDE Administration Amlodipine Besylate 5 mg 05/20/20 09:00 05/20/20 08:13 Amlodipine Besylate 5 Mg Tablet PO 5 mg DAILY JUDE Administration Protocol Apixaban 5 mg 05/19/20 21:00 05/20/20 08:12 Apixaban 5 Mg Tablet PO 5 mg BID JUDE Administration Atorvastatin Calcium 80 mg 05/19/20 21:00 05/19/20 21:02 Atorvastatin Calcium 80 Mg Tablet PO 80 mg BEDTIME JUDE Administration Doxycycline Hyclate 100 mg 05/20/20 08:00 05/20/20 08:11 Doxycycline Hyclate 100 Mg Tablet PO 100 mg Q12H JUDE Administration Furosemide 40 mg 05/20/20 09:00 05/20/20 08:22 Furosemide 40 Mg Tablet PO 40 mg DAILY JUDE Administration Protocol Gabapentin 300 mg 05/19/20 21:00 05/20/20 14:44 Gabapentin 300 Mg Capsule PO 300 mg TID JUDE Administration Guaifenesin 600 mg 05/19/20 21:00 05/20/20 08:11 Guaifenesin La 600 Mg Tab.Er.12h PO 600 mg BID UJDE Administration Hydromorphone HCl 1 mg 05/19/20 17:06 05/20/20 14:44 Hydromorphone Hcl 1 Mg/Ml Syringe IVPUSH 1 mg Q4H PRN Administration Pain, Severe (Pain Scale 7-10) Insulin Glargine 40 unit 05/20/20 21:00 Insulin Glargine,Hum.Rec.Anlog 100 Unit/Ml 10 Ml Vial SUBCUT BEDTIME JUDE Insulin Human Lispro 0 unit 05/19/20 21:00 05/20/20 16:08 Insulin Lispro 100 Unit/Ml 3 Ml Vial SUBCUT 05/20/20 17:37 10 unit QIDACHS JUDE Administration Protocol Losartan Potassium 50 mg 05/20/20 09:00 05/20/20 08:12 Losartan Potassium 50 Mg Tablet PO 50 mg DAILY JUDE Administration Protocol Methylprednisolone Sodium Succinate 40 mg 05/19/20 18:00 05/20/20 11:50 Methylprednisolone Sod Succ/Pf 40 Mg/Ml Vial IVPUSH 40 mg Q6H JUDE Administration Metoprolol Succinate 50 mg 05/20/20 09:00 05/20/20 08:13 Metoprolol Succinate Er 50 Mg Tab.Er.24h PO 50 mg DAILY JUDE Administration Protocol Montelukast Sodium 10 mg 05/19/20 21:00 05/19/20 21:02 Montelukast Sodium 10 Mg Tablet PO 10 mg BEDTIME JUDE Administration Non-Formulary Medication 1 inhalation 05/20/20 09:00 Umeclidinium [Incruse Ellipta] INHALE DAILY [facility] Pharmacy Consult 1 each 05/19/20 13:22 Consult Rx Perform Med Rec MISCELLANE ONCE PRN Consult order Prednisone 40 mg 05/20/20 09:00 05/20/20 08:12 Prednisone 20 Mg Tablet PO 40 mg DAILY JUDE Administration Quetiapine Fumarate 100 mg 05/19/20 21:00 05/19/20 21:02 Quetiapine Fumarate 100 Mg Tablet PO 100 mg BEDTIME JUDE Administration Sertraline HCl 25 mg 05/20/20 09:00 05/20/20 08:13 Sertraline Hcl 25 Mg Tablet PO 25 mg DAILY JUDE Administration Sodium Chloride 3 ml 05/20/20 00:00 05/20/20 16:10 0.9 % Sodium Chloride Flush 3 Ml Syringe IVFLUSH 3 ml QSHIFT JUDE Administration Tamsulosin HCl 0.4 mg 05/20/20 09:00 05/20/20 08:11 Tamsulosin Hcl 0.4 Mg Capsule PO 0.4 mg DAILY JUDE Administration Labs CBC & Chem 7: 05/20/20 09:36 05/20/20 09:36 Labs: Laboratory Results - last 24 hr 05/19/20 05/20/20 05/20/20 20:35 08:10 09:36 WBC 11.8 H RBC 4.67 Hgb 13.0 L Hct 39.5 L MCV 84.6 MCH 27.8 MCHC 32.9 RDW 13.7 Plt Count 187 MPV 10.5 Immature Gran % (Auto) 0.5 H Neut % (Auto) 95.7 H Lymph % (Auto) 3.1 L [place] % (Auto) 0.6 L Eos % (Auto) 0.0 Baso % (Auto) 0.1 Lymph # (Auto) 0.4 L [place] # (Auto) 0.1 Eos # (Auto) 0.0 Baso # (Auto) 0.0 Abs Immat Gran (auto) 0.06 H Absolute Neuts (auto) 11.3 H Absolute Nucleated RBC 0.000 Nucleated RBC % (auto) 0.0 Smear Tech's Comments VERIFIED Sodium Potassium Chloride Carbon Dioxide Anion Gap BUN Creatinine Estim Creat Clear Calc Estimated GFR POC Glucose 320 H 299 H Random Glucose Estimat Average Glucose Hemoglobin A1c % Calcium Magnesium Troponin I High Sens Procalcitonin 05/20/20 05/20/20 05/20/20 09:36 09:36 12:02 WBC RBC Hgb Hct MCV MCH MCHC RDW Plt Count MPV Immature Gran % (Auto) Neut % (Auto) Lymph % (Auto) [place] % (Auto) Eos % (Auto) Baso % (Auto) Lymph # (Auto) [place] # (Auto) Eos # (Auto) Baso # (Auto) Abs Immat Gran (auto) Absolute Neuts (auto) Absolute Nucleated RBC Nucleated RBC % (auto) Smear Tech's Comments Sodium 136 Potassium 5.1 Chloride 104 Carbon Dioxide 26 Anion Gap 11 L BUN 23 H Creatinine 1.00 Estim Creat Clear Calc 80.2 Estimated GFR > 60 POC Glucose Random Glucose 428 H* Estimat Average Glucose Hemoglobin A1c % Calcium 8.4 Magnesium 2.4 Troponin I High Sens 23.0 Procalcitonin < 0.02 05/20/20 05/20/20 12:02 14:49 WBC RBC Hgb Hct MCV MCH MCHC RDW Plt Count MPV Immature Gran % (Auto) Neut % (Auto) Lymph % (Auto) [place] % (Auto) Eos % (Auto) Baso % (Auto) Lymph # (Auto) [place] # (Auto) Eos # (Auto) Baso # (Auto) Abs Immat Gran (auto) Absolute Neuts (auto) Absolute Nucleated RBC Nucleated RBC % (auto) Smear Tech's Comments Sodium Potassium Chloride Carbon Dioxide Anion Gap BUN Creatinine Estim Creat Clear Calc Estimated GFR POC Glucose 323 H Random Glucose Estimat Average Glucose 192 Hemoglobin A1c % 8.3 Calcium Magnesium Troponin I High Sens Procalcitonin Microbiology Microbiology Results: Microbiology 05/19/20 14:17 Blood - Venous Blood Culture - Preliminary No growth after 24 hours. 05/19/20 14:00 Blood - Venous Blood Culture - Preliminary No growth after 24 hours. Assessment and Plan (1) COPD exacerbation: Status: Acute Assessment and Plan: hospital d#2 64yo M with COPD, AF, ELI, HFrEF, DM2 just discharged from here 05/14/20 readmitted for COPD exacerbation though PaO2 + pCO2 at baseline # COPD exacerbation - taper IV steroids, continue bronchodilators, continue doxycycline but d/c if PCT remains low. appreciate pulmonology consultation. # acute/chronic respiratory failure with chronic hypoxia on 3L NC - supplemental O2, goal SaO2 88-92% # chronic HFrEF - continue furosemide, metoprolol, losartan. last TTE 09/22/19 LVEF 45%, gr I diastolic dysfunction, RWMAs # AF with RVR - continue metoprolol, amiodarone - continue apixaban # HLD - continue atorvastatin # mood disorder - quetiapine, sertraline # HTN - continue metoprolol, amlodipine, losartan # DM2 - increase Lantus + Humalog, check A1c # concern of opioid dependence - per admitting MD Dr Dia: it is becoming conerning that this patient has narcotic seeking tendency that may be in part reason to present to hospital and there is conflicting opinion on providers' part on how to aproach this. Some advocate not given narc, while others take opposite stance. What is clear is there need to a concencus aproach by coming up with a care plan for this. Should probably have a meeting with ED, case management, hospitalist, RETAIL ACCOUNT EXECUTIVE, ICU and come up with a joint resolution.
--- NOTE | 2020-05-20 19:33 | PC.NURSE ---
PT BLEEDING FROM GROWTH BEHIND HIS LEFT HEEL /AREA CLEANSE AND DS APPLIED
[2020-05-20 20:27] LABS: Glucose, Whole Blood 308 mg/dL (60-115)
[2020-05-20] MEDS: Insulin Glargine,Hum.rec.anlog 100 UNIT/ML 10 ML VIAL 40 UNIT SUBCUT (21:25)
[2020-05-20] MEDS: Montelukast Sodium 10 MG TABLET PO (21:27)
[2020-05-20] MEDS: Atorvastatin Calcium 80 MG TABLET PO (21:27)
[2020-05-20] MEDS: QUEtiapine Fumarate 100 MG TABLET PO (21:28)
[2020-05-21] VITALS (11 sets, daily range): BP systolic 115–146; BP diastolic 69–107; PULSE 86–111; RESP 18–30; TEMP 36.2–36.7; O2SAT 91–97
[2020-05-21] MEDS: HYDROmorphone HCl 1 MG/ML SYRINGE IVPUSH ×5 (03:33→21:47)
[2020-05-21] MEDS: Albuterol/Iprat 2.5/0.5MG 3 ML AMPUL.NEB INHALE ×4 (06:21→19:55)
[2020-05-21 07:42] LABS: Glucose, Whole Blood 314 mg/dL (60-115)
[2020-05-21] MEDS: Amiodarone HCL 200 MG TABLET PO (07:55)
[2020-05-21] MEDS: Losartan Potassium 50 MG TABLET PO (07:55)
[2020-05-21] MEDS: Gabapentin 300 MG CAPSULE PO ×3 (07:56→21:58)
[2020-05-21] MEDS: Tamsulosin HCL 0.4 MG CAPSULE PO (07:56)
[2020-05-21] MEDS: Metoprolol Succinate ER 50 MG TAB.ER.24H PO (07:56)
[2020-05-21] MEDS: amLODIPine Besylate 5 MG TABLET PO (07:56)
[2020-05-21] MEDS: guaiFENesin LA 600 MG TAB.ER.12H PO ×2 (07:56→21:58)
[2020-05-21] MEDS: Apixaban 5 MG TABLET PO ×2 (07:56→21:56)
[2020-05-21] MEDS: 0.9 % Sodium Chloride Flush 3 ML SYRINGE IVFLUSH ×2 (07:57→16:29)
[2020-05-21] MEDS: Sertraline HCL 25 MG TABLET PO (07:57)
[2020-05-21] MEDS: Furosemide 40 MG TABLET PO (07:57)
[2020-05-21] MEDS: predniSONE 20 MG TABLET 40 MG PO (09:06)
[2020-05-21] MEDS: Insulin Lispro 100 UNIT/ML 3 ML VIAL SUBCUT ×3 (09:06→21:52)
[2020-05-21] MEDS: diphenhydrAMINE HCL 25 MG TABLET PO (09:06)
[2020-05-21 11:54] LABS: Glucose, Whole Blood 242 mg/dL (60-115)
--- NOTE | 2020-05-21 15:53 | HO.PM.IMPN ---
Subjective Subjective Date of Service: 05/21/20 Interval History: DOS 05/21/20 Refuses CPAP overnight though now willing to use it Refusing to eat because he disagrees with low-sodium diet Continued c/o chest pain [chronic], dyspnea Physical Exam Vital Signs: Vital Signs: Last Vital Signs Temp 97.5 F 05/21/20 15:38 Pulse 110 H 05/21/20 15:38 Resp 30 H 05/21/20 15:38 BP 142/89 H 05/21/20 15:38 Pulse Ox 92 05/21/20 15:38 Body Mass Index 48.5 gen: anxious pulm: no wheezing or crackles CV: irreg irreg, rate controlled, no murmurs abd: soft/NT, no HSM, obese ext: no edema neuro: no focal findings Objective Data Current Medications Generic Name Dose Route Start Last Admin Trade Name Freq PRN Reason Stop Dose Admin Acetaminophen 650 mg 05/19/20 17:52 Acetaminophen 325 Mg Tablet PO Q6H PRN Pain, Mild (Pain Scale 1-3) Albuterol/Ipratropium 3 ml 05/19/20 20:00 05/21/20 15:30 Albuterol/Iprat 2.5/0.5mg 3 Ml Ampul.Neb INHALE 3 ml RQ4H WHILE AWAKE JUDE Administration Albuterol/Ipratropium 3 ml 05/21/20 05:49 Albuterol/Iprat 2.5/0.5mg 3 Ml Ampul.Neb INHALE RQ4H PRN Shortness of Breath/Wheezing Amiodarone HCl 200 mg 05/20/20 09:00 05/21/20 07:55 Amiodarone Hcl 200 Mg Tablet PO 200 mg DAILY JUDE Administration Amlodipine Besylate 5 mg 05/20/20 09:00 05/21/20 07:56 Amlodipine Besylate 5 Mg Tablet PO 5 mg DAILY JUDE Administration Protocol Apixaban 5 mg 05/19/20 21:00 05/21/20 07:56 Apixaban 5 Mg Tablet PO 5 mg BID JUDE Administration Atorvastatin Calcium 80 mg 05/19/20 21:00 05/20/20 21:27 Atorvastatin Calcium 80 Mg Tablet PO 80 mg BEDTIME JUDE Administration Diphenhydramine HCl 25 mg 05/21/20 08:21 05/21/20 09:06 Diphenhydramine Hcl 25 Mg Tablet PO 25 mg Q6H PRN Administration itching Doxycycline Hyclate 100 mg 05/20/20 08:00 05/21/20 07:55 Doxycycline Hyclate 100 Mg Tablet PO 100 mg Q12H [facility] Administration Furosemide 40 mg 05/20/20 09:00 05/21/20 07:57 Furosemide 40 Mg Tablet PO 40 mg DAILY [facility] Administration Protocol Gabapentin 300 mg 05/19/20 21:00 05/21/20 07:56 Gabapentin 300 Mg Capsule PO 300 mg TID [facility] Administration Guaifenesin 600 mg 05/19/20 21:00 05/21/20 07:56 Guaifenesin La 600 Mg Tab.Er.12h PO 600 mg BID [facility] Administration Hydromorphone HCl 1 mg 05/19/20 17:06 05/21/20 12:00 Hydromorphone Hcl 1 Mg/Ml Syringe IVPUSH 1 mg Q4H PRN Administration Pain, Severe (Pain Scale 7-10) Insulin Glargine 45 unit 05/21/20 21:00 Insulin Glargine,Hum.Rec.Anlog 100 Unit/Ml 10 Ml Vial SUBCUT BEDTIME [facility] Insulin Human Lispro 0 unit 05/21/20 11:30 05/21/20 12:51 Insulin Lispro 100 Unit/Ml 3 Ml Vial SUBCUT 6 unit QIDACHS [facility] Administration Protocol Losartan Potassium 50 mg 05/20/20 09:00 05/21/20 07:55 Losartan Potassium 50 Mg Tablet PO 50 mg DAILY [facility] Administration Protocol Metoprolol Succinate 50 mg 05/20/20 09:00 05/21/20 07:56 Metoprolol Succinate Er 50 Mg Tab.Er.24h PO 50 mg DAILY [facility] Administration Protocol Montelukast Sodium 10 mg 05/19/20 21:00 05/20/20 21:27 Montelukast Sodium 10 Mg Tablet PO 10 mg BEDTIME [facility] Administration Non-Formulary Medication 1 inhalation 05/20/20 09:00 Umeclidinium [Incruse Ellipta] INHALE DAILY [facility] Ondansetron HCl 4 mg 05/21/20 08:21 05/21/20 09:07 Ondansetron Odt 4 Mg Tab.Rapdis TRANSLINGU 4 mg Q6H PRN Administration nausea/vomitig Pharmacy Consult 1 each 05/19/20 13:22 Consult Rx Perform Med Rec MISCELLANE ONCE PRN Consult order Prednisone 40 mg 05/21/20 09:00 05/21/20 09:06 Prednisone 20 Mg Tablet PO 40 mg DAILY JUDE Administration Quetiapine Fumarate 100 mg 05/19/20 21:00 05/20/20 21:28 Quetiapine Fumarate 100 Mg Tablet PO 100 mg BEDTIME JUDE Administration Sertraline HCl 25 mg 05/20/20 09:00 05/21/20 07:57 Sertraline Hcl 25 Mg Tablet PO 25 mg DAILY JUDE Administration Sodium Chloride 3 ml 05/20/20 00:00 05/21/20 07:57 0.9 % Sodium Chloride Flush 3 Ml Syringe IVFLUSH 3 ml QSHIFT JUDE Administration Tamsulosin HCl 0.4 mg 05/20/20 09:00 05/21/20 07:56 Tamsulosin Hcl 0.4 Mg Capsule PO 0.4 mg DAILY JUDE Administration Labs CBC & Chem 7: 05/20/20 09:36 05/20/20 09:36 Labs: Laboratory Results - last 24 hr 05/20/20 05/21/20 05/21/20 20:20 07:39 11:51 POC Glucose 308 H 314 H 242 H Microbiology Microbiology Results: Microbiology 05/19/20 14:17 Blood - Venous Blood Culture - Preliminary No growth after 24 hours. 05/19/20 14:00 Blood - Venous Blood Culture - Preliminary No growth after 24 hours. Assessment and Plan (1) COPD exacerbation: Status: Acute Assessment and Plan: hospital d#3 64yo M with COPD, AF, ELI, HFrEF, DM2 just discharged from here 05/14/20 readmitted for COPD exacerbation though PaO2 + pCO2 at baseline # COPD exacerbation - change IV to PO steroids, continue bronchodilators, continue doxycycline but d/c if PCT remains low tomorrow. appreciate pulmonology consultation. # acute/chronic respiratory failure with chronic hypoxia on 3L NC - supplemental O2, goal SaO2 88-92%, Rx pulse-oximeter upon discharge likely tomorrow # chronic HFrEF, not with acute exacerbation - continue furosemide, metoprolol, losartan. last TTE 09/22/19 LVEF 45%, gr I diastolic dysfunction, RWMAs # AF with RVR, rate-controlled - continue metoprolol, amiodarone - continue apixaban # ELI - encourage CPAP use # HLD - continue atorvastatin # mood disorder - quetiapine, sertraline # HTN - continue metoprolol, amlodipine, losartan # DM2, A1c 8.3 - increase Lantus + Humalog # concern of opioid dependence - per admitting MD Dr Dia: it is becoming conerning that this patient has narcotic seeking tendency that may be in part reason to present to hospital and there is conflicting opinion on providers' part on how to aproach this. Some advocate not given narc, while others take opposite stance. What is clear is there need to a concencus aproach by coming up with a care plan for this. Should probably have a meeting with ED, case management, hospitalist, HAND TOOL FILER, ICU and come up with a joint resolution.
[2020-05-21 16:34] LABS: Glucose, Whole Blood 73 mg/dL (60-115)
--- NOTE | 2020-05-21 17:02 | PC.NURSE ---
Addendum entered by Julee Liu RN 05/21/20 17:31: Spoke with another Doctor per pt request. Hospitalist team all agrees with decision. Told pt, pt still wanting to speak with nursing supevisor. Informed pt that material handling crew supervisor will be in when she can. Original Note: Pain mediation went from q4 to q6prn. Medicated pt and informed about change in times. Pt became agitated stating he can't go 6 hrs in between and that he wanted to talk to the doctor. Monica WATT , stated that we are trasnition him for discharge. Informed pt of plan, pt requesting to talk to nursing material handling crew supervisor, notified nursing material handling crew supervisor. Pt continually ringing, increasingly more agitated, told that nursing material handling crew supervisor will be with him when she can.
[2020-05-21 21:00] LABS: Glucose, Whole Blood 233 mg/dL (60-115)
[2020-05-21] MEDS: QUEtiapine Fumarate 100 MG TABLET PO (21:57)
[2020-05-21] MEDS: Atorvastatin Calcium 80 MG TABLET PO (21:58)
[2020-05-21] MEDS: Montelukast Sodium 10 MG TABLET PO (21:58)
[2020-05-21] MEDS: Insulin Glargine,Hum.rec.anlog 100 UNIT/ML 10 ML VIAL 45 UNIT SUBCUT (22:08)
--- NOTE | 2020-05-22 00:31 | PC.NURSE ---
Pt has stated 2-3x that he does not feel ready to get discharged tomorrow as he feels his breathing is still an issue. Still feels SOB when up to bathroom per pt. VS stable including SaO2. Pt still has expiratyory wheezes throughout and is currently on 3 lpm O2 via N/C. Will continue to monitor. Safety measures in place and call pimentel within reach.
[2020-05-22] MEDS: 0.9 % Sodium Chloride Flush 3 ML SYRINGE IVFLUSH ×4 (00:50→21:11)
[2020-05-22] MEDS: HYDROmorphone HCl 1 MG/ML SYRINGE IVPUSH ×4 (03:41→22:05)
[2020-05-22 03:54] VITALS: BP 117/73; PULSE 112; RESP 20; TEMP 36.6; O2SAT 91
--- NOTE | 2020-05-22 06:20 | MHC.PIE ---
P.ANXIETY I.STOPPED BY PT ROOM TO SAY HI AND NOTED PT SITTING IN CHAIR,ANXIOUS.STATING HE CANNOT BREATHE.STATES HE JUST RECEIVED UPDRAFT TREATMENT AND FEELS VERY ANXIOUS REQUESTING ATIVAN. NOTIIFIED.ORDER FOR ATIVAN 0.25MG IV X 1 GIVEN.PT'S NURSE UPDATED AND MED GIVEN. E.RESTING QUIETLY.CONT TO MONITOR.
[2020-05-22 06:31] LABS: MANUAL DIFF FLAG NO
[2020-05-22] MEDS: LORazepam 2 MG/ML VIAL 0.25 MG IVPUSH (06:42)
[2020-05-22 06:51] LABS: Basophils Percent Auto 0.1 % (0-2); Hematocrit 43.6 % (42-52); Hemoglobin 13.4 g/dl (14.0-18.0); Imm Gran Pct Auto 0.5 % (0.0-0.4); Lymphocytes Absolute Auto 1.1 X10*3/uL (1.2-4.9); Lymphocytes Percent Auto 5.8 % (20-40); Mean Corpuscular HGB Conc 30.7 g/dl (31.0-36.0); Mean Corpuscular Volume 87.7 fL (80-98); Monocytes Absolute Auto 0.7 X10*3/uL (0.1-1.2); Monocytes Percent Auto 3.7 % (2-11); Neutrophils Absolute Auto 16.4 X10*3/uL (2.0-8.3); Neutrophils Percent Auto 89.9 % (45-73); Platelet Count 199 X10*3/uL (160-400); Red Blood Count 4.97 X10*6/uL (4.60-5.80); Red Cell Distribution Width 14.5 % (11.0-16.0); White Blood Count 18.2 X10*3/uL (4.8-10.8)
[2020-05-22 06:57] VITALS: BP 126/78; PULSE 65; RESP 20; TEMP 36.5; O2SAT 93
[2020-05-22 07:15] LABS: Anion Gap 14 (12-20); Blood Urea Nitrogen 37 mg/dL (9-16); Calcium 8.4 mg/dL (8.4-10.2); Carbon Dioxide 26 mmol/L (22-29); Chloride 104 mmol/L (96-108); Creatinine Clr Calc Pharmacy 67.4; Estimated Glomerular Filt Rate > 60; Glucose Random 230 mg/dL (60-115); Potassium 4.9 mmol/l (3.3-5.1); Sodium 139 mmol/L (135-145)
[2020-05-22] MEDS: Albuterol/Iprat 2.5/0.5MG 3 ML AMPUL.NEB INHALE ×4 (07:25→20:13)
[2020-05-22 07:38] LABS: Procalcitonin < 0.02 ng/mL
[2020-05-22 07:42] LABS: Glucose, Whole Blood 169 mg/dL (60-115)
[2020-05-22] MEDS: Amiodarone HCL 200 MG TABLET PO (09:52)
[2020-05-22] MEDS: Gabapentin 300 MG CAPSULE PO ×3 (09:52→21:07)
[2020-05-22] MEDS: Metoprolol Succinate ER 50 MG TAB.ER.24H PO (09:52)
[2020-05-22] MEDS: predniSONE 20 MG TABLET 40 MG PO (09:52)
[2020-05-22] MEDS: Sertraline HCL 25 MG TABLET PO (09:52)
[2020-05-22] MEDS: Tamsulosin HCL 0.4 MG CAPSULE PO (09:52)
[2020-05-22] MEDS: guaiFENesin LA 600 MG TAB.ER.12H PO ×2 (09:52→21:07)
[2020-05-22] MEDS: Apixaban 5 MG TABLET PO ×2 (09:52→21:07)
[2020-05-22] MEDS: amLODIPine Besylate 5 MG TABLET PO (09:52)
[2020-05-22] MEDS: Losartan Potassium 50 MG TABLET PO (09:52)
[2020-05-22] MEDS: Furosemide 40 MG TABLET PO (09:53)
[2020-05-22] MEDS: Insulin Lispro 100 UNIT/ML 3 ML VIAL SUBCUT ×4 (09:53→21:10)
[2020-05-22 11:13] VITALS: BP 119/76; PULSE 110; RESP 20; TEMP 36.5; O2SAT 93
--- NOTE | 2020-05-22 11:31 | MHC.CM.PN ---
Home with resumption of [employer] supervisor continues to be the goal. Patient states that he feels anxious, SOB, and not yet ready to return home. Patient required IV Dilaudid today. CM will continue to follow for dc planning and the possible need to adjust the dc plan.
[2020-05-22 11:52] LABS: Glucose, Whole Blood 165 mg/dL (60-115)
--- NOTE | 2020-05-22 13:45 | HO.PM.IMPN ---
Subjective Subjective Date of Service: 05/22/20 Interval History: Very upset that I decreased IV Dilaudid from 1 mg q4h to q6h prn Very anxious, c/o feeling horrible C/o dyspnea/wheeze though on auscultation I hear upper airway stridor rather than wheezing States he is firing me as MD and he wishes to speak to someone higher up Physical Exam Vital Signs: Vital Signs: Last Vital Signs Temp 97.7 F 05/22/20 11:13 Pulse 110 H 05/22/20 11:13 Resp 20 05/22/20 11:13 BP 119/76 05/22/20 11:13 Pulse Ox 93 05/22/20 11:13 Body Mass Index 48.5 gen: anxious pulm: no wheezing or crackles. I appreciate upper airway stridor which seems to be psychogenic CV: irreg irreg, rate in 110s, no murmurs abd: soft/NT, no HSM, obese ext: no edema neuro: no focal findings Objective Data Current Medications Generic Name Dose Route Start Last Admin Trade Name Fidelq PRN Reason Stop Dose Admin Acetaminophen 650 mg 05/19/20 17:52 Acetaminophen 325 Mg Tablet PO Q6H PRN Pain, Mild (Pain Scale 1-3) Albuterol/Ipratropium 3 ml 05/19/20 20:00 05/22/20 11:17 Albuterol/Iprat 2.5/0.5mg 3 Ml Ampul.Neb INHALE 3 ml RQ4H WHILE AWAKE JUDE Administration Albuterol/Ipratropium 3 ml 05/21/20 05:49 Albuterol/Iprat 2.5/0.5mg 3 Ml Ampul.Neb INHALE RQ4H PRN Shortness of Breath/Wheezing Amiodarone HCl 200 mg 05/20/20 09:00 05/22/20 09:52 Amiodarone Hcl 200 Mg Tablet PO 200 mg DAILY JUDE Administration Amlodipine Besylate 5 mg 05/20/20 09:00 05/22/20 09:52 Amlodipine Besylate 5 Mg Tablet PO 5 mg DAILY JUDE Administration Protocol Apixaban 5 mg 05/19/20 21:00 05/22/20 09:52 Apixaban 5 Mg Tablet PO 5 mg BID JUDE Administration Atorvastatin Calcium 80 mg 05/19/20 21:00 05/21/20 21:58 Atorvastatin Calcium 80 Mg Tablet PO 80 mg BEDTIME JUDE Administration Diphenhydramine HCl 25 mg 05/21/20 08:21 05/21/20 09:06 Diphenhydramine Hcl 25 Mg Tablet PO 25 mg Q6H PRN Administration itching Furosemide 40 mg 05/20/20 09:00 05/22/20 09:53 Furosemide 40 Mg Tablet PO 40 mg DAILY JUDE Administration Protocol Gabapentin 300 mg 05/19/20 21:00 05/22/20 09:52 Gabapentin 300 Mg Capsule PO 300 mg TID JUDE Administration Guaifenesin 600 mg 05/19/20 21:00 05/22/20 09:52 Guaifenesin La 600 Mg Tab.Er.12h PO 600 mg BID JUDE Administration Hydromorphone HCl 1 mg 05/21/20 15:58 05/22/20 09:53 Hydromorphone Hcl 1 Mg/Ml Syringe IVPUSH 1 mg Q6H PRN Administration Pain, Severe (Pain Scale 7-10) Insulin Glargine 45 unit 05/21/20 21:00 05/21/20 22:08 Insulin Glargine,Hum.Rec.Anlog 100 Unit/Ml 10 Ml Vial SUBCUT 45 unit BEDTIME JUDE Administration Insulin Human Lispro 0 unit 05/21/20 11:30 05/22/20 12:41 Insulin Lispro 100 Unit/Ml 3 Ml Vial SUBCUT 4 unit QIDACHS JUDE Administration Protocol Lorazepam 1 mg 05/22/20 12:58 Lorazepam 1 Mg Tablet PO TID PRN anxiety Losartan Potassium 50 mg 05/20/20 09:00 05/22/20 09:52 Losartan Potassium 50 Mg Tablet PO 50 mg DAILY JUDE Administration Protocol Metoprolol Succinate 50 mg 05/20/20 09:00 05/22/20 09:52 Metoprolol Succinate Er 50 Mg Tab.Er.24h PO 50 mg DAILY JUDE Administration Protocol Metoprolol Tartrate 5 mg 05/22/20 10:32 Metoprolol Tartrate 5 Mg/5 Ml Vial IVPUSH Q6H PRN ventricular rate >110 Montelukast Sodium 10 mg 05/19/20 21:00 05/21/20 21:58 Montelukast Sodium 10 Mg Tablet PO 10 mg BEDTIME JUDE Administration Ondansetron HCl 4 mg 05/21/20 08:21 05/21/20 09:07 Ondansetron Odt 4 Mg Tab.Rapdis TRANSLINGU 4 mg Q6H PRN Administration nausea/vomitig Pharmacy Consult 1 each 05/19/20 13:22 Consult Rx Perform Med Rec MISCELLANE ONCE PRN Consult order Prednisone 40 mg 05/21/20 09:00 05/22/20 09:52 Prednisone 20 Mg Tablet PO 40 mg DAILY JUDE Administration Quetiapine Fumarate 100 mg 05/19/20 21:00 05/21/20 21:57 Quetiapine Fumarate 100 Mg Tablet PO 100 mg BEDTIME JUDE Administration Sertraline HCl 25 mg 05/20/20 09:00 05/22/20 09:52 Sertraline Hcl 25 Mg Tablet PO 25 mg DAILY JUDE Administration Sodium Chloride 3 ml 05/20/20 00:00 05/22/20 09:54 0.9 % Sodium Chloride Flush 3 Ml Syringe IVFLUSH 3 ml QSHIFT JUDE Administration Tamsulosin HCl 0.4 mg 05/20/20 09:00 05/22/20 09:52 Tamsulosin Hcl 0.4 Mg Capsule PO 0.4 mg DAILY JUDE Administration Labs CBC & Chem 7: 05/22/20 05:45 05/22/20 05:45 Labs: Laboratory Results - last 24 hr 05/21/20 05/21/20 05/22/20 16:26 20:43 05:45 WBC 18.2 H RBC 4.97 Hgb 13.4 L Hct 43.6 MCV 87.7 MCH 27.0 MCHC 30.7 L RDW 14.5 Plt Count 199 MPV 11.0 Immature Gran % (Auto) 0.5 H Neut % (Auto) 89.9 H Lymph % (Auto) 5.8 L [place] % (Auto) 3.7 Eos % (Auto) 0.0 Baso % (Auto) 0.1 Lymph # (Auto) 1.1 L [place] # (Auto) 0.7 Eos # (Auto) 0.0 Baso # (Auto) 0.0 Abs Immat Gran (auto) 0.10 H Absolute Neuts (auto) 16.4 H Absolute Nucleated RBC 0.000 Nucleated RBC % (auto) 0.0 Sodium Potassium Chloride Carbon Dioxide Anion Gap BUN Creatinine Estim Creat Clear Calc Estimated GFR POC Glucose 73 233 H Random Glucose Calcium Procalcitonin 05/22/20 05/22/20 05/22/20 05:45 05:45 07:38 WBC RBC Hgb Hct MCV MCH MCHC RDW Plt Count MPV Immature Gran % (Auto) Neut % (Auto) Lymph % (Auto) [place] % (Auto) Eos % (Auto) Baso % (Auto) Lymph # (Auto) [place] # (Auto) Eos # (Auto) Baso # (Auto) Abs Immat Gran (auto) Absolute Neuts (auto) Absolute Nucleated RBC Nucleated RBC % (auto) Sodium 139 Potassium 4.9 Chloride 104 Carbon Dioxide 26 Anion Gap 14 BUN 37 H D Creatinine 1.19 Estim Creat Clear Calc 67.4 Estimated GFR > 60 POC Glucose 169 H Random Glucose 230 H D Calcium 8.4 Procalcitonin < 0.02 05/22/20 11:43 WBC RBC Hgb Hct MCV MCH MCHC RDW Plt Count MPV Immature Gran % (Auto) Neut % (Auto) Lymph % (Auto) [place] % (Auto) Eos % (Auto) Baso % (Auto) Lymph # (Auto) [place] # (Auto) Eos # (Auto) Baso # (Auto) Abs Immat Gran (auto) Absolute Neuts (auto) Absolute Nucleated RBC Nucleated RBC % (auto) Sodium Potassium Chloride Carbon Dioxide Anion Gap BUN Creatinine Estim Creat Clear Calc Estimated GFR POC Glucose 165 H Random Glucose Calcium Procalcitonin Microbiology Microbiology Results: Microbiology 05/19/20 14:17 Blood - Venous Blood Culture - Preliminary No growth after 48 hours. 05/19/20 14:00 Blood - Venous Blood Culture - Preliminary No growth after 48 hours. Assessment and Plan (1) COPD exacerbation: Status: Acute Assessment and Plan: hospital d#4 64yo M with COPD, AF, ELI, HFrEF, DM2 frequent hospitalizations and in fact just discharged from here 05/14/20 readmitted for COPD exacerbation though PaO2 + pCO2 at baseline # COPD exacerbation - day #4 of steroid burst - continue nebulzied bronchodilators - will d/c doxycycline - appreciate pulmonology consult # chronic respiratory failure with chronic hypoxia on 3L NC - supplemental O2, goal SaO2 88-92%, will Rx pulse-oximeter upon discharge likely tomorrow # chronic HFrEF, not exacerbation - continue furosemide, metoprolol, losartan. last TTE 09/22/19 LVEF 45%, gr I diastolic dysfunction, RWMAs # AF with RVR - continue metoprolol [dose increased], amiodarone - continue apixaban # ELI - encourage CPAP use though pt has historically been non-adherent # HLD - continue atorvastatin # mood disorder - quetiapine, sertraline # HTN - continue metoprolol, amlodipine, losartan # DM2, A1c 8.3 - increased Lantus + Humalog due to steroid-induced hyperglycemia # concern of opioid dependence - I discussed possibility of consulting psychiatry about Suboxone but pt refuses - per admitting MD Dr Dia: it is becoming conerning that this patient has narcotic seeking tendency that may be in part reason to present to hospital and there is conflicting opinion on providers' part on how to aproach this. Some advocate not given narc, while others take opposite stance. What is clear is there need to a concencus aproach by coming up with a care plan for this. Should probably have a meeting with ED, case management, hospitalist, AEROSPACE MEDICINE PHYSICIAN, ICU and come up with a joint resolution. - will discuss with AEROSPACE MEDICINE PHYSICIAN - reference made to psychiatry consult by LONNIE Chapman from 05/06/20. will try lorazepam to address anxiety, also consult CARE team
[2020-05-22] MEDS: Metoprolol Succinate ER 25 MG TAB.ER.24H PO (14:16)
[2020-05-22 15:02] VITALS: BP 134/77; PULSE 114; RESP 22; TEMP 36.4; O2SAT 90
[2020-05-22 15:46] LABS: Glucose, Whole Blood 295 mg/dL (60-115)
--- NOTE | 2020-05-22 17:29 | MHC.CARE ---
CARE Team meets with patient after receiving a consult, indicating that pt is experiencing anxiety. Pt is guarded and upset about a variety of concerns that have come up throughout the day. Pt reports that he does not feel that he is ready to return home, and he does not feel that enough has been done to address the pain in his lungs or his shortness of breath. He indicated feeling offended that providers have been questioning if starting suboxone to address opioid dependence would be beneficial. CARE Team provides space for pt to express frustrations and offers validation and empathic response. CARE Team works to normalize the feelings of anxiety/panic that accompany not being able to breathe, and also the challenges of needing to interface with the health care system frequently. His thinking appears rigid, and he is seemingly unwilling to engage in a discussion about his mental health. His insight appears to be minimal at this time. CARE Team offers to teach pt some mindfulness or stress reduction techniques, which pt is not open to, as he continued to tribal back to listing his grievances/concerns with his care. CARE Team educates pt on the potential benefits of ongoing therapy, however, he is not interested in a referral at this time. CARE Team speaks with CHA Brown about this interaction, who reports that a psych consult has been placed. CARE Team offers to return in the future should pt be more open to discussion regarding mental health. CARE Team also speaks with Dr. Yanez about this interaction. CARE Team is available as needed, and providers should re-consult CARE Team should a need arise.
[2020-05-22 19:03] VITALS: BP 131/81; PULSE 85; RESP 22; TEMP 36.5; O2SAT 94
[2020-05-22 20:14] LABS: Glucose, Whole Blood 265 mg/dL (60-115)
[2020-05-22] MEDS: Montelukast Sodium 10 MG TABLET PO (21:07)
[2020-05-22] MEDS: QUEtiapine Fumarate 100 MG TABLET PO (21:07)
[2020-05-22] MEDS: Atorvastatin Calcium 80 MG TABLET PO (21:07)
[2020-05-22] MEDS: Insulin Glargine,Hum.rec.anlog 100 UNIT/ML 10 ML VIAL 45 UNIT SUBCUT (21:08)
[2020-05-23] VITALS (7 sets, daily range): BP systolic 116–147; BP diastolic 75–97; PULSE 88–103; RESP 18–19; TEMP 36.1–36.7; O2SAT 90–98
[2020-05-23] MEDS: HYDROmorphone HCl 1 MG/ML SYRINGE IVPUSH ×4 (04:55→22:33)
[2020-05-23] MEDS: LORazepam 1 MG TABLET PO (05:03)
[2020-05-23] MEDS: Albuterol/Iprat 2.5/0.5MG 3 ML AMPUL.NEB INHALE ×5 (05:13→20:02)
[2020-05-23 07:23] LABS: Glucose, Whole Blood 66 mg/dL (60-115)
[2020-05-23 08:30] LABS: Glucose, Whole Blood 106 mg/dL (60-115)
[2020-05-23] MEDS: Gabapentin 300 MG CAPSULE PO ×3 (08:44→20:55)
[2020-05-23] MEDS: Furosemide 40 MG TABLET PO (08:44)
[2020-05-23] MEDS: predniSONE 20 MG TABLET 40 MG PO (08:45)
[2020-05-23] MEDS: Losartan Potassium 50 MG TABLET PO (08:45)
[2020-05-23] MEDS: Apixaban 5 MG TABLET PO ×2 (08:45→20:44)
[2020-05-23] MEDS: Sertraline HCL 25 MG TABLET 50 MG PO (08:45)
[2020-05-23] MEDS: Tamsulosin HCL 0.4 MG CAPSULE PO (08:45)
[2020-05-23] MEDS: Metoprolol Succinate ER 50 MG TAB.ER.24H 75 MG PO (08:46)
[2020-05-23] MEDS: guaiFENesin LA 600 MG TAB.ER.12H PO ×2 (08:47→20:44)
[2020-05-23] MEDS: Amiodarone HCL 200 MG TABLET PO (08:47)
[2020-05-23] MEDS: amLODIPine Besylate 5 MG TABLET PO (08:47)
[2020-05-23] MEDS: 0.9 % Sodium Chloride Flush 3 ML SYRINGE IVFLUSH ×3 (08:48→20:46)
[2020-05-23 11:11] LABS: Glucose, Whole Blood 156 mg/dL (60-115)
[2020-05-23] MEDS: Insulin Lispro 100 UNIT/ML 3 ML VIAL SUBCUT ×3 (11:36→20:44)
--- NOTE | 2020-05-23 12:54 | P.PNIM_ITS ---
Subjective Subjective Date of Service: 05/23/20 Interval History: Still c/o dyspnea and wheezing though appears comfortable. Physical Exam 2 Vital Signs: Vital Signs: Last Vital Signs Temp 97.8 F 05/23/20 11:13 Pulse 93 05/23/20 11:13 Resp 18 05/23/20 11:13 BP 116/85 05/23/20 11:13 Pulse Ox 92 05/23/20 11:13 Body Mass Index 48.5 gen: sleeping comfortably pulm: soft end-expiratory wheeze at bases bilaterally but good air entry CV: irreg irreg, rate in 90s abd: soft/NT, no HSM, obese ext: no cyanosis, clubbing, or edema neuro: no focal findings Objective Data Current Medications Generic Name Dose Route Start Last Admin Trade Name Freq PRN Reason Stop Dose Admin Acetaminophen 650 mg 05/19/20 17:52 Acetaminophen 325 Mg Tablet PO Q6H PRN Pain, Mild (Pain Scale 1-3) Albuterol/Ipratropium 3 ml 05/19/20 20:00 05/23/20 11:20 Albuterol/Iprat 2.5/0.5mg 3 Ml Ampul.Neb INHALE 3 ml RQ4H WHILE AWAKE JUDE Administration Albuterol/Ipratropium 3 ml 05/21/20 05:49 05/23/20 05:13 Albuterol/Iprat 2.5/0.5mg 3 Ml Ampul.Neb INHALE 3 ml RQ4H PRN Administration Shortness of Breath/Wheezing Amiodarone HCl 200 mg 05/20/20 09:00 05/23/20 08:47 Amiodarone Hcl 200 Mg Tablet PO 200 mg DAILY JUDE Administration Amlodipine Besylate 5 mg 05/20/20 09:00 05/23/20 08:47 Amlodipine Besylate 5 Mg Tablet PO 5 mg DAILY JUDE Administration Protocol Apixaban 5 mg 05/19/20 21:00 05/23/20 08:45 Apixaban 5 Mg Tablet PO 5 mg BID JUDE Administration Atorvastatin Calcium 80 mg 05/19/20 21:00 05/22/20 21:07 Atorvastatin Calcium 80 Mg Tablet PO 80 mg BEDTIME JUDE Administration Diphenhydramine HCl 25 mg 05/21/20 08:21 05/21/20 09:06 Diphenhydramine Hcl 25 Mg Tablet PO 25 mg Q6H PRN Administration itching Furosemide 40 mg 05/20/20 09:00 05/23/20 08:44 Furosemide 40 Mg Tablet PO 40 mg DAILY COUNT INCLUDES THE [facility] Administration Protocol Gabapentin 300 mg 05/19/20 21:00 05/23/20 08:44 Gabapentin 300 Mg Capsule PO 300 mg TID JUDE Administration Guaifenesin 600 mg 05/19/20 21:00 05/23/20 08:47 Guaifenesin La 600 Mg Tab.Er.12h PO 600 mg BID JUDE Administration Hydromorphone HCl 1 mg 05/21/20 15:58 05/23/20 10:50 Hydromorphone Hcl 1 Mg/Ml Syringe IVPUSH 1 mg Q6H PRN Administration Pain, Severe (Pain Scale 7-10) Insulin Glargine 45 unit 05/21/20 21:00 05/22/20 21:08 Insulin Glargine,Hum.Rec.Anlog 100 Unit/Ml 10 Ml Vial SUBCUT 45 unit BEDTIME JUDE Administration Insulin Human Lispro 0 unit 05/21/20 11:30 05/23/20 11:36 Insulin Lispro 100 Unit/Ml 3 Ml Vial SUBCUT 4 unit QIDACHS COUNT INCLUDES THE [facility] Administration Protocol Lorazepam 1 mg 05/22/20 12:58 05/23/20 05:03 Lorazepam 1 Mg Tablet PO 1 mg TID PRN Administration anxiety Losartan Potassium 50 mg 05/20/20 09:00 05/23/20 08:45 Losartan Potassium 50 Mg Tablet PO 50 mg DAILY JUDE Administration Protocol Metoprolol Succinate 75 mg 05/23/20 09:00 05/23/20 08:46 Metoprolol Succinate Er 50 Mg Tab.Er.24h PO 75 mg DAILY JUDE Administration Protocol Metoprolol Tartrate 5 mg 05/22/20 10:32 Metoprolol Tartrate 5 Mg/5 Ml Vial IVPUSH Q6H PRN ventricular rate >110 Montelukast Sodium 10 mg 05/19/20 21:00 05/22/20 21:07 Montelukast Sodium 10 Mg Tablet PO 10 mg BEDTIME JUDE Administration Ondansetron HCl 4 mg 05/21/20 08:21 05/21/20 09:07 Ondansetron Odt 4 Mg Tab.Rapdis TRANSLINGU 4 mg Q6H PRN Administration nausea/vomitig Pharmacy Consult 1 each 05/19/20 13:22 Consult Rx Perform Med Rec MISCELLANE ONCE PRN Consult order Prednisone 40 mg 05/21/20 09:00 05/23/20 08:45 Prednisone 20 Mg Tablet PO 40 mg DAILY JUDE Administration Quetiapine Fumarate 100 mg 05/19/20 21:00 05/22/20 21:07 Quetiapine Fumarate 100 Mg Tablet PO 100 mg BEDTIME JUDE Administration Sertraline HCl 50 mg 05/23/20 09:00 05/23/20 08:45 Sertraline Hcl 25 Mg Tablet PO 50 mg DAILY JUDE Administration Sodium Chloride 3 ml 05/20/20 00:00 05/23/20 08:48 0.9 % Sodium Chloride Flush 3 Ml Syringe IVFLUSH 3 ml QSHIFT JUDE Administration Tamsulosin HCl 0.4 mg 05/20/20 09:00 05/23/20 08:45 Tamsulosin Hcl 0.4 Mg Capsule PO 0.4 mg DAILY JUDE Administration Labs CBC & Chem 7: 05/22/20 05:45 05/22/20 05:45 Microbiology Microbiology Results: Microbiology 05/19/20 14:17 Blood - Venous Blood Culture - Preliminary No growth after 48 hours. 05/19/20 14:00 Blood - Venous Blood Culture - Preliminary No growth after 48 hours. Assessment and Plan (1) COPD exacerbation: Status: Acute Assessment and Plan: hospital d#5 64yo M with COPD, AF, ELI, HFrEF, DM2 frequent hospitalizations and in fact just discharged from here 05/14/20 readmitted for COPD exacerbation, though PaO2 + pCO2 were at baseline # COPD exacerbation - day #5 of steroid burst - continue nebulized bronchodilators - d/c'ed doxycycline - appreciate pulmonology consult # chronic respiratory failure with chronic hypoxia on 3L NC - supplemental O2, goal SaO2 88-92%, will Rx pulse-oximeter upon discharge likely tomorrow # chronic HFrEF, not in acute exacerbation - continue furosemide, metoprolol, losartan. last TTE 09/22/19 LVEF 45%, gr I diastolic dysfunction, RWMAs # AF with RVR - continue metoprolol [dose increased], amiodarone - continue apixaban # ELI - encouraged CPAP use though pt has historically been non-adherent # HLD - continue atorvastatin # mood disorder - quetiapine, sertraline # HTN - continue metoprolol, amlodipine, losartan # DM2, A1c 8.3 - increased Lantus + Humalog due to steroid-induced hyperglycemia # concern of opioid dependence - I discussed possibility of consulting psychiatry about Suboxone but pt refuses - psych consult # dispo - anticipate home tomorrow, [facility]NA if pt accepts
[2020-05-23 16:33] LABS: Glucose, Whole Blood 265 mg/dL (60-115)
[2020-05-23 20:09] LABS: Glucose, Whole Blood 314 mg/dL (60-115)
--- NOTE | 2020-05-23 20:26 | PM.EVENT ---
Event Note Date of Service: 05/23/20 Event Note: Psychiatry Note: Consult requested for this patient who has had multiple admissions related to COPD exacerbation. Concern regarding number of admissions and possibility of opioid dependance contributing to hospital admissions. Patient quite upset when this commercial underwriter presented to his room, reporting he is not an addict . This commercial underwriter attempted to join with patient in this statement and attempted to assess need for pain meds, sx, sx at home etc. Pt initially willing to discuss then again became angry and stated, I'm not an addict, I have pain and I need pain medicine!!! He went on to say, Dr. Dia is the only doctor that knows me, leave and talk to him, I'm done talking to you If patient has positive rapport with any provider, it may be worth using that to try and explain the difference between addiction and dependance and how he is likely experiencing real pain and anxiety, that may actually be related to how much pain medication he has been receiving...and then these same sx are worsened when he does not have it.
[2020-05-23] MEDS: Atorvastatin Calcium 80 MG TABLET PO (20:44)
[2020-05-23] MEDS: Montelukast Sodium 10 MG TABLET PO (20:44)
[2020-05-23] MEDS: QUEtiapine Fumarate 100 MG TABLET PO (20:44)
[2020-05-23] MEDS: Insulin Glargine,Hum.rec.anlog 100 UNIT/ML 10 ML VIAL 45 UNIT SUBCUT (20:45)
[2020-05-24] VITALS (9 sets, daily range): BP systolic 129–144; BP diastolic 71–97; PULSE 56–119; RESP 18–25; TEMP 36–36.8; O2SAT 91–107
[2020-05-24] MEDS: HYDROmorphone HCl 1 MG/ML SYRINGE IVPUSH ×3 (05:54→20:25)
[2020-05-24] MEDS: Albuterol/Iprat 2.5/0.5MG 3 ML AMPUL.NEB INHALE ×4 (06:16→19:19)
[2020-05-24] MEDS: Sertraline HCL 25 MG TABLET 50 MG PO (09:06)
[2020-05-24] MEDS: amLODIPine Besylate 5 MG TABLET PO (09:06)
[2020-05-24] MEDS: Losartan Potassium 50 MG TABLET PO (09:06)
[2020-05-24] MEDS: Amiodarone HCL 200 MG TABLET PO (09:06)
[2020-05-24] MEDS: 0.9 % Sodium Chloride Flush 3 ML SYRINGE IVFLUSH ×3 (09:07→20:26)
[2020-05-24] MEDS: Metoprolol Succinate ER 50 MG TAB.ER.24H 75 MG PO (09:07)
[2020-05-24] MEDS: Tamsulosin HCL 0.4 MG CAPSULE PO (09:07)
[2020-05-24] MEDS: predniSONE 20 MG TABLET 40 MG PO (09:07)
[2020-05-24] MEDS: Furosemide 40 MG TABLET PO (09:07)
[2020-05-24] MEDS: guaiFENesin LA 600 MG TAB.ER.12H PO ×2 (09:07→20:26)
[2020-05-24] MEDS: Gabapentin 300 MG CAPSULE PO ×3 (09:07→20:26)
[2020-05-24] MEDS: Apixaban 5 MG TABLET PO ×2 (09:07→20:26)
[2020-05-24] MEDS: LORazepam 1 MG TABLET PO (11:56)
[2020-05-24 12:08] LABS: Glucose, Whole Blood 68 mg/dL (60-115)
--- NOTE | 2020-05-24 12:16 | W.MHC.F2F ---
Service Date Service Date: 05/24/20 Encounter Date of encounter: 05/24/20 Reasons for Services Signs and symptoms assessed: respiratory issues chronic pain Reason for retirement: diabetic teaching, medication management, medication treatment and teach disease management Reason for physical therapy: home safety and mobility, therapeutic exercises, gait/transfer training, assess need for DME, ADL training, energy conservation and other (pulmonary rehabilitation) MD Overseeing Care: Mignon Holcomb Homebound: Leaving the home is medically contraindicated at this time without the asist of a device and/or another person due th the listed conditions above and below. Reason homebound: shortness of breath with minimal effort Homebound supporting statement: Frequent hospital admissions for COPD. Encourage CPAP adherence. On home O2 3L via NC. Certification: Based on the above findings, I certify that this patient is confined to the home and needs intermittent retirement care, physical therapy and/or speech therapy, or continues to need occupational therapy. The patient is under my care, and I have initiated the establishment of the plan of care. The patient will be followed by a physician who will periodically review the plan of care.
--- NOTE | 2020-05-24 12:41 | P.PNIM_ITS ---
Subjective Subjective Date of Service: 05/24/20 Interval History: C/o pain over R lower posterior rib cage. Very upset. But prior to getting angry, he does not appear to be having shortness of breath or tachypnea. Would like to try speaking to the nurse informatics educator again. He is very upset that multiple doctors are concerned about his opioid-seeking behavior. Physical Exam Vital Signs: Vital Signs: Last Vital Signs Temp 97.4 F 05/24/20 11:00 Pulse 56 05/24/20 11:00 Resp 18 05/24/20 11:00 BP 130/90 H 05/24/20 11:00 Pulse Ox 95 05/24/20 11:00 Body Mass Index 48.5 gen: irritated, angry pulm: clear bilaterally, no wheezing noted CV: irreg irreg, normal rate abd: soft/NT, no HSM, obese ext: no cyanosis, clubbing, or edema neuro: no focal findings Objective Data Current Medications Generic Name Dose Route Start Last Admin Trade Name Freq PRN Reason Stop Dose Admin Acetaminophen 650 mg 05/19/20 17:52 Acetaminophen 325 Mg Tablet PO Q6H PRN Pain, Mild (Pain Scale 1-3) Albuterol/Ipratropium 3 ml 05/19/20 20:00 05/24/20 12:10 Albuterol/Iprat 2.5/0.5mg 3 Ml Ampul.Neb INHALE 3 ml RQ4H WHILE AWAKE JUDE Administration Albuterol/Ipratropium 3 ml 05/21/20 05:49 05/23/20 05:13 Albuterol/Iprat 2.5/0.5mg 3 Ml Ampul.Neb INHALE 3 ml RQ4H PRN Administration Shortness of Breath/Wheezing Amiodarone HCl 200 mg 05/20/20 09:00 05/24/20 09:06 Amiodarone Hcl 200 Mg Tablet PO 200 mg DAILY JUDE Administration Amlodipine Besylate 5 mg 05/20/20 09:00 05/24/20 09:06 Amlodipine Besylate 5 Mg Tablet PO 5 mg DAILY JUDE Administration Protocol Apixaban 5 mg 05/19/20 21:00 05/24/20 09:07 Apixaban 5 Mg Tablet PO 5 mg BID JUDE Administration Atorvastatin Calcium 80 mg 05/19/20 21:00 05/23/20 20:44 Atorvastatin Calcium 80 Mg Tablet PO 80 mg BEDTIME JUDE Administration Diphenhydramine HCl 25 mg 05/21/20 08:21 05/21/20 09:06 Diphenhydramine Hcl 25 Mg Tablet PO 25 mg Q6H PRN Administration itching Furosemide 40 mg 05/20/20 09:00 05/24/20 09:07 Furosemide 40 Mg Tablet PO 40 mg DAILY JUDE Administration Protocol Gabapentin 300 mg 05/19/20 21:00 05/24/20 09:07 Gabapentin 300 Mg Capsule PO 300 mg TID JUDE Administration Guaifenesin 600 mg 05/19/20 21:00 05/24/20 09:07 Guaifenesin La 600 Mg Tab.Er.12h PO 600 mg BID JUDE Administration Hydromorphone HCl 1 mg 05/21/20 15:58 05/24/20 11:55 Hydromorphone Hcl 1 Mg/Ml Syringe IVPUSH 1 mg Q6H PRN Administration Pain, Severe (Pain Scale 7-10) Insulin Glargine 45 unit 05/21/20 21:00 05/23/20 20:45 Insulin Glargine,Hum.Rec.Anlog 100 Unit/Ml 10 Ml Vial SUBCUT 45 unit BEDTIME JUDE Administration Insulin Human Lispro 0 unit 05/21/20 11:30 05/24/20 12:06 Insulin Lispro 100 Unit/Ml 3 Ml Vial SUBCUT Not Given QIDACHS [facility] Protocol Lorazepam 1 mg 05/22/20 12:58 05/24/20 11:56 Lorazepam 1 Mg Tablet PO 1 mg TID PRN Administration anxiety Losartan Potassium 50 mg 05/20/20 09:00 05/24/20 09:06 Losartan Potassium 50 Mg Tablet PO 50 mg DAILY JUDE Administration Protocol Metoprolol Succinate 75 mg 05/23/20 09:00 05/24/20 09:07 Metoprolol Succinate Er 50 Mg Tab.Er.24h PO 75 mg DAILY JUDE Administration Protocol Metoprolol Tartrate 5 mg 05/22/20 10:32 Metoprolol Tartrate 5 Mg/5 Ml Vial IVPUSH Q6H PRN ventricular rate >110 Montelukast Sodium 10 mg 05/19/20 21:00 05/23/20 20:44 Montelukast Sodium 10 Mg Tablet PO 10 mg BEDTIME JUDE Administration Ondansetron HCl 4 mg 05/21/20 08:21 05/21/20 09:07 Ondansetron Odt 4 Mg Tab.Rapdis TRANSLINGU 4 mg Q6H PRN Administration nausea/vomitig Pharmacy Consult 1 each 05/19/20 13:22 Consult Rx Perform Med Rec MISCELLANE ONCE PRN Consult order Prednisone 40 mg 05/21/20 09:00 05/24/20 09:07 Prednisone 20 Mg Tablet PO 40 mg DAILY JUDE Administration Quetiapine Fumarate 100 mg 05/19/20 21:00 05/23/20 20:44 Quetiapine Fumarate 100 Mg Tablet PO 100 mg BEDTIME JUDE Administration Sertraline HCl 50 mg 05/23/20 09:00 05/24/20 09:06 Sertraline Hcl 25 Mg Tablet PO 50 mg DAILY JUDE Administration Sodium Chloride 3 ml 05/20/20 00:00 05/24/20 09:07 0.9 % Sodium Chloride Flush 3 Ml Syringe IVFLUSH 3 ml QSHIFT JUDE Administration Tamsulosin HCl 0.4 mg 05/20/20 09:00 05/24/20 09:07 Tamsulosin Hcl 0.4 Mg Capsule PO 0.4 mg DAILY JUDE Administration Labs CBC & Chem 7: 05/22/20 05:45 05/22/20 05:45 Microbiology Microbiology Results: Microbiology 05/19/20 14:17 Blood - Venous Blood Culture - Preliminary No growth after 48 hours. 05/19/20 14:00 Blood - Venous Blood Culture - Preliminary No growth after 48 hours. Assessment and Plan (1) COPD exacerbation: Status: Acute Assessment and Plan: hospital d#6 64yo M with COPD, LEI, chronic hypoxic respiratory failure, AF, HFrEF, DM2 frequent hospitalizations [most recently discharged 05/14/20] readmitted for COPD exacerbation, though PaO2 + pCO2 were at baseline # COPD exacerbation - completed 5d of steroid burst - continue nebulized bronchodilators - d/c'ed doxycycline - appreciate pulmonology consult # chronic respiratory failure with chronic hypoxia on 3L NC - supplemental O2, goal SaO2 88-92%, will Rx pulse-oximeter upon discharge # ELI - encouraged CPAP use though pt has historically been non-adherent # AF with RVR - continue metoprolol succinate [dose increased from 50 mg to 75 mg daily], amiodarone - continue apixaban # chronic HFrEF, not in acute exacerbation - continue maintenance furosemide, metoprolol, losartan. last TTE 3/13/20 LVEF 45%, gr I diastolic dysfunction, RWMAs # HLD - continue atorvastatin # mood disorder - quetiapine, sertraline [increased dose] # HTN - continue metoprolol, amlodipine, losartan # DM2, A1c 8.3 - Lantus + Humalog # concern of opioid-seeking behavior - wean Dilaudid. try lidocaine patch. outpt pain management referral. # dispo - home today. but pt appealing discharge- will notify CM
--- NOTE | 2020-05-24 13:02 | MHC.CM.PN ---
CM met with Patient to discuss dc planning. Patient states that he is not ready to go home (CM has relayed this message to MD). CM addressed second IMM with Patient and Patient is aware of his right to appeal the dc. Patient is unsure if he wants VNA; he wants to discuss it with his Daughter (Patient is fearful of people coming into his home with Covid situation). CM will continue to follow.
--- NOTE | 2020-05-24 14:11 | MHC.CM.PN ---
MD has medically cleared Patient for dc to home. Patient has decided to appeal his dc.CM assisted Patient with reaching [facility]. IMM was delivered earlier today and Patient has the original and there is a copy on the chart. CM has provided Patient with the Detailed Notice of DC and the Original is on the chart. CM administration & MD are aware.CM will continue to follow.
[2020-05-24 16:53] LABS: Glucose, Whole Blood 179 mg/dL (60-115)
[2020-05-24] MEDS: diphenhydrAMINE HCL 25 MG TABLET PO (16:57)
[2020-05-24] MEDS: Insulin Lispro 100 UNIT/ML 3 ML VIAL SUBCUT ×2 (16:58→20:25)
[2020-05-24 20:14] LABS: Glucose, Whole Blood 328 mg/dL (60-115)
[2020-05-24] MEDS: Insulin Glargine,Hum.rec.anlog 100 UNIT/ML 10 ML VIAL 45 UNIT SUBCUT (20:26)
[2020-05-24] MEDS: Montelukast Sodium 10 MG TABLET PO (20:26)
[2020-05-24] MEDS: QUEtiapine Fumarate 100 MG TABLET PO (20:26)
[2020-05-24] MEDS: Atorvastatin Calcium 80 MG TABLET PO (20:26)
[2020-05-25] VITALS (8 sets, daily range): BP systolic 129–143; BP diastolic 70–91; PULSE 80–111; RESP 16–20; TEMP 36.1–36.7; O2SAT 95–100
[2020-05-25] MEDS: Metoprolol Succinate ER 50 MG TAB.ER.24H 75 MG PO (07:40)
[2020-05-25] MEDS: Apixaban 5 MG TABLET PO ×2 (07:41→21:52)
[2020-05-25] MEDS: Amiodarone HCL 200 MG TABLET PO (07:41)
[2020-05-25] MEDS: Losartan Potassium 50 MG TABLET PO (07:41)
[2020-05-25] MEDS: amLODIPine Besylate 5 MG TABLET PO (07:41)
[2020-05-25] MEDS: Gabapentin 300 MG CAPSULE PO ×3 (07:41→21:52)
[2020-05-25] MEDS: Tamsulosin HCL 0.4 MG CAPSULE PO (07:42)
[2020-05-25] MEDS: guaiFENesin LA 600 MG TAB.ER.12H PO ×2 (07:42→21:52)
[2020-05-25] MEDS: 0.9 % Sodium Chloride Flush 3 ML SYRINGE IVFLUSH ×3 (07:42→22:03)
[2020-05-25] MEDS: Furosemide 40 MG TABLET PO (07:42)
[2020-05-25] MEDS: predniSONE 20 MG TABLET 40 MG PO (07:42)
[2020-05-25] MEDS: Sertraline HCL 25 MG TABLET 50 MG PO (07:42)
[2020-05-25 09:19] LABS: Glucose, Whole Blood 169 mg/dL (60-115)
[2020-05-25] MEDS: Albuterol/Iprat 2.5/0.5MG 3 ML AMPUL.NEB INHALE ×4 (11:01→19:06)
--- NOTE | 2020-05-25 11:07 | P.PNIM_ITS ---
Subjective Subjective Date of Service: 05/25/20 Interval History: C/o dyspnea. Not wheezing. Lost IV access. Physical Exam Vital Signs: Vital Signs: Last Vital Signs Temp 97.7 F 05/25/20 07:18 Pulse 108 H 05/25/20 07:18 Resp 18 05/25/20 07:18 BP 140/91 H 05/25/20 07:18 Pulse Ox 97 05/25/20 07:18 Body Mass Index 48.5 gen: anxious pulm: clear bilaterally, no wheezing noted CV: irreg irreg, rate in 90s abd: soft/NT, no HSM, obese ext: no cyanosis, clubbing, or edema neuro: no focal findings Objective Data Current Medications Generic Name Dose Route Start Last Admin Trade Name Freq PRN Reason Stop Dose Admin Acetaminophen 650 mg 05/19/20 17:52 Acetaminophen 325 Mg Tablet PO Q6H PRN Pain, Mild (Pain Scale 1-3) Albuterol/Ipratropium 3 ml 05/19/20 20:00 05/25/20 11:01 Albuterol/Iprat 2.5/0.5mg 3 Ml Ampul.Neb INHALE 3 ml RQ4H WHILE AWAKE JUDE Administration Albuterol/Ipratropium 3 ml 05/21/20 05:49 05/23/20 05:13 Albuterol/Iprat 2.5/0.5mg 3 Ml Ampul.Neb INHALE 3 ml RQ4H PRN Administration Shortness of Breath/Wheezing Amiodarone HCl 200 mg 05/20/20 09:00 05/25/20 07:41 Amiodarone Hcl 200 Mg Tablet PO 200 mg DAILY JUDE Administration Amlodipine Besylate 5 mg 05/20/20 09:00 05/25/20 07:41 Amlodipine Besylate 5 Mg Tablet PO 5 mg DAILY JUDE Administration Protocol Apixaban 5 mg 05/19/20 21:00 05/25/20 07:41 Apixaban 5 Mg Tablet PO 5 mg BID JUDE Administration Atorvastatin Calcium 80 mg 05/19/20 21:00 05/24/20 20:26 Atorvastatin Calcium 80 Mg Tablet PO 80 mg BEDTIME JUDE Administration Diphenhydramine HCl 25 mg 05/21/20 08:21 05/24/20 16:57 Diphenhydramine Hcl 25 Mg Tablet PO 25 mg Q6H PRN Administration itching Furosemide 40 mg 05/20/20 09:00 05/25/20 07:42 Furosemide 40 Mg Tablet PO 40 mg DAILY JUDE Administration Protocol Gabapentin 300 mg 05/19/20 21:00 05/25/20 07:41 Gabapentin 300 Mg Capsule PO 300 mg TID JUDE Administration Guaifenesin 600 mg 05/19/20 21:00 05/25/20 07:42 Guaifenesin La 600 Mg Tab.Er.12h PO 600 mg BID JUDE Administration Hydromorphone HCl 1 mg 05/24/20 14:10 05/24/20 20:25 Hydromorphone Hcl 1 Mg/Ml Syringe IVPUSH 1 mg Q8H PRN Administration Pain, Severe (Pain Scale 7-10) Insulin Glargine 45 unit 05/21/20 21:00 05/24/20 20:26 Insulin Glargine,Hum.Rec.Anlog 100 Unit/Ml 10 Ml Vial SUBCUT 45 unit BEDTIME JUDE Administration Insulin Human Lispro 0 unit 05/21/20 11:30 05/25/20 10:31 Insulin Lispro 100 Unit/Ml 3 Ml Vial SUBCUT Not Given QIDACHS [facility] Protocol Lidocaine 1 patch 05/24/20 13:00 05/25/20 07:43 Lidocaine 4 % Patch Adh..Patch TRANSDERMA Not Given DAILY [facility] Protocol Lorazepam 1 mg 05/22/20 12:58 05/24/20 11:56 Lorazepam 1 Mg Tablet PO 1 mg TID PRN Administration anxiety Losartan Potassium 50 mg 05/20/20 09:00 05/25/20 07:41 Losartan Potassium 50 Mg Tablet PO 50 mg DAILY [facility] Administration Protocol Metoprolol Succinate 75 mg 05/23/20 09:00 05/25/20 07:40 Metoprolol Succinate Er 50 Mg Tab.Er.24h PO 75 mg DAILY [facility] Administration Protocol Metoprolol Tartrate 5 mg 05/22/20 10:32 Metoprolol Tartrate 5 Mg/5 Ml Vial IVPUSH Q6H PRN ventricular rate >110 Montelukast Sodium 10 mg 05/19/20 21:00 05/24/20 20:26 Montelukast Sodium 10 Mg Tablet PO 10 mg BEDTIME JUDE Administration Ondansetron HCl 4 mg 05/21/20 08:21 05/21/20 09:07 Ondansetron Odt 4 Mg Tab.Rapdis TRANSLINGU 4 mg Q6H PRN Administration nausea/vomitig Pharmacy Consult 1 each 05/19/20 13:22 Consult Rx Perform Med Rec MISCELLANE ONCE PRN Consult order Prednisone 40 mg 05/21/20 09:00 05/25/20 07:42 Prednisone 20 Mg Tablet PO 40 mg DAILY JUDE Administration Quetiapine Fumarate 100 mg 05/19/20 21:00 05/24/20 20:26 Quetiapine Fumarate 100 Mg Tablet PO 100 mg BEDTIME JUDE Administration Sertraline HCl 50 mg 05/23/20 09:00 05/25/20 07:42 Sertraline Hcl 25 Mg Tablet PO 50 mg DAILY JUDE Administration Sodium Chloride 3 ml 05/20/20 00:00 05/25/20 07:42 0.9 % Sodium Chloride Flush 3 Ml Syringe IVFLUSH 3 ml QSHIFT JUDE Administration Tamsulosin HCl 0.4 mg 05/20/20 09:00 05/25/20 07:42 Tamsulosin Hcl 0.4 Mg Capsule PO 0.4 mg DAILY JUDE Administration Labs CBC & Chem 7: 05/22/20 05:45 05/22/20 05:45 Microbiology Microbiology Results: Microbiology 05/19/20 14:17 Blood - Venous Blood Culture - Final No growth after 5 days. 05/19/20 14:00 Blood - Venous Blood Culture - Final No growth after 5 days. Assessment and Plan (1) COPD exacerbation: Status: Acute Assessment and Plan: hospital d#7 64yo M with COPD, ELI, chronic hypoxic respiratory failure, AF, HFrEF, DM2 frequent hospitalizations [most recently discharged 05/14/20] readmitted for COPD exacerbation, though PaO2 + pCO2 were at baseline # COPD exacerbation - completed 5d of steroid burst - continue nebulized bronchodilators - d/c'ed doxycycline - appreciate pulmonology consult # chronic respiratory failure with chronic hypoxia on 3L NC - supplemental O2, goal SaO2 88-92%, Rx pulse-oximeter upon discharge # ELI - encouraged CPAP use though pt has historically been non-adherent # AF with RVR - continue metoprolol succinate [dose increased from 50 mg to 75 mg daily], amiodarone - continue apixaban # chronic HFrEF, not in acute exacerbation - continue maintenance furosemide, metoprolol, losartan. last TTE 09/22/19 LVEF 45%, gr I diastolic dysfunction, RWMAs # HLD - continue atorvastatin # mood disorder - quetiapine, sertraline [increased dose] # HTN - continue metoprolol, amlodipine, losartan # DM2, A1c 8.3 - Lantus + Humalog # concern of opioid-seeking behavior - wean Dilaudid. try lidocaine patch. outpt pain management referral. # dispo - planned home yesterday but pt appealing discharge. now interested in STR/pulm rehab, will consult CM
[2020-05-25] MEDS: HYDROmorphone HCl 1 MG/ML SYRINGE IVPUSH ×2 (11:33→19:27)
[2020-05-25 11:53] LABS: Glucose, Whole Blood 227 mg/dL (60-115)
[2020-05-25] MEDS: Insulin Lispro 100 UNIT/ML 3 ML VIAL SUBCUT ×3 (12:28→22:02)
[2020-05-25] MEDS: LORazepam 1 MG TABLET PO (14:26)
[2020-05-25] MEDS: diphenhydrAMINE HCL 25 MG TABLET PO (14:26)
[2020-05-25] MEDS: Nystatin Powder 15 GM BOTTLE 1 APPL TOPICAL ×2 (15:44→22:03)
[2020-05-25 17:07] LABS: Glucose, Whole Blood 139 mg/dL (60-115)
[2020-05-25 21:33] LABS: Glucose, Whole Blood 280 mg/dL (60-115)
[2020-05-25] MEDS: Atorvastatin Calcium 80 MG TABLET PO (21:52)
[2020-05-25] MEDS: Montelukast Sodium 10 MG TABLET PO (21:52)
[2020-05-25] MEDS: Insulin Glargine,Hum.rec.anlog 100 UNIT/ML 10 ML VIAL 45 UNIT SUBCUT (21:52)
[2020-05-25] MEDS: QUEtiapine Fumarate 100 MG TABLET PO (21:52)
[2020-05-26 04:00] VITALS: BP 140/72; PULSE 109; RESP 18; TEMP 36.2; O2SAT 94
[2020-05-26 04:12] VITALS: RESP 20
[2020-05-26] MEDS: HYDROmorphone HCl 1 MG/ML SYRINGE IVPUSH (04:12)
[2020-05-26 08:00] VITALS: BP 142/82; PULSE 107; RESP 20; TEMP 36.6; O2SAT 93
[2020-05-26] MEDS: Tamsulosin HCL 0.4 MG CAPSULE PO (09:18)
[2020-05-26] MEDS: Losartan Potassium 50 MG TABLET PO (09:18)
[2020-05-26] MEDS: Sertraline HCL 25 MG TABLET 50 MG PO (09:18)
[2020-05-26] MEDS: guaiFENesin LA 600 MG TAB.ER.12H PO (09:18)
[2020-05-26] MEDS: 0.9 % Sodium Chloride Flush 3 ML SYRINGE IVFLUSH (09:18)
[2020-05-26] MEDS: Metoprolol Succinate ER 50 MG TAB.ER.24H 75 MG PO (09:18)
[2020-05-26] MEDS: Amiodarone HCL 200 MG TABLET PO (09:18)
[2020-05-26] MEDS: predniSONE 20 MG TABLET 40 MG PO (09:18)
[2020-05-26] MEDS: Gabapentin 300 MG CAPSULE PO (09:19)
[2020-05-26] MEDS: Apixaban 5 MG TABLET PO (09:19)
[2020-05-26] MEDS: Nystatin Powder 15 GM BOTTLE 1 APPL TOPICAL (09:19)
[2020-05-26] MEDS: amLODIPine Besylate 5 MG TABLET PO (09:19)
[2020-05-26] MEDS: Furosemide 40 MG TABLET PO (09:19)
--- NOTE | 2020-05-26 09:31 | MHC.CM.PN ---
CM met with pt at approximately 0830 today and informed him that his discharge appeal was denied by [facility]. Pt was informed that if he does not discharge by 12:00 hours today he will be responsible for any bill that accrues after that time. Pt reports he is not leaving today. He states it hurt when he breaths and he is not leaving until it stops. pt reports he is still considering STR but has not decided yet and does not know when he will make a decision because he needs to discuss it with his daughter. Pt encouraged to contact [facility] for an explanation on denial and request a second appeal. Hospitalist and CM director informed of above.
[2020-05-26 10:56] VITALS: BP 132/72; PULSE 97; RESP 20; TEMP 36.6; O2SAT 95
--- NOTE | 2020-05-26 12:48 | P.PNIM_ITS ---
Subjective Subjective Date of Service: 05/26/20 Interval History: Pt c/o chronic dyspnea. No apparent cough and I do not auscultate any wheeze. Pt was d/c'ed 05/24/20 but appealed his d/c. The appeal was denied and he wishes to apply again. He states that he will leave tomorrow, but he has said this daily since 05/23/20. I asked about STR/pulm rehab, and he says he wants to talk to his daughter. I offered to call but he declines. I informed him that I will be d/c'ing the Dilaudid and he is trying to bargain with me and get another dose. Physical Exam Vital Signs: Vital Signs: Last Vital Signs Temp 97.8 F 05/26/20 10:56 Pulse 97 05/26/20 10:56 Resp 20 05/26/20 10:56 BP 132/72 05/26/20 10:56 Pulse Ox 95 05/26/20 10:56 Body Mass Index 48.5 gen: anxious pulm: clear bilaterally, no wheezing noted CV: irreg irreg, rate in 90s abd: soft/NT, no HSM, obese ext: no cyanosis, clubbing, or edema neuro: no focal findings Objective Data Current Medications Generic Name Dose Route Start Last Admin Trade Name Fidelq PRN Reason Stop Dose Admin Acetaminophen 650 mg 05/19/20 17:52 Acetaminophen 325 Mg Tablet PO Q6H PRN Pain, Mild (Pain Scale 1-3) Albuterol/Ipratropium 3 ml 05/19/20 20:00 05/26/20 11:33 Albuterol/Iprat 2.5/0.5mg 3 Ml Ampul.Neb INHALE Not Given RQ4H WHILE AWAKE JUDE Albuterol/Ipratropium 3 ml 05/21/20 05:49 05/25/20 15:14 Albuterol/Iprat 2.5/0.5mg 3 Ml Ampul.Neb INHALE 3 ml RQ4H PRN Administration Shortness of Breath/Wheezing Amiodarone HCl 200 mg 05/20/20 09:00 05/26/20 09:18 Amiodarone Hcl 200 Mg Tablet PO 200 mg DAILY JUDE Administration Amlodipine Besylate 5 mg 05/20/20 09:00 05/26/20 09:19 Amlodipine Besylate 5 Mg Tablet PO 5 mg DAILY JUDE Administration Protocol Apixaban 5 mg 05/19/20 21:00 05/26/20 09:19 Apixaban 5 Mg Tablet PO 5 mg BID JUDE Administration Atorvastatin Calcium 80 mg 05/19/20 21:00 05/25/20 21:52 Atorvastatin Calcium 80 Mg Tablet PO 80 mg BEDTIME JUDE Administration Diphenhydramine HCl 25 mg 05/21/20 08:21 05/25/20 14:26 Diphenhydramine Hcl 25 Mg Tablet PO 25 mg Q6H PRN Administration itching Furosemide 40 mg 05/20/20 09:00 05/26/20 09:19 Furosemide 40 Mg Tablet PO 40 mg DAILY JUDE Administration Protocol Gabapentin 300 mg 05/19/20 21:00 05/26/20 09:19 Gabapentin 300 Mg Capsule PO 300 mg TID JUDE Administration Guaifenesin 600 mg 05/19/20 21:00 05/26/20 09:18 Guaifenesin La 600 Mg Tab.Er.12h PO 600 mg BID JUDE Administration Insulin Glargine 45 unit 05/21/20 21:00 05/25/20 21:52 Insulin Glargine,Hum.Rec.Anlog 100 Unit/Ml 10 Ml Vial SUBCUT 45 unit BEDTIME JUDE Administration Insulin Human Lispro 0 unit 05/21/20 11:30 05/26/20 08:43 Insulin Lispro 100 Unit/Ml 3 Ml Vial SUBCUT Not Given QIDACHS [facility] Protocol Lidocaine 1 patch 05/24/20 13:00 05/26/20 09:19 Lidocaine 4 % Patch Adh..Patch TRANSDERMA Not Given DAILY [facility] Protocol Lorazepam 1 mg 05/22/20 12:58 05/25/20 14:26 Lorazepam 1 Mg Tablet PO 1 mg TID PRN Administration anxiety Losartan Potassium 50 mg 05/20/20 09:00 05/26/20 09:18 Losartan Potassium 50 Mg Tablet PO 50 mg DAILY JUDE Administration Protocol Metoprolol Succinate 75 mg 05/23/20 09:00 05/26/20 09:18 Metoprolol Succinate Er 50 Mg Tab.Er.24h PO 75 mg DAILY JUDE Administration Protocol Metoprolol Tartrate 5 mg 05/22/20 10:32 Metoprolol Tartrate 5 Mg/5 Ml Vial IVPUSH Q6H PRN ventricular rate >110 Montelukast Sodium 10 mg 05/19/20 21:00 05/25/20 21:52 Montelukast Sodium 10 Mg Tablet PO 10 mg BEDTIME JUDE Administration Nystatin 1 appl 05/25/20 15:00 05/26/20 09:19 Nystatin Powder 15 Gm Bottle TOPICAL 1 appl TID JUDE Administration Protocol Ondansetron HCl 4 mg 05/21/20 08:21 05/21/20 09:07 Ondansetron Odt 4 Mg Tab.Rapdis TRANSLINGU 4 mg Q6H PRN Administration nausea/vomitig Pharmacy Consult 1 each 05/19/20 13:22 Consult Rx Perform Med Rec MISCELLANE ONCE PRN Consult order Prednisone 40 mg 05/21/20 09:00 05/26/20 09:18 Prednisone 20 Mg Tablet PO 40 mg DAILY JUDE Administration Quetiapine Fumarate 100 mg 05/19/20 21:00 05/25/20 21:52 Quetiapine Fumarate 100 Mg Tablet PO 100 mg BEDTIME JUDE Administration Sertraline HCl 50 mg 05/23/20 09:00 05/26/20 09:18 Sertraline Hcl 25 Mg Tablet PO 50 mg DAILY JUDE Administration Sodium Chloride 3 ml 05/20/20 00:00 05/26/20 09:18 0.9 % Sodium Chloride Flush 3 Ml Syringe IVFLUSH 3 ml QSHIFT JUDE Administration Tamsulosin HCl 0.4 mg 05/20/20 09:00 05/26/20 09:18 Tamsulosin Hcl 0.4 Mg Capsule PO 0.4 mg DAILY JUDE Administration Labs CBC & Chem 7: 05/22/20 05:45 05/22/20 05:45 Labs: Laboratory Results - last 24 hr 05/25/20 05/25/20 17:02 21:15 POC Glucose 139 H 280 H Microbiology Microbiology Results: Microbiology 05/19/20 14:17 Blood - Venous Blood Culture - Final No growth after 5 days. 05/19/20 14:00 Blood - Venous Blood Culture - Final No growth after 5 days. Assessment and Plan (1) COPD exacerbation: Status: Acute Assessment and Plan: hospital d#8 64yo M with COPD, LEI though non-adherent with this, chronic hypoxic respiratory failure on 3L O2 via NC, AF, HFrEF, DM2 frequent hospitalizations [most recently discharged 05/14/20] readmitted for COPD exacerbation, though PaO2 + pCO2 were at baseline concern of narcotic-seeking behavior # COPD exacerbation - completed 5d of steroid burst - continue nebulized bronchodilators prn - d/c'ed doxycycline - appreciate pulmonology consult # chronic respiratory failure with chronic hypoxia on 3L NC - supplemental O2, goal SaO2 88-92%, Rx pulse-oximeter upon discharge # ELI - encouraged CPAP use though pt has historically been non-adherent # AF with RVR - continue metoprolol succinate [dose increased from 50 mg to 75 mg daily], amiodarone - continue apixaban # chronic HFrEF, not in acute exacerbation - continue maintenance furosemide, metoprolol, losartan - last TTE 09/22/19 LVEF 45%, gr I diastolic dysfunction, RWMAs # HLD - continue atorvastatin # mood disorder - quetiapine, sertraline [increased dose] # HTN - continue metoprolol, amlodipine, losartan # DM2, A1c 8.3 - Lantus + Humalog # concern of opioid-seeking behavior - discussed with the other hospitalists here who know him well and are all in agreement that he exhibits severe opioid-seeking behavior. I have recommended lidocaine patch and will refer to outpt pain management but I think it best at this point to d/c the Dilaudid. # dispo - see HPI. discuss CM re 2nd appeal process.
[2020-05-26] MEDS: Albuterol/Iprat 2.5/0.5MG 3 ML AMPUL.NEB INHALE (14:07)
--- NOTE | 2020-05-26 14:37 | P.DS_ITS ---
DS: Providers Provider Date of admission: 05/19/20 15:27 Primary care physician: Mignon Holcomb MD Consults: 05/19/20 17:52 Consult to Pulmonology Routine Consulting Provider: Lan Romero Reason for consultation: copd wth resp failure Has provider been notified: No 05/19/20 19:30 Consult Respiratory Therapy Routine Reason for consultation: COPD, ELI. CPAP HS 05/22/20 13:53 Consult to Care Team Routine Comment: Reason for consultation: extreme anxiety 05/22/20 16:36 Consult to Psychiatry Routine Consulting Provider: Simona Chapman Reason for consultation: severe anxiety, chronic pain issues DS: Diagnosis Discharge Diagnosis (1) COPD exacerbation: Status: Acute (2) Anxiety disorder due to general medical condition: Status: Acute (3) Atrial fibrillation with rapid ventricular response: Status: Acute (4) Respiratory failure, chronic: Status: Acute (5) Systolic CHF: Status: Acute (6) ELI (obstructive sleep apnea): Status: Acute DS: Medications Discharge Medications Home Medications: Home Medications Medication Instructions Recorded Confirmed Eliquis 5 mg PO BID 04/17/20 05/19/20 Incruse Ellipta 1 inh INHALATION DAILY 04/17/20 05/19/20 Lantus U-100 Insulin 35 unit SUBCUT QPM 04/17/20 05/19/20 albuterol sulfate [Ventolin HFA] 2 puff PO Q4-6H PRN 04/17/20 05/19/20 amiodarone 200 mg PO DAILY 04/17/20 05/19/20 amlodipine 1 tab PO DAILY 04/17/20 05/19/20 atorvastatin 80 mg PO BEDTIME 04/17/20 05/19/20 furosemide 40 mg PO DAILY 04/17/20 05/19/20 gabapentin 1 cap PO TID 04/17/20 05/19/20 insulin aspart U-100 [Novolog 8 unit SUBCUT TIDAC 04/17/20 05/19/20 Flexpen U-100 Insulin] losartan 1 tab PO DAILY 04/17/20 05/19/20 montelukast 10 mg PO BEDTIME 04/17/20 05/19/20 pantoprazole [Protonix] 40 mg PO DAILY 04/17/20 05/19/20 quetiapine 100 mg PO BEDTIME 04/17/20 05/19/20 tamsulosin 1 cap PO DAILY 04/17/20 05/19/20 Previous Rx's Medication Instructions Recorded guaifenesin [Mucinex] 600 mg PO BID #30 tab 04/22/20 prednisone 40 mg PO DAILY #10 tab 05/14/20 metoprolol succinate 75 mg PO DAILY #45 tab 05/24/20 miscellaneous medical supply 1 ea MISCELLANEOUS .daily and prn 05/24/20 #1 ea sertraline 50 mg PO DAILY #30 tab 05/24/20 DS: Summary Hospital Course Hospital Course: From the admission history and physical by hospitalist Jasper Dia, 05/19/20: 64 year old male with chronic respiratory failure due to COPD on home O2, CHF. He is admitted rather frquently and was just discharged from the hospital just several days ago and returned again with shortness and increase work of breathing and CXR shows some infiltrate. As usual is complaining of lung pain and requesting narcotics, he's highly anxious and is becoming very tachycardic. ABG was essentially normal. The patient was admitted for COPD exacerbation, though as noted above, paO2 and pCO2 were at baseline. He completed a 5-day steroid burst. He was briefly treated with doxycycline but in the end was not thought to have pneumonia or an infectious component to his COPD exacerbation and this was stopped. He tested negative for COVID-19. He was maintained on his baseline 3L of O2 via nasal cannula with goal SaO2 88-92% and a pulse oximeter was prescribed upon discharge. CPAP use was encouraged though the patient was not fully adherent with this. In terms of chronic atrial fibrillation, he had some episodes of rapid ventricular rate provoked by anxiety. Amiodarone was continued and metoprolol tartrate was increased from 50 to 75 mg daily. Anticoagulation with apixaban was continued. He has a history of ischemic cardiomyopathy/HFrEF (though LVEF 45% on 09/22/19) and was not thought to have acute decompensated heart failure, so we just continued his outpatient regimen of furosemide, metoprolol, and losartan. Due to multiple conflicts with the hospitalist team over the use of IV hydro morphone, we enlisted the help of the psychiatry quality assurance consultant and the PEST CONTROL SERVICE TECHNICIAN. He is well-known to the hospitalist service and the it is universally agreed by all of the hospitalists and nurses that have cared for him previously that he has pathologic opioid-seeking behavior. We discussed the use of Suboxone for chronic pain management but the patient adamantly declined. Unfortunately, he did seem to recognize that he has a problem with opioid-seeking behavior. I placed him on lidocaine patch and recommended outpatient pain management referral, but he insisted on IV hydromorphone. However, I often arrived to his room to find him asleep and in no apparent distress. I do not doubt that he has chronic dyspnea from COPD. I recommended short-term pulmonary rehabilitation but he kept equivocating about a decision. I think that anxiety is playing a major role in his dyspnea as well. I did increase his sertraline dose and as noted above, consulted the psychiatry COMMERCIAL DRONE SOFTWARE DEVELOPER. In the end, I discharged him on 05/24/20 but he appealed his discharge so remained in the hospital for 2 more days. He lost his appeal and planned a next-level appeal. However, once I stopped the IV hydrmorphone, he left the hospital on 05/26/20. Time Spent with Patient Time attestation: Total time spent providing and/or coordinating discharge services: 35 Physical Exam Vital Signs: Vital Signs: Last Vital Signs Temp 97.8 F 05/26/20 10:56 Pulse 97 05/26/20 10:56 Resp 20 05/26/20 10:56 BP 132/72 05/26/20 10:56 Pulse Ox 95 05/26/20 10:56 Body Mass Index 48.5 gen: anxious pulm: clear bilaterally, no wheezing noted CV: irreg irreg, rate in 90s abd: soft/NT, no HSM, obese ext: no cyanosis, clubbing, or edema neuro: no focal findings DS: Data Data Completed and Pending Completed studies during hospitalization [Text1]: Procedures Assistance with Respiratory Ventilation, Less than 24 Consecutive Hours, Continuous Positive Airway Pressure (05/03/20) Labs on day of discharge: Laboratory Results WBC 18.2 X10*3/uL (4.8-10.8) H 05/22/20 05:45 RBC 4.97 X10*6/uL (4.60-5.80) 05/22/20 05:45 Hgb 13.4 g/dl (14.0-18.0) L 05/22/20 05:45 Hct 43.6 % (42-52) 05/22/20 05:45 MCV 87.7 fL (80-98) 05/22/20 05:45 MCH 27.0 pg (27.0-33.0) 05/22/20 05:45 MCHC 30.7 g/dl (31.0-36.0) L 05/22/20 05:45 RDW 14.5 % (11.0-16.0) 05/22/20 05:45 Plt Count 199 X10*3/uL (160-400) 05/22/20 05:45 MPV 11.0 fL (9.4-12.4) 05/22/20 05:45 Immature Gran % (Auto) 0.5 % (0.0-0.4) H 05/22/20 05:45 Neut % (Auto) 89.9 % (45-73) H 05/22/20 05:45 Lymph % (Auto) 5.8 % (20-40) L 05/22/20 05:45 [place] % (Auto) 3.7 % (2-11) 05/22/20 05:45 Eos % (Auto) 0.0 % (0-4) 05/22/20 05:45 Baso % (Auto) 0.1 % (0-2) 05/22/20 05:45 Lymph # (Auto) 1.1 X10*3/uL (1.2-4.9) L 05/22/20 05:45 [place] # (Auto) 0.7 X10*3/uL (0.1-1.2) 05/22/20 05:45 Eos # (Auto) 0.0 X10*3/uL (0.0-0.4) 05/22/20 05:45 Baso # (Auto) 0.0 X10*3/uL (0.0-0.2) 05/22/20 05:45 Abs Immat Gran (auto) 0.10 X10*3/uL (0.00-0.03) H 05/22/20 05:45 Absolute Neuts (auto) 16.4 X10*3/uL (2.0-8.3) H 05/22/20 05:45 Absolute Nucleated RBC 0.000 X10*3/uL (0.0-0.012) 05/22/20 05:45 Nucleated RBC % (auto) 0.0 /100WBC (0.0-0.2) 05/22/20 05:45 Smear Tech's Comments VERIFIED 05/20/20 09:36 PT 12.6 SEC (10.8-13.0) 05/19/20 14:00 INR 1.1 (0.9-1.1) 05/19/20 14:00 ABG pH 7.42 (7.35-7.45) 05/19/20 13:05 ABG pCO2 38 mmhg (32-45) 05/19/20 13:05 ABG pO2 99 mmhg (83-108) 05/19/20 13:05 ABG HCO3 24 mmol/l (22-26) 05/19/20 13:05 ABG O2 Saturation 97.9 % 05/19/20 13:05 ABG Base Excess -0.2 05/19/20 13:05 Oxygen Given 3 L 05/19/20 13:05 Sodium 139 mmol/L (135-145) 05/22/20 05:45 Potassium 4.9 mmol/l (3.3-5.1) 05/22/20 05:45 Chloride 104 mmol/L (96-108) 05/22/20 05:45 Carbon Dioxide 26 mmol/L (22-29) 05/22/20 05:45 Anion Gap 14 (12-20) 05/22/20 05:45 BUN 37 mg/dL (9-16) H D 05/22/20 05:45 Creatinine 1.19 mg/dL (0.5-1.4) 05/22/20 05:45 Estim Creat Clear Calc 67.4 05/22/20 05:45 Estimated GFR > 60 05/22/20 05:45 POC Glucose 280 mg/dL (60-115) H 05/25/20 21:15 Random Glucose 230 mg/dL (60-115) H D 05/22/20 05:45 Estimat Average Glucose 192 mg/dL 05/20/20 12:02 Hemoglobin A1c % 8.3 % 05/20/20 12:02 Lactic Acid 1.0 mmol/L (0.5-2.0) 05/19/20 14:01 Calcium 8.4 mg/dL (8.4-10.2) 05/22/20 05:45 Magnesium 2.4 mg/dL (1.6-2.6) 05/20/20 09:36 Total Bilirubin 0.7 mg/dL (0.0-1.0) 05/19/20 14:00 Direct Bilirubin 0.2 mg/dL (0.0-0.5) 05/19/20 14:00 AST 23 U/L (5-37) D 05/19/20 14:00 ALT 40 U/L (0-40) 05/19/20 14:00 Alkaline Phosphatase 81 U/L (39-117) D 05/19/20 14:00 Troponin I High Sens 23.0 ng/L (<3.5-35.0) 05/20/20 12:02 B-Natriuretic Peptide 246 pg/mL (<100) H 05/19/20 14:00 Total Protein 6.0 g/dL (6.5-8.0) L 05/19/20 14:00 Albumin 3.7 g/dL (3.5-5.0) 05/19/20 14:00 Procalcitonin < 0.02 ng/mL 05/22/20 05:45 Coronavirus (PCR) NEGATIVE (Negative) 05/19/20 13:38 Impressions Chest X-Ray 05/19/20 13:03 IMPRESSION: Cardiomegaly with new bibasilar infiltrates/atelectasis. Chest CT 05/19/20 15:29 IMPRESSION: New small to moderate right-sided pleural effusion with tiny left effusion. Right lower lobe infiltrate/atelectasis with collapse/consolidation right middle lobe and left basilar atelectasis. Tree-in-bud abnormalities in at least 3 locations in the right lung indicative of inflammatory/airway disease. Discharge Plan Discharge Anticipated Discharge Date/Time: 05/24/20 11:48 Patient Disposition: Home Health Service Referrals: Mignon Holcomb MD [Physician] - 3-5 Days (Tele Visit 05/29/2020 @2pm. Dr. ju breaux call you to discuss your hospital stay.Please call and reschedule if you can't keep this appointment.) Steve Madrid MD [Physician] - (chronic chest/back pain) Physician,Unknown [Primary Care Provider] - Discharge Medications: New metoprolol succinate 50 mg Tablet Extended Release 24 Hr 75 mg PO DAILY Qty: 45 RF: 0 sertraline 50 mg tablet 50 mg PO DAILY Qty: 30 RF: 0 miscellaneous medical supply Kit 1 ea miscellaneous .daily and prn Qty: 1 RF: 0 Continued furosemide 40 mg Tablet 40 mg PO DAILY RF: 0 atorvastatin 80 mg Tablet 80 mg PO BEDTIME RF: 0 amiodarone 200 mg Tablet 200 mg PO DAILY RF: 0 pantoprazole [Protonix] 40 mg Tablet,Delayed Release (Dr/Ec) 40 mg PO DAILY RF: 0 montelukast 10 mg Tablet 10 mg PO BEDTIME RF: 0 amlodipine 5 mg tablet 1 tab PO DAILY RF: 0 gabapentin 300 mg capsule 1 cap PO TID RF: 0 Incruse Ellipta 62.5 mcg/actuation blister with device 1 inh inhalation DAILY RF: 0 losartan 50 mg tablet 1 tab PO DAILY RF: 0 quetiapine 100 mg tablet 100 mg PO BEDTIME RF: 0 insulin aspart U-100 [Novolog Flexpen U-100 Insulin] 100 unit/mL (3 mL) insulin pen 8 unit subcut TIDAC RF: 0 Lantus U-100 Insulin 100 unit/mL Solution 35 unit SUBCUT QPM RF: 0 tamsulosin 0.4 mg capsule 1 cap PO DAILY RF: 0 albuterol sulfate [Ventolin HFA] 90 mcg/actuation HFA aerosol inhaler 2 puff PO Q4-6H PRN (Reason: Shortness Of Breath) RF: 0 Eliquis 5 mg tablet 5 mg PO BID RF: 0 guaifenesin [Mucinex] 600 mg Tablet Extended Release 12hr 600 mg PO BID Qty: 30 RF: 0 prednisone 20 mg Tablet 40 mg PO DAILY Qty: 10 RF: 0 Discontinued sertraline 25 mg tablet 1 tab PO DAILY RF: 0 metoprolol succinate 50 mg tablet extended release 24 hr 1 tab PO DAILY RF: 0 Discharge Orders: Discharge Order (Routine); Ordered 05/24/20 Ordered By: Tad Yanez Diet: diabetic diet and low salt diet Activity on Discharge: As tolerated Patient Instructions: A-fib (Atrial Fibrillation) (GEN), Chronic Pain (ED), COPD (Chronic Obstructive Pulmonary Disease) (DC) Stand Alone Forms: Community Support Discharge Date/Time: 05/26/20 14:31 Visit Report Forms: Patient Portal Discharge page Care Plan Goals: improved breathing relief of pain without using narcotics Health Concerns: COPD chronic respiratory failure ELI atrial fibrillation chronic pain anxiety Plan of Treatment: completed prednisone burst. continue albuterol as needed for rescue. continue Incruse Ellipta. continue home oxygen 3L at all times. very important to use your CPAP as directed. increase metoprolol succinate from 50 mg daily to 75 mg daily. continue apixaban 5 mg twice daily. avoid narcotics. consider acupuncture, pain management referral. increase sertraline from 25 mg daily to 50 mg daily. see your primary care doctor in 1 week.
--- NOTE | 2020-05-26 14:52 | MHC.CM.PN ---
pt agreed to discharge this afternoon. Discharged home with resumption of IT ACCOUNT MANAGER services. transported via [facility] BLS covering for chair van
[2020-05-27 10:07] LABS: Glucose, Whole Blood 234 mg/dL (60-115)
[2020-05-27 10:11] LABS: Glucose, Whole Blood 89 mg/dL (60-115)
== END 2020-05-26 14:31 | disposition home health service (06) | DRG 191 ==
LOC: HO.ED 15:16 → HO.IMC 15:58
PROVIDERS: Nurse Practitioner Family; Admitting Provider Internal Medicine; Emergency Provider Emergency Medicine; Visit Provider Family Medicine
DX: J44.1 Chronic obstructive pulmonary disease with (acute) exacerbation (principal); I50.22 Chronic systolic (congestive) heart failure; J96.11 Chronic respiratory failure with hypoxia; J96.12 Chronic respiratory failure with hypercapnia; K21.9 Gastro-esophageal reflux disease without esophagitis; G47.33 Obstructive sleep apnea (adult) (pediatric); I25.10 Atherosclerotic heart disease of native coronary artery without angina pectoris; N40.0 Benign prostatic hyperplasia without lower urinary tract symptoms; Z99.81 Dependence on supplemental oxygen; I48.91 Unspecified atrial fibrillation; F06.4 Anxiety disorder due to known physiological condition; I11.0 Hypertensive heart disease with heart failure; E11.9 Type 2 diabetes mellitus without complications; E78.5 Hyperlipidemia, unspecified; Z20.828 Contact with and (suspected) exposure to other viral communicable diseases; F17.210 Nicotine dependence, cigarettes, uncomplicated; Z71.6 Tobacco abuse counseling; Z76.5 Malingerer [conscious simulation]; Z86.718 Personal history of other venous thrombosis and embolism; Z79.4 Long term (current) use of insulin; Z79.01 Long term (current) use of anticoagulants; Z79.899 Other long term (current) drug therapy
CPT/HCPCS: 36415; 71045; 71250; 80048; 80076; 82803; 82947; 83036; 83605; 83735; 83880; 84145; 84484; 85025; 85610; 87040; 93005; 94660; 96365; 96366; 96367; 96375; 96376; 97162; 99284; 99291; J1170; J1940; J1956; J2060; J2920; J2930; J3010; J3475; Q0163; U0003

== ENCOUNTER → 2020-07-04 10:28 | Outpatient (BNVA) | payer MEDICARE, MEDICAID, SELFPAY | PROVIDERS: PCP Internal Medicine; Visit Provider Internal Medicine | DX: Z13.89 Encounter for screening for other disorder (principal) | CPT/HCPCS: 99212 ==

== ENCOUNTER 2020-08-12 01:15 | Inpatient (IN) | payer MEDICARE, MEDICAID, SELFPAY ==
[2020-08-12] VITALS (10 sets, daily range): BP systolic 132–165; BP diastolic 81–113; PULSE 110–136; RESP 15–34; TEMP 36.5–37.1; O2SAT 95–97; BMI 37.8; BMI 39.0
--- NOTE | 2020-08-12 | NM_ITS ---
EXAMINATION: NM LUNG IMAGE PERFUSION CLINICAL INFORMATION: Difficulty breathing, dyspnea. COMPARISON: Chest 08/12/2020 TECHNIQUE: Following intravenous administration of 4 mCi of 99m Tc MAA pleural effusion imaging of both lungs are obtained in multiple projections. Ventilation study was not performed FINDINGS: On perfusion imaging there is no focal segmental or subsegmental defects seen. There is no nonsegmental effect seen either. The chest x-ray revealed minimal atelectatic changes in the right base. NM/NM pul perfusion IMPRESSION: Normal perfusion scan.
--- NOTE | 2020-08-12 01:18 | ECG_ITS ---
Test Reason : DYSPNEA Blood Pressure : / mmHG Vent. Rate : 114 BPM Atrial Rate : 097 BPM P-R Int : 000 ms QRS Dur : 100 ms QT Int : 314 ms P-R-T Axes : 000 070 -68 degrees QTc Int : 432 ms Atrial fibrillation with rapid ventricular response Nonspecific T wave abnormality Abnormal ECG When compared to the previous EKG of No significant changes seen Referred By: Michell Gore Electronically Signed By:JOSE CHAVEZ MD
--- NOTE | 2020-08-12 01:19 | XR_ITS ---
EXAMINATION: XR CHEST CLINICAL INFORMATION: Shortness of breath COMPARISON: 05/19/2020 TECHNIQUE: Frontal view of the chest was obtained. FINDINGS: Lung volumes are symmetric. There is mild right basilar opacity which could reflect atelectasis. No evidence of pneumothorax. Trace pleural effusions are difficult to exclude. No overt pulmonary edema. Cardiac silhouette is enlarged. No acute osseous findings are seen. XR/XR chest 1V IMPRESSION: Mild right basilar opacity which could reflect atelectasis. Trace pleural effusions cannot be excluded. Enlarged cardiac silhouette.
--- NOTE | 2020-08-12 01:27 | ED.SOB ---
HPI - SOB/Dyspnea General Chief Complaint: Dyspnea Stated Complaint: Difficulty breathing Time Seen by Provider: 08/12/20 01:18 Source: patient Mode of arrival: EMS History of Present Illness HPI Narrative: This 65-year-old male brought in by EMS with acute onset of shortness of breath while on CPAP and history of COPD/AFib on anticoagulation. He denies any associated fevers, chills, sore throat, cough and states that he is having left lower quadrant pain. In addition, he points to an area of redness and swelling at the medial aspect of his right upper extremity and states that he has left lower quadrant pain that is sharp in nature and is not been associated with any diarrhea Related Data Home Medications Medication Instructions Recorded Confirmed Eliquis 5 mg PO BID 04/17/20 05/19/20 Incruse Ellipta 1 inh INHALATION DAILY 04/17/20 05/19/20 Lantus U-100 Insulin 35 unit SUBCUT QPM 04/17/20 05/19/20 albuterol sulfate [Ventolin HFA] 2 puff PO Q4-6H PRN 04/17/20 05/19/20 amiodarone 200 mg PO DAILY 04/17/20 05/19/20 amlodipine 1 tab PO DAILY 04/17/20 05/19/20 atorvastatin 80 mg PO BEDTIME 04/17/20 05/19/20 furosemide 40 mg PO DAILY 04/17/20 05/19/20 gabapentin 1 cap PO TID 04/17/20 05/19/20 insulin aspart U-100 [Novolog 8 unit SUBCUT TIDAC 04/17/20 05/19/20 Flexpen U-100 Insulin] losartan 1 tab PO DAILY 04/17/20 05/19/20 montelukast 10 mg PO BEDTIME 04/17/20 05/19/20 pantoprazole [Protonix] 40 mg PO DAILY 04/17/20 05/19/20 quetiapine 100 mg PO BEDTIME 04/17/20 05/19/20 tamsulosin 1 cap PO DAILY 04/17/20 05/19/20 albuterol sulfate 2.5 mg INHALATION Q4-6H PRN 07/04/20 bisoprolol fumarate 5 mg tablet 2.5 mg PO DAILY 07/04/20 Previous Rx's Medication Instructions Recorded guaifenesin [Mucinex] 600 mg PO BID #30 tab 04/22/20 prednisone 40 mg PO DAILY #10 tab 05/14/20 metoprolol succinate 75 mg PO DAILY #45 tab 05/24/20 miscellaneous medical supply 1 ea MISCELLANEOUS .daily and prn 05/24/20 #1 ea sertraline 50 mg PO DAILY #30 tab 05/24/20 Allergies Allergy/AdvReac Type Severity Reaction Status Date / Time nitroglycerin [NITROGLYCERIN] Allergy Severe CARDIOPULMONARY Verified 08/12/20 01:40 ARREST 2011 adhesive tape [Adhesive Tape] Allergy Mild BLISTERS Verified 08/12/20 01:40 cephalexin [From Keflex] Allergy Unknown ITCHING Verified 08/12/20 01:40 ciprofloxacin [From Cipro] Allergy Unknown ITCHING Verified 08/12/20 01:40 latex [LATEX] Allergy Unknown UNKNOWN Verified 08/12/20 01:40 morphine [Morphine] Allergy Unknown ITCHING Verified 08/12/20 01:40 diltiazem Allergy Unknown Verified 08/12/20 01:40 tramadol [From ULTRAM] AdvReac Severe STOMACH Verified 08/12/20 01:40 UPSET Review of Systems Review of Systems: Pertinent positives and negatives as stated in HPI 10 point review of systems is otherwise negative. [facility] Past Medical History Source: nursing notes reviewed Medical History Acute on chronic respiratory failure with hypoxia and hypercapnia Acute systolic CHF (congestive heart failure) Adjustment disorder with anxious mood Anxiety disorder due to general medical condition Asthma BPH (benign prostatic hyperplasia) CAD (coronary artery disease) Chest pain Continuous positive airway pressure dependent COPD (chronic obstructive pulmonary disease) Deep vein thrombosis (DVT) of right upper extremity Diabetes mellitus, type 2 GERD (gastroesophageal reflux disease) Hemoptysis HTN (hypertension) Hypoxia ELI (obstructive sleep apnea) ELI (obstructive sleep apnea) Pulmonary nodule 1 cm or greater in diameter Streptococcal bacteremia Systolic CHF Surgical History History of tracheostomy S/P diskectomy Family History Family History Other HTN (hypertension) Social History Social History Household Members: Family Housing: Apartment Alcohol intake: never Smoking Status: Current every day smoker Tobacco Type: Cigarette Packs Per Day: 0.25 Cigarettes Per Day: 5.0 Years Smoked: 50 Second Hand Smoke Exposure: Yes Advance Directives: Yes Advance Directives on File: Yes Advance Directives Date on File: 04/18/20 service: No Current occupational status: disabled Physical Exam Vital Signs: Vital Signs: Last Vital Signs Temp 98.8 F 08/12/20 01:15 Pulse 121 H 08/12/20 04:16 Resp 34 H 08/12/20 04:16 BP 147/93 H 08/12/20 04:16 Pulse Ox 96 08/12/20 02:00 Body Mass Index 39.0 VITAL SIGNS: Reviewed. GENERAL: Chronically ill, moderate-severe distress. HEAD: Normocephalic/atraumatic, EYES: PERRLA, EOMI OROPHARYNX: no oral lesions noted, posterior pharynx clear NECK: Supple, no adenopathy LUNGS: Normal breath sounds, no wheeze/rales, but coarse, tachypnea, increased work of breathing SpO2<96> CARDIOVASCULAR: Irregularly irregular, tachycardia, no JVD or lower extremity edema. ABDOMEN: Soft, tenderness left lower quadrant without rebound, non-distended with bowel sounds. SKIN: Inspection of the skin reveals no rashes NEUROLOGIC: Alert and oriented x 4. Course Course Course Narrative: This is a 65-year-old male history and clinical presentation suggestive of possible COPD exacerbation, CHF exacerbation, PE, cardiac ischemia. On clinical exam in combination with VBG inconsistent with COPD exacerbation, however patient was provided with hour long albuterol as well as Solu-Medrol on initial arrival. The heart rate and tachypnea are not secondary to COPD exacerbation and low suspicion for source of infection by absence of leukocytosis. Patient has atrial fibrillation and RVR were treated with 5 mg Lopressor IVP with good response, however concerns regarding possible DVT in the right upper extremity and noted elevation of BNP with shortness of breath concerns for possible PE despite Eliquis and follow-up [id number]. Patient remains hemodynamically stable but tachypneic. CT scan abd/pelvis for LLQ pain negative for any acute pathologies. Venous duplex positive for DVT (subclavian, axillary, distal basilic). Heparin bolus and drip started. Inadequate access for CTA, so patient will need a V/Q scan. Case discussed with inpatient hospitalist team. Reevaluation(s) Reevaluation #1: [facility] notified that patient has right upper extremity DVT of the subclavian, axillary, distal basilic. Time: 04:30 MDM - SOB/Dyspnea Lab Data Result diagrams: 08/12/20 01:33 08/12/20 01:33 Labs: Lab Results 08/12/20 08/12/20 08/12/20 Range/Units 01:33 01:33 01:33 WBC 8.0 (4.8-10.8) X10*3/uL RBC 5.18 (4.60-5.80) X10*6/uL Hgb 13.8 L (14.0-18.0) g/dl Hct 42.6 (42-52) % MCV 82.2 (80-98) fL MCH 26.6 L (27.0-33.0) pg MCHC 32.4 (31.0-36.0) g/dl RDW 16.0 (11.0-16.0) % Plt Count 271 D (160-400) X10*3/uL MPV 12.2 (9.4-12.4) fL Immature Gran % (Auto) Cancelled Neut % (Auto) Cancelled Lymph % (Auto) Cancelled Starr % (Auto) Cancelled Eos % (Auto) Cancelled Baso % (Auto) Cancelled Lymph # (Auto) Cancelled Starr # (Auto) Cancelled Eos # (Auto) Cancelled Baso # (Auto) Cancelled Abs Immat Gran (auto) Cancelled Absolute Neuts (auto) Cancelled Absolute Nucleated RBC 0.000 (0.0-0.012) X10*3/uL Nucleated RBC % (auto) 0.0 (0.0-0.2) /100WBC Neutrophils % (Manual) 64 (45-73) % Band Neutrophils % 1 L (3-5) % Lymphocytes % (Manual) 22 (20-40) % Monocytes % (Manual) 9 (2-11) % Eosinophils % (Manual) 1 (0-4) % Metamyelocytes % 3 % Abs Neuts (Manual) 5.2 (2.2-7.9) X10*3/uL Lymphocytes # (Manual) 1.8 (0.6-4.8) X10*3/uL Monocytes # (Manual) 0.7 (0.0-1.2) X10*3/uL Eosinophils # (Manual) 0.1 (0.0-0.8) X10*3/UL Metamyelocytes # 0.2 X10*3/uL Nucleated RBCs 1 H (0-0) /100WBC Platelet Estimate NORMAL (NORMAL) Large Platelets Plt Morphology Comment NORMAL RBC Morphology NOTED Polychromasia 1+ Hypochromasia 1+ Microcytosis 2+ Tear Drop Cells 1+ Ovalocytes 2+ Schistocytes 1+ PT (10.8-13.0) SEC INR (0.9-1.1) APTT (24.1-38.0) SEC D-Dimer NG/ML VBG pH (7.32-7.43) VBG pCO2 mmHg VBG pO2 mmHg VBG HCO3 mmol/L VBG O2 Saturation % VBG Base Excess mmol/L Sodium 139 (135-145) mmol/L Potassium 4.2 (3.3-5.1) mmol/L Chloride 105 (96-108) mmol/L Carbon Dioxide 25 (22-29) mmol/L Anion Gap 13 (12-20) BUN 22 H (9-16) mg/dL Creatinine 1.20 (0.5-1.4) mg/dL Estim Creat Clear Calc 66.3 Estimated GFR > 60 Random Glucose 367 H* (60-115) mg/dL Lactic Acid 2.9 H* (0.5-2.0) mmol/L Lactic Acid Fup @ 2Hr (0.5-2.0) mmol/L Calcium 8.6 (8.4-10.2) mg/dL Magnesium 2.0 (1.6-2.6) mg/dL Total Bilirubin 0.7 (0.0-1.0) mg/dL AST 16 (5-37) U/L ALT 31 (0-40) U/L Alkaline Phosphatase 114 D (39-117) U/L Troponin I High Sens (<3.5-35.0) ng/L B-Natriuretic Peptide (<100) pg/mL Total Protein 5.9 L (6.5-8.0) g/dL Albumin 3.9 (3.5-5.0) g/dL Lipase 44 (8-78) U/L Acetone, Qual Negative (Negative) Coronavirus (PCR) (Negative) Influenza Type A (PCR) (Negative) Influenza Type B (PCR) (Negative) RSV RNA Qual (PCR) (Negative) 08/12/20 08/12/20 08/12/20 Range/Units 01:33 01:33 01:33 WBC (4.8-10.8) X10*3/uL RBC (4.60-5.80) X10*6/uL Hgb (14.0-18.0) g/dl Hct (42-52) % MCV (80-98) fL MCH (27.0-33.0) pg MCHC (31.0-36.0) g/dl RDW (11.0-16.0) % Plt Count (160-400) X10*3/uL MPV (9.4-12.4) fL Immature Gran % (Auto) Neut % (Auto) Lymph % (Auto) Starr % (Auto) Eos % (Auto) Baso % (Auto) Lymph # (Auto) Starr # (Auto) Eos # (Auto) Baso # (Auto) Abs Immat Gran (auto) Absolute Neuts (auto) Absolute Nucleated RBC (0.0-0.012) X10*3/uL Nucleated RBC % (auto) (0.0-0.2) /100WBC Neutrophils % (Manual) (45-73) % Band Neutrophils % (3-5) % Lymphocytes % (Manual) (20-40) % Monocytes % (Manual) (2-11) % Eosinophils % (Manual) (0-4) % Metamyelocytes % % Abs Neuts (Manual) (2.2-7.9) X10*3/uL Lymphocytes # (Manual) (0.6-4.8) X10*3/uL Monocytes # (Manual) (0.0-1.2) X10*3/uL Eosinophils # (Manual) (0.0-0.8) X10*3/UL Metamyelocytes # X10*3/uL Nucleated RBCs (0-0) /100WBC Platelet Estimate (NORMAL) Large Platelets Plt Morphology Comment RBC Morphology Polychromasia Hypochromasia Microcytosis Tear Drop Cells Ovalocytes Schistocytes PT (10.8-13.0) SEC INR (0.9-1.1) APTT (24.1-38.0) SEC D-Dimer NG/ML VBG pH 7.38 (7.32-7.43) VBG pCO2 42 mmHg VBG pO2 138 mmHg VBG HCO3 26 mmol/L VBG O2 Saturation 99.0 % VBG Base Excess 0.8 mmol/L Sodium (135-145) mmol/L Potassium (3.3-5.1) mmol/L Chloride (96-108) mmol/L Carbon Dioxide (22-29) mmol/L Anion Gap (12-20) BUN (9-16) mg/dL Creatinine (0.5-1.4) mg/dL Estim Creat Clear Calc Estimated GFR Random Glucose (60-115) mg/dL Lactic Acid (0.5-2.0) mmol/L Lactic Acid Fup @ 2Hr (0.5-2.0) mmol/L Calcium (8.4-10.2) mg/dL Magnesium (1.6-2.6) mg/dL Total Bilirubin (0.0-1.0) mg/dL AST (5-37) U/L ALT (0-40) U/L Alkaline Phosphatase (39-117) U/L Troponin I High Sens (<3.5-35.0) ng/L B-Natriuretic Peptide (<100) pg/mL Total Protein (6.5-8.0) g/dL Albumin (3.5-5.0) g/dL Lipase (8-78) U/L Acetone, Qual Cancelled (Negative) Coronavirus (PCR) NEGATIVE (Negative) Influenza Type A (PCR) NEGATIVE (Negative) Influenza Type B (PCR) NEGATIVE (Negative) RSV RNA Qual (PCR) NEGATIVE (Negative) 08/12/20 08/12/20 08/12/20 Range/Units 01:33 02:56 04:16 WBC (4.8-10.8) X10*3/uL RBC (4.60-5.80) X10*6/uL Hgb (14.0-18.0) g/dl Hct (42-52) % MCV (80-98) fL MCH (27.0-33.0) pg MCHC (31.0-36.0) g/dl RDW (11.0-16.0) % Plt Count (160-400) X10*3/uL MPV (9.4-12.4) fL Immature Gran % (Auto) Neut % (Auto) Lymph % (Auto) Starr % (Auto) Eos % (Auto) Baso % (Auto) Lymph # (Auto) Starr # (Auto) Eos # (Auto) Baso # (Auto) Abs Immat Gran (auto) Absolute Neuts (auto) Absolute Nucleated RBC (0.0-0.012) X10*3/uL Nucleated RBC % (auto) (0.0-0.2) /100WBC Neutrophils % (Manual) (45-73) % Band Neutrophils % (3-5) % Lymphocytes % (Manual) (20-40) % Monocytes % (Manual) (2-11) % Eosinophils % (Manual) (0-4) % Metamyelocytes % % Abs Neuts (Manual) (2.2-7.9) X10*3/uL Lymphocytes # (Manual) (0.6-4.8) X10*3/uL Monocytes # (Manual) (0.0-1.2) X10*3/uL Eosinophils # (Manual) (0.0-0.8) X10*3/UL Metamyelocytes # X10*3/uL Nucleated RBCs (0-0) /100WBC Platelet Estimate (NORMAL) Large Platelets Plt Morphology Comment RBC Morphology Polychromasia Hypochromasia Microcytosis Tear Drop Cells Ovalocytes Schistocytes PT 11.8 (10.8-13.0) SEC INR 1.0 (0.9-1.1) APTT 29.0 (24.1-38.0) SEC D-Dimer 431 NG/ML VBG pH (7.32-7.43) VBG pCO2 mmHg VBG pO2 mmHg VBG HCO3 mmol/L VBG O2 Saturation % VBG Base Excess mmol/L Sodium (135-145) mmol/L Potassium (3.3-5.1) mmol/L Chloride (96-108) mmol/L Carbon Dioxide (22-29) mmol/L Anion Gap (12-20) BUN (9-16) mg/dL Creatinine (0.5-1.4) mg/dL Estim Creat Clear Calc Estimated GFR Random Glucose (60-115) mg/dL Lactic Acid (0.5-2.0) mmol/L Lactic Acid Fup @ 2Hr 2.8 H* (0.5-2.0) mmol/L Calcium (8.4-10.2) mg/dL Magnesium (1.6-2.6) mg/dL Total Bilirubin (0.0-1.0) mg/dL AST (5-37) U/L ALT (0-40) U/L Alkaline Phosphatase (39-117) U/L Troponin I High Sens 34.5 (<3.5-35.0) ng/L B-Natriuretic Peptide 972 H (<100) pg/mL Total Protein (6.5-8.0) g/dL Albumin (3.5-5.0) g/dL Lipase (8-78) U/L Acetone, Qual (Negative) Coronavirus (PCR) (Negative) Influenza Type A (PCR) (Negative) Influenza Type B (PCR) (Negative) RSV RNA Qual (PCR) (Negative) ECG Data Attestation: I personally reviewed and interpreted this ECG as follows: Prior ECG tracings: available for review (05/19/2020 no acute changes on comparison) Interpretation: Atrial fibrillation, HR-114, no evidence of acute ischemia, QRS/QTC are within limits. Discharge Plan Discharge Clinical Impression: DVT (deep venous thrombosis) Qualifiers: DVT location: upper extremity Affected thrombotic vein of extremity: axillary Chronicity: acute Laterality: right Qualified Code(s): I82.A11 - Acute embolism and thrombosis of right axillary vein CHF exacerbation Qualifiers: Heart failure type: unspecified Qualified Code(s): I50.9 - Heart failure, unspecified Patient Disposition: Admitted As Inpatient
[2020-08-12] MEDS: Metoprolol Tartrate 5 MG/5 ML VIAL IVPUSH (01:31)
[2020-08-12 01:40] LABS: HCO3 VBG 26 mmol/L; Hematocrit 42.6 % (42-52); Hemoglobin 13.8 g/dl (14.0-18.0); Mean Corpuscular HGB Conc 32.4 g/dl (31.0-36.0); Mean Corpuscular Hemoglobin 26.6 pg (27.0-33.0); Mean Corpuscular Volume 82.2 fL (80-98); Mean Platelet Volume 12.2 fL (9.4-12.4); PCO2 VBG 42 mmHg; PO2 VBG 138 mmHg; Platelet Count 271 X10*3/uL (160-400); Red Blood Count 5.18 X10*6/uL (4.60-5.80); pH VBG 7.38 (7.32-7.43)
[2020-08-12] MEDS: Albuterol Sulfate (0.083%) 2.5 MG/3 ML VIAL.NEB 5 MG INHALE (01:40)
[2020-08-12] MEDS: methylPREDNISolone Sod Succ/PF 125 MG/2 ML VIAL IVPUSH (01:40)
[2020-08-12 01:41] LABS: Base Excess VBG 0.8 mmol/L
--- NOTE | 2020-08-12 01:53 | PC.NURSE ---
UPDRAFT COMPLETE. AUDIBLE WHEEZING RESOLVED. REMIANS IN AFIB AT 113 AT THIS TIME. RESPIRATORY RATE NOW LOW 20S.
[2020-08-12 02:00] LABS: Band Neutrophils Percent 1 % (3-5); Eosinophils Absolute Manual 0.1 X10*3/UL (0.0-0.8); Eosinophils Percent Manual 1 % (0-4); Lymphocytes Absolute Manual 1.8 X10*3/uL (0.6-4.8); Lymphocytes Percent Manual 22 % (20-40); Metamyelocytes Absolute 0.2 X10*3/uL; Metamyelocytes Percent 3 %; Monocytes Absolute Manual 0.7 X10*3/uL (0.0-1.2); Monocytes Percent Manual 9 % (2-11); Neutrophils Absolute Manual 5.2 X10*3/uL (2.2-7.9); Neutrophils Percent Manual 64 % (45-73); Nucleated Red Blood Cells 1 /100WBC (0-0)
[2020-08-12 02:02] LABS: Acetone, serum QL Negative (Negative)
[2020-08-12 02:03] LABS: Microcytosis 2+; RBC Morphology NOTED
[2020-08-12 02:04] LABS: Hypochromasia 1+; Ovalocytes 2+; Platelet Estimate NORMAL (NORMAL); Platelet Morphology Comment NORMAL; Polychromasia 1+; Schistocytes 1+; Tear Drop Cells 1+
[2020-08-12 02:15] LABS: Lactic Acid 2.9 mmol/L (0.5-2.0)
[2020-08-12 02:16] LABS: Alanine Aminotransferase 31 U/L (0-40); Albumin Level 3.9 g/dL (3.5-5.0); Alkaline Phosphatase 114 U/L (39-117); Anion Gap 13 (12-20); Aspartate Amino Transferase 16 U/L (5-37); Bilirubin Total 0.7 mg/dL (0.0-1.0); Blood Urea Nitrogen 22 mg/dL (9-16); Calcium 8.6 mg/dL (8.4-10.2); Carbon Dioxide 25 mmol/L (22-29); Chloride 105 mmol/L (96-108); Creatinine Clr Calc Pharmacy 66.3; Estimated Glomerular Filt Rate > 60; Glucose Random 367 mg/dL (60-115); Lipase 44 U/L (8-78); Potassium 4.2 mmol/L (3.3-5.1); Sodium 139 mmol/L (135-145); Total Protein 5.9 g/dL (6.5-8.0)
--- NOTE | 2020-08-12 02:18 | US_ITS ---
EXAMINATION: US VENOUS WITH DOPPLER UPPER EXTREMITY, RIGHT CLINICAL INFORMATION: Medial erythema/swelling COMPARISON: None TECHNIQUE: Ultrasound of the upper extremity is performed using compression sonography and color and pulse Doppler flow with assessment of augmentation of flow. There is also imaging and Doppler assessment of the jugular and subclavian veins. Spectral analysis with color-flow imaging is performed. FINDINGS: Noncompressible venous segments with no appreciable internal flow are identified in the right subclavian, axillary, and distal basilic vein in keeping with thrombus. Respiratory variation, normal compression, and augmented flow are otherwise noted throughout the upper extremity brachial, cephalic, and radial and ulnar veins. There is normal flow in the visualized internal jugular vein. There is no visible deep or superficial thrombophlebitis. US/US venous duplex UE RT IMPRESSION: Thrombus identified within segments of the subclavian, axillary, and distal basilic veins in the right upper extremity. This critical result was discussed with Dr. Michell Gore on 08/12/2020 4:29 AM, and it was ascertained that the content and urgency of the report was understood at the time of direct communication.
--- NOTE | 2020-08-12 02:19 | CT_ITS ---
EXAMINATION: CT ABDOMEN AND PELVIS WITH CONTRAST CLINICAL INFORMATION: Left lower quadrant pain COMPARISON: 01/25/2020 TECHNIQUE: Multidetector volumetric images were obtained from the superior aspect of the liver through the pubic symphysis following administration 85 mL of Omnipaque 350 intravenous contrast. Sagittal and coronal reformatted images were obtained on the technologist's workstation. Oral contrast: No This CT examination was performed using dose optimization techniques as appropriate, variously including the following: *Automated exposure control *Adjustment of mA and/or kV according to patient size (this includes techniques or standardized protocols for targeted exams where dose is matched to indication/reason for exam; i.e. extremities or head) *Use of iterative reconstruction technique DLP: 746 mGy-cm FINDINGS: LUNG BASES: Small pleural effusions are present. Mild opacity in the inferior lingula suggesting atelectasis. Partially visualized pericardial effusion, presumably small. LIVER, GALLBLADDER, AND BILIARY TREE: The liver is normal in size, shape, and attenuation. No focal hepatic lesion or biliary ductal dilatation is present. Patient is status post cholecystectomy. PANCREAS: Unremarkable. SPLEEN: Unremarkable. ADRENAL GLANDS: Unremarkable. KIDNEYS AND URETERS: The kidneys are normal in size, shape, and attenuation. No hydronephrosis, hydroureter, or obstructing calculi seen. Redemonstrated bilateral renal cysts. BLADDER: Unremarkable. GASTROINTESTINAL TRACT: Colonic suture line is present at the descending/sigmoid colon junction. No wall thickening or evidence of bowel obstruction. Moderate amount of stool is present. The appendix is unremarkable. No free fluid or free air is seen. ABDOMINAL WALL: Small fat-containing inguinal hernias are present. LYMPH NODES: Normal. VASCULAR: There is atherosclerotic calcification along the aorta and iliac arteries. PELVIC VISCERA: Unremarkable. OSSEOUS STRUCTURES: There is degenerative disc disease of the lower lumbar spine. CT/CT abdomen pelvis w con IMPRESSION: 1. No acute findings identified in the abdomen/pelvis. 2. Small pleural effusions. Partially visualized pericardial effusion, presumably small.
[2020-08-12 02:22] LABS: B Type Natriuretic Peptide 972 pg/mL (<100); Troponin-I High Sensitivity 34.5 ng/L (<3.5-35.0)
[2020-08-12] MEDS: LORazepam 2 MG/ML VIAL 0.5 MG IVPUSH (02:25)
[2020-08-12] MEDS: HYDROmorphone HCl 0.5 MG/0.5 ML SYRINGE IVPUSH (02:26)
[2020-08-12 02:47] LABS: Influenza A PCR NEGATIVE (Negative); Influenza B PCR NEGATIVE (Negative); Resp Syncy Virus RNA Qual PCR NEGATIVE (Negative); SARS COV2 PCR INHOUSE NEGATIVE (Negative)
[2020-08-12 03:08] LABS: Prothrombin Time 11.8 SEC (10.8-13.0)
[2020-08-12] MEDS: iohexoL 350 MG/ML 100 ML INFUS..BTL 85 ML IV (03:09)
[2020-08-12 03:38] LABS: Reflex Lactate? Lactic Acid Added
[2020-08-12 03:43] LABS: D Dimer 431 NG/ML
[2020-08-12 04:47] LABS: ~Lactic Acid-LAB USE ONLY 2.8 mmol/L (0.5-2.0)
--- NOTE | 2020-08-12 05:30 | PC.NURSE ---
MULTIPLE PERIPHERAL IV ATTEMPTS TO OBTAIN CTA. UNSUCCESSFUL. DR CASTRO ATTEMPTED TO PLACE A LEFT EJ WITHOUT SUCCESS. A CENTRAL LINE INSERTION WAS ATTEMPTED X2 ON LEFT IJ. HOWEVER PATIENT WAS UNABLE TO REMAIN STILL AND THE PROCEDURE WAS ABORTED DUE TO SAFETY RISK.
[2020-08-12] MEDS: LORazepam 2 MG/ML VIAL 1 MG IVPUSH (06:14)
[2020-08-12] MEDS: Heparin Sodium,Porcine 5,000 UNIT/ML VIAL 8300 UNIT IVPUSH (06:18)
[2020-08-12 06:21] LABS: Reflex Lactate? 2 Y
[2020-08-12] MEDS: Heparin Sodium,Porcine/1/2NS 25,000 UNIT/250 ML IV.SOLN 14.46 UNIT IVCONT (06:23)
--- NOTE | 2020-08-12 06:45 | PC.NURSE ---
DR CHOI ATTEMPTED FOR EJ FOR ACCESS FOR CTA. UNSUCCESSFUL PATIENT WAS NOT ABLE TO TOLERATE LAYING FLAT. PLAN TO CHANGE CTA TO VQ SCAN. AWARE THAT HEPARIN GTT WILL NEED TO BE HELD DURING THE TIME PATIENT IS AT VQ SCAN.
--- NOTE | 2020-08-12 07:59 | PC.NURSE ---
PT IS A/O X 3 NO SOB/LEA NOTED SKIN PINK WARM DRY SPEAKS IN FULL SENTENCES. TOTAL URINE OUTPUT IS 1050. URINE COLOR YELLOW.
[2020-08-12 08:42] LABS: Hematocrit 41.3 % (42-52); Hemoglobin 13.2 g/dl (14.0-18.0); Mean Corpuscular Hemoglobin 26.3 pg (27.0-33.0); Mean Corpuscular Volume 82.4 fL (80-98); Mean Platelet Volume 11.7 fL (9.4-12.4); Platelet Count 223 X10*3/uL (160-400); Red Blood Count 5.01 X10*6/uL (4.60-5.80); Red Cell Distribution Width 16.1 % (11.0-16.0); White Blood Count 9.3 X10*3/uL (4.8-10.8)
[2020-08-12 08:46] LABS: INTERNATIONAL NORM RATIO 1.2 (0.9-1.1); Prothrombin Time 13.9 SEC (10.8-13.0)
[2020-08-12 08:59] LABS: ~Lactic Acid-LAB USE ONLY 2.1 mmol/L (0.5-2.0)
[2020-08-12] MEDS: Furosemide 20 MG/2 ML VIAL IVPUSH (09:20)
--- NOTE | 2020-08-12 10:02 | P.HPHOSP_ITS ---
History of Present Illness Date of Service: 08/12/20 <Maddie Fuentes NP - Last Filed: 08/13/20 20:35> Chief Complaint: Arm pain <Maddie Fuenets NP - Last Filed: 08/13/20 20:35> 65 year old man presenting with multiple complaints including right arm and chest pain that started He had shortness of breath while on CPAP. He does have a history of COPD and atrial fibrillation on Eliquis he reported that he may have missed a dose or two . He denied fever, chills, nausea, vomiting, diarrhea. He did report some swelling to his right upper extremity and left quadrant pain. Right upper extremity venous doppler ultrasound showed multiple thrombus, however this is chronic, VQ is pending to assess for pulmonary embolus. He is on Eliquis currently for afib. Tachycardia and tachypnea noted without hypoxia. His BNP was noted to be elevated 972 with history of congestive heart failure. He was started on IV heparin drip in the ER. He was also given a dose of IV Lasix. <Maddie Fuentes NP - Last Filed: 08/13/20 20:35> Review of Systems Review of Systems: Denies any recent fever chills or decrease in appetite respiratory denies See above cardiovascular is adjustment of any PND or edema gastrointestinal denies any dysphagia abdominal pain nausea vomiting or diarrhea genitourinary denies any dysuria frequency or hematuria musculoskeletal Right arm pain neuropsych denies any weakness or seizures all other systems reviewed are negative <Maddie Fuentes NP - Last Filed: 08/13/20 20:35> [facility] Medical History: Medical History (Updated 08/20/20 @ 00:01 by Crystal Gomes) Adjustment disorder with anxious mood Asthma Atrial fibrillation BPH (benign prostatic hyperplasia) CAD (coronary artery disease) CHF (congestive heart failure) COPD (chronic obstructive pulmonary disease) Diabetes mellitus, type 2 GERD (gastroesophageal reflux disease) HTN (hypertension) ELI (obstructive sleep apnea) Systolic CHF <Maddie Fuentes NP - Last Filed: 08/13/20 20:35> Family History: Family History Other HTN (hypertension) <Maddie Fuentes NP - Last Filed: 08/13/20 20:35> Surgical History: Surgical History (Updated 08/15/20 @ 14:24 by Antoine High MD) History of tracheostomy S/P diskectomy S/P partial colectomy <Maddie Fuentes NP - Last Filed: 08/13/20 20:35> Social History: Social History Household Members: Family Housing: House Alcohol intake: never Smoking Status: Former smoker Tobacco Type: Cigarette Packs Per Day: 0.25 Years Smoked: 50 Second Hand Smoke Exposure: Yes Advance Directives Date on File: 04/18/20 service: No Current occupational status: disabled <Maddie Fuentes NP - Last Filed: 08/13/20 20:35> Meds Allergies/Adverse reactions: Allergies Allergy/AdvReac Type Severity Reaction Status Date / Time nitroglycerin [NITROGLYCERIN] Allergy Severe CARDIOPULMONARY Verified 08/12/20 22:18 ARREST 2012 adhesive tape [Adhesive Tape] Allergy Mild BLISTERS Verified 08/12/20 22:18 cephalexin [From Keflex] Allergy Unknown ITCHING Verified 08/12/20 22:18 ciprofloxacin [From Cipro] Allergy Unknown ITCHING Verified 08/12/20 22:18 latex [LATEX] Allergy Unknown UNKNOWN Verified 08/12/20 22:18 morphine [Morphine] Allergy Unknown ITCHING Verified 08/12/20 22:18 diltiazem Allergy Unknown Verified 08/12/20 22:18 tramadol [From ULTRAM] AdvReac Severe STOMACH Verified 08/12/20 22:18 UPSET <Maddie Fuentes NP - Last Filed: 08/13/20 20:35> Home medications: Home Medications Medication Instructions Recorded Confirmed Type Incruse Ellipta 1 inh INHALATION DAILY 04/17/20 08/13/20 History albuterol sulfate [Ventolin HFA] 2 puff PO Q4-6H PRN 04/17/20 08/13/20 History amlodipine 1 tab PO DAILY 04/17/20 08/13/20 History atorvastatin 80 mg PO BEDTIME 04/17/20 08/13/20 History furosemide 40 mg PO DAILY 04/17/20 08/13/20 History gabapentin 1 cap PO TID 04/17/20 08/13/20 History insulin aspart U-100 [Novolog 8 unit SUBCUT TIDAC 04/17/20 08/13/20 History Flexpen U-100 Insulin] losartan 1 tab PO DAILY 04/17/20 08/13/20 History montelukast 10 mg PO BEDTIME 04/17/20 08/13/20 History pantoprazole [Protonix] 40 mg PO DAILY 04/17/20 08/13/20 History quetiapine 100 mg PO BEDTIME 04/17/20 08/13/20 History tamsulosin 1 cap PO DAILY 04/17/20 08/13/20 History aspirin 81 mg PO DAILY 08/12/20 08/13/20 History clopidogrel 1 tab PO DAILY 08/12/20 08/13/20 History ipratropium-albuterol 1 amp INHALATION QID 08/12/20 08/13/20 History <Maddie Fuentes NP - Last Filed: 08/13/20 20:35> Physical Exam Vital Signs and Narrative: Vital Signs: Last Vital Signs Temp 97.7 F 08/12/20 07:51 Pulse 113 H 08/12/20 09:18 Resp 15 08/12/20 09:18 BP 132/85 08/12/20 09:18 Pulse Ox 95 08/12/20 09:18 Body Mass Index 39.0 <Maddie Fuentes NP - Last Filed: 08/13/20 20:35> Appearing in no acute distress head is normocephalic atraumatic eyes pupils are PERRLA sclera is anicteric mouth throat mucous membranes are intact and moist neck is supple no lymphadenopathy, no JVD noted lung sounds exp wheezes heart regular rate tachycardia positive bowel sounds, abdomen is soft, nontender neuro patient is alert x3, no focal deficits <Maddie Fuentes NP - Last Filed: 08/13/20 20:35> Results Labs CBC and Chem 7: : 08/12/20 08:29 08/12/20 01:33 <Maddie Fuentes NP - Last Filed: 08/13/20 20:35> Labs: Laboratory Results - last 24 hr 08/12/20 08/12/20 08/12/20 01:33 01:33 01:33 MCV 82.2 MCH 26.6 L MCHC 32.4 RDW 16.0 Plt Count 271 D MPV 12.2 Immature Gran % (Auto) Cancelled Neut % (Auto) Cancelled Lymph % (Auto) Cancelled [place] % (Auto) Cancelled Eos % (Auto) Cancelled Baso % (Auto) Cancelled Lymph # (Auto) Cancelled [place] # (Auto) Cancelled Eos # (Auto) Cancelled Baso # (Auto) Cancelled Abs Immat Gran (auto) Cancelled Absolute Neuts (auto) Cancelled Absolute Nucleated RBC 0.000 Nucleated RBC % (auto) 0.0 Neutrophils % (Manual) 64 Band Neutrophils % 1 L Lymphocytes % (Manual) 22 Monocytes % (Manual) 9 Eosinophils % (Manual) 1 Metamyelocytes % 3 Abs Neuts (Manual) 5.2 Lymphocytes # (Manual) 1.8 Monocytes # (Manual) 0.7 Eosinophils # (Manual) 0.1 Metamyelocytes # 0.2 Nucleated RBCs 1 H Platelet Estimate NORMAL Large Platelets Plt Morphology Comment NORMAL RBC Morphology NOTED Polychromasia 1+ Hypochromasia 1+ Microcytosis 2+ Tear Drop Cells 1+ Ovalocytes 2+ Schistocytes 1+ PT INR APTT D-Dimer VBG pH VBG pCO2 VBG pO2 VBG HCO3 VBG O2 Saturation VBG Base Excess Anion Gap 13 Estim Creat Clear Calc 66.3 Estimated GFR > 60 Random Glucose 367 H* Lactic Acid 2.9 H* Lactic Acid Fup @ 2Hr Lactic Acid Fup @ 4Hr Calcium 8.6 Magnesium 2.0 Total Bilirubin 0.7 AST 16 ALT 31 Alkaline Phosphatase 114 D Troponin I High Sens B-Natriuretic Peptide Total Protein 5.9 L Albumin 3.9 Lipase 44 Acetone, Qual Negative Coronavirus (PCR) Influenza Type A (PCR) Influenza Type B (PCR) RSV RNA Qual (PCR) 08/12/20 08/12/20 08/12/20 01:33 01:33 01:33 MCV MCH MCHC RDW Plt Count MPV Immature Gran % (Auto) Neut % (Auto) Lymph % (Auto) [place] % (Auto) Eos % (Auto) Baso % (Auto) Lymph # (Auto) [place] # (Auto) Eos # (Auto) Baso # (Auto) Abs Immat Gran (auto) Absolute Neuts (auto) Absolute Nucleated RBC Nucleated RBC % (auto) Neutrophils % (Manual) Band Neutrophils % Lymphocytes % (Manual) Monocytes % (Manual) Eosinophils % (Manual) Metamyelocytes % Abs Neuts (Manual) Lymphocytes # (Manual) Monocytes # (Manual) Eosinophils # (Manual) Metamyelocytes # Nucleated RBCs Platelet Estimate Large Platelets Plt Morphology Comment RBC Morphology Polychromasia Hypochromasia Microcytosis Tear Drop Cells Ovalocytes Schistocytes PT INR APTT D-Dimer VBG pH 7.38 VBG pCO2 42 VBG pO2 138 VBG HCO3 26 VBG O2 Saturation 99.0 VBG Base Excess 0.8 Anion Gap Estim Creat Clear Calc Estimated GFR Random Glucose Lactic Acid Lactic Acid Fup @ 2Hr Lactic Acid Fup @ 4Hr Calcium Magnesium Total Bilirubin AST ALT Alkaline Phosphatase Troponin I High Sens B-Natriuretic Peptide Total Protein Albumin Lipase Acetone, Qual Cancelled Coronavirus (PCR) NEGATIVE Influenza Type A (PCR) NEGATIVE Influenza Type B (PCR) NEGATIVE RSV RNA Qual (PCR) NEGATIVE 08/12/20 08/12/20 08/12/20 01:33 02:56 04:16 MCV MCH MCHC RDW Plt Count MPV Immature Gran % (Auto) Neut % (Auto) Lymph % (Auto) [place] % (Auto) Eos % (Auto) Baso % (Auto) Lymph # (Auto) [place] # (Auto) Eos # (Auto) Baso # (Auto) Abs Immat Gran (auto) Absolute Neuts (auto) Absolute Nucleated RBC Nucleated RBC % (auto) Neutrophils % (Manual) Band Neutrophils % Lymphocytes % (Manual) Monocytes % (Manual) Eosinophils % (Manual) Metamyelocytes % Abs Neuts (Manual) Lymphocytes # (Manual) Monocytes # (Manual) Eosinophils # (Manual) Metamyelocytes # Nucleated RBCs Platelet Estimate Large Platelets Plt Morphology Comment RBC Morphology Polychromasia Hypochromasia Microcytosis Tear Drop Cells Ovalocytes Schistocytes PT 11.8 INR 1.0 APTT 29.0 D-Dimer 431 VBG pH VBG pCO2 VBG pO2 VBG HCO3 VBG O2 Saturation VBG Base Excess Anion Gap Estim Creat Clear Calc Estimated GFR Random Glucose Lactic Acid Lactic Acid Fup @ 2Hr 2.8 H* Lactic Acid Fup @ 4Hr Calcium Magnesium Total Bilirubin AST ALT Alkaline Phosphatase Troponin I High Sens 34.5 B-Natriuretic Peptide 972 H Total Protein Albumin Lipase Acetone, Qual Coronavirus (PCR) Influenza Type A (PCR) Influenza Type B (PCR) RSV RNA Qual (PCR) 08/12/20 08/12/20 08/12/20 08:29 08:29 08:29 MCV 82.4 MCH 26.3 L MCHC 32.0 RDW 16.1 H Plt Count 223 MPV 11.7 Immature Gran % (Auto) Neut % (Auto) Lymph % (Auto) [place] % (Auto) Eos % (Auto) Baso % (Auto) Lymph # (Auto) [place] # (Auto) Eos # (Auto) Baso # (Auto) Abs Immat Gran (auto) Absolute Neuts (auto) Absolute Nucleated RBC 0.000 Nucleated RBC % (auto) 0.0 Neutrophils % (Manual) Band Neutrophils % Lymphocytes % (Manual) Monocytes % (Manual) Eosinophils % (Manual) Metamyelocytes % Abs Neuts (Manual) Lymphocytes # (Manual) Monocytes # (Manual) Eosinophils # (Manual) Metamyelocytes # Nucleated RBCs Platelet Estimate Large Platelets Plt Morphology Comment RBC Morphology Polychromasia Hypochromasia Microcytosis Tear Drop Cells Ovalocytes Schistocytes PT 13.9 H INR 1.2 H APTT D-Dimer VBG pH VBG pCO2 VBG pO2 VBG HCO3 VBG O2 Saturation VBG Base Excess Anion Gap Estim Creat Clear Calc Estimated GFR Random Glucose Lactic Acid Lactic Acid Fup @ 2Hr Lactic Acid Fup @ 4Hr 2.1 H* Calcium Magnesium Total Bilirubin AST ALT Alkaline Phosphatase Troponin I High Sens B-Natriuretic Peptide Total Protein Albumin Lipase Acetone, Qual Coronavirus (PCR) Influenza Type A (PCR) Influenza Type B (PCR) RSV RNA Qual (PCR) <Maddie Fuentes NP - Last Filed: 08/13/20 20:35> Imaging Radiologist's Impressions: Impressions Chest X-Ray 08/12/20 01:19 IMPRESSION: Mild right basilar opacity which could reflect atelectasis. Trace pleural effusions cannot be excluded. Enlarged cardiac silhouette. Venous Duplex 08/12/20 02:18 IMPRESSION: Thrombus identified within segments of the subclavian, axillary, and distal basilic veins in the right upper extremity. This critical result was discussed with Dr. Michell Gore on 08/12/2020 4:29 AM, and it was ascertained that the content and urgency of the report was understood at the time of direct communication. Abdomen/Pelvis CT 08/12/20 02:19 IMPRESSION: 1. No acute findings identified in the abdomen/pelvis. 2. Small pleural effusions. Partially visualized pericardial effusion, presumably small. <Maddie Fuentes NP - Last Filed: 08/13/20 20:35> Assessment and Plan (1) DVT (deep venous thrombosis): Qualifiers: Affected thrombotic vein of extremity: axillary Chronicity: acute DVT location: upper extremity Laterality: right Qualified Code(s): I82.A11 - Acute embolism and thrombosis of right axillary vein <Maddie Fuentes NP - Last Filed: 08/13/20 20:35> Status: Acute <Maddie Fuentes NP - Last Filed: 08/13/20 20:35> 65 year old man admitted with new DVT to right upper extremity. Patient on Eliquis for Afib. Upper extremity DVT. Unprovoked. On Heparin drip, Hematology consultation. VQ scan to assess for possible PE COPD exacerbation. Mild. Steroids, Duonebs. HFrEF. Elevated BNP, IV Lasix. Diabetes. Sliding scale, ADA diet CAD. Asa, plavix, BB, statin HTN. Amlodipine, Losartan. DVT prophylaxis with Heparin Discussed with Dr. Sanchez Full code <Maddie Fuentes NP - Last Filed: 08/13/20 20:35>
--- NOTE | 2020-08-12 11:40 | PC.NURSE ---
pt moved to main er, bed 12. nurse to nurse given to katalina (ariel). pt aware of plan of care.
[2020-08-12] MEDS: Albuterol Sulfate (0.083%) 2.5 MG/3 ML VIAL.NEB INHALE (11:56)
[2020-08-12 12:27] LABS: Glucose, Whole Blood 408 mg/dL (60-115)
[2020-08-12] MEDS: Insulin Lispro 100 UNIT/ML 3 ML VIAL 8 UNIT SUBCUT (12:51)
[2020-08-12] MEDS: Metoprolol Succinate ER 25 MG TAB.ER.24H 75 MG PO (12:51)
[2020-08-12 12:53] LABS: PTT Heparin Drip 110.3 SEC (53-77.9)
--- NOTE | 2020-08-12 16:05 | PM.EVENT ---
Event Note Date of Service: 08/12/20 Event Note: 65-year-old male well known to [facility] who presents with complaints of right arm and chest pain along with difficulty breathing. Workup in the ED showed a right upper extremity DVT which patient has been previously diagnosed with at [facility]. Was started on IV heparin drip (felt by the ED provider, that this was Eliquis failure.) Upon further questioning, the patient does endorse he may have missed several doses but typically does take it. V/Q scan negative for PE. For now will continue IV heparin. Christiane sided Hematology who recommended to compare his current right upper quadrant ultrasound with the ultrasound at [facility] to see if the clot is new/enlarging.. Will see if Radiology can do this. Patient seen and examined. Case discussed with Maddie Fuentes NP. Agree with her history and physical.
[2020-08-12] MEDS: 0.9 % Sodium Chloride Flush 3 ML SYRINGE IVFLUSH (16:26)
--- NOTE | 2020-08-12 18:02 | PM.EVENT ---
Event Note Date of Service: 08/12/20 Event Note: Informed that the patient had eloped from the emergency room. Patient called on his cell phone at [phone] to inform him about the risks of leaving against medical advice and to return to the emergency room. Patient tells me that he is already back waiting in the waiting room in the ED and willing to be admitted and stay for treatment.
--- NOTE | 2020-08-13 11:56 | PM.HEMONCCN ---
Subjective - Subjective Chief complaint: Rt upper extremity DVT Patient: new to practice Consult date: 08/13/20 Primary Care Provider: Unknown Physician HPI - Consult Narrative Reason for consult: Recurrent right upper extremity DVT Narrative: Macho Guerra is a 65 year old male who came in complaining of abdominal pain, shortness of breath as well as pain in his right upper medial arm. He has multiple medical problems, he was admitted in the fall of 2019 to [facility] with respiratory distress related to his heart. At that time he was diagnosed with right upper extremity DVT and was started on Eliquis which he has been taking. He says he has half-way atrial fibrillation, he was on warfarin for several years but he was taken off Coumadin because his INRs could not be regulated /kept in the therapeutic range. He had been off warfarin for several years but was taking aspirin and Plavix when he developed the blood clot in his right upper extremity. He says that he has more pain in his right medial upper arm and there is redness associated with it which developed a few days back. He has been compliant with Eliquis. He is a long-term smoker, he just quit smoking in May 2020 when he was diagnosed with a spot in his lung. He does not recall family history of thrombosis. Review of Systems - Constitutional Reports no additional constitutional complaints - Cardiovascular Reports no additional cardiovascular complaints, Denies chest pain with activity, Denies excessive sweating, Denies fainting, Reports foot swelling - Respiratory Reports no additional respiratory complaints, Reports cough, Reports dyspnea, Reports wheezing - Gastrointestinal Reports abdominal pain, Denies bright, red blood in stools, Denies change in stools Oncology Screenings - ECOG Performance Status ECOG Performance Status: 2 [facility] Medical History: Medical History (Last Reviewed 08/13/20 @ 01:30 by Michell Gore MD) Adjustment disorder with anxious mood Asthma Atrial fibrillation BPH (benign prostatic hyperplasia) CAD (coronary artery disease) COPD (chronic obstructive pulmonary disease) Diabetes mellitus, type 2 GERD (gastroesophageal reflux disease) HTN (hypertension) ELI (obstructive sleep apnea) Systolic CHF Family History: Family History (Last Reviewed 08/13/20 @ 01:30 by Michell Gore MD) Other HTN (hypertension) Surgical History: Surgical History (Last Reviewed 08/13/20 @ 01:30 by Michell Gore MD) History of tracheostomy S/P diskectomy Social History: Social History (Last Reviewed 02/02/21 @ 01:30 by Michell Gore MD) Living Situation History: Household Members: Family Housing: Apartment Alcohol History: Alcohol intake: never Alcohol History Details: Alcohol intake frequency: does not drink Alcohol type: beer Tobacco History: Tobacco Type: Cigarette Packs Per Day: 0.25 Cigarettes Per Day: 5.0 Smoked in Last 30 Days: No Second Hand Smoke Exposure: Yes Advance Directives: Advance Directives: No Advance Directives Information Provided: Advance Directives Information Provided comment: declined Advance Directives Date on File: 04/18/20 Occupation Assessmet: service: No Current occupational status: disabled Smoking status: Never smoker Home Medications and Allergies Home Medications Medication Instructions Recorded Confirmed Type Incruse Ellipta 1 inh INHALATION DAILY 04/17/20 08/13/20 History albuterol sulfate [Ventolin HFA] 2 puff PO Q4-6H PRN 04/17/20 08/13/20 History amlodipine 1 tab PO DAILY 04/17/20 08/13/20 History atorvastatin 80 mg PO BEDTIME 04/17/20 08/13/20 History furosemide 40 mg PO DAILY 04/17/20 08/13/20 History gabapentin 1 cap PO TID 04/17/20 08/13/20 History insulin aspart U-100 [Novolog 8 unit SUBCUT TIDAC 04/17/20 08/13/20 History Flexpen U-100 Insulin] losartan 1 tab PO DAILY 04/17/20 08/13/20 History montelukast 10 mg PO BEDTIME 04/17/20 08/13/20 History pantoprazole [Protonix] 40 mg PO DAILY 04/17/20 08/13/20 History quetiapine 100 mg PO BEDTIME 04/17/20 08/13/20 History tamsulosin 1 cap PO DAILY 04/17/20 08/13/20 History aspirin 81 mg PO DAILY 08/12/20 08/13/20 History clopidogrel 1 tab PO DAILY 08/12/20 08/13/20 History ipratropium-albuterol 1 amp INHALATION QID 08/12/20 08/13/20 History Allergies Allergy/AdvReac Type Severity Reaction Status Date / Time nitroglycerin [NITROGLYCERIN] Allergy Severe CARDIOPULMONARY Verified 08/12/20 22:18 ARREST 2011 adhesive tape [Adhesive Tape] Allergy Mild BLISTERS Verified 08/12/20 22:18 cephalexin [From Keflex] Allergy Unknown ITCHING Verified 08/12/20 22:18 ciprofloxacin [From Cipro] Allergy Unknown ITCHING Verified 08/12/20 22:18 latex [LATEX] Allergy Unknown UNKNOWN Verified 08/12/20 22:18 morphine [Morphine] Allergy Unknown ITCHING Verified 08/12/20 22:18 diltiazem Allergy Unknown Verified 08/12/20 22:18 tramadol [From ULTRAM] AdvReac Severe STOMACH Verified 08/12/20 22:18 UPSET Physical Exam Vital signs: Vital Signs Temp 97.7 F 08/12/20 07:51 Pulse 124 H 08/12/20 12:51 Resp 15 08/12/20 09:18 BP 132/83 08/12/20 12:51 Pulse Ox 95 08/12/20 09:18 Weight 103.3 kg - Constitutional Present: mild distress - Routine HEENT Exam Head: Present: normal inspection Eye: Present: EOMI - Routine Neck Exam Absent: JVD - Routine Respiratory Exam Present: decreased breath sounds - Routine Cardiovascular Exam Cardiovascular: Present: S1, S2 - Detailed Upper Extremity Exam Shoulder/Upper Arm: Right swelling, Right tenderness, Right erythema Hem/Onc Consult Result - Labs CBC & Chem 7: 08/12/20 08:29 08/12/20 01:33 Assessment and Plan (1) DVT (deep venous thrombosis) Status: Acute Qualifiers: DVT location: upper extremity Affected thrombotic vein of extremity: axillary Chronicity: acute Laterality: right Qualified Code(s): I82.A11 - Acute embolism and thrombosis of right axillary vein 1. This is a 65-year-old male with multiple comorbidities admitted with right upper extremity DVT. Apparently, this was initially diagnosed at [facility] in the fall of 2019 when he was admitted with respiratory distress secondary to congestive heart failure. He was started on Eliquis which he was taking until yesterday, reports being compliant with medication use. For his atrial fibrillation he has been on Plavix and aspirin for the last for 3-4 years, warfarin was discontinued because it was very hard to regulate his INRs. He appears to have failed Eliquis. He is symptomatic from DVT in his right upper extremity, I have asked the radiologist to obtain the scan from [facility] and compare with the current Doppler. He is currently on unfractionated IV heparin, he can be transitioned to subcutaneous heparin b.i.d. He is willing to give himself Lovenox shots, he can be maintained on Lovenox or switched to Xarelto. Agree with evaluation to rule out pulmonary embolism. He also states that he was diagnosed with a lung nodule which was suspicious for malignancy, therefore a CT chest would be advisable incase underlying malignancy is the cause for DVT. He was advised about abstaining from smoking. No thrombophilia workup is necessary at this time. I thank you for this consultation.
--- NOTE | 2020-08-22 07:31 | PM.DS ---
DS: Providers Provider Date of Service: 08/12/20 Date of admission: 08/12/20 10:00 Primary care physician: Unknown Physician Consults: 08/12/20 10:00 Consult to Hematology / Oncology Routine Consulting Provider: Scarlett Hong Reason for consultation: new right arm dvt on eliquis for afib Has provider been notified: No DS: Diagnosis Discharge Diagnosis (1) DVT (deep venous thrombosis): Status: Acute (2) COPD exacerbation: Status: Acute (3) CHF exacerbation: Status: Acute DS: Medications Discharge Medications Home Medications: Home Medications Medication Instructions Recorded Confirmed Incruse Ellipta 1 inh INHALATION DAILY 04/17/20 08/13/20 albuterol sulfate [Ventolin HFA] 2 puff PO Q4-6H PRN 04/17/20 08/13/20 amlodipine 1 tab PO DAILY 04/17/20 08/13/20 atorvastatin 80 mg PO BEDTIME 04/17/20 08/13/20 furosemide 40 mg PO DAILY 04/17/20 08/13/20 gabapentin 1 cap PO TID 04/17/20 08/13/20 insulin aspart U-100 [Novolog 8 unit SUBCUT TIDAC 04/17/20 08/13/20 Flexpen U-100 Insulin] losartan 1 tab PO DAILY 04/17/20 08/13/20 montelukast 10 mg PO BEDTIME 04/17/20 08/13/20 pantoprazole [Protonix] 40 mg PO DAILY 04/17/20 08/13/20 quetiapine 100 mg PO BEDTIME 04/17/20 08/13/20 tamsulosin 1 cap PO DAILY 04/17/20 08/13/20 aspirin 81 mg PO DAILY 08/12/20 08/13/20 clopidogrel 1 tab PO DAILY 08/12/20 08/13/20 ipratropium-albuterol 1 amp INHALATION QID 08/12/20 08/13/20 Previous Rx's Medication Instructions Recorded metoprolol succinate 75 mg PO DAILY #45 tab 05/24/20 rivaroxaban [Xarelto] 15 mg PO BIDWM #29 tab 08/17/20 rivaroxaban [Xarelto] 20 mg PO DAILY #30 tab 08/17/20 hydrocortisone [Proctozone-HC] 1 appl [place] BID #30 g 08/19/20 DS: Summary Hospital Course Hospital Course: Patient was to be admitted for COPD, CHF, DVT. He eloped from the emergency room only to return several hours of later and be readmitted. For full details, see the hospital course. Time Spent with Patient Time attestation: Total time spent providing and/or coordinating discharge services: Discharge coordination time: Less than 30 minutes Physical Exam Vital Signs: Vital Signs: Last Vital Signs Temp 97.7 F 08/12/20 07:51 Pulse 124 H 08/12/20 12:51 Resp 15 08/12/20 09:18 BP 132/83 08/12/20 12:51 Pulse Ox 95 08/12/20 09:18 Body Mass Index 39.0 Const: Other: eloped DS: Data Data Completed and Pending Completed studies during hospitalization [Text1]: Procedures Assistance with Respiratory Ventilation, Less than 24 Consecutive Hours, Continuous Positive Airway Pressure (05/03/20) Inspection of Lower Intestinal Tract, Via Natural or Artificial Opening Endoscopic (08/12/20) Labs on day of discharge: Laboratory Tests 08/12/20 08/12/20 08/12/20 01:33 01:33 01:33 WBC 8.0 RBC 5.18 Hgb 13.8 L Hct 42.6 MCV 82.2 MCH 26.6 L MCHC 32.4 RDW 16.0 Plt Count 271 D MPV 12.2 Immature Gran % (Auto) Cancelled Neut % (Auto) Cancelled Lymph % (Auto) Cancelled [place] % (Auto) Cancelled Eos % (Auto) Cancelled Baso % (Auto) Cancelled Lymph # (Auto) Cancelled [place] # (Auto) Cancelled Eos # (Auto) Cancelled Baso # (Auto) Cancelled Abs Immat Gran (auto) Cancelled Absolute Neuts (auto) Cancelled Absolute Nucleated RBC 0.000 Nucleated RBC % (auto) 0.0 Neutrophils % (Manual) 64 Band Neutrophils % 1 L Lymphocytes % (Manual) 22 Monocytes % (Manual) 9 Eosinophils % (Manual) 1 Metamyelocytes % 3 Abs Neuts (Manual) 5.2 Lymphocytes # (Manual) 1.8 Monocytes # (Manual) 0.7 Eosinophils # (Manual) 0.1 Metamyelocytes # 0.2 Nucleated RBCs 1 H Platelet Estimate NORMAL Large Platelets Plt Morphology Comment NORMAL RBC Morphology NOTED Polychromasia 1+ Hypochromasia 1+ Microcytosis 2+ Tear Drop Cells 1+ Ovalocytes 2+ Schistocytes 1+ Smear Path Review SEE NOTE PT INR APTT PTT (Heparin Protocol) D-Dimer VBG pH VBG pCO2 VBG pO2 VBG HCO3 VBG O2 Saturation VBG Base Excess Sodium 139 Potassium 4.2 Chloride 105 Carbon Dioxide 25 Anion Gap 13 BUN 22 H Creatinine 1.20 Estim Creat Clear Calc 66.3 Estimated GFR > 60 POC Glucose Random Glucose 367 H* Lactic Acid 2.9 H* Lactic Acid Fup @ 2Hr Lactic Acid Fup @ 4Hr Calcium 8.6 Magnesium 2.0 Total Bilirubin 0.7 AST 16 ALT 31 Alkaline Phosphatase 114 D Troponin I High Sens B-Natriuretic Peptide Total Protein 5.9 L Albumin 3.9 Lipase 44 Acetone, Qual Negative Coronavirus (PCR) Influenza Type A (PCR) Influenza Type B (PCR) RSV RNA Qual (PCR) 08/12/20 08/12/20 08/12/20 01:33 01:33 01:33 WBC RBC Hgb Hct MCV MCH MCHC RDW Plt Count MPV Immature Gran % (Auto) Neut % (Auto) Lymph % (Auto) [place] % (Auto) Eos % (Auto) Baso % (Auto) Lymph # (Auto) [place] # (Auto) Eos # (Auto) Baso # (Auto) Abs Immat Gran (auto) Absolute Neuts (auto) Absolute Nucleated RBC Nucleated RBC % (auto) Neutrophils % (Manual) Band Neutrophils % Lymphocytes % (Manual) Monocytes % (Manual) Eosinophils % (Manual) Metamyelocytes % Abs Neuts (Manual) Lymphocytes # (Manual) Monocytes # (Manual) Eosinophils # (Manual) Metamyelocytes # Nucleated RBCs Platelet Estimate Large Platelets Plt Morphology Comment RBC Morphology Polychromasia Hypochromasia Microcytosis Tear Drop Cells Ovalocytes Schistocytes Smear Path Review PT INR APTT PTT (Heparin Protocol) D-Dimer VBG pH 7.38 VBG pCO2 42 VBG pO2 138 VBG HCO3 26 VBG O2 Saturation 99.0 VBG Base Excess 0.8 Sodium Potassium Chloride Carbon Dioxide Anion Gap BUN Creatinine Estim Creat Clear Calc Estimated GFR POC Glucose Random Glucose Lactic Acid Lactic Acid Fup @ 2Hr Lactic Acid Fup @ 4Hr Calcium Magnesium Total Bilirubin AST ALT Alkaline Phosphatase Troponin I High Sens B-Natriuretic Peptide Total Protein Albumin Lipase Acetone, Qual Cancelled Coronavirus (PCR) NEGATIVE Influenza Type A (PCR) NEGATIVE Influenza Type B (PCR) NEGATIVE RSV RNA Qual (PCR) NEGATIVE 08/12/20 08/12/20 08/12/20 01:33 02:56 04:16 WBC RBC Hgb Hct MCV MCH MCHC RDW Plt Count MPV Immature Gran % (Auto) Neut % (Auto) Lymph % (Auto) [place] % (Auto) Eos % (Auto) Baso % (Auto) Lymph # (Auto) [place] # (Auto) Eos # (Auto) Baso # (Auto) Abs Immat Gran (auto) Absolute Neuts (auto) Absolute Nucleated RBC Nucleated RBC % (auto) Neutrophils % (Manual) Band Neutrophils % Lymphocytes % (Manual) Monocytes % (Manual) Eosinophils % (Manual) Metamyelocytes % Abs Neuts (Manual) Lymphocytes # (Manual) Monocytes # (Manual) Eosinophils # (Manual) Metamyelocytes # Nucleated RBCs Platelet Estimate Large Platelets Plt Morphology Comment RBC Morphology Polychromasia Hypochromasia Microcytosis Tear Drop Cells Ovalocytes Schistocytes Smear Path Review PT 11.8 INR 1.0 APTT 29.0 PTT (Heparin Protocol) D-Dimer 431 VBG pH VBG pCO2 VBG pO2 VBG HCO3 VBG O2 Saturation VBG Base Excess Sodium Potassium Chloride Carbon Dioxide Anion Gap BUN Creatinine Estim Creat Clear Calc Estimated GFR POC Glucose Random Glucose Lactic Acid Lactic Acid Fup @ 2Hr 2.8 H* Lactic Acid Fup @ 4Hr Calcium Magnesium Total Bilirubin AST ALT Alkaline Phosphatase Troponin I High Sens 34.5 B-Natriuretic Peptide 972 H Total Protein Albumin Lipase Acetone, Qual Coronavirus (PCR) Influenza Type A (PCR) Influenza Type B (PCR) RSV RNA Qual (PCR) 08/12/20 08/12/20 08/12/20 08:29 08:29 08:29 WBC 9.3 RBC 5.01 Hgb 13.2 L Hct 41.3 L MCV 82.4 MCH 26.3 L MCHC 32.0 RDW 16.1 H Plt Count 223 MPV 11.7 Immature Gran % (Auto) Neut % (Auto) Lymph % (Auto) [place] % (Auto) Eos % (Auto) Baso % (Auto) Lymph # (Auto) [place] # (Auto) Eos # (Auto) Baso # (Auto) Abs Immat Gran (auto) Absolute Neuts (auto) Absolute Nucleated RBC 0.000 Nucleated RBC % (auto) 0.0 Neutrophils % (Manual) Band Neutrophils % Lymphocytes % (Manual) Monocytes % (Manual) Eosinophils % (Manual) Metamyelocytes % Abs Neuts (Manual) Lymphocytes # (Manual) Monocytes # (Manual) Eosinophils # (Manual) Metamyelocytes # Nucleated RBCs Platelet Estimate Large Platelets Plt Morphology Comment RBC Morphology Polychromasia Hypochromasia Microcytosis Tear Drop Cells Ovalocytes Schistocytes Smear Path Review PT 13.9 H INR 1.2 H APTT PTT (Heparin Protocol) D-Dimer VBG pH VBG pCO2 VBG pO2 VBG HCO3 VBG O2 Saturation VBG Base Excess Sodium Potassium Chloride Carbon Dioxide Anion Gap BUN Creatinine Estim Creat Clear Calc Estimated GFR POC Glucose Random Glucose Lactic Acid Lactic Acid Fup @ 2Hr Lactic Acid Fup @ 4Hr 2.1 H* Calcium Magnesium Total Bilirubin AST ALT Alkaline Phosphatase Troponin I High Sens B-Natriuretic Peptide Total Protein Albumin Lipase Acetone, Qual Coronavirus (PCR) Influenza Type A (PCR) Influenza Type B (PCR) RSV RNA Qual (PCR) 08/12/20 08/12/20 12:09 12:24 WBC RBC Hgb Hct MCV MCH MCHC RDW Plt Count MPV Immature Gran % (Auto) Neut % (Auto) Lymph % (Auto) [place] % (Auto) Eos % (Auto) Baso % (Auto) Lymph # (Auto) [place] # (Auto) Eos # (Auto) Baso # (Auto) Abs Immat Gran (auto) Absolute Neuts (auto) Absolute Nucleated RBC Nucleated RBC % (auto) Neutrophils % (Manual) Band Neutrophils % Lymphocytes % (Manual) Monocytes % (Manual) Eosinophils % (Manual) Metamyelocytes % Abs Neuts (Manual) Lymphocytes # (Manual) Monocytes # (Manual) Eosinophils # (Manual) Metamyelocytes # Nucleated RBCs Platelet Estimate Large Platelets Plt Morphology Comment RBC Morphology Polychromasia Hypochromasia Microcytosis Tear Drop Cells Ovalocytes Schistocytes Smear Path Review PT INR APTT PTT (Heparin Protocol) 110.3 H* D-Dimer VBG pH VBG pCO2 VBG pO2 VBG HCO3 VBG O2 Saturation VBG Base Excess Sodium Potassium Chloride Carbon Dioxide Anion Gap BUN Creatinine Estim Creat Clear Calc Estimated GFR POC Glucose 408 H* Random Glucose Lactic Acid Lactic Acid Fup @ 2Hr Lactic Acid Fup @ 4Hr Calcium Magnesium Total Bilirubin AST ALT Alkaline Phosphatase Troponin I High Sens B-Natriuretic Peptide Total Protein Albumin Lipase Acetone, Qual Coronavirus (PCR) Influenza Type A (PCR) Influenza Type B (PCR) RSV RNA Qual (PCR) Discharge Plan Discharge Patient Disposition: Left Against Medical Advice Discharge Medications: No Action furosemide 40 mg Tablet 40 mg PO DAILY RF: 0 atorvastatin 80 mg Tablet 80 mg PO BEDTIME RF: 0 pantoprazole [Protonix] 40 mg Tablet,Delayed Release (Dr/Ec) 40 mg PO DAILY RF: 0 montelukast 10 mg Tablet 10 mg PO BEDTIME RF: 0 amlodipine 5 mg tablet 1 tab PO DAILY RF: 0 gabapentin 300 mg capsule 1 cap PO TID RF: 0 Incruse Ellipta 62.5 mcg/actuation blister with device 1 inh inhalation DAILY RF: 0 losartan 50 mg tablet 1 tab PO DAILY RF: 0 quetiapine 100 mg tablet 100 mg PO BEDTIME RF: 0 insulin aspart U-100 [Novolog Flexpen U-100 Insulin] 100 unit/mL (3 mL) insulin pen 8 unit subcut TIDAC RF: 0 tamsulosin 0.4 mg capsule 1 cap PO DAILY RF: 0 albuterol sulfate [Ventolin HFA] 90 mcg/actuation HFA aerosol inhaler 2 puff PO Q4-6H PRN (Reason: Shortness Of Breath) RF: 0 metoprolol succinate 50 mg Tablet Extended Release 24 Hr 75 mg PO DAILY Qty: 45 RF: 0 ipratropium-albuterol 0.5 mg-3 mg(2.5 mg base)/3 mL solution for nebulization 1 amp inhalation QID RF: 0 clopidogrel 75 mg tablet 1 tab PO DAILY RF: 0 aspirin 81 mg Tablet,Delayed Release (Dr/Ec) 81 mg PO DAILY RF: 0 Xarelto 15 mg Tablet 15 mg PO BIDWM Qty: 29 RF: 0 Xarelto 20 mg tablet 20 mg PO DAILY Qty: 30 RF: 0 hydrocortisone [Proctozone-HC] 2.5 % Cream With Perineal Applicator 1 appl [place] BID Qty: 30 RF: 0 Discharge Orders: Discharge Order (Routine); Ordered 08/22/20 Ordered By: Billy Sanchez Care Plan Goals: Eloped from ED Health Concerns: Eloped from ED Plan of Treatment: Eloped from ED Discharge Date/Time: 08/12/20 17:06
== END 2020-08-12 17:06 | disposition left against medical advice (07) | DRG 300 ==
LOC: HO.ED 07:12 → HO.EDOVER 10:16
PROVIDERS: Admitting Provider Family Medicine; Emergency Provider Student in an Organized Health Care Education/Training Program; Visit Provider Family Medicine
DX: I82.A11 Acute embolism and thrombosis of right axillary vein (principal); J44.1 Chronic obstructive pulmonary disease with (acute) exacerbation; G47.33 Obstructive sleep apnea (adult) (pediatric); I48.91 Unspecified atrial fibrillation; Z20.822 Contact with and (suspected) exposure to COVID-19; Z88.5 Allergy status to narcotic agent; Z79.4 Long term (current) use of insulin; Z79.02 Long term (current) use of antithrombotics/antiplatelets; Z79.82 Long term (current) use of aspirin; Z79.899 Other long term (current) drug therapy; I25.10 Atherosclerotic heart disease of native coronary artery without angina pectoris; E11.9 Type 2 diabetes mellitus without complications
CPT/HCPCS: 0241U; 36415; 71045; 71046; 74176; 74177; 78580; 80048; 80053; 82009; 82803; 82947; 83605; 83690; 83735; 83880; 84484; 85007; 85025; 85027; 85060; 85379; 85610; 85730; 86140; 87040; 90686; 93005; 93971; 94640; 94664; 96361; 96365; 96366; 96374; 96375; 96376; 99284; 99285; A9540; J1170; J1650; J1940; J2060; J2405; J2920; J2930; J3010; Q9967

== ENCOUNTER 2020-08-12 18:08 | Inpatient (IN) | payer MEDICARE, MEDICAID, SELFPAY ==
--- NOTE | ~2020-08-12 | XR_ITS ---
EXAMINATION: XR CHEST CLINICAL INFORMATION: Shortness of breath COMPARISON: Previous chest x-ray most recent 08/12/2020 TECHNIQUE: 2 views of the chest were obtained. FINDINGS: The cardiac silhouette is enlarged. There is pulmonary venous redistribution. There are increased perihilar markings, increased interstitial markings at the left lung base and small left pleural effusion. Findings are suggestive of mild CHF. There may also be superimposed right base atelectasis/small pneumonia. There is no pneumothorax. There are degenerative changes of the thoracic spine. There are postsurgical changes of the lower cervical spine. XR/XR chest 2V IMPRESSION: Probable CHF. Superimposed right base atelectasis/pneumonia should also be considered.
--- NOTE | ~2020-08-12 | CT_ITS ---
EXAMINATION: CT ABDOMEN AND PELVIS WITHOUT CONTRAST CLINICAL INFORMATION: Abdominal pain with distention COMPARISON: 08/12/2020 and 01/25/2020 TECHNIQUE: Multidetector volumetric imaging was performed from the lung bases through the pubic symphysis. Oral contrast administered. No IV contrast. Sagittal and coronal reformatted images were obtained on the technologist's workstation. This CT examination was performed using dose optimization techniques as appropriate, variously including the following: *Automated exposure control *Adjustment of mA and/or kV according to patient size (this includes techniques or standardized protocols for targeted exams where dose is matched to indication/reason for exam; i.e. extremities or head) *Use of iterative reconstruction technique DLP: 761 mGy-cm FINDINGS: LUNG BASES: Bronchial wall thickening again noted. There is increased consolidation in the anterior basal segment of the right lower lobe and the anterior basal subsegment of the left lower lobe. This likely reflects worsening airways disease and associated atelectasis or bronchopneumonia. Persistent small pleural effusions slightly decreased in volume in the interval. A small pericardial effusion is also slightly smaller. LIVER, GALLBLADDER, AND BILIARY TREE: The liver is normal in size, shape, and attenuation. No focal hepatic lesion or biliary ductal dilatation is present. Status post cholecystectomy. Normal caliber bile ducts. PANCREAS: Unremarkable. SPLEEN: Unremarkable. ADRENAL GLANDS: Unremarkable. KIDNEYS AND URETERS: No renal calculus or hydronephrosis. Cyst again noted in the left lower pole. Renal vascular calcifications. Stable minor perinephric fat stranding. BLADDER: Chronic bladder wall thickening at the insertion of the urachal remnant with submucosal fat deposition. GASTROINTESTINAL TRACT: No bowel obstruction. Normal appearance of terminal ileum. Normal appendix in the right lower quadrant. Status post partial sigmoid colectomy with patent anastomosis. No evidence of acute colitis. No free fluid. No free air. ABDOMINAL WALL: There is a small stable spigelian hernia without bowel involvement (image 66/89). LYMPH NODES: No rich peritoneal adenopathy. VASCULAR: Ectatic abdominal aorta with moderate atherosclerotic disease. No acute retroperitoneal collection. Prominent cisterna Idalmis likely reflects increased right heart pressures. PELVIC VISCERA: Prostate and seminal vesicles within normal limits. No pelvic free fluid or lymphadenopathy. OSSEOUS STRUCTURES: Pronounced degenerative disc disease at the L4-L5 and L5-S1 levels. CT/CT abdomen pelvis wo con IMPRESSION: No acute abdominal abnormality identified. No clear etiology for abdominal distention. Small bilateral pleural effusions and pericardial effusion have decreased in volume slightly.
[2020-08-12 19:39] VITALS: BP 130/87; PULSE 94; RESP 20; TEMP 36.8; O2SAT 96; BMI 39.0
[2020-08-12 19:57] LABS: Basophils Percent Auto 0.1 % (0-2); Hematocrit 41.6 % (42-52); Hemoglobin 13.3 g/dl (14.0-18.0); Imm Gran Abs Auto 0.19 X10*3/uL (0.00-0.03); Imm Gran Pct Auto 1.3 % (0.0-0.4); Lymphocytes Absolute Auto 0.8 X10*3/uL (1.2-4.9); Lymphocytes Percent Auto 5.3 % (20-40); MANUAL DIFF FLAG SCAN; Mean Corpuscular Hemoglobin 26.1 pg (27.0-33.0); Mean Corpuscular Volume 81.6 fL (80-98); Monocytes Absolute Auto 0.2 X10*3/uL (0.1-1.2); Monocytes Percent Auto 1.4 % (2-11); Neutrophils Absolute Auto 13.5 X10*3/uL (2.0-8.3); Neutrophils Percent Auto 91.9 % (45-73); Platelet Count 247 X10*3/uL (160-400); Red Cell Distribution Width 16.1 % (11.0-16.0); SCAN SMEAR FLAG 1; White Blood Count 14.7 X10*3/uL (4.8-10.8)
[2020-08-12 20:17] LABS: Alanine Aminotransferase 33 U/L (0-40); Albumin Level 4.3 g/dL (3.5-5.0); Alkaline Phosphatase 85 U/L (39-117); Anion Gap 16 (12-20); Aspartate Amino Transferase 15 U/L (5-37); Bilirubin Total 0.8 mg/dL (0.0-1.0); Blood Urea Nitrogen 25 mg/dL (9-16); Calcium 8.9 mg/dL (8.4-10.2); Carbon Dioxide 23 mmol/L (22-29); Chloride 103 mmol/L (96-108); Creatinine Clr Calc Pharmacy 70.5; Estimated Glomerular Filt Rate > 60; Glucose Random 336 mg/dL (60-115); Potassium 4.8 mmol/L (3.3-5.1); Sodium 137 mmol/L (135-145); Total Protein 6.2 g/dL (6.5-8.0)
[2020-08-12 20:20] LABS: SLIDE REVIEW VERIFIED
[2020-08-12 22:03] LABS: Prothrombin Time 12.3 SEC (10.8-13.0)
[2020-08-12 22:05] LABS: Partial Thromboplastin Time 29.8 SEC (24.1-38.0)
[2020-08-12 22:35] VITALS: BP 151/69; PULSE 100; RESP 24; O2SAT 98
--- NOTE | 2020-08-12 23:13 | ED_ITS ---
HPI - SOB/Dyspnea General Chief Complaint: General Medical Stated Complaint: dvt Time Seen by Provider: 08/12/20 21:55 History of Present Illness HPI Narrative: This 65-year-old male re-presents with continued shortness of breath after leaving AMA earlier in the evening as an admitted patient. AT that time he was noted to have extensive clot load in RUE and started on heparin gtt. He denies any associated fevers, chills, sore throat, or cough. Patient states he was anxious and that prompted hiim signing out. Related Data Home Medications Medication Instructions Recorded Confirmed Incruse Ellipta 1 inh INHALATION DAILY 04/17/20 08/13/20 albuterol sulfate [Ventolin HFA] 2 puff PO Q4-6H PRN 04/17/20 08/13/20 amlodipine 1 tab PO DAILY 04/17/20 08/13/20 atorvastatin 80 mg PO BEDTIME 04/17/20 08/13/20 furosemide 40 mg PO DAILY 04/17/20 08/13/20 gabapentin 1 cap PO TID 04/17/20 08/13/20 insulin aspart U-100 [Novolog 8 unit SUBCUT TIDAC 04/17/20 08/13/20 Flexpen U-100 Insulin] losartan 1 tab PO DAILY 04/17/20 08/13/20 montelukast 10 mg PO BEDTIME 04/17/20 08/13/20 pantoprazole [Protonix] 40 mg PO DAILY 04/17/20 08/13/20 quetiapine 100 mg PO BEDTIME 04/17/20 08/13/20 tamsulosin 1 cap PO DAILY 04/17/20 08/13/20 aspirin 81 mg PO DAILY 08/12/20 08/13/20 clopidogrel 1 tab PO DAILY 08/12/20 08/13/20 ipratropium-albuterol 1 amp INHALATION QID 08/12/20 08/13/20 Previous Rx's Medication Instructions Recorded metoprolol succinate 75 mg PO DAILY #45 tab 05/24/20 Allergies Allergy/AdvReac Type Severity Reaction Status Date / Time nitroglycerin [NITROGLYCERIN] Allergy Severe CARDIOPULMONARY Verified 08/12/20 22:18 ARREST 2011 adhesive tape [Adhesive Tape] Allergy Mild BLISTERS Verified 08/12/20 22:18 cephalexin [From Keflex] Allergy Unknown ITCHING Verified 08/12/20 22:18 ciprofloxacin [From Cipro] Allergy Unknown ITCHING Verified 08/12/20 22:18 latex [LATEX] Allergy Unknown UNKNOWN Verified 08/12/20 22:18 morphine [Morphine] Allergy Unknown ITCHING Verified 08/12/20 22:18 diltiazem Allergy Unknown Verified 08/12/20 22:18 tramadol [From ULTRAM] AdvReac Severe STOMACH Verified 08/12/20 22:18 UPSET Review of Systems Review of Systems: Pertinent positives and negatives as stated in the HPI 10 point review systems otherwise negative. [facility] Past Medical History Source: nursing notes reviewed Medical History Adjustment disorder with anxious mood Asthma Atrial fibrillation BPH (benign prostatic hyperplasia) CAD (coronary artery disease) COPD (chronic obstructive pulmonary disease) Diabetes mellitus, type 2 GERD (gastroesophageal reflux disease) HTN (hypertension) ELI (obstructive sleep apnea) Systolic CHF Surgical History History of tracheostomy S/P diskectomy Family History Family History Other HTN (hypertension) Social History Social History Household Members: Family Housing: Apartment Alcohol intake: never Smoking Status: Never smoker Tobacco Type: Cigarette Packs Per Day: 0.25 Cigarettes Per Day: 5.0 Years Smoked: 50 Second Hand Smoke Exposure: Yes Advance Directives: No Advance Directives Date on File: 04/18/20 service: No Current occupational status: disabled Physical Exam Vital Signs: Vital Signs: Last Vital Signs Temp 98.2 F 08/12/20 19:39 Pulse 100 08/12/20 22:35 Resp 24 H 08/12/20 22:35 BP 151/69 H 08/12/20 22:35 Pulse Ox 98 08/12/20 22:35 Body Mass Index 39.0 VITAL SIGNS: Reviewed. GENERAL: Chronically ill, mild distress. HEAD: Normocephalic/atraumatic, EYES: PERRLA, EOMI OROPHARYNX: no oral lesions noted, posterior pharynx clear NECK: Supple, no adenopathy LUNGS: Normal breath sounds, no wheeze/rales, +tachypnea, mild increased work of breathing SpO2<96> CARDIOVASCULAR: Irregularly irregular, tachycardia, no JVD or lower extremity edema. ABDOMEN: Soft, trace left lower quadrant discomfort without rebound, non- distended with bowel sounds. SKIN: Inspection of the skin reveals no rashes other than noted erythematous area to the right upper extremity. NEUROLOGIC: Alert and oriented x 4. Course Course Course Narrative: This is a 65-year-old male who was evaluated here earlier in the day and found to have extensive clot burden in the right upper extremity (subclavian, axillary, distal basilic) and V/Q scan reviewed and noted to be ?normal perfusion scan?. Patient states that he signed out AMA due to anxiety, but comes back with persistent shortness of breath and will be restarted on heparin drip after coags are performed in further treated for CHF exacerbation. This case was discussed with the inpatient hospitalist who is agreeable for admission. MDM - SOB/Dyspnea Lab Data Result diagrams: 08/12/20 22:57 08/12/20 23:47 Labs: Lab Results 08/12/20 08/12/20 08/12/20 Range/Units 19:43 19:43 19:43 WBC 14.7 H (4.8-10.8) X10*3/uL RBC 5.10 (4.60-5.80) X10*6/uL Hgb 13.3 L (14.0-18.0) g/dl Hct 41.6 L (42-52) % MCV 81.6 (80-98) fL MCH 26.1 L (27.0-33.0) pg MCHC 32.0 (31.0-36.0) g/dl RDW 16.1 H (11.0-16.0) % Plt Count 247 (160-400) X10*3/uL MPV 11.0 (9.4-12.4) fL Immature Gran % (Auto) 1.3 H (0.0-0.4) % Neut % (Auto) 91.9 H (45-73) % Lymph % (Auto) 5.3 L (20-40) % [place] % (Auto) 1.4 L (2-11) % Eos % (Auto) 0.0 (0-4) % Baso % (Auto) 0.1 (0-2) % Lymph # (Auto) 0.8 L (1.2-4.9) X10*3/uL [place] # (Auto) 0.2 (0.1-1.2) X10*3/uL Eos # (Auto) 0.0 (0.0-0.4) X10*3/uL Baso # (Auto) 0.0 (0.0-0.2) X10*3/uL Abs Immat Gran (auto) 0.19 H (0.00-0.03) X10*3/uL Absolute Neuts (auto) 13.5 H (2.0-8.3) X10*3/uL Absolute Nucleated RBC 0.000 (0.0-0.012) X10*3/uL Nucleated RBC % (auto) 0.0 (0.0-0.2) /100WBC Smear Tech's Comments VERIFIED Hold Purple Top SEE NOTE PT 12.3 (10.8-13.0) SEC INR 1.0 (0.9-1.1) APTT 29.8 (24.1-38.0) SEC PTT (Heparin Protocol) (53-77.9) SEC Hold Blue Top SEE NOTE Sodium (135-145) mmol/L Potassium (3.3-5.1) mmol/L Chloride (96-108) mmol/L Carbon Dioxide (22-29) mmol/L Anion Gap (12-20) BUN (9-16) mg/dL Creatinine (0.5-1.4) mg/dL Estim Creat Clear Calc Estimated GFR Random Glucose (60-115) mg/dL Calcium (8.4-10.2) mg/dL Total Bilirubin (0.0-1.0) mg/dL AST (5-37) U/L ALT (0-40) U/L Alkaline Phosphatase (39-117) U/L Total Protein (6.5-8.0) g/dL Albumin (3.5-5.0) g/dL 08/12/20 08/12/20 08/12/20 Range/Units 19:43 22:57 22:57 WBC 15.5 H (4.8-10.8) X10*3/uL RBC 5.40 (4.60-5.80) X10*6/uL Hgb 14.4 (14.0-18.0) g/dl Hct 44.3 (42-52) % MCV 82.0 (80-98) fL MCH 26.7 L (27.0-33.0) pg MCHC 32.5 (31.0-36.0) g/dl RDW 16.8 H (11.0-16.0) % Plt Count 252 (160-400) X10*3/uL MPV 12.0 (9.4-12.4) fL Immature Gran % (Auto) 1.4 H (0.0-0.4) % Neut % (Auto) 90.8 H (45-73) % Lymph % (Auto) 5.6 L (20-40) % [place] % (Auto) 2.1 (2-11) % Eos % (Auto) 0.0 (0-4) % Baso % (Auto) 0.1 (0-2) % Lymph # (Auto) 0.9 L (1.2-4.9) X10*3/uL Cris[place] # (Auto) 0.3 (0.1-1.2) X10*3/uL Eos # (Auto) 0.0 (0.0-0.4) X10*3/uL Baso # (Auto) 0.0 (0.0-0.2) X10*3/uL Abs Immat Gran (auto) 0.21 H (0.00-0.03) X10*3/uL Absolute Neuts (auto) 14.1 H (2.0-8.3) X10*3/uL Absolute Nucleated RBC 0.000 (0.0-0.012) X10*3/uL Nucleated RBC % (auto) 0.0 (0.0-0.2) /100WBC Smear Tech's Comments Hold Purple Top PT 12.4 (10.8-13.0) SEC INR 1.0 (0.9-1.1) APTT (24.1-38.0) SEC PTT (Heparin Protocol) 31.0 L D (53-77.9) SEC Hold Blue Top SEE NOTE Sodium 137 (135-145) mmol/L Potassium 4.8 (3.3-5.1) mmol/L Chloride 103 (96-108) mmol/L Carbon Dioxide 23 (22-29) mmol/L Anion Gap 16 (12-20) BUN 25 H (9-16) mg/dL Creatinine 1.15 (0.5-1.4) mg/dL Estim Creat Clear Calc 70.5 Estimated GFR > 60 Random Glucose 336 H (60-115) mg/dL Calcium 8.9 (8.4-10.2) mg/dL Total Bilirubin 0.8 (0.0-1.0) mg/dL AST 15 (5-37) U/L ALT 33 (0-40) U/L Alkaline Phosphatase 85 D (39-117) U/L Total Protein 6.2 L (6.5-8.0) g/dL Albumin 4.3 (3.5-5.0) g/dL 08/12/20 Range/Units 23:47 WBC (4.8-10.8) X10*3/uL RBC (4.60-5.80) X10*6/uL Hgb (14.0-18.0) g/dl Hct (42-52) % MCV (80-98) fL MCH (27.0-33.0) pg MCHC (31.0-36.0) g/dl RDW (11.0-16.0) % Plt Count (160-400) X10*3/uL MPV (9.4-12.4) fL Immature Gran % (Auto) (0.0-0.4) % Neut % (Auto) (45-73) % Lymph % (Auto) (20-40) % [place] % (Auto) (2-11) % Eos % (Auto) (0-4) % Baso % (Auto) (0-2) % Lymph # (Auto) (1.2-4.9) X10*3/uL [place] # (Auto) (0.1-1.2) X10*3/uL Eos # (Auto) (0.0-0.4) X10*3/uL Baso # (Auto) (0.0-0.2) X10*3/uL Abs Immat Gran (auto) (0.00-0.03) X10*3/uL Absolute Neuts (auto) (2.0-8.3) X10*3/uL Absolute Nucleated RBC (0.0-0.012) X10*3/uL Nucleated RBC % (auto) (0.0-0.2) /100WBC Smear Tech's Comments Hold Purple Top PT (10.8-13.0) SEC INR (0.9-1.1) APTT (24.1-38.0) SEC PTT (Heparin Protocol) (53-77.9) SEC Hold Blue Top Sodium 136 (135-145) mmol/L Potassium 4.9 (3.3-5.1) mmol/L Chloride 102 (96-108) mmol/L Carbon Dioxide 23 (22-29) mmol/L Anion Gap 16 (12-20) BUN 26 H (9-16) mg/dL Creatinine 1.27 (0.5-1.4) mg/dL Estim Creat Clear Calc 63.8 Estimated GFR 57 Random Glucose 424 H* (60-115) mg/dL Calcium 8.8 (8.4-10.2) mg/dL Total Bilirubin (0.0-1.0) mg/dL AST (5-37) U/L ALT (0-40) U/L Alkaline Phosphatase (39-117) U/L Total Protein (6.5-8.0) g/dL Albumin (3.5-5.0) g/dL Discharge Plan Discharge Clinical Impression: DVT of axillary vein, acute right CHF (congestive heart failure) Qualifiers: Heart failure type: unspecified Heart failure chronicity: acute on chronic Qualified Code(s): I50.9 - Heart failure, unspecified Patient Disposition: Admitted As Inpatient
[2020-08-12 23:15] LABS: Basophils Percent Auto 0.1 % (0-2); Hematocrit 44.3 % (42-52); Hemoglobin 14.4 g/dl (14.0-18.0); Imm Gran Abs Auto 0.21 X10*3/uL (0.00-0.03); Imm Gran Pct Auto 1.4 % (0.0-0.4); Lymphocytes Absolute Auto 0.9 X10*3/uL (1.2-4.9); Lymphocytes Percent Auto 5.6 % (20-40); Mean Corpuscular HGB Conc 32.5 g/dl (31.0-36.0); Mean Corpuscular Hemoglobin 26.7 pg (27.0-33.0); Monocytes Absolute Auto 0.3 X10*3/uL (0.1-1.2); Monocytes Percent Auto 2.1 % (2-11); Neutrophils Absolute Auto 14.1 X10*3/uL (2.0-8.3); Neutrophils Percent Auto 90.8 % (45-73); Platelet Count 252 X10*3/uL (160-400); Red Cell Distribution Width 16.8 % (11.0-16.0); SCAN SMEAR FLAG 1; White Blood Count 15.5 X10*3/uL (4.8-10.8)
[2020-08-12 23:17] LABS: MANUAL DIFF FLAG SCAN
[2020-08-12] MEDS: HYDROmorphone HCl 0.5 MG/0.5 ML SYRINGE IVPUSH (23:22)
--- NOTE | 2020-08-12 23:23 | PM.IMHP ---
History of Present Illness Date of Service: 08/12/20 Chief Complaint: RUE pain 65-year-old male with a past medical history of hypertension, hyperlipidemia, diabetes, COPD, ELI on CPAP, history of pulmonary nodules, CHF, history of DVT, AFib on Eliquis presented to the hospital with a chief complaint of right upper extremity/arm pain and swelling over the past 2 days. Patient mentioned that he always has chest pain intermittent in nature. No new change in his chest pain. Mentions he also noticed abdominal pain on the left side. A denies any nausea vomiting diarrhea. Denies any numbness tingling. Denies any fever chills cough. Mentioned that this morning he woke up with shortness of breath. Review of all other systems is negative except mentioned above Off note: Patient was admitted during the daytime today for possible DVT/rule out PE and started on heparin drip. Subsequently patient got agitated and left the hospital against medical advice. Patient again came back for admission. Patient had a V/Q scan during the daytime which came back negative for any PE. ER course: ER physician mentioned that when he initially saw him he thought he probably had COPD and given Solu-Medrol and nebulizer. COVID came back negative. Subsequently patient complained of the pain and we did venous duplex which is positive for DVT and wanted to rule out PE and started the patient on heparin. Eliquis was held. ER physician mentioned that he thinks is probably an Eliquis failure. Patient's EKG was nonischemic. Patient's abdomen was benign on exam. CT abdomen showed no acute findings [facility] Medical History Adjustment disorder with anxious mood Asthma Atrial fibrillation BPH (benign prostatic hyperplasia) CAD (coronary artery disease) COPD (chronic obstructive pulmonary disease) Diabetes mellitus, type 2 GERD (gastroesophageal reflux disease) HTN (hypertension) ELI (obstructive sleep apnea) Systolic CHF Family History Other HTN (hypertension) Surgical History History of tracheostomy S/P diskectomy Social History Household Members: Family Housing: Apartment Alcohol intake: never Smoking Status: Never smoker Tobacco Type: Cigarette Packs Per Day: 0.25 Cigarettes Per Day: 5.0 Years Smoked: 50 Smoked in Last 30 Days: No Second Hand Smoke Exposure: Yes Advance Directives: No Advance Directives Date on File: 04/18/20 service: No Current occupational status: disabled Meds Allergies Allergy/AdvReac Type Severity Reaction Status Date / Time nitroglycerin [NITROGLYCERIN] Allergy Severe CARDIOPULMONARY Verified 08/12/20 22:18 ARREST 2011 adhesive tape [Adhesive Tape] Allergy Mild BLISTERS Verified 08/12/20 22:18 cephalexin [From Keflex] Allergy Unknown ITCHING Verified 08/12/20 22:18 ciprofloxacin [From Cipro] Allergy Unknown ITCHING Verified 08/12/20 22:18 latex [LATEX] Allergy Unknown UNKNOWN Verified 08/12/20 22:18 morphine [Morphine] Allergy Unknown ITCHING Verified 08/12/20 22:18 diltiazem Allergy Unknown Verified 08/12/20 22:18 tramadol [From ULTRAM] AdvReac Severe STOMACH Verified 08/12/20 22:18 UPSET Home Medications Medication Instructions Recorded Confirmed Type Incruse Ellipta 1 inh INHALATION DAILY 04/17/20 08/13/20 History albuterol sulfate [Ventolin HFA] 2 puff PO Q4-6H PRN 04/17/20 08/13/20 History amlodipine 1 tab PO DAILY 04/17/20 08/13/20 History atorvastatin 80 mg PO BEDTIME 04/17/20 08/13/20 History furosemide 40 mg PO DAILY 04/17/20 08/13/20 History gabapentin 1 cap PO TID 04/17/20 08/13/20 History insulin aspart U-100 [Novolog 8 unit SUBCUT TIDAC 04/17/20 08/13/20 History Flexpen U-100 Insulin] losartan 1 tab PO DAILY 04/17/20 08/13/20 History montelukast 10 mg PO BEDTIME 04/17/20 08/13/20 History pantoprazole [Protonix] 40 mg PO DAILY 04/17/20 08/13/20 History quetiapine 100 mg PO BEDTIME 04/17/20 08/13/20 History tamsulosin 1 cap PO DAILY 04/17/20 08/13/20 History aspirin 81 mg PO DAILY 08/12/20 08/13/20 History clopidogrel 1 tab PO DAILY 08/12/20 08/13/20 History ipratropium-albuterol 1 amp INHALATION QID 08/12/20 08/13/20 History Physical Exam Vital Signs and Narrative: Vital Signs: Last Vital Signs Temp 98.2 F 08/12/20 19:39 Pulse 100 08/12/20 22:35 Resp 24 H 08/12/20 22:35 BP 151/69 H 08/12/20 22:35 Pulse Ox 98 08/12/20 22:35 Body Mass Index 39.0 Gen: Appears be in no acute distress HEENT: NCAT, Moist mucosa. Pulmonary: Vesicular breath sounds, fair air entry CVS: Normal S1-S2 Abdomen: BS+, Soft, Nontender Extremities: Warm well perfused Neuro: Alert and awake. Results Labs CBC and Chem 7: 08/12/20 22:57 08/12/20 23:47 Labs: Laboratory Results - last 24 hr 08/12/20 08/12/20 08/12/20 19:43 19:43 19:43 MCV 81.6 MCH 26.1 L MCHC 32.0 RDW 16.1 H Plt Count 247 MPV 11.0 Immature Gran % (Auto) 1.3 H Neut % (Auto) 91.9 H Lymph % (Auto) 5.3 L Calvert % (Auto) 1.4 L Eos % (Auto) 0.0 Baso % (Auto) 0.1 Lymph # (Auto) 0.8 L Calvert # (Auto) 0.2 Eos # (Auto) 0.0 Baso # (Auto) 0.0 Abs Immat Gran (auto) 0.19 H Absolute Neuts (auto) 13.5 H Absolute Nucleated RBC 0.000 Nucleated RBC % (auto) 0.0 Smear Tech's Comments VERIFIED Hold Purple Top SEE NOTE PT 12.3 INR 1.0 APTT 29.8 Hold Blue Top SEE NOTE Anion Gap Estim Creat Clear Calc Estimated GFR Random Glucose Calcium Total Bilirubin AST ALT Alkaline Phosphatase Total Protein Albumin 08/12/20 08/12/20 08/12/20 19:43 22:57 22:57 MCV 82.0 MCH 26.7 L MCHC 32.5 RDW 16.8 H Plt Count 252 MPV 12.0 Immature Gran % (Auto) Neut % (Auto) Lymph % (Auto) Calvert % (Auto) Eos % (Auto) Baso % (Auto) Lymph # (Auto) Calvert # (Auto) Eos # (Auto) Baso # (Auto) Abs Immat Gran (auto) Absolute Neuts (auto) Absolute Nucleated RBC Nucleated RBC % (auto) Smear Tech's Comments Hold Purple Top PT INR APTT Hold Blue Top SEE NOTE Anion Gap 16 Estim Creat Clear Calc 70.5 Estimated GFR > 60 Random Glucose 336 H Calcium 8.9 Total Bilirubin 0.8 AST 15 ALT 33 Alkaline Phosphatase 85 D Total Protein 6.2 L Albumin 4.3 Assessment and Plan (1) DVT of axillary vein, acute right: Status: Acute 65-year-old male with a past medical history of hypertension, hyperlipidemia, diabetes, COPD/ELI on CPAP, DVT/AFib on Eliquis, adjustment disorder presented to the hospital with a chief complaint of right upper extremity pain/abdominal pain. Noted to have right upper extremity DVT. Admitted to the hospital for further management. Right upper extremity DVT: Continue heparin drip. V/Q scan negative for any PE. Less concern for Eliquis failure. Question patient noncompliance. Will defer to the a.m. team to consider Oncology consult. Hypertension/hyperlipidemia: Continue home medications Diabetes: Insulin sliding scale COPD: Stable nebulizations p.r.n. CPAP: Continue home CPAP History of AFib: Rate controlled. Abdominal pain: Exam benign. CT scan showed no acute findings. Supportive care. Anxiety: Ativan p.r.n. Noted mild leukocytosis: COVID negative. Patient received steroids in the morning. Code status: Full code
[2020-08-12 23:30] LABS: Prothrombin Time 12.4 SEC (10.8-13.0)
[2020-08-13] VITALS (10 sets, daily range): BP systolic 108–151; BP diastolic 62–97; PULSE 88–118; RESP 14–20; TEMP 36.2–36.6; O2SAT 95–98
[2020-08-13] MEDS: Heparin Sodium,Porcine/1/2NS 25,000 UNIT/250 ML IV.SOLN 14.46 UNIT IVCONT ×2 (00:11→18:30)
[2020-08-13 00:25] LABS: Anion Gap 16 (12-20); Blood Urea Nitrogen 26 mg/dL (9-16); Calcium 8.8 mg/dL (8.4-10.2); Carbon Dioxide 23 mmol/L (22-29); Chloride 102 mmol/L (96-108); Creatinine Clr Calc Pharmacy 63.8; Estimated Glomerular Filt Rate 57; Glucose Random 424 mg/dL (60-115); Potassium 4.9 mmol/L (3.3-5.1); Sodium 136 mmol/L (135-145)
[2020-08-13] MEDS: 0.9 % Sodium Chloride Flush 3 ML SYRINGE IVFLUSH ×2 (00:29→23:47)
--- NOTE | 2020-08-13 01:54 | PC.NURSE ---
HOSPITALIST AWARE OF CRITICAL BLOOD GLUCOSE. PER HOSPITALIST SLIDING SCALE WILL BE PUT IN. ALSO REQUESTED ORDER CHANGE FOR SUBCUTANEOUS DILAUDID. PER HOSPITALIST ORDER SHOULD READ IV. SPK W/RT PT DOES NOT WEAR ORDERED CPAP FOR SLEEP @ HOME, OK FOR 2L VIA NC O2 SAT MAINTAIN SAT ABOVE 88%. PT O2 SAT NOW 97-99% ON 2L
[2020-08-13] MEDS: LORazepam 0.5 MG TABLET PO ×2 (03:31→15:42)
[2020-08-13] MEDS: HYDROmorphone HCl 0.5 MG/0.5 ML SYRINGE SUBCUT ×4 (03:32→15:44)
[2020-08-13] MEDS: Insulin Lispro 100 UNIT/ML 3 ML VIAL SUBCUT ×3 (03:32→20:44)
[2020-08-13 06:59] LABS: Hematocrit 39.1 % (42-52); Hemoglobin 12.6 g/dl (14.0-18.0); Mean Corpuscular HGB Conc 32.2 g/dl (31.0-36.0); Mean Corpuscular Hemoglobin 26.5 pg (27.0-33.0); Mean Corpuscular Volume 82.3 fL (80-98); NRBC Pct Auto 0.2 /100WBC (0.0-0.2); Platelet Count 258 X10*3/uL (160-400); Red Blood Count 4.75 X10*6/uL (4.60-5.80); Red Cell Distribution Width 16.8 % (11.0-16.0); White Blood Count 19.1 X10*3/uL (4.8-10.8)
[2020-08-13 07:24] LABS: Anion Gap 16 (12-20); Blood Urea Nitrogen 29 mg/dL (9-16); Calcium 8.6 mg/dL (8.4-10.2); Carbon Dioxide 22 mmol/L (22-29); Chloride 100 mmol/L (96-108); Creatinine Clr Calc Pharmacy 65.4; Estimated Glomerular Filt Rate 59; Glucose Random 307 mg/dL (60-115); Potassium 4.8 mmol/L (3.3-5.1); Sodium 133 mmol/L (135-145)
[2020-08-13] MEDS: Albuterol/Iprat 2.5/0.5MG 3 ML AMPUL.NEB INHALE ×4 (07:25→20:27)
--- NOTE | 2020-08-13 07:40 | PC.NURSE ---
report taken from serge rn pt admitted for dvt tx following being admitted yesterday and leaving [facility]. pt is back as inpt admission, recieving heparin infusion at this time. pt pleasant with this rn, given prn pain medication per request. lela.
--- NOTE | 2020-08-13 09:35 | MHC.CM.PN ---
Met with patient in regards to discharge planning. Patient currently lives with his ex , Yesenia, ambulates independently, has [employer] hours through [employer] and oxygen through [employer]. Patient states he will be living on his own as of September 09. He also stated he did not want Yesenia or his daughter, Marcelle to be able to get any information on him. T/W asked about completing a new HCP or listed someone else as an emergency contact. Patient not interested in completing new HCP or providing new emergency contact info. PCP verified. HCP currently on file lists daughter Marcelle. IMM explained and signed. Continue to monitor for d/c needs.
[2020-08-13] MEDS: Tamsulosin HCL 0.4 MG CAPSULE PO (09:57)
[2020-08-13] MEDS: Metoprolol Succinate ER 25 MG TAB.ER.24H 75 MG PO (09:57)
[2020-08-13] MEDS: amLODIPine Besylate 5 MG TABLET PO (09:57)
[2020-08-13] MEDS: Clopidogrel Bisulfate 75 MG TABLET PO (09:57)
[2020-08-13] MEDS: Losartan Potassium 50 MG TABLET PO (09:57)
[2020-08-13] MEDS: Furosemide 40 MG TABLET PO (09:58)
[2020-08-13] MEDS: Gabapentin 300 MG CAPSULE PO ×3 (09:58→20:43)
[2020-08-13] MEDS: Aspirin Enteric Coated 81 MG TABLET.DR PO (09:58)
[2020-08-13 10:49] LABS: Glucose, Whole Blood 234 mg/dL (60-115)
[2020-08-13 12:58] LABS: Glucose, Whole Blood 260 mg/dL (60-115)
--- NOTE | 2020-08-13 13:28 | PC.NURSE ---
messaged hospitalist re: pt not having ptthd drawn since 2200 last night. heparin drip infusion unchanged. awaiting orders for ptthd draw.
[2020-08-13 14:39] LABS: PTT Heparin Drip 60.1 SEC (53-77.9)
--- NOTE | 2020-08-13 16:10 | P.PNIM_ITS ---
Subjective Subjective Date of Service: 08/13/20 Interval History: Seen in f/u for covid DVT of arm. Pain ROS: no chest pain, no shortness of breath Physical Exam Vital Signs: Vital Signs: Last Vital Signs Temp 97.7 F 08/13/20 15:44 Pulse 97 08/13/20 15:44 Resp 18 08/13/20 15:44 BP 123/81 08/13/20 15:44 Pulse Ox 96 08/13/20 15:44 Body Mass Index 39.0 General: AO X 3, no acute distress Resp: CTA bilateral CVS: S1,S2,RRR GI: +BS, NT, no distention Skin: No rash extremity swelling in right arm Neuro: motor grossly intact Psych: appropriate affect Objective Data Current Medications Generic Name Dose Route Start Last Admin Trade Name Freq PRN Reason Stop Dose Admin Albuterol/Ipratropium 3 ml 08/13/20 08:00 08/13/20 15:08 Albuterol/Iprat 2.5/0.5mg 3 Ml Ampul.Neb INHALE 3 ml RQID JUDE Administration Amlodipine Besylate 5 mg 08/13/20 09:00 08/13/20 09:57 Amlodipine Besylate 5 Mg Tablet PO 5 mg DAILY JUDE Administration Protocol Aspirin 81 mg 08/13/20 09:00 08/13/20 09:58 Aspirin Enteric Coated 81 Mg Tablet.Dr PO 81 mg DAILY JUDE Administration Atorvastatin Calcium 80 mg 08/13/20 21:00 Atorvastatin Calcium 80 Mg Tablet PO BEDTIME JUDE Clopidogrel Bisulfate 75 mg 08/13/20 09:00 08/13/20 09:57 Clopidogrel Bisulfate 75 Mg Tablet PO 75 mg DAILY JUDE Administration Furosemide 40 mg 08/13/20 09:00 08/13/20 09:58 Furosemide 40 Mg Tablet PO 40 mg DAILY JUDE Administration Protocol Gabapentin 300 mg 08/13/20 09:00 08/13/20 15:42 Gabapentin 300 Mg Capsule PO 300 mg TID JUDE Administration Hydromorphone HCl 0.5 mg 08/12/20 23:20 08/13/20 15:44 Hydromorphone Hcl 0.5 Mg/0.5 Ml Syringe SUBCUT 0.5 mg Q4H PRN Administration Pain, Severe (Pain Scale 7-10) Heparin Sodium/Sodium Chloride 25,000 unit in 250 mls @ 0 mls/hr 08/12/20 23:30 08/13/20 00:11 IVCONT 14 units/kg/hr .Q0M JUDE 14.46 mls/hr Administration Protocol Per Protocol Insulin Human Lispro 0 unit 08/13/20 07:30 08/13/20 14:38 Insulin Lispro 100 Unit/Ml 3 Ml Vial SUBCUT Not Given QIDACHS [facility] Protocol Levalbuterol HCl 1.25 mg 08/13/20 08:00 08/13/20 15:11 Levalbuterol Hcl 1.25 Mg/0.5 Ml Vial.Neb INHALE Not Given RQ4H WHILE AWAKE [facility] Lorazepam 0.5 mg 08/12/20 23:19 08/13/20 15:42 Lorazepam 0.5 Mg Tablet PO 0.5 mg Q12H PRN Administration Anxiety Losartan Potassium 50 mg 08/13/20 09:00 08/13/20 09:57 Losartan Potassium 50 Mg Tablet PO 50 mg DAILY [facility] Administration Protocol Metoprolol Succinate 75 mg 08/13/20 09:00 08/13/20 09:57 Metoprolol Succinate Er 25 Mg Tab.Er.24h PO 75 mg DAILY [facility] Administration Protocol Montelukast Sodium 10 mg 08/13/20 21:00 Montelukast Sodium 10 Mg Tablet PO BEDTIME [facility] Quetiapine Fumarate 100 mg 08/13/20 21:00 Quetiapine Fumarate 100 Mg Tablet PO BEDTIME [facility] Sodium Chloride 3 ml 08/13/20 00:00 08/13/20 15:46 0.9 % Sodium Chloride Flush 3 Ml Syringe IVFLUSH Not Given QSHIFT [facility] Tamsulosin HCl 0.4 mg 08/13/20 09:00 08/13/20 09:57 Tamsulosin Hcl 0.4 Mg Capsule PO 0.4 mg DAILY [facility] Administration Labs CBC & Chem 7: 08/13/20 06:35 08/13/20 06:35 Assessment and Plan (1) DVT of axillary vein, acute right: Status: Acute Assessment and Plan: 65-year-old male with a past medical history of hypertension, hyperlipidemia, diabetes, COPD/ELI on CPAP, DVT/AFib on Eliquis, adjustment disorder presented to the hospital with a chief complaint of right upper extremity pain/abdominal pain. Noted to have right upper extremity DVT. Admitted to the hospital for further management. Right upper extremity DVT while on Eliquis: Continue heparin drip. V/Q scan negative for any PE. Less concern for Eliquis failure. Question patient noncompliance. Will Hematology consult pending for anticoagulant selection Hypertension/hyperlipidemia: Continue home medications Diabetes: Insulin sliding scale COPD: Stable nebulizations p.r.n. CPAP: Continue home CPAP History of AFib: Rate controlled. Abdominal pain: Exam benign. CT scan showed no acute findings. Supportive care. Anxiety: Ativan p.r.n. Noted mild leukocytosis: COVID negative. Patient received steroids in the morning. Code status: Full code
--- NOTE | 2020-08-13 17:42 | PC.NURSE ---
report given to lisette ariel
[2020-08-13 18:43] LABS: Glucose, Whole Blood 215 mg/dL (60-115)
[2020-08-13] MEDS: HYDROmorphone HCl 0.5 MG/0.5 ML SYRINGE IV (19:52)
[2020-08-13 20:29] LABS: Glucose, Whole Blood 274 mg/dL (60-115)
[2020-08-13] MEDS: QUEtiapine Fumarate 100 MG TABLET PO (20:43)
[2020-08-13] MEDS: Montelukast Sodium 10 MG TABLET PO (20:44)
[2020-08-13] MEDS: Atorvastatin Calcium 80 MG TABLET PO (20:44)
[2020-08-13] MEDS: Enoxaparin Sodium 120 MG/0.8 ML SYRINGE 105 MG SUBCUT (20:45)
[2020-08-13 20:50] LABS: Hematocrit 39.3 % (42-52); Hemoglobin 12.4 g/dl (14.0-18.0); Mean Corpuscular HGB Conc 31.6 g/dl (31.0-36.0); Mean Corpuscular Hemoglobin 26.3 pg (27.0-33.0); Mean Corpuscular Volume 83.4 fL (80-98); Mean Platelet Volume 11.5 fL (9.4-12.4); NRBC Pct Auto 0.1 /100WBC (0.0-0.2); Platelet Count 225 X10*3/uL (160-400); Red Blood Count 4.71 X10*6/uL (4.60-5.80); Red Cell Distribution Width 17.1 % (11.0-16.0); White Blood Count 15.3 X10*3/uL (4.8-10.8)
[2020-08-13 20:56] LABS: INTERNATIONAL NORM RATIO 1.1 (0.9-1.1); Prothrombin Time 12.8 SEC (10.8-13.0)
[2020-08-13 20:58] LABS: PTT Heparin Drip 29.4 SEC (53-77.9)
[2020-08-14] VITALS (10 sets, daily range): BP systolic 101–165; BP diastolic 51–92; PULSE 86–103; RESP 18–22; TEMP 36.2–37.2; O2SAT 91–98; BMI 39.0
[2020-08-14] MEDS: HYDROmorphone HCl 0.5 MG/0.5 ML SYRINGE IV ×5 (05:22→21:50)
[2020-08-14 07:54] LABS: Glucose, Whole Blood 208 mg/dL (60-115)
[2020-08-14] MEDS: Albuterol/Iprat 2.5/0.5MG 3 ML AMPUL.NEB INHALE ×4 (08:12→20:07)
[2020-08-14] MEDS: Tamsulosin HCL 0.4 MG CAPSULE PO (08:17)
[2020-08-14] MEDS: Clopidogrel Bisulfate 75 MG TABLET PO (08:17)
[2020-08-14] MEDS: Aspirin Enteric Coated 81 MG TABLET.DR PO (08:17)
[2020-08-14] MEDS: Losartan Potassium 50 MG TABLET PO (08:17)
[2020-08-14] MEDS: Insulin Lispro 100 UNIT/ML 3 ML VIAL SUBCUT ×4 (08:18→21:50)
[2020-08-14] MEDS: Furosemide 40 MG TABLET PO (08:18)
[2020-08-14] MEDS: Gabapentin 300 MG CAPSULE PO ×3 (08:18→21:50)
[2020-08-14] MEDS: amLODIPine Besylate 5 MG TABLET PO (08:18)
[2020-08-14] MEDS: Metoprolol Succinate ER 25 MG TAB.ER.24H 75 MG PO (08:18)
[2020-08-14] MEDS: Flu Vacc QS2020-21(6mos up)/PF 0.5 ML SYRINGE IM (08:19)
[2020-08-14] MEDS: 0.9 % Sodium Chloride Flush 3 ML SYRINGE IVFLUSH ×2 (08:20→16:47)
[2020-08-14] MEDS: Rivaroxaban 15 MG TABLET PO ×2 (08:41→16:47)
[2020-08-14 09:06] LABS: Hematocrit 39.6 % (42-52); Hemoglobin 12.7 g/dl (14.0-18.0); Mean Corpuscular HGB Conc 32.1 g/dl (31.0-36.0); Mean Corpuscular Hemoglobin 26.6 pg (27.0-33.0); Mean Platelet Volume 11.6 fL (9.4-12.4); NRBC Pct Auto 0.1 /100WBC (0.0-0.2); Platelet Count 160 X10*3/uL (160-400); Red Blood Count 4.77 X10*6/uL (4.60-5.80); Red Cell Distribution Width 17.2 % (11.0-16.0); White Blood Count 14.1 X10*3/uL (4.8-10.8)
--- NOTE | 2020-08-14 09:26 | HO.PM.IMPN ---
Subjective Subjective Date of Service: 08/14/20 Interval History: Seen in f/u for DVT of arm. He is now complaining of abdominal pain that is severe, alhough he seemed comfortable sleeping and only complain of pain upon awaken ROS: no chest pain, no shortness of breath, now with abdominla pain as wee; Physical Exam Vital Signs: Vital Signs: Last Vital Signs Temp 97.9 F 08/14/20 07:18 Pulse 98 08/14/20 07:18 Resp 19 08/14/20 07:18 BP 121/75 08/14/20 07:18 Pulse Ox 98 08/14/20 07:18 Body Mass Index 39.0 Const: General: cooperative and no acute distress Orientation/consciousness: patient oriented x3 Resp: Effort & Inspection: able to speak in complete sentences and audible wheezes Cardio: Rate: regular rate Heart sounds: S1 normal heart sound present and S2 normal heart sound present GI: Inspection: Yes normal to inspection Palpation (GI): Soft to palpation and Tenderness to palpation present (GI) in the LLQ Percussion: Yes Other (no guarding) Skin: General skin exam: no rashes or lesions noted Neuro: General: patient oriented x3 Motor exam (neuro): 5/5 motor strength present throughout Extrem: Right upper extremity: edema Left upper extremity: normal to inspection Psych: Affect: Labile affect present Objective Data Current Medications Generic Name Dose Route Start Last Admin Trade Name Freq PRN Reason Stop Dose Admin Albuterol/Ipratropium 3 ml 08/13/20 08:00 08/14/20 08:12 Albuterol/Iprat 2.5/0.5mg 3 Ml Ampul.Neb INHALE 3 ml RQID JUDE Administration Amlodipine Besylate 5 mg 08/13/20 09:00 08/14/20 08:18 Amlodipine Besylate 5 Mg Tablet PO 5 mg DAILY JUDE Administration Protocol Aspirin 81 mg 08/13/20 09:00 08/14/20 08:17 Aspirin Enteric Coated 81 Mg Tablet. PO 81 mg DAILY JUDE Administration Atorvastatin Calcium 80 mg 08/13/20 21:00 08/13/20 20:44 Atorvastatin Calcium 80 Mg Tablet PO 80 mg BEDTIME JUDE Administration Clopidogrel Bisulfate 75 mg 08/13/20 09:00 08/14/20 08:17 Clopidogrel Bisulfate 75 Mg Tablet PO 75 mg DAILY JUDE Administration Furosemide 40 mg 08/13/20 09:00 08/14/20 08:18 Furosemide 40 Mg Tablet PO 40 mg DAILY JUDE Administration Protocol Gabapentin 300 mg 08/13/20 09:00 08/14/20 08:18 Gabapentin 300 Mg Capsule PO 300 mg TID JUDE Administration Hydromorphone HCl 0.5 mg 08/13/20 19:27 08/14/20 05:22 Hydromorphone Hcl 0.5 Mg/0.5 Ml Syringe IV 0.5 mg Q4H PRN Administration Pain, Severe (Pain Scale 7-10) Insulin Human Lispro 0 unit 08/13/20 07:30 08/14/20 08:18 Insulin Lispro 100 Unit/Ml 3 Ml Vial SUBCUT 6 unit QIDACHS JUDE Administration Protocol Levalbuterol HCl 1.25 mg 08/13/20 08:00 08/14/20 04:07 Levalbuterol Hcl 1.25 Mg/0.5 Ml Vial.Neb INHALE 1.25 mg RQ4H WHILE AWAKE JUDE Administration Lorazepam 0.5 mg 08/12/20 23:19 08/13/20 15:42 Lorazepam 0.5 Mg Tablet PO 0.5 mg Q12H PRN Administration Anxiety Losartan Potassium 50 mg 08/13/20 09:00 08/14/20 08:17 Losartan Potassium 50 Mg Tablet PO 50 mg DAILY JUDE Administration Protocol Metoprolol Succinate 75 mg 08/13/20 09:00 08/14/20 08:18 Metoprolol Succinate Er 25 Mg Tab.Er.24h PO 75 mg DAILY JUDE Administration Protocol Montelukast Sodium 10 mg 08/13/20 21:00 08/13/20 20:44 Montelukast Sodium 10 Mg Tablet PO 10 mg BEDTIME JUDE Administration Quetiapine Fumarate 100 mg 08/13/20 21:00 08/13/20 20:43 Quetiapine Fumarate 100 Mg Tablet PO 100 mg BEDTIME JUDE Administration Rivaroxaban 15 mg 08/14/20 08:30 08/14/20 08:41 Rivaroxaban 15 Mg Tablet PO 15 mg BIDWM JUDE Administration Sodium Chloride 3 ml 08/13/20 00:00 08/14/20 08:20 0.9 % Sodium Chloride Flush 3 Ml Syringe IVFLUSH 3 ml QSHIFT JUDE Administration Tamsulosin HCl 0.4 mg 08/13/20 09:00 08/14/20 08:17 Tamsulosin Hcl 0.4 Mg Capsule PO 0.4 mg DAILY JUDE Administration Labs CBC & Chem 7: 08/14/20 08:35 08/13/20 06:35 Assessment and Plan (1) DVT of axillary vein, acute right: Status: Acute Assessment and Plan: 65-year-old male with a past medical history of hypertension, hyperlipidemia, diabetes, COPD/ELI on CPAP, DVT/AFib on Eliquis, adjustment disorder presented to the hospital with a chief complaint of right upper extremity pain/abdominal pain. Noted to have right upper extremity DVT. Admitted to the hospital for further management. Right upper extremity DVT while on Eliquis with questionable compliance , ? failed. He was on heparin drip and transitioned to Lovenox and will transition to Xarelto today per Heme recommendation Abdominal pain ---mostly chronic, exam bening, CT no acute finding, Will have surgery assess him. IV dilaudid for pain Hypertension/hyperlipidemia: Continue home medications Diabetes: Insulin sliding scale COPD: Stable nebulizations p.r.n. CPAP: Continue home CPAP History of AFib: Rate controlled. Abdominal pain: Exam benign. CT scan showed no acute findings. Supportive care. Anxiety: Ativan p.r.n. Noted mild leukocytosis: COVID negative. Patient received steroids in the morning. Code status: Full code
[2020-08-14 11:58] LABS: Glucose, Whole Blood 212 mg/dL (60-115)
[2020-08-14 16:39] LABS: Glucose, Whole Blood 251 mg/dL (60-115)
[2020-08-14 19:22] LABS: INTERNATIONAL NORM RATIO 1.9 (0.9-1.1); Prothrombin Time 22.8 SEC (10.8-13.0)
[2020-08-14 20:50] LABS: Glucose, Whole Blood 187 mg/dL (60-115)
[2020-08-14] MEDS: Atorvastatin Calcium 80 MG TABLET PO (21:50)
[2020-08-14] MEDS: Montelukast Sodium 10 MG TABLET PO (21:50)
[2020-08-14] MEDS: QUEtiapine Fumarate 100 MG TABLET PO (21:50)
[2020-08-15] VITALS (16 sets, daily range): BP systolic 108–154; BP diastolic 58–91; PULSE 63–106; RESP 16–20; TEMP 36–36.7; O2SAT 93–100
[2020-08-15] MEDS: HYDROmorphone HCl 0.5 MG/0.5 ML SYRINGE IV ×5 (03:06→20:50)
[2020-08-15 08:19] LABS: Glucose, Whole Blood 191 mg/dL (60-115)
[2020-08-15] MEDS: Insulin Lispro 100 UNIT/ML 3 ML VIAL SUBCUT ×4 (08:30→20:53)
[2020-08-15] MEDS: amLODIPine Besylate 5 MG TABLET PO (08:33)
[2020-08-15] MEDS: Rivaroxaban 15 MG TABLET PO ×2 (08:33→16:47)
[2020-08-15] MEDS: 0.9 % Sodium Chloride Flush 3 ML SYRINGE IVFLUSH ×2 (08:34→16:46)
[2020-08-15] MEDS: Gabapentin 300 MG CAPSULE PO ×3 (08:34→20:53)
[2020-08-15] MEDS: Clopidogrel Bisulfate 75 MG TABLET PO (08:34)
[2020-08-15] MEDS: Metoprolol Succinate ER 25 MG TAB.ER.24H 75 MG PO (08:34)
[2020-08-15] MEDS: Furosemide 40 MG TABLET PO (08:34)
[2020-08-15] MEDS: Tamsulosin HCL 0.4 MG CAPSULE PO (08:34)
[2020-08-15] MEDS: Aspirin Enteric Coated 81 MG TABLET.DR PO (08:35)
[2020-08-15] MEDS: Losartan Potassium 50 MG TABLET PO (08:35)
--- NOTE | 2020-08-15 10:27 | HO.PM.IMPN ---
Subjective Subjective Date of Service: 08/15/20 Interval History: Seen in f/u for DVT of arm. He is now complaining of abdominal pain that is severe, alhough he seemed perfectly comfortable and eating with no problem ROS: no chest pain, no shortness of breath, now with abdominla pain as wee; Physical Exam Vital Signs: Vital Signs: Last Vital Signs Temp 97.8 F 08/15/20 07:24 Pulse 93 08/15/20 08:35 Resp 20 08/15/20 08:31 BP 138/85 08/15/20 08:35 Pulse Ox 95 08/15/20 07:24 Body Mass Index 39.0 Const: General: cooperative and no acute distress Orientation/consciousness: patient oriented x3 Resp: Effort & Inspection: able to speak in complete sentences and audible wheezes Cardio: Rate: regular rate Heart sounds: S1 normal heart sound present and S2 normal heart sound present GI: Inspection: Yes normal to inspection Palpation (GI): Soft to palpation and Tenderness to palpation present (GI) in the LLQ Percussion: Yes Other (no guarding) Skin: General skin exam: no rashes or lesions noted Neuro: General: patient oriented x3 Motor exam (neuro): 5/5 motor strength present throughout Extrem: Right upper extremity: edema Left upper extremity: normal to inspection Psych: Affect: Labile affect present Objective Data Current Medications Generic Name Dose Route Start Last Admin Trade Name Freq PRN Reason Stop Dose Admin Albuterol/Ipratropium 3 ml 08/13/20 08:00 08/15/20 07:55 Albuterol/Iprat 2.5/0.5mg 3 Ml Ampul.Neb INHALE Not Given RQID JUDE Amlodipine Besylate 5 mg 08/13/20 09:00 08/15/20 08:33 Amlodipine Besylate 5 Mg Tablet PO 5 mg DAILY JUDE Administration Protocol Aspirin 81 mg 08/13/20 09:00 08/15/20 08:35 Aspirin Enteric Coated 81 Mg Tablet. PO 81 mg DAILY JUDE Administration Atorvastatin Calcium 80 mg 08/13/20 21:00 08/14/20 21:50 Atorvastatin Calcium 80 Mg Tablet PO 80 mg BEDTIME JUDE Administration Clopidogrel Bisulfate 75 mg 08/13/20 09:00 08/15/20 08:34 Clopidogrel Bisulfate 75 Mg Tablet PO 75 mg DAILY JUDE Administration Furosemide 40 mg 08/13/20 09:00 08/15/20 08:34 Furosemide 40 Mg Tablet PO 40 mg DAILY JUDE Administration Protocol Gabapentin 300 mg 08/13/20 09:00 08/15/20 08:34 Gabapentin 300 Mg Capsule PO 300 mg TID JUDE Administration Hydromorphone HCl 0.5 mg 08/13/20 19:27 08/15/20 08:31 Hydromorphone Hcl 0.5 Mg/0.5 Ml Syringe IV 0.5 mg Q4H PRN Administration Pain, Severe (Pain Scale 7-10) Insulin Human Lispro 0 unit 08/13/20 07:30 08/15/20 08:30 Insulin Lispro 100 Unit/Ml 3 Ml Vial SUBCUT 2 unit QIDACHS [facility] Administration Protocol Levalbuterol HCl 1.25 mg 08/13/20 08:00 08/15/20 07:58 Levalbuterol Hcl 1.25 Mg/0.5 Ml Vial.Neb INHALE Not Given RQ4H WHILE AWAKE JUDE Lorazepam 0.5 mg 08/12/20 23:19 08/13/20 15:42 Lorazepam 0.5 Mg Tablet PO 0.5 mg Q12H PRN Administration Anxiety Losartan Potassium 50 mg 08/13/20 09:00 08/15/20 08:35 Losartan Potassium 50 Mg Tablet PO 50 mg DAILY JUDE Administration Protocol Metoprolol Succinate 75 mg 08/13/20 09:00 08/15/20 08:34 Metoprolol Succinate Er 25 Mg Tab.Er.24h PO 75 mg DAILY JUDE Administration Protocol Montelukast Sodium 10 mg 08/13/20 21:00 08/14/20 21:50 Montelukast Sodium 10 Mg Tablet PO 10 mg BEDTIME JUDE Administration Quetiapine Fumarate 100 mg 08/13/20 21:00 08/14/20 21:50 Quetiapine Fumarate 100 Mg Tablet PO 100 mg BEDTIME JUDE Administration Rivaroxaban 15 mg 08/14/20 08:30 08/15/20 08:33 Rivaroxaban 15 Mg Tablet PO 15 mg BIDWM JUDE Administration Sodium Chloride 3 ml 08/13/20 00:00 08/15/20 08:34 0.9 % Sodium Chloride Flush 3 Ml Syringe IVFLUSH 3 ml QSHIFT JUDE Administration Tamsulosin HCl 0.4 mg 08/13/20 09:00 08/15/20 08:34 Tamsulosin Hcl 0.4 Mg Capsule PO 0.4 mg DAILY JUDE Administration Labs CBC & Chem 7: 08/14/20 08:35 08/13/20 06:35 Assessment and Plan (1) DVT of axillary vein, acute right: Status: Acute Assessment and Plan: 65-year-old male with a past medical history of hypertension, hyperlipidemia, diabetes, COPD/ELI on CPAP, DVT/AFib on Eliquis, adjustment disorder presented to the hospital with a chief complaint of right upper extremity pain/abdominal pain. Noted to have right upper extremity DVT. Admitted to the hospital for further management. Right upper extremity DVT while on Eliquis with questionable compliance , ? failed. He was on heparin drip and transitioned to Lovenox and will transition to Xarelto today per Heme recommendation Abdominal pain ---mostly chronic, exam bening, CT no acute finding, Will have surgery assess him. IV dilaudid for pain, transition to oral Dilaudid Hypertension/hyperlipidemia: Continue home medications Diabetes: Insulin sliding scale COPD: Stable nebulizations p.r.n. CPAP: Continue home CPAP History of AFib: Rate controlled. Abdominal pain: Exam benign. CT scan showed no acute findings. Supportive care. Anxiety: Ativan p.r.n. Noted mild leukocytosis: COVID negative. Patient received steroids in the morning. Code status: Full code
[2020-08-15] MEDS: Albuterol/Iprat 2.5/0.5MG 3 ML AMPUL.NEB INHALE ×3 (11:14→19:11)
[2020-08-15 11:27] LABS: Glucose, Whole Blood 297 mg/dL (60-115)
--- NOTE | 2020-08-15 14:16 | P.CONGS_ITS ---
History of Present Illness Consult details Consult date: 08/15/20 Narrative: Macho Guerra is a 65-year-old male patient atrial fibrillation, congestive heart failure, deep venous thrombosis on anticoagulation, and COPD, with complaints of severe left lower quadrant abdominal pain. He has a prior history of sigmoid diverticulitis and has undergone 2 procedures at [facility] 1 for sigmoid colectomy and a 2nd for obstruction. He describes the pain as constant, sharp and nonradiating. The pain is made worse with motion and with pressure on his abdomen. He reports several bowel movements today 1 which was bloody in the 2nd which was very dark. He denies nausea or vomiting. He denies any new lumps in his abdomen. He is concerned that he may have an obstruction once again. Review of Systems Review of Systems: Yes all other systems are reviewed and are negative Constitutional: Constitutional: Reports body ache(s), Reports difficulty sleeping and Reports snoring ENT: Denies odynophagia Cardiovascular: Cardiovascular: Reports Abdominal Distension, Denies chest pain, Reports irregular heart rhythm, Reports dyspnea on exertion and Reports orthopnea Respiratory: Respiratory: Reports cough, Reports dyspnea on exertion, Reports snoring and Reports wheezing Comments: Lung nodule noted on scan Gastrointestinal: Gastrointestinal: Reports abdominal pain (Left lower quadrant as noted in HPI), Reports melena, Denies constipation, Denies diarrhea, Denies odynophagia and Denies vomiting Neurologic: Reports system reviewed and no additional complaints, except as documented Allergic/Immunologic: Allergic/Immunologic: Reports wheezing PMF Past Medical History Medical History (Updated 08/15/20 @ 14:30 by Antoine High MD) Adjustment disorder with anxious mood Asthma Atrial fibrillation BPH (benign prostatic hyperplasia) CAD (coronary artery disease) COPD (chronic obstructive pulmonary disease) Diabetes mellitus, type 2 GERD (gastroesophageal reflux disease) HTN (hypertension) ELI (obstructive sleep apnea) Systolic CHF Family History Family History Other HTN (hypertension) Surgical History Surgical History (Updated 08/15/20 @ 14:24 by Antoine High MD) History of tracheostomy S/P diskectomy S/P partial colectomy Social History Social History Household Members: Family Housing: House Do you presently have visiting nurse or other home services: No Alcohol intake: never Smoking Status: Former smoker Tobacco Type: Cigarette Packs Per Day: 0.25 Years Smoked: 50 Smoked in Last 30 Days: No Second Hand Smoke Exposure: Yes Use of substances other than those prescribed or required for medical reasons: No Currently Displaying Signs/Symptoms of Drug Intoxication Withdrawal: No Have you been hit, kicked, punched, or otherwise hurt by someone within the past year? If so, by whom?: No Do you feel safe in your current relationship?: No Is there a partner from a previous relationship who is making you feel unsafe now?: No Are you made to feel afraid or neglected: No Advance Directives: No Advance Directives Date on File: 04/18/20 Do you have thoughts of harming others: None Do you have a plan to hurt others: No Plan Recently lost weight without trying: No service: No Current occupational status: disabled Meds Allergies Allergy/AdvReac Type Severity Reaction Status Date / Time nitroglycerin [NITROGLYCERIN] Allergy Severe CARDIOPULMONARY Verified 08/12/20 22:18 ARREST 2012 adhesive tape [Adhesive Tape] Allergy Mild BLISTERS Verified 08/12/20 22:18 cephalexin [From Keflex] Allergy Unknown ITCHING Verified 08/12/20 22:18 ciprofloxacin [From Cipro] Allergy Unknown ITCHING Verified 08/12/20 22:18 latex [LATEX] Allergy Unknown UNKNOWN Verified 08/12/20 22:18 morphine [Morphine] Allergy Unknown ITCHING Verified 08/12/20 22:18 diltiazem Allergy Unknown Verified 08/12/20 22:18 tramadol [From ULTRAM] AdvReac Severe STOMACH Verified 08/12/20 22:18 UPSET Home Medications Medication Instructions Recorded Confirmed Type Incruse Ellipta 1 inh INHALATION DAILY 04/17/20 08/13/20 History albuterol sulfate [Ventolin HFA] 2 puff PO Q4-6H PRN 04/17/20 08/13/20 History amlodipine 1 tab PO DAILY 04/17/20 08/13/20 History atorvastatin 80 mg PO BEDTIME 04/17/20 08/13/20 History furosemide 40 mg PO DAILY 04/17/20 08/13/20 History gabapentin 1 cap PO TID 04/17/20 08/13/20 History insulin aspart U-100 [Novolog 8 unit SUBCUT TIDAC 04/17/20 08/13/20 History Flexpen U-100 Insulin] losartan 1 tab PO DAILY 04/17/20 08/13/20 History montelukast 10 mg PO BEDTIME 04/17/20 08/13/20 History pantoprazole [Protonix] 40 mg PO DAILY 04/17/20 08/13/20 History quetiapine 100 mg PO BEDTIME 04/17/20 08/13/20 History tamsulosin 1 cap PO DAILY 04/17/20 08/13/20 History aspirin 81 mg PO DAILY 08/12/20 08/13/20 History clopidogrel 1 tab PO DAILY 08/12/20 08/13/20 History ipratropium-albuterol 1 amp INHALATION QID 08/12/20 08/13/20 History Physical Exam Vital Signs: Vital Signs: Last Vital Signs Temp 97.2 F 08/15/20 11:46 Pulse 101 H 08/15/20 11:46 Resp 19 08/15/20 12:37 BP 134/85 08/15/20 11:46 Pulse Ox 94 08/15/20 11:46 Body Mass Index 39.0 Const: General: cooperative, in distress respiratory and anxious Nutritional Appearance: obese Orientation/consciousness: patient oriented x3 Limitations: no limitations Eyes: Sclerae: sclerae normal EOM: EOMs intact bilaterally Neck: Neck: Yes no JVD Neck images: 1. Previous tracheostomy Resp: Effort & Inspection: audible wheezes, labored, tachypneic and uses accessory muscles GI: Inspection: Yes distended, Yes Abdominal panniculus present, Yes scar (Midline incision) and No visible herniation Palpation (GI): Tenderness to palpation present (GI) in the LLQ (With light touch to the groin, no mass appreciated) Percussion: Yes normal to percussion Auscultation: normal bowel sounds Rectal Exam - Male: Yes deferred Abdomen image: 1. Area of tenderness in the left groin Skin: General skin exam: crusts and dry skin Rashes: no rashes Neuro: General: patient oriented x3 Results Labs Result diagrams: 08/14/20 08:35 08/13/20 06:35 Labs: Abnormal lab results 08/14/20 08/14/20 08/14/20 Range/Units 16:30 19:05 20:25 PT 22.8 H D (10.8-13.0) SEC INR 1.9 H (0.9-1.1) POC Glucose 251 H 187 H (60-115) mg/dL 08/15/20 08/15/20 Range/Units 07:23 11:23 PT (10.8-13.0) SEC INR (0.9-1.1) POC Glucose 191 H 297 H (60-115) mg/dL All other labs normal. CT reviewed by me after examining patient: EXAMINATION: CT ABDOMEN AND PELVIS WITH CONTRAST CLINICAL INFORMATION: Left lower quadrant pain COMPARISON: 01/25/2020 TECHNIQUE: Multidetector volumetric images were obtained from the superior aspect of the liver through the pubic symphysis following administration 85 mL of Omnipaque 350 intravenous contrast. Sagittal and coronal reformatted images were obtained on the technologist's workstation. Oral contrast: No This CT examination was performed using dose optimization techniques as appropriate, variously including the following: *Automated exposure control *Adjustment of mA and/or kV according to patient size (this includes techniques or standardized protocols for targeted exams where dose is matched to indication/reason for exam; i.e. extremities or head) *Use of iterative reconstruction technique DLP: 746 mGy-cm FINDINGS: LUNG BASES: Small pleural effusions are present. Mild opacity in the inferior lingula suggesting atelectasis. Partially visualized pericardial effusion, presumably small. LIVER, GALLBLADDER, AND BILIARY TREE: The liver is normal in size, shape, and attenuation. No focal hepatic lesion or biliary ductal dilatation is present. Patient is status post cholecystectomy. PANCREAS: Unremarkable. SPLEEN: Unremarkable. ADRENAL GLANDS: Unremarkable. KIDNEYS AND URETERS: The kidneys are normal in size, shape, and attenuation. No hydronephrosis, hydroureter, or obstructing calculi seen. Redemonstrated bilateral renal cysts. BLADDER: Unremarkable. GASTROINTESTINAL TRACT: Colonic suture line is present at the descending/sigmoid colon junction. No wall thickening or evidence of bowel obstruction. Moderate amount of stool is present. The appendix is unremarkable. No free fluid or free air is seen. ABDOMINAL WALL: Small fat-containing inguinal hernias are present. LYMPH NODES: Normal. VASCULAR: There is atherosclerotic calcification along the aorta and iliac arteries. PELVIC VISCERA: Unremarkable. OSSEOUS STRUCTURES: There is degenerative disc disease of the lower lumbar spine. CT/CT abdomen pelvis w con IMPRESSION: 1. No acute findings identified in the abdomen/pelvis. 2. Small pleural effusions. Partially visualized pericardial effusion, presumably small. Assessment and Plan (1) Left lower quadrant abdominal tenderness: Status: Acute 65-year-old male patient with multiple medical problems presenting with complaints of abdominal pain left lower quadrant. Patient has a history of atrial fibrillation, CHF, COPD sigmoid diverticulitis status post sigmoid colectomy, and a previous history of bowel obstruction requiring reoperation. Patient was found to have DVT in the right upper extremity after being off Coumadin and is now back on anticoagulation. Patient reports having bowel movements 1 of which was bloody after starting the anticoagulation. Abdominal examination does reveal significant tenderness in the left lower quadrant and left groin with no palpable mass to indicate a hernia. No rebound or guarding is appreciated. Review the CT of the abdomen and pelvis is negative for free air, abscess, inflammatory changes, obstruction, abdominal wall/inguinal hernias. The reports of bloody stools are concerning for a colitis perhaps ischemic colitis although there is no evidence of colonic wall thickening on CT. Recommend supportive care and observation. Pain is not improved, GI consultation is recommended.
--- NOTE | 2020-08-15 14:44 | MHC.CM.PN ---
PATIENT MADE AWARE THAT PLAN IS FOR DISCHARGE Wednesday08/16/20. IMM / IN CHART.
[2020-08-15 16:25] LABS: Glucose, Whole Blood 189 mg/dL (60-115)
[2020-08-15 20:21] LABS: Glucose, Whole Blood 197 mg/dL (60-115)
[2020-08-15] MEDS: QUEtiapine Fumarate 100 MG TABLET PO (20:53)
[2020-08-15] MEDS: Montelukast Sodium 10 MG TABLET PO (20:53)
[2020-08-15] MEDS: Atorvastatin Calcium 80 MG TABLET PO (20:53)
[2020-08-16] VITALS (11 sets, daily range): BP systolic 98–152; BP diastolic 59–86; PULSE 86–98; RESP 16–18; TEMP 36.2–36.9; O2SAT 94–100
[2020-08-16] MEDS: HYDROmorphone HCl 0.5 MG/0.5 ML SYRINGE IV ×2 (00:52→05:18)
[2020-08-16] MEDS: 0.9 % Sodium Chloride Flush 3 ML SYRINGE IVFLUSH ×4 (00:54→20:58)
--- NOTE | 2020-08-16 06:39 | MHC.PIE ---
p; pt c/o sob. note; no prn upd? i; dr magaña notified; no new orders at this time e; will cont to monitor
[2020-08-16 07:48] LABS: Glucose, Whole Blood 229 mg/dL (60-115)
[2020-08-16] MEDS: Gabapentin 300 MG CAPSULE PO ×3 (08:18→20:54)
[2020-08-16] MEDS: LORazepam 0.5 MG TABLET PO (08:18)
[2020-08-16] MEDS: Metoprolol Succinate ER 25 MG TAB.ER.24H 75 MG PO (08:18)
[2020-08-16] MEDS: Clopidogrel Bisulfate 75 MG TABLET PO (08:18)
[2020-08-16] MEDS: Tamsulosin HCL 0.4 MG CAPSULE PO (08:19)
[2020-08-16] MEDS: Losartan Potassium 50 MG TABLET PO (08:19)
[2020-08-16] MEDS: Rivaroxaban 15 MG TABLET PO ×2 (08:19→17:39)
[2020-08-16] MEDS: amLODIPine Besylate 5 MG TABLET PO (08:19)
[2020-08-16] MEDS: Furosemide 40 MG TABLET PO (08:19)
[2020-08-16] MEDS: Insulin Lispro 100 UNIT/ML 3 ML VIAL SUBCUT ×3 (08:19→20:54)
[2020-08-16] MEDS: Aspirin Enteric Coated 81 MG TABLET.DR PO (08:19)
[2020-08-16] MEDS: Albuterol/Iprat 2.5/0.5MG 3 ML AMPUL.NEB INHALE ×3 (08:34→16:30)
--- NOTE | 2020-08-16 10:16 | MHC.CM.PN ---
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 He has a prior history of sigmoid diverticulitis and has undergone 2 procedures at [facility] 1 for sigmoid colectomy and a 2nd for obstruction. He describes the pain as constant, sharp and nonradiating. The pain is made worse with motion and with pressure on his abdomen. He reports several bowel movements today 1 which was bloody in the 2nd which was very dark. He denies nausea or vomiting. He denies any new lumps in his abdomen. He is concerned that he may have an obstruction once again. i ) plan continue to monitro abdomen pain try to transition from iv analgeics t ral patient is now on po xRELTO ; MONITORING ALL LABS. DISCHARGE PLAN HOME WITH SELF RESUMPTION OF HIS STAPLE [employer] SELF RESUMPTION OF HIS HOME OXYGEN VIA [facility] AT DISCHARGE
--- NOTE | 2020-08-16 10:54 | MHC.CM.PN ---
Per ROUNDS discussion, Patient is not yet medically cleared for dc (CHEST XRAY- ? CHF/PNA, C/O SOB, GI Consult recommended r/t blood in stool). 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
[2020-08-16 11:20] LABS: Glucose, Whole Blood 323 mg/dL (60-115)
--- NOTE | 2020-08-16 12:12 | PC.NURSE ---
Patient reports 10/10 pain. Patient declines to take PO pain medication that is ordered and that only IV pain medicine works for him, IV pain medicine previously dc'd. Dr. Pena previously aware of situation. Dr. Pena contacted via [facility] that patient is requesting IV pain medicine and is requesting to speak with him. Patient offered alternatives to for pain such as ice and asked if there are any by mouth pain medications that have worked for patient in the past, patient states he does not take any pain medications by mouth. Dr. Pena responded promptly and went in to see patient. Patient sleeping at that time and patient allowed to rest.
--- NOTE | 2020-08-16 12:36 | P.PNIM_ITS ---
Subjective Subjective Date of Service: 08/16/20 Interval History: Seen in f/u for DVT of arm. He is complaining of sob ROS: no chest pain, + shortness of breath, Physical Exam Vital Signs: Vital Signs: Last Vital Signs Temp 98 F 08/16/20 11:04 Pulse 87 08/16/20 12:19 Resp 18 08/16/20 11:04 BP 146/86 H 08/16/20 11:04 Pulse Ox 97 08/16/20 11:04 Body Mass Index 39.0 Const: General: cooperative and no acute distress Orientation /consciousness: patient oriented x3 Resp: Effort & Inspection: able to speak in complete sentences and audible wheezes Cardio: Rate: regular rate Heart sounds: S1 normal heart sound present and S2 normal heart sound present GI: Inspection: Yes normal to inspection Palpation (GI): Soft to palpation and Tenderness to palpation present (GI) in the LLQ Percussion: Yes Other (no guarding) Skin: General skin exam: no rashes or lesions noted Neuro: General: patient oriented x3 Motor exam (neuro): 5/5 motor strength present throughout Extrem: Right upper extremity: edema Left upper extremity: normal to inspection Psych: Affect: Labile affect present Objective Data Current Medications Generic Name Dose Route Start Last Admin Trade Name Freq PRN Reason Stop Dose Admin Albuterol/Ipratropium 3 ml 08/13/20 08:00 08/16/20 12:18 Albuterol/Iprat 2.5/0.5mg 3 Ml Ampul.Neb INHALE 3 ml RQID JUDE Administration Amlodipine Besylate 5 mg 08/13/20 09:00 08/16/20 08:19 Amlodipine Besylate 5 Mg Tablet PO 5 mg DAILY JUDE Administration Protocol Aspirin 81 mg 08/13/20 09:00 08/16/20 08:19 Aspirin Enteric Coated 81 Mg Tablet. PO 81 mg DAILY JUDE Administration Atorvastatin Calcium 80 mg 08/13/20 21:00 08/15/20 20:53 Atorvastatin Calcium 80 Mg Tablet PO 80 mg BEDTIME JUDE Administration Clopidogrel Bisulfate 75 mg 08/13/20 09:00 08/16/20 08:18 Clopidogrel Bisulfate 75 Mg Tablet PO 75 mg DAILY JUDE Administration Furosemide 40 mg 08/13/20 09:00 08/16/20 08:19 Furosemide 40 Mg Tablet PO 40 mg DAILY JUDE Administration Protocol Gabapentin 300 mg 08/13/20 09:00 08/16/20 08:18 Gabapentin 300 Mg Capsule PO 300 mg TID JUDE Administration Hydromorphone HCl 2 mg 08/16/20 07:54 Hydromorphone Hcl 2 Mg Tablet PO Q4H PRN Pain, Severe (Pain Scale 7-10) Insulin Human Lispro 0 unit 08/13/20 07:30 08/16/20 11:37 Insulin Lispro 100 Unit/Ml 3 Ml Vial SUBCUT 8 unit QIDACHS JUDE Administration Protocol Lorazepam 0.5 mg 08/12/20 23:19 08/16/20 08:18 Lorazepam 0.5 Mg Tablet PO 0.5 mg Q12H PRN Administration Anxiety Losartan Potassium 50 mg 08/13/20 09:00 08/16/20 08:19 Losartan Potassium 50 Mg Tablet PO 50 mg DAILY JUDE Administration Protocol Metoprolol Succinate 75 mg 08/13/20 09:00 08/16/20 08:18 Metoprolol Succinate Er 25 Mg Tab.Er.24h PO 75 mg DAILY JUDE Administration Protocol Montelukast Sodium 10 mg 08/13/20 21:00 08/15/20 20:53 Montelukast Sodium 10 Mg Tablet PO 10 mg BEDTIME JUDE Administration Quetiapine Fumarate 100 mg 08/13/20 21:00 08/15/20 20:53 Quetiapine Fumarate 100 Mg Tablet PO 100 mg BEDTIME JUDE Administration Rivaroxaban 15 mg 08/14/20 08:30 08/16/20 08:19 Rivaroxaban 15 Mg Tablet PO 15 mg BIDWM JUDE Administration Sodium Chloride 3 ml 08/13/20 00:00 08/16/20 08:20 0.9 % Sodium Chloride Flush 3 Ml Syringe IVFLUSH 3 ml QSHIFT JUDE Administration Tamsulosin HCl 0.4 mg 08/13/20 09:00 08/16/20 08:19 Tamsulosin Hcl 0.4 Mg Capsule PO 0.4 mg DAILY JUDE Administration Labs CBC & Chem 7: 08/14/20 08:35 08/13/20 06:35 Assessment and Plan (1) DVT of axillary vein, acute right: Status: Acute Assessment and Plan: 65-year-old male with a past medical history of hypertension, hyperlipidemia, diabetes, COPD/ELI on CPAP, DVT/AFib on Eliquis, adjustment disorder presented to the hospital with a chief complaint of right upper extremity pain/abdominal pain. Noted to have right upper extremity DVT. Admitted to the hospital for further management. Right upper extremity DVT while on Eliquis with questionable compliance. He is now on Xarelto and tolerating Abdominal pain ---mostly chronic, exam bening, CT no acute finding, Will have surgery assess him. IV dilaudid for pain, transition to oral Dilaudid. Surgery has seen her and recommend no intervention Hypertension/hyperlipidemia: Continue home medications Diabetes: Insulin sliding scale COPD: Stable nebulizations p.r.n. CPAP: Continue home CPAP History of AFib: Rate controlled. Abdominal pain: Exam benign. CT scan showed no acute findings. Supportive care. Anxiety: Ativan p.r.n. Noted mild leukocytosis: COVID negative. Patient received steroids in the morning. Code status: Full code
--- NOTE | 2020-08-16 13:09 | CONS_ITS ---
DATE OF SERVICE: 08/16/2020 HISTORY OF PRESENT ILLNESS: This gentleman is a 65-year-old male, a well-known patient over here with multiple medical problems, has been admitted this time since 08/12/2020 because of increased shortness of breath, pain and swelling in the right arm, and also pain in the left lower quadrant. Workup including Doppler ultrasound of the right upper extremity has shown a deep vein thrombosis of the right arm. This may be because the patient was off anticoagulation for a while. Since then, the anticoagulation has been started. V/Q scan of the lungs is negative for pulmonary embolism. The patient had left lower quadrant pain, which without any acute inflammatory findings and he is being treated symptomatically. The patient is complaining of persistent shortness of breath and some wheezing. He is being treated with his usual respiratory medications especially oxygen and also DuoNeb updrafts at this time. He is not on steroids. Pulmonary consult was requested as this patient's request to see if something more can be done. According to Dr. Dia, who is the hospitalist treating, he has been fairly stable, but gets increased shortness of breath due to anxiety. I entered the room and he was in supine position, then he wanted to get up and I could notice that he has developed acute respiratory distress with some wheezing sounds. It is noted that he has had no fever or chills and has not required antibiotics. PAST MEDICAL HISTORY: Past medical history of this gentleman is well recorded and he has multitude of medical issues including chronic obstructive pulmonary disease with very frequent exacerbations. He has had obstructive sleep apnea and hypoventilation syndrome. In the past, has been treated for acute respiratory failure with intubation and then tracheostomy. Subsequently, tracheostomy was closed at his request, but because of his sleep apnea, very fat neck and a scar from the tracheostomy, he does have upper airway type of sounds. In the past, he has been opioid dependent. Now, he is being treated with hydromorphone small doses by mouth p.r.n. He has severe anxiety and panic syndrome and does require anxiolytic medications. He has chronic pain syndrome and many times presents with left-sided chest pain, which proves to be noncardiac. Though he has had coronary artery disease with previous angioplasty and stent placements. He stays on anticoagulation. He has multiple other medical problems as listed in his records. PHYSICAL EXAMINATION: GENERAL: At this time, this gentleman presents with a round face, very short, and obese neck with a healed tracheostomy scar. He is short of breath during conversation. He seems to make some tracheal sounds. CHEST: On auscultation, appears to be clear. Breath sounds are equal on both sides with prolonged expiratory phase. Only a few expiratory wheezes heard in the upper chest. The lower parts of the lungs are not well aerated due to poor inspiratory efforts. CARDIAC: Sounds are normal. Rhythm regular. EXTREMITIES: No edema or varicosities. LABORATORY DATA: White cell count 14.1, hemoglobin 12.7. Chest x-ray shows cardiomegaly with increased pulmonary vascular markings especially in the perihilar areas. There is interstitial crowding in the left lung base with a small pleural effusion and there is a decreased ventilation of the right base due to mild atelectasis. No definite pneumonia or mass noted. CLINICAL IMPRESSION: Chronic obstructive pulmonary disease with chronic respiratory failure. I do not think he has any acute exacerbation at this time. Anxiety neurosis. History of obstructive sleep apnea/hypoventilation syndrome with past history of tracheostomy, which is now closed. Multiple medical problems as listed above. RECOMMENDATIONS: At this point, he should be treated with anxiolytic agents as needed. Continue his pain medications. Oxygen supplementation as he needs. DuoNeb updrafts q.6 hours while awake. When he is discharged home, he can be restarted on Incruse and then use the DuoNeb updrafts only p.r.n. No need of any steroids. The patient needs lot of reassurance. Thank you very much for asking me to see this patient. MD FRED Barrett/DAIJA / [id number]
[2020-08-16 16:26] LABS: Glucose, Whole Blood 139 mg/dL (60-115)
[2020-08-16 20:41] LABS: Glucose, Whole Blood 214 mg/dL (60-115)
[2020-08-16] MEDS: Atorvastatin Calcium 80 MG TABLET PO (20:55)
[2020-08-16] MEDS: Montelukast Sodium 10 MG TABLET PO (20:55)
[2020-08-16] MEDS: QUEtiapine Fumarate 100 MG TABLET PO (20:55)
[2020-08-17] VITALS (12 sets, daily range): BP systolic 107–139; BP diastolic 66–91; PULSE 84–114; RESP 18–20; TEMP 36–36.8; O2SAT 94–100
[2020-08-17 06:49] LABS: Hematocrit 41.7 % (42-52); Hemoglobin 13.4 g/dl (14.0-18.0); Mean Corpuscular HGB Conc 32.1 g/dl (31.0-36.0); Mean Corpuscular Hemoglobin 26.9 pg (27.0-33.0); Mean Corpuscular Volume 83.6 fL (80-98); Mean Platelet Volume 10.8 fL (9.4-12.4); Platelet Count 201 X10*3/uL (160-400); Red Blood Count 4.99 X10*6/uL (4.60-5.80); Red Cell Distribution Width 16.5 % (11.0-16.0); White Blood Count 9.9 X10*3/uL (4.8-10.8)
[2020-08-17] MEDS: Albuterol/Iprat 2.5/0.5MG 3 ML AMPUL.NEB INHALE ×4 (07:43→19:25)
[2020-08-17 08:04] LABS: Glucose, Whole Blood 191 mg/dL (60-115)
[2020-08-17] MEDS: Tamsulosin HCL 0.4 MG CAPSULE PO (08:28)
[2020-08-17] MEDS: amLODIPine Besylate 5 MG TABLET PO (08:28)
[2020-08-17] MEDS: Gabapentin 300 MG CAPSULE PO ×3 (08:28→20:33)
[2020-08-17] MEDS: Metoprolol Succinate ER 25 MG TAB.ER.24H 75 MG PO (08:28)
[2020-08-17] MEDS: Losartan Potassium 50 MG TABLET PO (08:28)
[2020-08-17] MEDS: Aspirin Enteric Coated 81 MG TABLET.DR PO (08:28)
[2020-08-17] MEDS: Furosemide 40 MG TABLET PO (08:29)
[2020-08-17] MEDS: Clopidogrel Bisulfate 75 MG TABLET PO (08:29)
[2020-08-17] MEDS: Rivaroxaban 15 MG TABLET PO ×2 (08:29→16:40)
[2020-08-17] MEDS: 0.9 % Sodium Chloride Flush 3 ML SYRINGE IVFLUSH ×2 (08:29→20:36)
[2020-08-17] MEDS: Insulin Lispro 100 UNIT/ML 3 ML VIAL SUBCUT ×3 (08:29→20:32)
--- NOTE | 2020-08-17 09:53 | PM.DS ---
DS: Providers Provider Date of Service: 11/09/20 Date of admission: 08/12/20 23:14 Primary care physician: Unknown Physician Consults: 08/15/20 10:29 Consult to General Surgery Routine Consulting Provider: [facility] General Surgeons Reason for consultation: Abdominal Has provider been notified: No 08/16/20 09:06 Consult to Pulmonology Routine Consulting Provider: Nicole Louise Reason for consultation: ashtma copd Has provider been notified: No DS: Diagnosis Discharge Diagnosis (1) DVT of axillary vein, acute right: Status: Acute DS: Medications Discharge Medications Home Medications: Home Medications Medication Instructions Recorded Confirmed Incruse Ellipta 1 inh INHALATION DAILY 04/17/20 08/13/20 albuterol sulfate [Ventolin HFA] 2 puff PO Q4-6H PRN 04/17/20 08/13/20 amlodipine 1 tab PO DAILY 04/17/20 08/13/20 atorvastatin 80 mg PO BEDTIME 04/17/20 08/13/20 furosemide 40 mg PO DAILY 04/17/20 08/13/20 gabapentin 1 cap PO TID 04/17/20 08/13/20 insulin aspart U-100 [Novolog 8 unit SUBCUT TIDAC 04/17/20 08/13/20 Flexpen U-100 Insulin] losartan 1 tab PO DAILY 04/17/20 08/13/20 montelukast 10 mg PO BEDTIME 04/17/20 08/13/20 pantoprazole [Protonix] 40 mg PO DAILY 04/17/20 08/13/20 quetiapine 100 mg PO BEDTIME 04/17/20 08/13/20 tamsulosin 1 cap PO DAILY 04/17/20 08/13/20 aspirin 81 mg PO DAILY 08/12/20 08/13/20 clopidogrel 1 tab PO DAILY 08/12/20 08/13/20 ipratropium-albuterol 1 amp INHALATION QID 08/12/20 08/13/20 Previous Rx's Medication Instructions Recorded metoprolol succinate 75 mg PO DAILY #45 tab 05/24/20 DS: Summary Hospital Course Hospital Course: HPI: 65 year old male who came in complaining of abdominal pain, shortness of breath as well as pain in his right upper medial arm. He has multiple medical problems, he was admitted in the fall of 2019 to [facility] with respiratory distress related to his heart. At that time he was diagnosed with right upper extremity DVT and was started on Eliquis which he has been taking. 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 He had been off warfarin for several years but was taking aspirin and Plavix when he developed the blood clot in his right upper extremity. He says that he has more pain in his right medial upper arm and there is redness associated with it which developed a few days back. He says he compliant with Eliquis. He is a long-term smoker, he just quit smoking in May 2020 when he was diagnosed with a spot in his lung. He does not recall family history of thrombosis Hospital course: 65-year-old male with a past medical history of hypertension, hyperlipidemia, diabetes, COPD/ELI on CPAP, DVT/AFib on Eliquis, adjustment disorder presented to the hospital with a chief complaint of right upper extremity pain/abdominal pain. Noted to have right upper extremity DVT. Admitted to the hospital for further management. Recurrent DVT of the arm--compliance in question, he says he has been regular with eliquis. Was initially on IV heparin and transitioned to Lovenox. She was seen by Hematology and changed to Xarelto 15 bid for 21 days, follow by Xarelto 20 md daily thereafter and should be anticoagulated for life. Abdominal pain ---mostly chronic, exam bening, CT no acute finding. Seen by Surgery no indication for intervention. He was seen by Dr. Hummel from GI and underwent Flex Sig and noted to have hemorroid which may have been likely source of blood but there was no active bleeding. Dr. Yañez prescribed Hydrocortisone topically Hypertension/hyperlipidemia: Continue home medications Diabetes: Insulin sliding scale COPD: Stable nebulizations p.r.n. Seen by Pulmonology and recommend duoneb and Incruse upon discharge CPAP: Continue home CPAP History of AFib: Rate controlled. Xarelto for anticoagulation Anxiety: Ativan p.r.n. Noted mild leukocytosis: COVID negative. Patient received steroids in the morning. Time Spent with Patient Time attestation: Total time spent providing and/or coordinating discharge services: Discharge coordination time: Greater than 30 minutes Physical Exam Vital Signs: Vital Signs: Last Vital Signs Temp 96.8 F 08/17/20 07:48 Pulse 99 08/17/20 08:28 Resp 18 08/17/20 07:48 BP 139/84 08/17/20 08:28 Pulse Ox 94 08/17/20 07:48 Body Mass Index 39.0 Const: General: cooperative and no acute distress Orientation/consciousness: patient oriented x3 Resp: Effort & Inspection: able to speak in complete sentences and audible wheezes Cardio: Rate: regular rate Heart sounds: S1 normal heart sound present and S2 normal heart sound present GI: Inspection: Yes normal to inspection Palpation (GI): Soft to palpation and Tenderness to palpation present (GI) in the LLQ Percussion: Yes Other (no guarding) Skin: General skin exam: no rashes or lesions noted Neuro: General: patient oriented x3 Motor exam (neuro): 5/5 motor strength present throughout Extrem: Right upper extremity: edema Left upper extremity: normal to inspection Psych: Affect: Labile affect present DS: Data Data Completed and Pending Completed studies during hospitalization [Text1]: Procedures Assistance with Respiratory Ventilation, Less than 24 Consecutive Hours, Continuous Positive Airway Pressure (05/03/20) Labs on day of discharge: Laboratory Tests 08/12/20 08/12/20 08/12/20 19:43 19:43 19:43 WBC 14.7 H RBC 5.10 Hgb 13.3 L Hct 41.6 L MCV 81.6 MCH 26.1 L MCHC 32.0 RDW 16.1 H Plt Count 247 MPV 11.0 Immature Gran % (Auto) 1.3 H Neut % (Auto) 91.9 H Lymph % (Auto) 5.3 L [place] % (Auto) 1.4 L Eos % (Auto) 0.0 Baso % (Auto) 0.1 Lymph # (Auto) 0.8 L [place] # (Auto) 0.2 Eos # (Auto) 0.0 Baso # (Auto) 0.0 Abs Immat Gran (auto) 0.19 H Absolute Neuts (auto) 13.5 H Absolute Nucleated RBC 0.000 Nucleated RBC % (auto) 0.0 Smear Tech's Comments VERIFIED Hold Purple Top SEE NOTE PT 12.3 INR 1.0 APTT 29.8 PTT (Heparin Protocol) Hold Blue Top SEE NOTE Sodium Potassium Chloride Carbon Dioxide Anion Gap BUN Creatinine Estim Creat Clear Calc Estimated GFR POC Glucose Random Glucose Calcium Total Bilirubin AST ALT Alkaline Phosphatase Total Protein Albumin 08/12/20 08/12/20 08/12/20 19:43 22:57 22:57 WBC 15.5 H RBC 5.40 Hgb 14.4 Hct 44.3 MCV 82.0 MCH 26.7 L MCHC 32.5 RDW 16.8 H Plt Count 252 MPV 12.0 Immature Gran % (Auto) 1.4 H Neut % (Auto) 90.8 H Lymph % (Auto) 5.6 L [place] % (Auto) 2.1 Eos % (Auto) 0.0 Baso % (Auto) 0.1 Lymph # (Auto) 0.9 L [place] # (Auto) 0.3 Eos # (Auto) 0.0 Baso # (Auto) 0.0 Abs Immat Gran (auto) 0.21 H Absolute Neuts (auto) 14.1 H Absolute Nucleated RBC 0.000 Nucleated RBC % (auto) 0.0 Smear Tech's Comments Hold Purple Top PT 12.4 INR 1.0 APTT PTT (Heparin Protocol) 31.0 L D Hold Blue Top SEE NOTE Sodium 137 Potassium 4.8 Chloride 103 Carbon Dioxide 23 Anion Gap 16 BUN 25 H Creatinine 1.15 Estim Creat Clear Calc 70.5 Estimated GFR > 60 POC Glucose Random Glucose 336 H Calcium 8.9 Total Bilirubin 0.8 AST 15 ALT 33 Alkaline Phosphatase 85 D Total Protein 6.2 L Albumin 4.3 08/12/20 08/13/20 08/13/20 23:47 06:35 06:35 WBC 19.1 H RBC 4.75 Hgb 12.6 L Hct 39.1 L MCV 82.3 MCH 26.5 L MCHC 32.2 RDW 16.8 H Plt Count 258 MPV 12.0 Immature Gran % (Auto) Neut % (Auto) Lymph % (Auto) [place] % (Auto) Eos % (Auto) Baso % (Auto) Lymph # (Auto) [place] # (Auto) Eos # (Auto) Baso # (Auto) Abs Immat Gran (auto) Absolute Neuts (auto) Absolute Nucleated RBC 0.030 H Nucleated RBC % (auto) 0.2 Smear Tech's Comments Hold Purple Top PT INR APTT PTT (Heparin Protocol) Hold Blue Top Sodium 136 133 L Potassium 4.9 4.8 Chloride 102 100 Carbon Dioxide 23 22 Anion Gap 16 16 BUN 26 H 29 H Creatinine 1.27 1.24 Estim Creat Clear Calc 63.8 65.4 Estimated GFR 57 59 POC Glucose Random Glucose 424 H* 307 H Calcium 8.8 8.6 Total Bilirubin AST ALT Alkaline Phosphatase Total Protein Albumin 08/13/20 08/13/20 08/13/20 10:45 12:53 14:20 WBC RBC Hgb Hct MCV MCH MCHC RDW Plt Count MPV Immature Gran % (Auto) Neut % (Auto) Lymph % (Auto) [place] % (Auto) Eos % (Auto) Baso % (Auto) Lymph # (Auto) [place] # (Auto) Eos # (Auto) Baso # (Auto) Abs Immat Gran (auto) Absolute Neuts (auto) Absolute Nucleated RBC Nucleated RBC % (auto) Smear Tech's Comments Hold Purple Top PT INR APTT PTT (Heparin Protocol) 60.1 D Hold Blue Top Sodium Potassium Chloride Carbon Dioxide Anion Gap BUN Creatinine Estim Creat Clear Calc Estimated GFR POC Glucose 234 H 260 H Random Glucose Calcium Total Bilirubin AST ALT Alkaline Phosphatase Total Protein Albumin 08/13/20 08/13/20 08/13/20 18:39 20:21 20:41 WBC RBC Hgb Hct MCV MCH MCHC RDW Plt Count MPV Immature Gran % (Auto) Neut % (Auto) Lymph % (Auto) [place] % (Auto) Eos % (Auto) Baso % (Auto) Lymph # (Auto) [place] # (Auto) Eos # (Auto) Baso # (Auto) Abs Immat Gran (auto) Absolute Neuts (auto) Absolute Nucleated RBC Nucleated RBC % (auto) Smear Tech's Comments Hold Purple Top PT INR APTT PTT (Heparin Protocol) 29.4 L D Hold Blue Top Sodium Potassium Chloride Carbon Dioxide Anion Gap BUN Creatinine Estim Creat Clear Calc Estimated GFR POC Glucose 215 H 274 H Random Glucose Calcium Total Bilirubin AST ALT Alkaline Phosphatase Total Protein Albumin 08/13/20 08/13/20 08/14/20 20:41 20:41 07:25 WBC 15.3 H RBC 4.71 Hgb 12.4 L Hct 39.3 L MCV 83.4 MCH 26.3 L MCHC 31.6 RDW 17.1 H Plt Count 225 MPV 11.5 Immature Gran % (Auto) Neut % (Auto) Lymph % (Auto) [place] % (Auto) Eos % (Auto) Baso % (Auto) Lymph # (Auto) [place] # (Auto) Eos # (Auto) Baso # (Auto) Abs Immat Gran (auto) Absolute Neuts (auto) Absolute Nucleated RBC 0.020 H Nucleated RBC % (auto) 0.1 Smear Tech's Comments Hold Purple Top PT 12.8 INR 1.1 APTT Cancelled PTT (Heparin Protocol) Hold Blue Top Sodium Potassium Chloride Carbon Dioxide Anion Gap BUN Creatinine Estim Creat Clear Calc Estimated GFR POC Glucose 208 H Random Glucose Calcium Total Bilirubin AST ALT Alkaline Phosphatase Total Protein Albumin 08/14/20 08/14/20 08/14/20 08:35 11:51 16:30 WBC 14.1 H RBC 4.77 Hgb 12.7 L Hct 39.6 L MCV 83.0 MCH 26.6 L MCHC 32.1 RDW 17.2 H Plt Count 160 D MPV 11.6 Immature Gran % (Auto) Neut % (Auto) Lymph % (Auto) [place] % (Auto) Eos % (Auto) Baso % (Auto) Lymph # (Auto) [place] # (Auto) Eos # (Auto) Baso # (Auto) Abs Immat Gran (auto) Absolute Neuts (auto) Absolute Nucleated RBC 0.020 H Nucleated RBC % (auto) 0.1 Smear Tech's Comments Hold Purple Top PT INR APTT PTT (Heparin Protocol) Hold Blue Top Sodium Potassium Chloride Carbon Dioxide Anion Gap BUN Creatinine Estim Creat Clear Calc Estimated GFR POC Glucose 212 H 251 H Random Glucose Calcium Total Bilirubin AST ALT Alkaline Phosphatase Total Protein Albumin 08/14/20 08/14/20 08/15/20 19:05 20:25 07:23 WBC RBC Hgb Hct MCV MCH MCHC RDW Plt Count MPV Immature Gran % (Auto) Neut % (Auto) Lymph % (Auto) [place] % (Auto) Eos % (Auto) Baso % (Auto) Lymph # (Auto) [place] # (Auto) Eos # (Auto) Baso # (Auto) Abs Immat Gran (auto) Absolute Neuts (auto) Absolute Nucleated RBC Nucleated RBC % (auto) Smear Tech's Comments Hold Purple Top PT 22.8 H D INR 1.9 H APTT PTT (Heparin Protocol) Hold Blue Top Sodium Potassium Chloride Carbon Dioxide Anion Gap BUN Creatinine Estim Creat Clear Calc Estimated GFR POC Glucose 187 H 191 H Random Glucose Calcium Total Bilirubin AST ALT Alkaline Phosphatase Total Protein Albumin 08/15/20 08/15/20 08/15/20 11:23 16:19 20:04 WBC RBC Hgb Hct MCV MCH MCHC RDW Plt Count MPV Immature Gran % (Auto) Neut % (Auto) Lymph % (Auto) [place] % (Auto) Eos % (Auto) Baso % (Auto) Lymph # (Auto) [place] # (Auto) Eos # (Auto) Baso # (Auto) Abs Immat Gran (auto) Absolute Neuts (auto) Absolute Nucleated RBC Nucleated RBC % (auto) Smear Tech's Comments Hold Purple Top PT INR APTT PTT (Heparin Protocol) Hold Blue Top Sodium Potassium Chloride Carbon Dioxide Anion Gap BUN Creatinine Estim Creat Clear Calc Estimated GFR POC Glucose 297 H 189 H 197 H Random Glucose Calcium Total Bilirubin AST ALT Alkaline Phosphatase Total Protein Albumin 08/16/20 08/16/20 08/16/20 07:33 11:06 16:15 WBC RBC Hgb Hct MCV MCH MCHC RDW Plt Count MPV Immature Gran % (Auto) Neut % (Auto) Lymph % (Auto) [place] % (Auto) Eos % (Auto) Baso % (Auto) Lymph # (Auto) [place] # (Auto) Eos # (Auto) Baso # (Auto) Abs Immat Gran (auto) Absolute Neuts (auto) Absolute Nucleated RBC Nucleated RBC % (auto) Smear Tech's Comments Hold Purple Top PT INR APTT PTT (Heparin Protocol) Hold Blue Top Sodium Potassium Chloride Carbon Dioxide Anion Gap BUN Creatinine Estim Creat Clear Calc Estimated GFR POC Glucose 229 H 323 H 139 H Random Glucose Calcium Total Bilirubin AST ALT Alkaline Phosphatase Total Protein Albumin 08/16/20 08/17/20 08/17/20 20:36 06:15 07:48 WBC 9.9 RBC 4.99 Hgb 13.4 L Hct 41.7 L MCV 83.6 MCH 26.9 L MCHC 32.1 RDW 16.5 H Plt Count 201 D MPV 10.8 Immature Gran % (Auto) Neut % (Auto) Lymph % (Auto) [place] % (Auto) Eos % (Auto) Baso % (Auto) Lymph # (Auto) [place] # (Auto) Eos # (Auto) Baso # (Auto) Abs Immat Gran (auto) Absolute Neuts (auto) Absolute Nucleated RBC 0.000 Nucleated RBC % (auto) 0.0 Smear Tech's Comments Hold Purple Top PT INR APTT PTT (Heparin Protocol) Hold Blue Top Sodium Potassium Chloride Carbon Dioxide Anion Gap BUN Creatinine Estim Creat Clear Calc Estimated GFR POC Glucose 214 H 191 H Random Glucose Calcium Total Bilirubin AST ALT Alkaline Phosphatase Total Protein Albumin Discharge Plan Discharge Anticipated Discharge Date/Time: 08/19/20 10:18 Patient Disposition: Home Health Service Discharge Diagnosis: copd Referrals: [facility] [Outside] Mignon Holcomb MD [Physician] - 1 Week (TELE VISIT 08/22/2020 1:30 Dr. Holcomb will call you to discuss your hospital stay.) Discharge Medications: New hydrocortisone [Proctozone-HC] 2.5 % Cream With Perineal Applicator 1 appl MS BID Qty: 30 RF: 0 Continued furosemide 40 mg Tablet 40 mg PO DAILY RF: 0 atorvastatin 80 mg Tablet 80 mg PO BEDTIME RF: 0 pantoprazole [Protonix] 40 mg Tablet,Delayed Release (Dr/Ec) 40 mg PO DAILY RF: 0 montelukast 10 mg Tablet 10 mg PO BEDTIME RF: 0 gabapentin 300 mg capsule 1 cap PO TID RF: 0 Incruse Ellipta 62.5 mcg/actuation blister with device 1 inh inhalation DAILY RF: 0 insulin aspart U-100 [Novolog Flexpen U-100 Insulin] 100 unit/mL (3 mL) insulin pen 8 unit subcut TIDAC RF: 0 tamsulosin 0.4 mg capsule 1 cap PO DAILY RF: 0 albuterol sulfate [Ventolin HFA] 90 mcg/actuation HFA aerosol inhaler 2 puff PO Q4-6H PRN (Reason: Shortness Of Breath) RF: 0 ipratropium-albuterol 0.5 mg-3 mg(2.5 mg base)/3 mL solution for nebulization 1 amp inhalation QID RF: 0 clopidogrel 75 mg tablet 1 tab PO DAILY RF: 0 No Action losartan 50 mg tablet 25 mg PO DAILY RF: 0 quetiapine 100 mg tablet 100 mg PO BID RF: 0 metoprolol tartrate 100 mg tablet 100 mg PO BID RF: 0 apixaban 5 mg tablet 5 mg PO BID RF: 0 hydroxyzine pamoate 25 mg capsule 25 mg PO QID PRNRF: 0 Discharge Orders: Discharge Order (Routine); Ordered 08/17/20 Ordered By: Jasper Dia Diet: advance to usual diet Activity on Discharge: As tolerated Stand Alone Forms: Patient Portal Discharge page Care Plan Goals: Treatment for blood clot and prevention of new clots Health Concerns: Recurrent history of blood clot Plan of Treatment: Take Xarelto 15 mg twice until 2020, then start taking Xarelto 20 mg daily starting September 05, 2020 Follow up with your Doctor in a week, call for appointment If you notice any signs of bleeding, call 911 or come to Emergency Assessment: copd Discharge Date/Time: 08/19/20 15:10
--- NOTE | 2020-08-17 10:05 | P.PNIM_ITS ---
Subjective Subjective Date of Service: 08/17/20 Interval History: Seen in f/u for DVT of arm. No new issues ROS: no chest pain, + shortness of breath, abdominal pain Physical Exam Vital Signs: Vital Signs: Last Vital Signs Temp 96.8 F 08/17/20 07:48 Pulse 99 08/17/20 08:28 Resp 18 08/17/20 07:48 BP 139/84 08/17/20 08:28 Pulse Ox 94 08/17/20 07:48 Body Mass Index 39.0 Const: General: cooperative and no acute distress Orientat ion/consciousness: patient oriented x3 Resp: Effort & Inspection: able to speak in complete sentences and audible wheezes Cardio: Rate: regular rate Heart sounds: S1 normal heart sound present and S2 normal heart sound present GI: Inspection: Yes normal to inspection Palpation (GI): Soft to palpation and Tenderness to palpation present (GI) in the LLQ Percussion: Yes Other (no guarding) Skin: General skin exam: no rashes or lesions noted Neuro: General: patient oriented x3 Motor exam (neuro): 5/5 motor strength present throughout Extrem: Right upper extremity: edema Left upper extremity: normal to inspection Psych: Affect: Labile affect present Objective Data Current Medications Generic Name Dose Route Start Last Admin Trade Name Freq PRN Reason Stop Dose Admin Albuterol/Ipratropium 3 ml 08/13/20 08:00 08/17/20 07:43 Albuterol/Iprat 2.5/0.5mg 3 Ml Ampul.Neb INHALE 3 ml RQID JUDE Administration Amlodipine Besylate 5 mg 08/13/20 09:00 08/17/20 08:28 Amlodipine Besylate 5 Mg Tablet PO 5 mg DAILY JUDE Administration Protocol Aspirin 81 mg 08/13/20 09:00 08/17/20 08:28 Aspirin Enteric Coated 81 Mg Tablet. PO 81 mg DAILY JUDE Administration Atorvastatin Calcium 80 mg 08/13/20 21:00 08/16/20 20:55 Atorvastatin Calcium 80 Mg Tablet PO 80 mg BEDTIME JUDE Administration Clopidogrel Bisulfate 75 mg 08/13/20 09:00 08/17/20 08:29 Clopidogrel Bisulfate 75 Mg Tablet PO 75 mg DAILY JUDE Administration Furosemide 40 mg 08/13/20 09:00 08/17/20 08:29 Furosemide 40 Mg Tablet PO 40 mg DAILY JUDE Administration Protocol Gabapentin 300 mg 08/13/20 09:00 08/17/20 08:28 Gabapentin 300 Mg Capsule PO 300 mg TID JUDE Administration Hydromorphone HCl 2 mg 08/16/20 07:54 Hydromorphone Hcl 2 Mg Tablet PO Q4H PRN Pain, Severe (Pain Scale 7-10) Insulin Human Lispro 0 unit 08/13/20 07:30 08/17/20 08:29 Insulin Lispro 100 Unit/Ml 3 Ml Vial SUBCUT 2 unit QIDACHS JUDE Administration Protocol Lorazepam 0.5 mg 08/12/20 23:19 08/16/20 08:18 Lorazepam 0.5 Mg Tablet PO 0.5 mg Q12H PRN Administration Anxiety Losartan Potassium 50 mg 08/13/20 09:00 08/17/20 08:28 Losartan Potassium 50 Mg Tablet PO 50 mg DAILY JUDE Administration Protocol Metoprolol Succinate 75 mg 08/13/20 09:00 08/17/20 08:28 Metoprolol Succinate Er 25 Mg Tab.Er.24h PO 75 mg DAILY JUDE Administration Protocol Montelukast Sodium 10 mg 08/13/20 21:00 08/16/20 20:55 Montelukast Sodium 10 Mg Tablet PO 10 mg BEDTIME JUDE Administration Quetiapine Fumarate 100 mg 08/13/20 21:00 08/16/20 20:55 Quetiapine Fumarate 100 Mg Tablet PO 100 mg BEDTIME JUDE Administration Rivaroxaban 15 mg 08/14/20 08:30 08/17/20 08:29 Rivaroxaban 15 Mg Tablet PO 15 mg BIDWM JUDE Administration Sodium Chloride 3 ml 08/13/20 00:00 08/17/20 08:29 0.9 % Sodium Chloride Flush 3 Ml Syringe IVFLUSH 3 ml QSHIFT JUDE Administration Tamsulosin HCl 0.4 mg 08/13/20 09:00 08/17/20 08:28 Tamsulosin Hcl 0.4 Mg Capsule PO 0.4 mg DAILY JUDE Administration Labs CBC & Chem 7: 08/17/20 06:15 08/13/20 06:35 Assessment and Plan (1) DVT of axillary vein, acute right: Status: Acute Assessment and Plan: 65-year-old male with a past medical history of hypertension, hyperlipidemia, diabetes, COPD/ELI on CPAP, DVT/AFib on Eliquis, adjustment disorder presented to the hospital with a chief complaint of right upper extremity pain/abdominal pain. Noted to have right upper extremity DVT. Admitted to the hospital for further management. Recurrent DVT of the arm--compliance in question, he says he has been regular with eliquis. Was initially on IV heparin and transitioned to Lovenox. She was seen by Hematology and changed to Xarelto 15 bid for 21 days, follow by Xarelto 20 md daily thereafter and should be anticoagulated for life. Abdominal pain ---mostly chronic, exam bening, CT no acute finding. Seen by Surgery no indication for intervention. GI consultation is being requested. Has been on Dilaudid for pain. Hemoglobin has been stable indicating no bleeding Hypertension/hyperlipidemia: Continue home medications Diabetes: Insulin sliding scale COPD: Stable nebulizations p.r.n. Seen by Pulmonology and recommend duoneb and Incruse upon discharge CPAP: Continue home CPAP History of AFib: Rate controlled. Xarelto for anticoagulation
--- NOTE | 2020-08-17 11:13 | MHC.CM.PN ---
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
--- NOTE | 2020-08-17 11:27 | P.CNGI_ITS ---
History of Present Illness Data of Consult Service Date: 08/17/20 Requesting physician: [facility] Primary Care Provider: Unknown Physician HPI Reason for consult: chronic abdominal pain, diarrhea and rectal bleeding 65 YM with atrial fibrillation, congestive heart failure, deep venous thrombosis on anticoagulation, and COPD, [place] [facility] extensive clot burden in the right upper extremity (subclavian, axillary, distal basilic) and V/Q scan showed normal perfusion. Patient was treated with IV heparin drip and switched to Lovenox. 08/12/[address] SCAN SHOWED: LUNG BASES: Small pleural effusions are present. Mild opacity in the inferior lingula suggesting atelectasis. Partially visualized pericardial effusion, presumably small. LIVER, GALLBLADDER, AND BILIARY TREE: The liver is normal in size, shape, and attenuation. No focal hepatic lesion or biliary ductal dilatation is present. Patient is status post cholecystectomy. KIDNEYS AND URETERS: The kidneys are normal in size, shape, and attenuation. No hydronephrosis, hydroureter, or obstructing calculi seen. Redemonstrated bilateral renal cysts. GASTROINTESTINAL TRACT: Colonic suture line is present at the descending/sigmoid colon junction. No wall thickening or evidence of bowel obstruction. Moderate amount of stool is present. The appendix is unremarkable. No free fluid or free air is seen. ABDOMINAL WALL: Small fat-containing inguinal hernias are present. Pt complains of severe cramping and throbbing left lower quadrant abdominal pain. He describes the pain as constant, sharp and nonradiating and is worse with motion and with pressure on his abdomen. He complains of diarrhea with 5 -7 BMs a day. He notes intermittent bright red blood and dark blood in the stools (rectal bleeding has not been documented or observed by nursing staff since patient has been hospitalized). He denies having any BMs since yesterday morning and has noted nausea, increased bloating and distension. He has had 2 surgeries at [facility] for sigmoid diverticulitis. He had one surgery for bowel obstruction related to adhesions - last surgery was approx 3 yrs ago. Pt has been followed by Dr Chao in the past for chronic abdominal pain for the past 15 to 20 yrs. Review of Systems Constitutional: Constitutional: Denies fever(s), Denies headache(s) and Denies weight loss Eyes: Eyes: Denies eye discharge and Denies irritation ENT: Reports Normal hearing present, Denies dysphagia, Denies dizziness and Denies headache(s) Cardiovascular: Cardiovascular: Denies chest pain, Denies leg edema and Denies dyspnea on exertion Respiratory: Respiratory: Denies cough, Denies dyspnea on exertion and Denies wheezing Gastrointestinal: Gastrointestinal: Reports abdominal pain, Reports hematochezia, Denies change in bowel habits, Denies dysphagia, Denies heartburn and Reports diarrhea Genitourinary: Genitourinary: Denies dysuria Musculoskeletal: Musculoskeletal: Denies back pain and Denies arthralgias Integumentary/Breasts: Skin/Breast: Denies pruritus, Denies rash and Denies jaundice Neurologic: Reports Normal hearing present, Denies Abnormal speech present, Denies dizziness, Denies headache(s) and Denies seizure-like activity Psychiatric: Psychiatric: Denies anxiety, Denies depression and Denies panic attacks Endocrine: Endocrine: Denies cold intolerance, Denies flushing and Denies heat intolerance Hematologic/Lymphatic: Hematologic/Lymphatic: Denies easy bleeding and Denies easy bruising Allergic/Immunologic: Allergic/Immunologic: Denies wheezing PMFSH Past Medical History Medical History (Updated 09/24/20 @ 17:11 by Nicole Louise MD) Adjustment disorder with anxious mood Asthma Atrial fibrillation BPH (benign prostatic hyperplasia) CAD (coronary artery disease) CHF (congestive heart failure) COPD (chronic obstructive pulmonary disease) COPD (chronic obstructive pulmonary disease) Diabetes mellitus, type 2 GERD (gastroesophageal reflux disease) HTN (hypertension) ELI (obstructive sleep apnea) Systolic CHF Family History Family History Other HTN (hypertension) Surgical History Surgical History History of tracheostomy S/P diskectomy S/P partial colectomy Social History Social History Household Members: Family Housing: House Alcohol intake: never Smoking Status: Former smoker Tobacco Type: Cigarette Packs Per Day: 0.25 Years Smoked: 50 Second Hand Smoke Exposure: Yes Advance Directives Date on File: 04/18/20 service: No Current occupational status: disabled Meds Allergies Allergy/AdvReac Type Severity Reaction Status Date / Time nitroglycerin [NITROGLYCERIN] Allergy Severe CARDIOPULMONARY Verified 09/24/20 14:12 ARREST 2011 adhesive tape [Adhesive Tape] Allergy Mild BLISTERS Verified 09/24/20 14:12 cephalexin [From Keflex] Allergy Unknown ITCHING Verified 09/24/20 14:12 ciprofloxacin [From Cipro] Allergy Unknown ITCHING Verified 09/24/20 14:12 latex [LATEX] Allergy Unknown UNKNOWN Verified 09/24/20 14:12 morphine [Morphine] Allergy Unknown ITCHING Verified 09/24/20 14:12 diltiazem Allergy Unknown Verified 09/24/20 14:12 tramadol [From ULTRAM] AdvReac Severe STOMACH Verified 09/24/20 14:12 UPSET Home Medications Medication Instructions Recorded Confirmed Type Incruse Ellipta 1 inh INHALATION DAILY 04/17/20 09/24/20 History albuterol sulfate [Ventolin HFA] 2 puff PO Q4-6H PRN 04/17/20 09/24/20 History atorvastatin 80 mg PO BEDTIME 04/17/20 09/24/20 History furosemide 40 mg PO DAILY 04/17/20 09/24/20 History gabapentin 1 cap PO TID 04/17/20 09/24/20 History insulin aspart U-100 [Novolog 8 unit SUBCUT TIDAC 04/17/20 09/24/20 History Flexpen U-100 Insulin] montelukast 10 mg PO BEDTIME 04/17/20 09/24/20 History pantoprazole [Protonix] 40 mg PO DAILY 04/17/20 09/24/20 History tamsulosin 1 cap PO DAILY 04/17/20 09/24/20 History clopidogrel 1 tab PO DAILY 08/12/20 09/24/20 History ipratropium-albuterol 1 amp INHALATION QID 08/12/20 09/24/20 History apixaban 5 mg tablet 5 mg PO BID 09/24/20 09/24/20 History hydroxyzine pamoate 25 mg capsule 25 mg PO QID PRN 09/24/20 09/24/20 History losartan 50 mg tablet 25 mg PO DAILY tab 09/24/20 09/24/20 History metoprolol tartrate 100 mg tablet 100 mg PO BID 09/24/20 09/24/20 History quetiapine 100 mg tablet 100 mg PO BID tab 09/24/20 09/24/20 History Physical Exam Vital Signs: Vital Signs: Last Vital Signs Temp 96.8 F 08/17/20 07:48 Pulse 99 08/17/20 08:28 Resp 18 08/17/20 07:48 BP 139/84 08/17/20 08:28 Pulse Ox 94 08/17/20 07:48 Body Mass Index 39.0 Const: General: healthy appearing and no acute distress Nutritional Appearance: average body habitus Orientation/consciousness: patient oriented x3 Limitations: no limitations HENMT: Head: Yes normal to inspection Ears: hearing grossly normal bilaterally Mouth: Normal oral and palatal mucosa present Eyes: Sclerae: sclerae normal Pupils: Equal, round and reactive pupils present Neck: Neck: Yes normal visual inspection Chest: Chest palpation & inspection: normal inspection of the chest Resp: Effort & Inspection: normal respiratory effort Auscultation: clear to auscultation bilaterally Cardio: Palpation: normal PMI Rate: regular rate Rhythm: regular rhythm Heart sounds: S1 normal heart sound present, S2 normal heart sound present and no murmurs GI: Inspection: Yes distended and Yes obesity Palpation (GI): Soft to palpation, Tenderness to palpation present (GI) in the LLQ and No hepatosplenomegaly present Auscultation: normal bowel sounds Rectal Exam - Male: Yes deferred Skin: General skin exam: no rashes or lesions noted Neuro: General: patient oriented x3, gait normal and moves all extremities Cranial nerves: Yes Equal, round and reactive pupils present and Yes Normal hearing present Speech: No Abnormal speech present Psych: Appearance: grossly normal Mental Status: mental status grossly normal Results Labs CBC & Chem 7: 08/18/20 06:16 08/13/20 06:35 Labs: Short CBC 08/17/20 Range/Units 06:15 WBC 9.9 (4.8-10.8) X10*3/uL Hgb 13.4 L (14.0-18.0) g/dl Hct 41.7 L (42-52) % Plt Count 201 D (160-400) X10*3/uL Assessment and Plan (1) Left lower quadrant abdominal tenderness: Status: Resolved (2) Intermittent diarrhea: Status: Resolved (3) Rectal bleeding: Status: Resolved 65 YM with atrial fibrillation, congestive heart failure, deep venous thrombosis on anticoagulation, and COPD, [place] [facility] extensive clot burden in the right upper extremity (subclavian, axillary, distal basilic) and V/Q scan showed normal perfusion scan. Pt complains of worsening LLQ pain associated with diarrhea and intermittent rectal bleeding. Pt is status post abdominal surgeries for diverticulitis and obstruction related to adhesions. he is at risk for ischemic colitis and recurrent bowel obstruction due to adhesions from past surgeries. RECOMMENDATIONS: 1. Obtain lactic acid and KUB 2. If KUB is negative, I will scheduled for a diagnostic flex sigmoidoscopy (no biopsies) while on anticoagulation to rule out ischemic colitis.
[2020-08-17 11:45] LABS: Glucose, Whole Blood 379 mg/dL (60-115)
--- NOTE | 2020-08-17 15:15 | MHC.CM.PN ---
patient went down to radiology for imaging studies and ? of passing out , brought up to the floor discharge3 cancelled , patient als evaluated by [employer] [employer] , labs (LACTIC ACID)and kub ordered , (PER DOCUMENTATION IF KUB IS NEGHATIVE GI PHYSICIAN WILL SCHEDULE FOR DIAGNOSTIC FWEX SIGMOIDOSCOPY TO RULE OUT COLITIS) NOTIFIED [facility] THAT THE DISCHARGED WAS CANCELED FOR TODAY
[2020-08-17 16:24] LABS: Glucose, Whole Blood 144 mg/dL (60-115)
--- NOTE | 2020-08-17 16:35 | PC.NURSE ---
1130- Pt POC 379, Dr. Dia made aware. No additional insulin ordered. 10 units SSI given per EMAR. No issues.
--- NOTE | 2020-08-17 19:30 | PC.NURSE ---
1320 Pt went down to Xray. donor support technician brought pt back to unit shortly after and stated that when the pt stood up, his eyes rolled back and felt dizzy. Got pt back into wheelchair and sent back to unit. This RN in patient room. Vital signs obtained. BP 149/109. HR 109. O2 99. RR 20. Dr. Dia aware. Orthostatic orders placed. When sitting up for orthos, pt became dizzy and unable to sit up straight. Assisted back to bed. Laying vitals 118/71, HR 114. Sitting bp 134/83 HR 108. Patient unable to tolerate standing. Dr. Dia updated. No new orders.
--- NOTE | 2020-08-17 19:36 | PC.NURSE ---
1340 Phlebotomy unable to draw blood. Patient refused. Dr. Dia aware. 1800 Dr. Dia requesting phlebotomy to try again. Multiple attempts made to call. Oncoming nurse made aware.
--- NOTE | 2020-08-17 19:38 | PC.NURSE ---
Pt lost IV access. Multiple attempts made by RN and nursing supervisor twisting department with no success. Pt scheduled for procedure tomorrow requiring IV access. IV obtained in right foot. Dr. Dia aware and given okay for IV placement.
[2020-08-17 19:49] LABS: Glucose, Whole Blood 159 mg/dL (60-115)
[2020-08-17 20:24] LABS: MANUAL DIFF FLAG NO
[2020-08-17 20:26] LABS: Basophils Percent Auto 0.3 % (0-2); Eosinophils Absolute Auto 0.1 X10*3/uL (0.0-0.4); Eosinophils Percent Auto 0.7 % (0-4); Hematocrit 41.9 % (42-52); Hemoglobin 13.5 g/dl (14.0-18.0); Imm Gran Abs Auto 0.25 X10*3/uL (0.00-0.03); Imm Gran Pct Auto 2.2 % (0.0-0.4); Lymphocytes Absolute Auto 1.7 X10*3/uL (1.2-4.9); Lymphocytes Percent Auto 15.2 % (20-40); Mean Corpuscular HGB Conc 32.2 g/dl (31.0-36.0); Mean Corpuscular Hemoglobin 26.6 pg (27.0-33.0); Mean Corpuscular Volume 82.6 fL (80-98); Monocytes Absolute Auto 0.6 X10*3/uL (0.1-1.2); Monocytes Percent Auto 5.6 % (2-11); Neutrophils Absolute Auto 8.6 X10*3/uL (2.0-8.3); Platelet Count 227 X10*3/uL (160-400); Red Blood Count 5.07 X10*6/uL (4.60-5.80); Red Cell Distribution Width 16.4 % (11.0-16.0); White Blood Count 11.3 X10*3/uL (4.8-10.8)
[2020-08-17] MEDS: Montelukast Sodium 10 MG TABLET PO (20:33)
[2020-08-17] MEDS: Atorvastatin Calcium 80 MG TABLET PO (20:33)
[2020-08-17] MEDS: QUEtiapine Fumarate 100 MG TABLET PO (20:33)
[2020-08-17 20:53] LABS: Lactic Acid 1.6 mmol/L (0.5-2.0)
[2020-08-17 20:55] LABS: C Reactive Protein 2.53 mg/dL (< or = 0.50)
[2020-08-17] MEDS: Barium Sulfate Oral (Berry) 450 ML ORAL.SUSP 900 ML PO (22:52)
[2020-08-18] VITALS (14 sets, daily range): BP systolic 103–139; BP diastolic 68–89; PULSE 72–104; RESP 15–20; TEMP 36.1–36.8; O2SAT 93–100
[2020-08-18 07:16] LABS: Hematocrit 40.7 % (42-52); Hemoglobin 13.1 g/dl (14.0-18.0); Mean Corpuscular HGB Conc 32.2 g/dl (31.0-36.0); Mean Corpuscular Hemoglobin 26.4 pg (27.0-33.0); Mean Corpuscular Volume 81.9 fL (80-98); Mean Platelet Volume 11.4 fL (9.4-12.4); Platelet Count 210 X10*3/uL (160-400); Red Blood Count 4.97 X10*6/uL (4.60-5.80); Red Cell Distribution Width 16.4 % (11.0-16.0); White Blood Count 10.4 X10*3/uL (4.8-10.8)
[2020-08-18 07:42] LABS: Glucose, Whole Blood 130 mg/dL (60-115)
[2020-08-18] MEDS: Albuterol/Iprat 2.5/0.5MG 3 ML AMPUL.NEB INHALE ×4 (07:56→20:50)
--- NOTE | 2020-08-18 09:19 | P.CONAN_ITS ---
[facility] Active Problems Active Problems: All Active Problems (Updated 08/17/20 @ 13:03 by Omaira Hummel MD) Rectal bleeding (Acute) Intermittent diarrhea (Acute) Left lower quadrant abdominal tenderness (Acute) DVT of axillary vein, acute right (Acute) CHF (congestive heart failure) (Acute) DVT (deep venous thrombosis) (Acute) CHF exacerbation (Acute) Pulmonary nodule 1 cm or greater in diameter (Acute) Chest pain (Acute) Adjustment disorder with anxious mood (Acute) ELI (obstructive sleep apnea) (Acute) Atrial fibrillation with rapid ventricular response (Acute) Hemoptysis (Acute) Acute and chronic respiratory failure (Acute) COPD exacerbation (Acute) Diabetes mellitus, type 2 (Acute) Acute exacerbation of chronic obstructive airways disease (Acute) CAD (coronary artery disease) (Acute) GERD (gastroesophageal reflux disease) (Acute) ELI (obstructive sleep apnea) (Acute) Hypertension (Acute) Respiratory failure, chronic (Acute) Past Medical History Medical History (Updated 08/17/20 @ 13:03 by Omaira Hummel MD) Adjustment disorder with anxious mood Asthma Atrial fibrillation BPH (benign prostatic hyperplasia) CAD (coronary artery disease) COPD (chronic obstructive pulmonary disease) Diabetes mellitus, type 2 GERD (gastroesophageal reflux disease) HTN (hypertension) ELI (obstructive sleep apnea) Systolic CHF Family History Family History Other HTN (hypertension) Surgical History Surgical History (Updated 08/15/20 @ 14:24 by Antoine High MD) History of tracheostomy S/P diskectomy S/P partial colectomy Social History Social History Household Members: Family Housing: House Do you presently have visiting nurse or other home services: No Alcohol intake: never Smoking Status: Former smoker Tobacco Type: Cigarette Packs Per Day: 0.25 Years Smoked: 50 Smoked in Last 30 Days: No Second Hand Smoke Exposure: Yes Use of substances other than those prescribed or required for medical reasons: No Currently Displaying Signs/Symptoms of Drug Intoxication Withdrawal: No Have you been hit, kicked, punched, or otherwise hurt by someone within the past year? If so, by whom?: No Do you feel safe in your current relationship?: No Is there a partner from a previous relationship who is making you feel unsafe now?: No Are you made to feel afraid or neglected: No Advance Directives: No Advance Directives Date on File: 04/18/20 Do you have thoughts of harming others: None Do you have a plan to hurt others: No Plan Recently lost weight without trying: No service: No Current occupational status: disabled Meds Allergies Allergy/AdvReac Type Severity Reaction Status Date / Time nitroglycerin [NITROGLYCERIN] Allergy Severe CARDIOPULMONARY Verified 08/12/20 22:18 ARREST 2011 adhesive tape [Adhesive Tape] Allergy Mild BLISTERS Verified 08/12/20 22:18 cephalexin [From Keflex] Allergy Unknown ITCHING Verified 08/12/20 22:18 ciprofloxacin [From Cipro] Allergy Unknown ITCHING Verified 08/12/20 22:18 latex [LATEX] Allergy Unknown UNKNOWN Verified 08/12/20 22:18 morphine [Morphine] Allergy Unknown ITCHING Verified 08/12/20 22:18 diltiazem Allergy Unknown Verified 08/12/20 22:18 tramadol [From ULTRAM] AdvReac Severe STOMACH Verified 08/12/20 22:18 UPSET Home Medications Medication Instructions Recorded Confirmed Type Incruse Ellipta 1 inh INHALATION DAILY 04/17/20 08/13/20 History albuterol sulfate [Ventolin HFA] 2 puff PO Q4-6H PRN 04/17/20 08/13/20 History amlodipine 1 tab PO DAILY 04/17/20 08/13/20 History atorvastatin 80 mg PO BEDTIME 04/17/20 08/13/20 History furosemide 40 mg PO DAILY 04/17/20 08/13/20 History gabapentin 1 cap PO TID 04/17/20 08/13/20 History insulin aspart U-100 [Novolog 8 unit SUBCUT TIDAC 04/17/20 08/13/20 History Flexpen U-100 Insulin] losartan 1 tab PO DAILY 04/17/20 08/13/20 History montelukast 10 mg PO BEDTIME 04/17/20 08/13/20 History pantoprazole [Protonix] 40 mg PO DAILY 04/17/20 08/13/20 History quetiapine 100 mg PO BEDTIME 04/17/20 08/13/20 History tamsulosin 1 cap PO DAILY 04/17/20 08/13/20 History aspirin 81 mg PO DAILY 08/12/20 08/13/20 History clopidogrel 1 tab PO DAILY 08/12/20 08/13/20 History ipratropium-albuterol 1 amp INHALATION QID 08/12/20 08/13/20 History Exam Exam Date and Time: August 18, [id number] Height,Weight and Vital Signs: Height 5 ft 4 in Weight 103.3 kg Last Vital Signs Temp 97.1 F 08/18/20 07:36 Pulse 92 08/18/20 07:58 Resp 18 08/18/20 07:36 BP 113/72 08/18/20 07:36 Pulse Ox 97 08/18/20 07:36 Pertinent Lab Results Pertinent Lab Results: Laboratory Tests 08/12/20 08/12/20 08/12/20 19:43 19:43 19:43 WBC 14.7 H RBC 5.10 Hgb 13.3 L Hct 41.6 L MCV 81.6 MCH 26.1 L MCHC 32.0 RDW 16.1 H Plt Count 247 MPV 11.0 Immature Gran % (Auto) 1.3 H Neut % (Auto) 91.9 H Lymph % (Auto) 5.3 L [place] % (Auto) 1.4 L Eos % (Auto) 0.0 Baso % (Auto) 0.1 Lymph # (Auto) 0.8 L [place] # (Auto) 0.2 Eos # (Auto) 0.0 Baso # (Auto) 0.0 Abs Immat Gran (auto) 0.19 H Absolute Neuts (auto) 13.5 H Absolute Nucleated RBC 0.000 Nucleated RBC % (auto) 0.0 Smear Tech's Comments VERIFIED Hold Purple Top SEE NOTE PT 12.3 INR 1.0 APTT 29.8 PTT (Heparin Protocol) Hold Blue Top SEE NOTE Sodium Potassium Chloride Carbon Dioxide Anion Gap BUN Creatinine Estim Creat Clear Calc Estimated GFR POC Glucose Random Glucose Lactic Acid Calcium Total Bilirubin AST ALT Alkaline Phosphatase C-Reactive Protein Total Protein Albumin 08/12/20 08/12/20 08/12/20 19:43 22:57 22:57 WBC 15.5 H RBC 5.40 Hgb 14.4 Hct 44.3 MCV 82.0 MCH 26.7 L MCHC 32.5 RDW 16.8 H Plt Count 252 MPV 12.0 Immature Gran % (Auto) 1.4 H Neut % (Auto) 90.8 H Lymph % (Auto) 5.6 L [place] % (Auto) 2.1 Eos % (Auto) 0.0 Baso % (Auto) 0.1 Lymph # (Auto) 0.9 L [place] # (Auto) 0.3 Eos # (Auto) 0.0 Baso # (Auto) 0.0 Abs Immat Gran (auto) 0.21 H Absolute Neuts (auto) 14.1 H Absolute Nucleated RBC 0.000 Nucleated RBC % (auto) 0.0 Smear Tech's Comments Hold Purple Top PT 12.4 INR 1.0 APTT PTT (Heparin Protocol) 31.0 L D Hold Blue Top SEE NOTE Sodium 137 Potassium 4.8 Chloride 103 Carbon Dioxide 23 Anion Gap 16 BUN 25 H Creatinine 1.15 Estim Creat Clear Calc 70.5 Estimated GFR > 60 POC Glucose Random Glucose 336 H Lactic Acid Calcium 8.9 Total Bilirubin 0.8 AST 15 ALT 33 Alkaline Phosphatase 85 D C-Reactive Protein Total Protein 6.2 L Albumin 4.3 08/12/20 08/13/20 08/13/20 23:47 06:35 06:35 WBC 19.1 H RBC 4.75 Hgb 12.6 L Hct 39.1 L MCV 82.3 MCH 26.5 L MCHC 32.2 RDW 16.8 H Plt Count 258 MPV 12.0 Immature Gran % (Auto) Neut % (Auto) Lymph % (Auto) [place] % (Auto) Eos % (Auto) Baso % (Auto) Lymph # (Auto) [place] # (Auto) Eos # (Auto) Baso # (Auto) Abs Immat Gran (auto) Absolute Neuts (auto) Absolute Nucleated RBC 0.030 H Nucleated RBC % (auto) 0.2 Smear Tech's Comments Hold Purple Top PT INR APTT PTT (Heparin Protocol) Hold Blue Top Sodium 136 133 L Potassium 4.9 4.8 Chloride 102 100 Carbon Dioxide 23 22 Anion Gap 16 16 BUN 26 H 29 H Creatinine 1.27 1.24 Estim Creat Clear Calc 63.8 65.4 Estimated GFR 57 59 POC Glucose Random Glucose 424 H* 307 H Lactic Acid Calcium 8.8 8.6 Total Bilirubin AST ALT Alkaline Phosphatase C-Reactive Protein Total Protein Albumin 08/13/20 08/13/20 08/13/20 10:45 12:53 14:20 WBC RBC Hgb Hct MCV MCH MCHC RDW Plt Count MPV Immature Gran % (Auto) Neut % (Auto) Lymph % (Auto) [place] % (Auto) Eos % (Auto) Baso % (Auto) Lymph # (Auto) [place] # (Auto) Eos # (Auto) Baso # (Auto) Abs Immat Gran (auto) Absolute Neuts (auto) Absolute Nucleated RBC Nucleated RBC % (auto) Smear Tech's Comments Hold Purple Top PT INR APTT PTT (Heparin Protocol) 60.1 D Hold Blue Top Sodium Potassium Chloride Carbon Dioxide Anion Gap BUN Creatinine Estim Creat Clear Calc Estimated GFR POC Glucose 234 H 260 H Random Glucose Lactic Acid Calcium Total Bilirubin AST ALT Alkaline Phosphatase C-Reactive Protein Total Protein Albumin 08/13/20 08/13/20 08/13/20 18:39 20:21 20:41 WBC RBC Hgb Hct MCV MCH MCHC RDW Plt Count MPV Immature Gran % (Auto) Neut % (Auto) Lymph % (Auto) [place] % (Auto) Eos % (Auto) Baso % (Auto) Lymph # (Auto) [place] # (Auto) Eos # (Auto) Baso # (Auto) Abs Immat Gran (auto) Absolute Neuts (auto) Absolute Nucleated RBC Nucleated RBC % (auto) Smear Tech's Comments Hold Purple Top PT INR APTT PTT (Heparin Protocol) 29.4 L D Hold Blue Top Sodium Potassium Chloride Carbon Dioxide Anion Gap BUN Creatinine Estim Creat Clear Calc Estimated GFR POC Glucose 215 H 274 H Random Glucose Lactic Acid Calcium Total Bilirubin AST ALT Alkaline Phosphatase C-Reactive Protein Total Protein Albumin 08/13/20 08/13/20 08/14/20 20:41 20:41 07:25 WBC 15.3 H RBC 4.71 Hgb 12.4 L Hct 39.3 L MCV 83.4 MCH 26.3 L MCHC 31.6 RDW 17.1 H Plt Count 225 MPV 11.5 Immature Gran % (Auto) Neut % (Auto) Lymph % (Auto) [place] % (Auto) Eos % (Auto) Baso % (Auto) Lymph # (Auto) [place] # (Auto) Eos # (Auto) Baso # (Auto) Abs Immat Gran (auto) Absolute Neuts (auto) Absolute Nucleated RBC 0.020 H Nucleated RBC % (auto) 0.1 Smear Tech's Comments Hold Purple Top PT 12.8 INR 1.1 APTT Cancelled PTT (Heparin Protocol) Hold Blue Top Sodium Potassium Chloride Carbon Dioxide Anion Gap BUN Creatinine Estim Creat Clear Calc Estimated GFR POC Glucose 208 H Random Glucose Lactic Acid Calcium Total Bilirubin AST ALT Alkaline Phosphatase C-Reactive Protein Total Protein Albumin 08/14/20 08/14/20 08/14/20 08:35 11:51 16:30 WBC 14.1 H RBC 4.77 Hgb 12.7 L Hct 39.6 L MCV 83.0 MCH 26.6 L MCHC 32.1 RDW 17.2 H Plt Count 160 D MPV 11.6 Immature Gran % (Auto) Neut % (Auto) Lymph % (Auto) [place] % (Auto) Eos % (Auto) Baso % (Auto) Lymph # (Auto) [place] # (Auto) Eos # (Auto) Baso # (Auto) Abs Immat Gran (auto) Absolute Neuts (auto) Absolute Nucleated RBC 0.020 H Nucleated RBC % (auto) 0.1 Smear Tech's Comments Hold Purple Top PT INR APTT PTT (Heparin Protocol) Hold Blue Top Sodium Potassium Chloride Carbon Dioxide Anion Gap BUN Creatinine Estim Creat Clear Calc Estimated GFR POC Glucose 212 H 251 H Random Glucose Lactic Acid Calcium Total Bilirubin AST ALT Alkaline Phosphatase C-Reactive Protein Total Protein Albumin 08/14/20 08/14/20 08/15/20 19:05 20:25 07:23 WBC RBC Hgb Hct MCV MCH MCHC RDW Plt Count MPV Immature Gran % (Auto) Neut % (Auto) Lymph % (Auto) [place] % (Auto) Eos % (Auto) Baso % (Auto) Lymph # (Auto) [place] # (Auto) Eos # (Auto) Baso # (Auto) Abs Immat Gran (auto) Absolute Neuts (auto) Absolute Nucleated RBC Nucleated RBC % (auto) Smear Tech's Comments Hold Purple Top PT 22.8 H D INR 1.9 H APTT PTT (Heparin Protocol) Hold Blue Top Sodium Potassium Chloride Carbon Dioxide Anion Gap BUN Creatinine Estim Creat Clear Calc Estimated GFR POC Glucose 187 H 191 H Random Glucose Lactic Acid Calcium Total Bilirubin AST ALT Alkaline Phosphatase C-Reactive Protein Total Protein Albumin 08/15/20 08/15/20 08/15/20 11:23 16:19 20:04 WBC RBC Hgb Hct MCV MCH MCHC RDW Plt Count MPV Immature Gran % (Auto) Neut % (Auto) Lymph % (Auto) [place] % (Auto) Eos % (Auto) Baso % (Auto) Lymph # (Auto) [place] # (Auto) Eos # (Auto) Baso # (Auto) Abs Immat Gran (auto) Absolute Neuts (auto) Absolute Nucleated RBC Nucleated RBC % (auto) Smear Tech's Comments Hold Purple Top PT INR APTT PTT (Heparin Protocol) Hold Blue Top Sodium Potassium Chloride Carbon Dioxide Anion Gap BUN Creatinine Estim Creat Clear Calc Estimated GFR POC Glucose 297 H 189 H 197 H Random Glucose Lactic Acid Calcium Total Bilirubin AST ALT Alkaline Phosphatase C-Reactive Protein Total Protein Albumin 08/16/20 08/16/20 08/16/20 07:33 11:06 16:15 WBC RBC Hgb Hct MCV MCH MCHC RDW Plt Count MPV Immature Gran % (Auto) Neut % (Auto) Lymph % (Auto) [place] % (Auto) Eos % (Auto) Baso % (Auto) Lymph # (Auto) [place] # (Auto) Eos # (Auto) Baso # (Auto) Abs Immat Gran (auto) Absolute Neuts (auto) Absolute Nucleated RBC Nucleated RBC % (auto) Smear Tech's Comments Hold Purple Top PT INR APTT PTT (Heparin Protocol) Hold Blue Top Sodium Potassium Chloride Carbon Dioxide Anion Gap BUN Creatinine Estim Creat Clear Calc Estimated GFR POC Glucose 229 H 323 H 139 H Random Glucose Lactic Acid Calcium Total Bilirubin AST ALT Alkaline Phosphatase C-Reactive Protein Total Protein Albumin 08/16/20 08/17/20 08/17/20 20:36 06:15 07:48 WBC 9.9 RBC 4.99 Hgb 13.4 L Hct 41.7 L MCV 83.6 MCH 26.9 L MCHC 32.1 RDW 16.5 H Plt Count 201 D MPV 10.8 Immature Gran % (Auto) Neut % (Auto) Lymph % (Auto) [place] % (Auto) Eos % (Auto) Baso % (Auto) Lymph # (Auto) [place] # (Auto) Eos # (Auto) Baso # (Auto) Abs Immat Gran (auto) Absolute Neuts (auto) Absolute Nucleated RBC 0.000 Nucleated RBC % (auto) 0.0 Smear Tech's Comments Hold Purple Top PT INR APTT PTT (Heparin Protocol) Hold Blue Top Sodium Potassium Chloride Carbon Dioxide Anion Gap BUN Creatinine Estim Creat Clear Calc Estimated GFR POC Glucose 214 H 191 H Random Glucose Lactic Acid Calcium Total Bilirubin AST ALT Alkaline Phosphatase C-Reactive Protein Total Protein Albumin 08/17/20 08/17/20 08/17/20 11:33 16:10 19:40 WBC RBC Hgb Hct MCV MCH MCHC RDW Plt Count MPV Immature Gran % (Auto) Neut % (Auto) Lymph % (Auto) [place] % (Auto) Eos % (Auto) Baso % (Auto) Lymph # (Auto) [place] # (Auto) Eos # (Auto) Baso # (Auto) Abs Immat Gran (auto) Absolute Neuts (auto) Absolute Nucleated RBC Nucleated RBC % (auto) Smear Tech's Comments Hold Purple Top PT INR APTT PTT (Heparin Protocol) Hold Blue Top Sodium Potassium Chloride Carbon Dioxide Anion Gap BUN Creatinine Estim Creat Clear Calc Estimated GFR POC Glucose 379 H* 144 H 159 H Random Glucose Lactic Acid Calcium Total Bilirubin AST ALT Alkaline Phosphatase C-Reactive Protein Total Protein Albumin 08/17/20 08/17/20 08/17/20 20:17 20:17 20:17 WBC 11.3 H RBC 5.07 Hgb 13.5 L Hct 41.9 L MCV 82.6 MCH 26.6 L MCHC 32.2 RDW 16.4 H Plt Count 227 MPV 12.0 Immature Gran % (Auto) 2.2 H Neut % (Auto) 76.0 H Lymph % (Auto) 15.2 L [place] % (Auto) 5.6 Eos % (Auto) 0.7 Baso % (Auto) 0.3 Lymph # (Auto) 1.7 [place] # (Auto) 0.6 Eos # (Auto) 0.1 Baso # (Auto) 0.0 Abs Immat Gran (auto) 0.25 H Absolute Neuts (auto) 8.6 H Absolute Nucleated RBC 0.000 Nucleated RBC % (auto) 0.0 Smear Tech's Comments Hold Purple Top PT INR APTT PTT (Heparin Protocol) Hold Blue Top Sodium Potassium Chloride Carbon Dioxide Anion Gap BUN Creatinine Estim Creat Clear Calc Estimated GFR POC Glucose Random Glucose Lactic Acid 1.6 Calcium Total Bilirubin AST ALT Alkaline Phosphatase C-Reactive Protein 2.53 H Total Protein Albumin 08/18/20 08/18/20 06:16 07:35 WBC 10.4 RBC 4.97 Hgb 13.1 L Hct 40.7 L MCV 81.9 MCH 26.4 L MCHC 32.2 RDW 16.4 H Plt Count 210 MPV 11.4 Immature Gran % (Auto) Neut % (Auto) Lymph % (Auto) [place] % (Auto) Eos % (Auto) Baso % (Auto) Lymph # (Auto) [place] # (Auto) Eos # (Auto) Baso # (Auto) Abs Immat Gran (auto) Absolute Neuts (auto) Absolute Nucleated RBC 0.000 Nucleated RBC % (auto) 0.0 Smear Tech's Comments Hold Purple Top PT INR APTT PTT (Heparin Protocol) Hold Blue Top Sodium Potassium Chloride Carbon Dioxide Anion Gap BUN Creatinine Estim Creat Clear Calc Estimated GFR POC Glucose 130 H Random Glucose Lactic Acid Calcium Total Bilirubin AST ALT Alkaline Phosphatase C-Reactive Protein Total Protein Albumin Airway Mallampati Class: II TM Dist: >3cm Neck ROM: Full Loose/Missing/Broken Teeth: No Heart: IRRR Lungs: diffuse bilateral wheezing Assessment and Plan Assessment Anesthesia Assessment: Anesthesia Plan Discussed Final Anesthetic Review NPO: Yes ASA Class: IV and Emergency Final Preanesthetic Review: No Changes in Pt Med Stat, Meds/Allgs Chart Reviewed, Consent Obtained/Reviewed and Anes Risks/Benef Reviewed Patient Risk: High Procedure Risk: Low Anesthetic Plan Disposition: Standard PACU
--- NOTE | 2020-08-18 09:27 | HO.PM.IMPN ---
Subjective Subjective Date of Service: 08/18/20 Interval History: Seen in f/u for DVT of arm. No new changes, has abdominal pain ROS: no chest pain, + shortness of breath, abdominal pain Physical Exam Vital Signs: Vital Signs: Last Vital Signs Temp 97.1 F 08/18/20 07:36 Pulse 92 08/18/20 07:58 Resp 18 08/18/20 07:36 BP 113/72 08/18/20 07:36 Pulse Ox 97 08/18/20 07:36 Body Mass Index 39.0 Const: General: cooperative and no acute distress Orientation/consciousness: patient oriented x3 Resp: Effort & Inspection: able to speak in complete sentences and audible wheezes Cardio: Rate: regular rate Heart sounds: S1 normal heart sound present and S2 normal heart sound present GI: Inspection: Yes normal to inspection Palpation (GI): Soft to palpation and Tenderness to palpation present (GI) in the LLQ Percussion: Yes Other (no guarding) Skin: General skin exam: no rashes or lesions noted Neuro: General: patient oriented x3 Motor exam (neuro): 5/5 motor strength present throughout Extrem: Right upper extremity: edema Left upper extremity: normal to inspection Psych: Affect: Labile affect present Objective Data Current Medications Generic Name Dose Route Start Last Admin Trade Name Freq PRN Reason Stop Dose Admin Albuterol/Ipratropium 3 ml 08/13/20 08:00 08/18/20 07:56 Albuterol/Iprat 2.5/0.5mg 3 Ml Ampul.Neb INHALE 3 ml RQID JUDE Administration Amlodipine Besylate 5 mg 08/13/20 09:00 08/17/20 08:28 Amlodipine Besylate 5 Mg Tablet PO 5 mg DAILY JUDE Administration Protocol Aspirin 81 mg 08/13/20 09:00 08/17/20 08:28 Aspirin Enteric Coated 81 Mg Tablet. PO 81 mg DAILY JUDE Administration Atorvastatin Calcium 80 mg 08/13/20 21:00 08/17/20 20:33 Atorvastatin Calcium 80 Mg Tablet PO 80 mg BEDTIME JUDE Administration Clopidogrel Bisulfate 75 mg 08/13/20 09:00 08/17/20 08:29 Clopidogrel Bisulfate 75 Mg Tablet PO 75 mg DAILY JUDE Administration Furosemide 40 mg 08/13/20 09:00 08/17/20 08:29 Furosemide 40 Mg Tablet PO 40 mg DAILY JUDE Administration Protocol Gabapentin 300 mg 08/13/20 09:00 08/17/20 20:33 Gabapentin 300 Mg Capsule PO 300 mg TID JUDE Administration Hydromorphone HCl 2 mg 08/16/20 07:54 Hydromorphone Hcl 2 Mg Tablet PO Q4H PRN Pain, Severe (Pain Scale 7-10) Insulin Human Lispro 0 unit 08/13/20 07:30 08/18/20 07:45 Insulin Lispro 100 Unit/Ml 3 Ml Vial SUBCUT Not Given QIDACHS JUDE Protocol Losartan Potassium 50 mg 08/13/20 09:00 08/17/20 08:28 Losartan Potassium 50 Mg Tablet PO 50 mg DAILY JUDE Administration Protocol Metoprolol Succinate 75 mg 08/13/20 09:00 08/17/20 08:28 Metoprolol Succinate Er 25 Mg Tab.Er.24h PO 75 mg DAILY JUDE Administration Protocol Montelukast Sodium 10 mg 08/13/20 21:00 08/17/20 20:33 Montelukast Sodium 10 Mg Tablet PO 10 mg BEDTIME JUDE Administration Quetiapine Fumarate 100 mg 08/13/20 21:00 08/17/20 20:33 Quetiapine Fumarate 100 Mg Tablet PO 100 mg BEDTIME JUDE Administration Rivaroxaban 15 mg 08/14/20 08:30 08/17/20 16:40 Rivaroxaban 15 Mg Tablet PO 15 mg BIDWM JUDE Administration Sodium Chloride 3 ml 08/13/20 00:00 08/17/20 20:36 0.9 % Sodium Chloride Flush 3 Ml Syringe IVFLUSH 3 ml QSHIFT JUDE Administration Tamsulosin HCl 0.4 mg 08/13/20 09:00 08/17/20 08:28 Tamsulosin Hcl 0.4 Mg Capsule PO 0.4 mg DAILY JUDE Administration Labs CBC & Chem 7: 08/18/20 06:16 08/13/20 06:35 Assessment and Plan (1) DVT of axillary vein, acute right: Status: Acute Assessment and Plan: 65-year-old male with a past medical history of hypertension, hyperlipidemia, diabetes, COPD/ELI on CPAP, DVT/AFib on Eliquis, adjustment disorder presented to the hospital with a chief complaint of right upper extremity pain/abdominal pain. Noted to have right upper extremity DVT. Admitted to the hospital for further management. Recurrent DVT of the arm--compliance in question, he says he has been regular with eliquis. Was initially on IV heparin and transitioned to Lovenox. She was seen by Hematology and changed to Xarelto 15 bid for 21 days, follow by Xarelto 20 md daily thereafter and should be anticoagulated for life. Abdominal pain ---mostly chronic, exam bening, CT no acute finding. Seen by Surgery no indication for intervention. GI consultation is being requested. Has been on Dilaudid for pain. Hemoglobin has been stable indicating no bleeding. GI will be doing Flex sig today Hypertension/hyperlipidemia: Continue home medications Diabetes: Insulin sliding scale COPD: Stable nebulizations p.r.n. Seen by Pulmonology and recommend duoneb and Incruse upon discharge CPAP: Continue home CPAP History of AFib: Rate controlled. Xarelto for anticoagulation
--- NOTE | 2020-08-18 09:33 | W.PM.OPN ---
Operative Note Operative Note Date of Service: 08/18/20 Narrative: Pre-op diagnosis: LLQ pain, diarrhea, rectal bleeding Post-op diagnosis: other (Colon polyp, diverticulosis, hemorrhoids) Procedure: COLONOSCOPY TILL DISTAL TRANSVERSE COLON Consent: Indications for the procedure and potential complications of bleeding, perforation, reaction to medications and missed diagnosis were discussed with the patient and informed consent was obtained. Instrument: Olympus PCF H 190 L variable stiffness pediatric colonoscope Monitoring: Vital signs and clinical assessment, intermittent blood pressure monitoring, continuous EKG monitoring, Pulse oximetry and Carbon Dioxide monitoring were done throughout the procedure. Procedure: The patient was placed in the left lateral decubitis position and pre-procedure medications were administered. After a digital rectal examination of the ano-rectum, the video colonoscope was inserted into the rectum and advanced through the colon to 90 cms till the distal transverse colon (intent of the procedure). The colonoscope was slowly withdrawn in a retrograde panoramic fashion and the colon mucosa was carefully examined including a retroflexed view of the rectum. Findings and interventions are described below. Procedure Difficulty: Without difficulty Findings: Terminal Ileum: Not evaluated Cecum: Not evaluated Ascending Colon: Not evaluated Transverse Colon: Partially evaluated Descending Colon: Partially evaluated Sigmoid Colon: A 4-5 mm sessile polyp - not removed since pt is on anticoagulation. Scattered mild diverticulosis Rectum: Normal Ano-rectum: Moderate internal hemorrhoids - likely source of rectal bleeding Colon preparation: Poor Impression and Post Procedure Diagnosis: Colonoscopy Findings: One small polyp detected - not removed since pt is on anticoagulation. Scattered mild diverticulosis in the sigmoid colon Moderate hemorrhoids on retroflexed exam - likely source for rectal bleeding. Poor prep with solid stools throughout the colon. Colon mucosa appeared normal without evidence of colitis. Plan: Hydrocortisone cream twice daily for hemorrhoids. Advise repeat Colonoscopy in 6 to 12 months for polyp removal (will need to be bridged for the procedure). Above findings were reviewed with the patient. Surgeon: Omaira Hummel MD Anesthesia: MAC (DR Kilgore) Application Design Engineer: Anders Cuadra Estimated blood loss (mL): 0 Pathology: none sent Condition: stable Disposition: PACU
--- NOTE | 2020-08-18 09:33 | MHC.SHP ---
Pre-Procedural Eval Section A The patient is an INPATIENT: Yes Changes since office visit: Yes New Medical Problems, Yes Changes in Medication and Yes Patient answered all questions; No Cold of Flu in the past 2 weeks The History & Physical has been completed within 30 days and I have reviewed it.: Yes Section B Chief Complaint: RUE DVT Allergies: Allergies Allergy/AdvReac Type Severity Reaction Status Date / Time nitroglycerin [NITROGLYCERIN] Allergy Severe CARDIOPULMONARY Verified 08/12/20 22:18 ARREST 2011 adhesive tape [Adhesive Tape] Allergy Mild BLISTERS Verified 08/12/20 22:18 cephalexin [From Keflex] Allergy Unknown ITCHING Verified 08/12/20 22:18 ciprofloxacin [From Cipro] Allergy Unknown ITCHING Verified 08/12/20 22:18 latex [LATEX] Allergy Unknown UNKNOWN Verified 08/12/20 22:18 morphine [Morphine] Allergy Unknown ITCHING Verified 08/12/20 22:18 diltiazem Allergy Unknown Verified 08/12/20 22:18 tramadol [From ULTRAM] AdvReac Severe STOMACH Verified 08/12/20 22:18 UPSET Plan I have reviewed the history and physical and performed a pertinent physical examination on my patient. No changes have occurred unless specified.
--- NOTE | 2020-08-18 10:30 | PC.NURSE ---
c/o abd pain 02/18 patient states he had the same pain as he once started. no changes.
--- NOTE | 2020-08-18 10:42 | PC.NURSE ---
VERBAL REPORT GIVEN TO ELEANOR EUBANKS ON [facility]. ROOM 361. SITTING UP IN BED ALERT AND AWAKE. NO OTHER COMPLAINTS. D/C PACU.
--- NOTE | 2020-08-18 10:46 | MHC.CM.PN ---
nurse urgent care technician note ELECTRONIC MEDICAL RECORD REVIEWED ALONG WITH CASE DISCUSSED WITH STAFF NURSE AND SURGICAL P.A., PER DOCUMENTATION :PATIENT IS S/P 2?/21 COLONIOSCOPY TILL DISTA TRANSVERSE COLON FR DIAGNOSIS OF LEFT LOWER QUADRANT ABDOMINAL PAIN, DIARRHEA AND RECTAL BLEEDING, POST PROCEDURE IT WAS NOTED THAT HE HAS A COON POLYP, DIVERTICULOSIS HEMRORHOIDS SAMEER BONE TENDER TO CONTINUE TO FOLLOW FOR ANY CHANGES IN DISCHARGE NEEDS R TRANSPORTATION WHEN DISCHARGE
[2020-08-18] MEDS: Losartan Potassium 50 MG TABLET PO (11:16)
[2020-08-18] MEDS: Furosemide 40 MG TABLET PO (11:16)
[2020-08-18] MEDS: Rivaroxaban 15 MG TABLET PO ×2 (11:16→18:33)
[2020-08-18] MEDS: Clopidogrel Bisulfate 75 MG TABLET PO (11:16)
[2020-08-18] MEDS: Metoprolol Succinate ER 25 MG TAB.ER.24H 75 MG PO (11:16)
[2020-08-18] MEDS: amLODIPine Besylate 5 MG TABLET PO (11:16)
[2020-08-18] MEDS: Tamsulosin HCL 0.4 MG CAPSULE PO (11:16)
[2020-08-18] MEDS: Aspirin Enteric Coated 81 MG TABLET.DR PO (11:17)
[2020-08-18] MEDS: 0.9 % Sodium Chloride Flush 3 ML SYRINGE IVFLUSH ×3 (11:18→23:00)
[2020-08-18 11:27] LABS: Glucose, Whole Blood 143 mg/dL (60-115)
[2020-08-18] MEDS: Hydrocortisone 2.5 % Rectal Cr 30 GM TUBE 1 APPL PR ×2 (12:06→20:35)
[2020-08-18] MEDS: Gabapentin 300 MG CAPSULE PO ×2 (15:19→20:30)
[2020-08-18 16:27] LABS: Glucose, Whole Blood 369 mg/dL (60-115)
[2020-08-18] MEDS: Insulin Lispro 100 UNIT/ML 3 ML VIAL SUBCUT ×2 (16:48→20:31)
--- NOTE | 2020-08-18 18:50 | PC.NURSE ---
1630 - Blood glucose 369. Dr. Dia made aware. No additional insulin ordered. 10 units insulin given per SS. Patient eating dinner. No complaints at this time.
[2020-08-18 20:08] LABS: Glucose, Whole Blood 241 mg/dL (60-115)
[2020-08-18] MEDS: Atorvastatin Calcium 80 MG TABLET PO (20:30)
[2020-08-18] MEDS: QUEtiapine Fumarate 100 MG TABLET PO (20:30)
[2020-08-18] MEDS: Montelukast Sodium 10 MG TABLET PO (20:31)
[2020-08-19 04:00] VITALS: BP 108/65; PULSE 80; RESP 18; TEMP 35.9; O2SAT 97
[2020-08-19 07:40] LABS: Glucose, Whole Blood 195 mg/dL (60-115)
[2020-08-19 07:41] VITALS: PULSE 77; O2SAT 99
[2020-08-19] MEDS: Albuterol/Iprat 2.5/0.5MG 3 ML AMPUL.NEB INHALE ×2 (07:41→12:07)
[2020-08-19 08:00] VITALS: BP 121/74; PULSE 98; RESP 18; TEMP 36.6; O2SAT 96
[2020-08-19] MEDS: Insulin Lispro 100 UNIT/ML 3 ML VIAL SUBCUT ×2 (08:27→11:38)
[2020-08-19 08:28] VITALS: BP 121/74
[2020-08-19] MEDS: Losartan Potassium 50 MG TABLET PO (08:28)
[2020-08-19] MEDS: Aspirin Enteric Coated 81 MG TABLET.DR PO (08:29)
[2020-08-19] MEDS: Metoprolol Succinate ER 25 MG TAB.ER.24H 75 MG PO (08:29)
[2020-08-19] MEDS: Tamsulosin HCL 0.4 MG CAPSULE PO (08:29)
[2020-08-19] MEDS: Furosemide 40 MG TABLET PO (08:29)
[2020-08-19] MEDS: Clopidogrel Bisulfate 75 MG TABLET PO (08:30)
[2020-08-19] MEDS: amLODIPine Besylate 5 MG TABLET PO (08:30)
[2020-08-19] MEDS: Rivaroxaban 15 MG TABLET PO (08:30)
[2020-08-19] MEDS: Gabapentin 300 MG CAPSULE PO (08:30)
[2020-08-19] MEDS: 0.9 % Sodium Chloride Flush 3 ML SYRINGE IVFLUSH (08:31)
[2020-08-19 10:02] VITALS: O2SAT 94
[2020-08-19 11:08] VITALS: BP 123/86; PULSE 109; RESP 19; TEMP 36.3; O2SAT 93
[2020-08-19 11:21] LABS: Glucose, Whole Blood 320 mg/dL (60-115)
--- NOTE | 2020-08-19 12:06 | MHC.CM.PN ---
PATIENT IS DISCHARGED HOME TODAY @ 14:30 - SELF CARE. [facility] REFERRAL PLACED RN AND PATIENT AWARE OF PLAN. IMM 08/17 IN CHART
--- NOTE | 2020-08-19 13:06 | W.MHC.F2F ---
Service Date Service Date: 08/19/20 Encounter Date of encounter: 08/19/20 Reasons for Services Reason for nursing home: CV/CP assess and/or care and GI/ assessment Reason for physical therapy: home safety and mobility Homebound: Leaving the home is medically contraindicated at this time without the asist of a device and/or another person due th the listed conditions above and below. Reason homebound: other Homebound supporting statement: post hospitalization weakness and deconditioning, and thefore needs the assistance of another person Certification: Based on the above findings, I certify that this patient is confined to the home and needs intermittent nursing home care, physical therapy and/or speech therapy, or continues to need occupational therapy. The patient is under my care, and I have initiated the establishment of the plan of care. The patient will be followed by a physician who will periodically review the plan of care.
--- NOTE | 2020-08-19 13:24 | MHC.CM.PN ---
Change of plan. [facility] set up for [facility]
--- NOTE | 2020-08-19 13:39 | HO.POSTANES ---
Post Anesthesia Evaluation Post Anesthesia Evaluation Vital Signs: Vital Signs Temp Pulse Resp BP Pulse Ox 08/19/20 11:08 97.3 F 109 H 19 123/86 93 08/19/20 08:28 121/74 08/19/20 08:00 98 F 98 18 121/74 96 08/19/20 07:41 77 08/19/20 04:00 96.6 F L 80 18 108/65 97 Anesthesia: Monitored Mental Status: Awake Nausea/Vomiting: None Hydration: Adequate Anesthesia-Related Issues: No Anes. Related Issues
--- NOTE | 2020-08-19 13:52 | MHC.CM.PN ---
PATIENT TO RETURN HOME WITH [facility]
== END 2020-08-19 15:10 | disposition home health service (06) | DRG 299 ==
LOC: HO.ED 23:18 → HO.EDOVER 08-13 10:19 → HO.S3 08-13 16:51
PROVIDERS: Internal Medicine Gastroenterology; Admitting Provider Hospitalist; Emergency Provider Student in an Organized Health Care Education/Training Program; PCP Internal Medicine; Visit Provider Internal Medicine
PROC: 0DJD8ZZ Inspection of Lower Intestinal Tract, Via Natural or Artificial Opening Endoscopic (ICD-10-PCS; CPT 45378; principal; 2020-08-18 09:30)
DX: I82.A11 Acute embolism and thrombosis of right axillary vein (principal); I50.23 Acute on chronic systolic (congestive) heart failure; K57.31 Diverticulosis of large intestine without perforation or abscess with bleeding; J96.10 Chronic respiratory failure, unspecified whether with hypoxia or hypercapnia; K21.9 Gastro-esophageal reflux disease without esophagitis; G47.33 Obstructive sleep apnea (adult) (pediatric); Z99.89 Dependence on other enabling machines and devices; K63.5 Polyp of colon; K64.8 Other hemorrhoids; I48.91 Unspecified atrial fibrillation; G89.29 Other chronic pain; J44.9 Chronic obstructive pulmonary disease, unspecified; E78.5 Hyperlipidemia, unspecified; F41.9 Anxiety disorder, unspecified; Z23 Encounter for immunization; Z87.891 Personal history of nicotine dependence; Z88.5 Allergy status to narcotic agent; Z79.4 Long term (current) use of insulin; Z79.01 Long term (current) use of anticoagulants; Z79.02 Long term (current) use of antithrombotics/antiplatelets; Z79.82 Long term (current) use of aspirin; Z79.899 Other long term (current) drug therapy
CPT/HCPCS: 0241U; 36415; 71045; 71046; 74176; 74177; 78580; 80048; 80053; 82009; 82803; 82947; 83605; 83690; 83735; 83880; 84484; 85007; 85025; 85027; 85060; 85379; 85610; 85730; 86140; 87040; 90471; 90686; 93005; 93971; 94640; 94664; 96361; 96365; 96366; 96374; 96375; 96376; 99284; 99285; A9540; J1170; J1650; J1940; J2060; J2405; J2920; J2930; J3010; Q9967

== ENCOUNTER → 2020-09-24 13:54 | Outpatient (BNVA) | payer MEDICARE, MEDICAID, SELFPAY | PROVIDERS: PCP Family Medicine Geriatric Medicine; Visit Provider Internal Medicine | DX: R91.1 Solitary pulmonary nodule (principal); G47.33 Obstructive sleep apnea (adult) (pediatric); J44.9 Chronic obstructive pulmonary disease, unspecified; J96.11 Chronic respiratory failure with hypoxia; J96.12 Chronic respiratory failure with hypercapnia; Z87.891 Personal history of nicotine dependence; Z79.51 Long term (current) use of inhaled steroids | CPT/HCPCS: 99212 ==